=== PATIENT | male | born 1970 | race Caucasian/White ===

== ENCOUNTER 2016-12-23 21:33 | Inpatient (IN) | payer OTHER ==
[~2016-12-23] VITALS: Ht 180.3 cm; Wt 102.7 kg
[~2016-12-23 21:33] MED LIST: CEPH500C PO; HYDR-906 PO
[2016-12-24 02:29] VITALS: BP 21/58; PULSE 95; RESP 19
[2016-12-24 02:32] VITALS: Ht 180.3 cm; Wt 102.7 kg
[2016-12-24] MEDS ORDERED: FURO20TA3 PO (02:34)
[2016-12-24] MEDS ORDERED: FOLI-49 PO (02:34)
[2016-12-24] MEDS ORDERED: THIA50TA PO (02:34)
[2016-12-24] MEDS ORDERED: SPIR25TA PO (02:34)
[2016-12-24] MEDS ORDERED: ACETAMINOPHEN 325 MG TAB PO PRN (03:30)
[2016-12-24] MEDS ORDERED: morphine 2 MG INJ IV PRN (03:30)
[2016-12-24] MEDS ORDERED: ONDANSETRON 4 MG INJ IV PRN (03:30)
[2016-12-24] MEDS ORDERED: VANCOMYCIN IV PER PHARMACY XX SCH (03:30)
[2016-12-24] MEDS ORDERED: VANCOMYCIN 2 GM in SOD CHLORIDE 0.9% 500 ML IVPB ONE (04:00)
[2016-12-24 04:57] LABS: ABNORMAL IP MESSAGE 1; BASOPHIL # 0.1 10^3/ul (0.0-0.1); BASOPHILS % 0.6 % (0.0-2.0); EOSINOPHILS % 0.1 % (0.0-7.0); HEMATOCRIT 30.8 % (42.0-52.0); HEMOGLOBIN 10.7 g/dl (14.0-18.0); LYMPHOCYTES # 0.8 10^3/ul (0.8-2.9); LYMPHOCYTES % 7.7 % (15.0-51.0); MEAN CORPUSCULAR HEMOGLOBIN 36.6 pg (29.0-33.0); MEAN CORPUSCULAR HGB CONC 34.7 g/dl (32.0-37.0); MEAN CORPUSCULAR VOLUME 105.5 fl (82.0-101.0); MEAN PLATELET VOLUME 10.2 fl (7.4-10.4); MONOCYTE # 0.6 10^3/ul (0.3-0.9); MONOCYTES % 5.6 % (0.0-11.0); NEUTROPHIL # 9.2 10^3/ul (1.6-7.5); NEUTROPHILS % 85.1 % (39.0-77.0); PLATELET COUNT 54 10^3/UL (140-415); POSITIVE DIFF @See below; RED BLOOD COUNT 2.92 10^6/ul (4.70-6.10); RED CELL DISTRIBUTION WIDTH 14.6 % (11.5-14.5); WHITE BLOOD COUNT 10.8 10^3/ul (4.8-10.8)
[2016-12-24 05:37] LABS: ALBUMIN 2.2 g/dl (3.3-4.9); BILIRUBIN,DIRECT 1.6 mg/dl (0.00-0.20); BILIRUBIN,INDIRECT 7.2 mg/dl (0-1.1); BILIRUBIN,TOTAL 8.8 mg/dl (0.2-1.3); TOTAL PROTEIN 6.1 g/dl (6.1-8.1)
--- NOTE | 2016-12-24 05:44 | HP ---
Date/Time of Note Date/Time of Note DATE: 12/24/16 TIME: 05:32 Assessment/Plan VTE Prophylaxis VTE Prophylaxis Intervention: SCD's Lines/Catheters IV Catheter Type (from [facility]): Saline Lock Assessment/Plan Assessment/Plan 1. Right lower extremity cellulitis -He will be placed on antibiotics. We will follow up on the blood culture results. 2. Decompensated liver cirrhosis: Patient is currently on transplant list at [facility]. His last drink was in May of last year. -We will continue his Lasix and Aldactone. I will start him on lactulose especially given reported symptoms of hepatic encephalopathy. If his blood pressure allows I will also start him on propranolol. Patient was scheduled for outpatient surveillance EGD but he said he missed it. He will follow-up once she is discharged. -We will order right upper quadrant ultrasound and ammonia level 3. Elevated transaminases: Secondary to above. 4. Macrocytic anemia: Secondary to liver disease. -We will check FOBT to make sure there is no GI blood loss. HPI/ROS Admit Date/Time Admit Date/Time Dec 24, 2016 at 02:22 Hx of Present Illness This is a 46-year-old male with a history of alcoholic liver cirrhosis who presented to the emergency department complaining of right lower extremity swelling redness and warmth. He was initially seen at the outside hospital but transferred to [facility] because of insurance reason. He said about a month and half ago he had a similar problem on his left lower extremity which resolved after a few days of antibiotics. He also reported associated subjective fever. Patient is currently at the liver transplant list at [facility]. He said he has been drinking heavily most of his life up until May of last year when he found out about his liver cirrhosis. He denied history of GI bleed, dark stool or paracentesis. He however reported that he has been feeling very lethargic and he has been using either a walker or a wheelchair and also at times he has been forgetful. Patient appears slightly tired and he is jaundiced. At the outside hospital he had a white count of 16,000 and here after admission his white count 10,000 but he has a temperature of 100.1. PMH/Family/Social Social History Smoking Status: Never smoker Exam/Review of Systems Vital Signs Vitals Vital Signs Date Time Temp Pulse Resp B/P Pulse Ox O2 Delivery O2 Flow Rate FiO2 12/24/16 02:29 100.1 95 19 21/58 99 Room Air Intake and Output 12/23/16 12/23/16 12/24/16 15:00 23:00 07:00 Intake Total 300 ml Balance 300 ml Exam Constitutional: alert, oriented, well developed Head: atraumatic, normocephalic Eyes: icteric Neck: non-tender, supple Respiratory: clear to auscultation, normal air movement Cardiovascular: nl pulses, regular rate and rhythm Gastrointestinal: distended, non-tender Extremities: other (There is bilateral lower extremity pitting edema. Right leg is more swollen than the right and it is also warm to touch. There is also hyperpigmentation of the bilateral lower extremities.) Labs Result Diagram: 12/24/16 0425 Medications Medications Current Medications Acetaminophen 325 mg 325 mg Q6H PRN PO PAIN AND OR ELEVATED TEMP; Start at 03:30 Cefepime HCl (Maxipime 1gm/50 ml (Pmx)) 50 ml @ 100 mls/hr Q12 IVPB ; Start at 09:00 Ondansetron HCl (Zofran Inj) 4 mg Q6H PRN IV NAUSEA AND/OR VOMITING; Start at 03:30 Morphine Sulfate (morphine) 2 mg Q4H PRN IV pain; Start 12/24/16 at 03:30 Folic Acid (Folic Acid) 1 mg DAILY PO ; Start 12/24/16 at 09:00 Spironolactone (Aldactone) 25 mg DAILY PO ; Start 12/24/16 at 09:00 Thiamine HCl 50 mg 50 mg DAILY PO ; Start 12/24/16 at 09:00 Vancomycin HCl/ Sodium Chloride (Vancocin/NS) 500 ml @ 125 mls/hr ONCE ONCE IVPB Last administered on 12/24/16t 04:33; Admin Dose 125 MLS/HR; Start at 04:00; Stop 12/24/16 at 07:59 JS JACKSON MD Dec 24, 2016 05:43
[2016-12-24 06:00] VITALS: BP 105/55
[2016-12-24] MEDS ORDERED: LACTULOSE 30ML CUP PO SCH (06:00)
[2016-12-24] MEDS: FUROSEMIDE 20 MG TAB PO SCH ×2 (06:01→18:17)
[2016-12-24 06:55] LABS: ALBUMIN 2.3 g/dl (3.3-4.9); ALBUMIN/GLOBULIN RATIO 0.6; BILIRUBIN,DIRECT 1.8 mg/dl (0.00-0.20); BILIRUBIN,INDIRECT 7.2 mg/dl (0-1.1); CALCIUM 7.7 mg/dl (8.4-10.2); CREATININE 0.86 mg/dl (0.61-1.24); MAGNESIUM 1.4 mg/dl (1.7-2.5); PHOSPHORUS 2.6 mg/dl (2.5-4.9); POTASSIUM 4.2 mmol/L (3.5-5.1); TOTAL PROTEIN 6.1 g/dl (6.1-8.1)
[2016-12-24 07:49] VITALS: BP 99/58; RESP 18
[2016-12-24] MEDS ORDERED: SPIRONOLACTONE 25 MG TAB PO SCH (09:00)
--- NOTE | 2016-12-24 10:43 | RADRPT ---
PROCEDURE: US Abdomen and Retroperitoneum. CLINICAL INDICATION: Cirrhosis. TECHNIQUE: Multiple real-time longitudinal and transverse images were acquired of the patient's ab domen and retroperitoneum utilizing a curved array transducer. COMPARISON: No prior studies are available for comparison. FINDINGS: The liver is normal in size and normal in echogenicity. The liver has a nodular surface consistent with cirrhosis. There is no focal hepatic lesion. Color Doppler and pulsed Doppler sonography demons trate normal antegrade flow in the portal vein. The gallbladder is normal with no stones or wall thickening. The bile ducts are normal with the common bile duct measuring 4.0 mm in diameter. The spleen is enlarged measuring 18.6 cm in length. There is no focal splenic lesion. The pancreas is not visualized due to overlying bowel gas and ascites. There is moderate ascites. The right kidney measures 10.2 x 4.6 x 5.7 cm and the left kidney measures 11.5 x 5.0 x 5.2 cm. There is no renal mass. There is no hydronephrosis or calculus. The abdominal aorta is not dilated. The inferior vena cava is unremarkable. IMPRESSION: 1. Nodular liver consistent with cirrhosis. No focal hepatic lesion. 2. Splenomegaly. 3. Pancreas not visualized. 4. Moderate ascites. 5. Otherwise normal ultrasound of the abdomen and retroperitoneum. RPTAT: QQ .David Mosley MD, Date Time Electronically viewed and signed by .David Mosley MD, on 12/24/2016 10:43 .R/
[2016-12-24] MEDS: THIAMINE 100 MG TAB PO SCH (10:54)
[2016-12-24] MEDS: FOLIC ACID 1 MG TAB PO SCH (10:54)
[2016-12-24] MEDS: CEFEPIME 1GM/50 ML (PMX) 50 ML IVPB SCH ×2 (10:56→20:32)
--- NOTE | 2016-12-24 13:25 | QN ---
Documentation Comment Patient is a 46-year-old male with a past medical history significant for end-stage liver cirrhosis on the transplant list at [facility], who presents for right lower extremity cellulitis Assessment Decompensated liver cirrhosis Right lower extremity cellulitis LE bilateral edema Elevated transaminases Elevated bilirubin Anemia Plan -Broad-spectrum antibiotics for cellulitis, will transition to orals as possible -GI, Dr. Lin consulted for end-stage liver disease -Increase spironolactone from 25 mg to 50 mg -Pain medication as needed SPENCER Schmitz Dec 24, 2016 13:25
[2016-12-24] MEDS: VANCOMYCIN 1.25 GM in SOD CHLORIDE 0.9% 250 ML IVPB SCH ×2 (14:22→21:30)
[2016-12-24 14:31] VITALS: BP 106/59; RESP 18
--- NOTE | 2016-12-24 14:55 | CONS ---
Date/Time of Note Date/Time of Note DATE: 12/24/16 TIME: 14:39 Assessment/Plan Assessment/Plan Additional Assessment/Plan Assessment * Cellulitis right lower leg * Ascites moderate by ultrasound Cirrhosis of liver secondary to alcohol * Transaminase elevated Plan * continue present management * EGD on Monday for surveillance of varices,risks and benefit explain to patient agreed with the planned procedure * further orders will depend on clinical course Consultation Date/Type/Reason Admit Date/Time Dec 24, 2016 at 02:22 Date of Consultation: Dec 24, 2016 Type of Consultation: Gastroenterology Reason for Consultation * liver cirrhosis Referring Provider: SPENCER JADE Hx of Present Illness 46 year old male with endstage liver disease,ascites secondary to alcoholic liver disease ,claims to be under liver transplant list at [facility] presented in our emergency room because of right leg pain.present condition started 1 day prior to consult as left leg pain which is warm to touch with associated fever.He denies any nausea ,vomiting,abdominal pain,hematemesis nor hematochezia.He also mentioned that he is scheduled to have EGD at [facility] for surveillance but failed to do .Presently patient is afebrile,no abdominal pain.CBC revealed WBC 10.8, hemoglobin 10.7,hematocrit 30.8,total bilirubin 8,ast 62,alt 52 alkaline phosphatase 178,ammonia 9 Constitutional: improved, no complaints Eyes: no complaints ENT: no complaints Respiratory: no complaints Cardiovascular: no complaints Gastrointestinal: no complaints Genitourinary: no complaints Musculoskeletal: no complaints Skin: no complaints Neurologic: no complaints Endocrine: no complaints Lymphatic: no complaints Psychological: nl mood/affect, no complaints Immunologic: no complaints Past Medical History Medical History: other (alcoholoic liver cirrhosis) Past Surgical History Past Surgical Hx: no surgical history Family History Significant Family History: no pertinent family hx Social History Alcohol Use: sober Smoking Status: Never smoker Drug Use: none Exam/Review of Systems Vital Signs Vitals Vital Signs Date Time Temp Pulse Resp B/P Pulse Ox O2 Delivery O2 Flow Rate FiO2 12/24/16 14:31 98.3 79 18 106/59 99 12/24/16 02:29 Room Air Intake and Output 12/23/16 12/23/16 12/24/16 15:00 23:00 07:00 Intake Total 300 ml Balance 300 ml Exam Constitutional: alert, oriented, well developed Psych: nl mood/affect, no complaints Head: atraumatic, normocephalic Eyes: EOMI, PERRL, nl conjunctiva, nl lids, nl sclera ENMT: nl external ears & nose, nl lips & teeth, nl nasal mucosa & septum Neck: non-tender, supple Respiratory: clear to auscultation, normal air movement Cardiovascular: nl pulses, regular rate and rhythm Gastrointestinal: ascites, bowel sounds, distended, non-tender, soft, No rebound or guarding Musculoskeletal: nl gait and stance, swelling Extremities: normal pulses, other (warm to touch), pitting pedal edema, tenderness Neurological: nl mental status, nl speech, nl strength Skin: nl turgor, No rash or lesions Lymph: nl lymph nodes Results Result Diagram: 12/24/1642412/24/16424 Results 24 hrs Laboratory Tests Test 12/24/16 04:25 12/24/16 05:35 White Blood Count 10.8 Red Blood Count 2.92 L Hemoglobin 10.7 L Hematocrit 30.8 L Mean Corpuscular Volume 105.5 H Mean Corpuscular Hemoglobin 36.6 H Mean Corpuscular Hemoglobin Concent 34.7 Red Cell Distribution Width 14.6 H Platelet Count 54 L Mean Platelet Volume 10.2 Neutrophils % 85.1 H Lymphocytes % 7.7 L Monocytes % 5.6 Eosinophils % 0.1 Basophils % 0.6 Nucleated Red Blood Cells % 0.0 Neutrophils # 9.2 H Lymphocytes # 0.8 Monocytes # 0.6 Eosinophils # 0.0 Basophils # 0.1 Nucleated Red Blood Cells # 0.0 Sodium Level 137 Potassium Level 4.2 Chloride Level 109 Carbon Dioxide Level 17 L Anion Gap 15 Blood Urea Nitrogen 13 Creatinine 0.86 Glucose Level 137 Calcium Level 7.7 L Phosphorus Level 2.6 Magnesium Level 1.4 L Total Bilirubin 9.0 H Direct Bilirubin 1.80 H Indirect Bilirubin 7.2 H Aspartate Amino Transf (AST/SGOT) 62 H Alanine Aminotransferase (ALT/SGPT) 53 Alkaline Phosphatase 178 H Total Protein 6.1 Albumin 2.3 L Globulin 3.80 H Albumin/Globulin Ratio 0.60 Ammonia < 9 L Medications Medications Current Medications Acetaminophen 325 mg 325 mg Q6H PRN PO PAIN AND OR ELEVATED TEMP; Start at 03:30 Cefepime HCl (Maxipime 1gm/50 ml (Pmx)) 50 ml @ 100 mls/hr Q12 IVPB Last administered on 12/24/16 10:56; Admin Dose 100 MLS/HR; Start 12/24/16 at 09:00 Ondansetron HCl (Zofran Inj) 4 mg Q6H PRN IV NAUSEA AND/OR VOMITING; Start at 03:30 Morphine Sulfate (morphine) 2 mg Q4H PRN IV pain; Start 12/24/16 at 03:30 Folic Acid (Folic Acid) 1 mg DAILY PO Last administered on 12/24/16 10:54; Admin Dose 1 MG; Start 12/24/16 at 09:00 Thiamine HCl (Vitamin B1) 50 mg DAILY PO Last administered on 12/24/16 10:54; Admin Dose 50 MG; Start 12/24/16 at 09:00 Lactulose 20 gm 20 gm Q8 PO Last administered on 12/24/16 06:00; Admin Dose 20 GM; Start 12/24/16 at 06:00; Status Future Hold Vancomycin HCl/ Sodium Chloride (Vancocin/NS) 250 ml @ 83.333 mls/ hr Q8H IVPB Last administered on 12/24/16 14:22; Admin Dose 83.333 MLS/HR; Start at 14:00 Miscellaneous Information (*Rx Drug Level Order Reminder*) VANCOMYCIN TROUGH AT 0500 ONCE ONCE XX ; Start 12/25/16 at 05:00; Stop 12/25/16 at 05:01 Spironolactone (Aldactone) 50 mg DAILY PO ; Start 12/25/16 at 09:00 ANNABELLE BOBBY MD Dec 24, 2016 14:49
[2016-12-24 17:49] VITALS: BP 116/59; RESP 18
[2016-12-24 19:57] VITALS: BP 119/58; RESP 20
[2016-12-25] MEDS: LORAZEPAM 2 MG INJ IV PRN ×2 (00:56→22:28)
[2016-12-25] MEDS: ALBUMIN HUMAN 25% 50 ML IV SCH ×3 (00:58→14:00)
[2016-12-25 01:43] VITALS: BP 99/57; RESP 20
[2016-12-25] MEDS: FUROSEMIDE 20 MG TAB PO SCH ×2 (06:00→18:16)
[2016-12-25] MEDS: VANCOMYCIN 1.25 GM in SOD CHLORIDE 0.9% 250 ML IVPB SCH (06:21)
[2016-12-25 06:40] LABS: ABNORMAL IP MESSAGE 1; BASOPHIL # 0.1 10^3/ul (0.0-0.1); BASOPHILS % 0.7 % (0.0-2.0); EOSINOPHILS # 0.3 10^3/ul (0.0-0.5); EOSINOPHILS % 2.4 % (0.0-7.0); HEMATOCRIT 27.7 % (42.0-52.0); HEMOGLOBIN 9.7 g/dl (14.0-18.0); LYMPHOCYTES # 1.8 10^3/ul (0.8-2.9); LYMPHOCYTES % 13.7 % (15.0-51.0); MEAN CORPUSCULAR HEMOGLOBIN 37.3 pg (29.0-33.0); MEAN CORPUSCULAR VOLUME 106.5 fl (82.0-101.0); MEAN PLATELET VOLUME 10.5 fl (7.4-10.4); MONOCYTE # 1.8 10^3/ul (0.3-0.9); MONOCYTES % 13.4 % (0.0-11.0); NEUTROPHIL # 8.7 10^3/ul (1.6-7.5); NEUTROPHILS % 65.7 % (39.0-77.0); NUCLEATED RED BLOOD CELLS% 0.2 /100WBC (0.0-0.0); PLATELET COUNT 60 10^3/UL (140-415); POSITIVE DIFF @See below; RED CELL DISTRIBUTION WIDTH 14.1 % (11.5-14.5); WHITE BLOOD COUNT 13.2 10^3/ul (4.8-10.8)
[2016-12-25 06:54] LABS: INR 2.24
[2016-12-25 06:55] LABS: PARTIAL THROMBOPLASTIN TIME 48.4 Sec (25.0-35.0)
[2016-12-25 06:58] LABS: ALBUMIN 2.4 g/dl (3.3-4.9); BILIRUBIN,DIRECT 2.9 mg/dl (0.00-0.20); BILIRUBIN,INDIRECT 6.6 mg/dl (0-1.1); BILIRUBIN,TOTAL 9.5 mg/dl (0.2-1.3); CALCIUM 8.4 mg/dl (8.4-10.2); CREATININE 0.78 mg/dl (0.61-1.24); MAGNESIUM 1.7 mg/dl (1.7-2.5); PHOSPHORUS 2.2 mg/dl (2.5-4.9); POTASSIUM 4.4 mmol/L (3.5-5.1); TOTAL PROTEIN 6.4 g/dl (6.1-8.1)
[2016-12-25 07:58] VITALS: BP 108/57; RESP 19
[2016-12-25] MEDS: THIAMINE 100 MG TAB PO SCH (09:10)
[2016-12-25] MEDS: CEFEPIME 1GM/50 ML (PMX) 50 ML IVPB SCH ×2 (09:10→20:54)
[2016-12-25] MEDS: SPIRONOLACTONE 50 MG TAB PO SCH (09:10)
[2016-12-25] MEDS: FOLIC ACID 1 MG TAB PO SCH (09:10)
[2016-12-25 13:54] VITALS: BP 110/56; RESP 19
--- NOTE | 2016-12-25 14:52 | PN ---
Date/Time of Note Date/Time of Note DATE: 12/25/16 TIME: 14:50 Assessment/Plan VTE Prophylaxis VTE Prophylaxis Intervention: ambulation Lines/Catheters IV [facility]ter Type (from [facility]): Saline Lock Assessment/Plan Chief Complaint/Hosp Course Patient is a 46-year-old male who presents to [facility] complaining of right lower extremity swelling redness and warmth. Patient has a history of alcoholic liver cirrhosis on the transplant list at [facility]. Assessment Right lower extremity cellulitis, resolving Decompensated liver cirrhosis Elevated transaminases Elevated bilirubin Microcytic anemia Ascites lower extremity bilateral edema Plan -Continue broad-spectrum antibiotics for now for cellulitis, resolving, will transition to orals before discharge -GI has been consulted, possible EGD tomorrow -Paracentesis has also been ordered, however radiology states INR is too high, will order 2 units of FFP to be done right before paracentesis scheduled for December 26. -Continue medications as tolerated, increased dose of spironolactone from 25-50 mg yesterday, consider increase if needed. Matt Jade DO Problems: Subjective 24 Hr Interval Summary Free Text/Dictation no acute change. awaiting paracentesis and EGD Exam/Review of Systems Vital Signs Vitals Vital Signs Date Time Temp Pulse Resp B/P Pulse Ox O2 Delivery O2 Flow Rate FiO2 12/25/16 13:54 98.7 92 19 110/56 97 12/24/16 02:29 Room Air Intake and Output 12/24/16 12/24/16 12/25/16 15:00 23:00 07:00 Intake Total 550 ml 890 ml 350 ml Output Total 300 ml Balance 550 ml 890 ml 50 ml Exam Physical exam General: Patient is laying in bed and answers questions appropriately Mentation: Patient is alert and oriented 4, Head: Normocephalic atraumatic Eyes: EOMI, pupils reactive to light Neck: Supple, nontender, midline Respiratory: Clear to auscultation bilaterally Cardiovascular: regular rate, no obvious murmurs Gastrointestinal: non-tender to palpation, bowel sounds heard. mildly distended Neurological: Moves all extremities spontaneously Skin: bilateral 2+ edema, slightly worse on R side. Results Result Diagram: 12/25/16 0505 12/25/16 0505 Results 24 hrs Laboratory Tests Test 12/25/16 05:05 White Blood Count 13.2 #H Red Blood Count 2.60 L Hemoglobin 9.7 L Hematocrit 27.7 L Mean Corpuscular Volume 106.5 H Mean Corpuscular Hemoglobin 37.3 H Mean Corpuscular Hemoglobin Concent 35.0 Red Cell Distribution Width 14.1 Platelet Count 60 L Mean Platelet Volume 10.5 H Neutrophils % 65.7 Lymphocytes % 13.7 L Monocytes % 13.4 H Eosinophils % 2.4 Basophils % 0.7 Nucleated Red Blood Cells % 0.2 H Neutrophils # 8.7 H Lymphocytes # 1.8 Monocytes # 1.8 H Eosinophils # 0.3 Basophils # 0.1 Nucleated Red Blood Cells # 0.0 Prothrombin Time 25.0 H Prothrombin Time Ratio 2.0 INR International Normalized Ratio 2.24 Activated Partial Thromboplast Time 48.4 H Sodium Level 136 Potassium Level 4.4 Chloride Level 102 Carbon Dioxide Level 22 Anion Gap 16 Blood Urea Nitrogen 16 Creatinine 0.78 Glucose Level 107 Calcium Level 8.4 Phosphorus Level 2.2 L Magnesium Level 1.7 Total Bilirubin 9.5 H Direct Bilirubin 2.90 #H Indirect Bilirubin 6.6 H Aspartate Amino Transf (AST/SGOT) 51 H Alanine Aminotransferase (ALT/SGPT) 43 Alkaline Phosphatase 122 H Total Protein 6.4 Albumin 2.4 L Vancomycin Level Trough 17.6 Medications Medications Current Medications Acetaminophen 325 mg 325 mg Q6H PRN PO PAIN AND OR ELEVATED TEMP Last administered on 12/25/16 01:51; Admin Dose 325 MG; Start 12/24/16 at 03:30 Cefepime HCl (Maxipime 1gm/50 ml (Pmx)) 50 ml @ 100 mls/hr Q12 IVPB Last administered on 12/25/16 09:10; Admin Dose 100 MLS/HR; Start 12/24/16 at 09:00 Ondansetron HCl (Zofran Inj) 4 mg Q6H PRN IV NAUSEA AND/OR VOMITING; Start at 03:30 Morphine Sulfate (morphine) 2 mg Q4H PRN IV pain; Start 12/24/16 at 03:30 Folic Acid (Folic Acid) 1 mg DAILY PO Last administered on 12/25/16 09:10; Admin Dose 1 MG; Start 12/24/16 at 09:00 Thiamine HCl (Vitamin B1) 50 mg DAILY PO Last administered on 12/25/16 09:10; Admin Dose 50 MG; Start 12/24/16 at 09:00 Lactulose (Enulose) 20 gm Q8 PO Last administered on 12/24/16 06:00; Admin Dose 20 GM; Start 12/24/16 at 06:00; Status Future Hold Spironolactone (Aldactone) 50 mg DAILY PO Last administered on 12/25/16 09:10 ; Admin Dose 50 MG; Start 12/25/16 at 09:00 Lorazepam 1 mg 1 mg Q4 PRN IV ANXIETY Last administered on 12/25/16 00:56; Admin Dose 1 MG; Start 12/25/16 at 00:00 Vancomycin HCl (Vancocin) 250 ml @ 125 mls/hr Q8H IVPB ; Start 12/25/16 at 14: 00 MTAT JADE Dec 25, 2016 14:52
[2016-12-25] MEDS: VANCOMYCIN 1 GM in NS 250 ML IVPB SCH ×2 (15:38→22:35)
--- NOTE | 2016-12-25 19:38 | PN ---
Date/Time of Note Date/Time of Note DATE: 12/25/16 TIME: 19:35 Assessment/Plan VTE Prophylaxis VTE Prophylaxis Intervention: ambulation Lines/Catheters IV Catheter Type (from [facility]rs): Saline Lock Assessment/Plan Assessment/Plan Assessment * Cellulitis right lower leg * Anemia * Ascites moderate by ultrasound Cirrhosis of liver secondary to alcohol * Transaminase elevated Plan * continue present management * EGD on Monday for surveillance of varices,risks and benefit explain to patient agreed with the planned procedure * further orders will depend on clinical course Subjective 24 Hr Interval Summary Free Text/Dictation * course reviewed * patient seen and examined * no untoward events overnight Exam/Review of Systems Vital Signs Vitals Vital Signs Date Time Temp Pulse Resp B/P Pulse Ox O2 Delivery O2 Flow Rate FiO2 12/25/16 13:54 98.7 92 19 110/56 97 12/24/16 02:29 Room Air Intake and Output 12/24/16 12/24/16 12/25/16 15:00 23:00 07:00 Intake Total 550 ml 890 ml 350 ml Output Total 300 ml Balance 550 ml 890 ml 50 ml Exam Constitutional: alert, oriented Neck: non-tender, supple Respiratory: clear to auscultation, normal air movement Cardiovascular: nl pulses, regular rate and rhythm Gastrointestinal: non-tender, soft Musculoskeletal: nl extremities to inspection, nl gait and stance Neurological: nl speech, nl strength Skin: nl turgor, No rash or lesions Results Result Diagram: 12/25/16 0505 12/25/16 0505 Results 24 hrs Laboratory Tests Test 12/25/16 05:05 White Blood Count 13.2 #H Red Blood Count 2.60 L Hemoglobin 9.7 L Hematocrit 27.7 L Mean Corpuscular Volume 106.5 H Mean Corpuscular Hemoglobin 37.3 H Mean Corpuscular Hemoglobin Concent 35.0 Red Cell Distribution Width 14.1 Platelet Count 60 L Mean Platelet Volume 10.5 H Neutrophils % 65.7 Lymphocytes % 13.7 L Monocytes % 13.4 H Eosinophils % 2.4 Basophils % 0.7 Nucleated Red Blood Cells % 0.2 H Neutrophils # 8.7 H Lymphocytes # 1.8 Monocytes # 1.8 H Eosinophils # 0.3 Basophils # 0.1 Nucleated Red Blood Cells # 0.0 Prothrombin Time 25.0 H Prothrombin Time Ratio 2.0 INR International Normalized Ratio 2.24 Activated Partial Thromboplast Time 48.4 H Sodium Level 136 Potassium Level 4.4 Chloride Level 102 Carbon Dioxide Level 22 Anion Gap 16 Blood Urea Nitrogen 16 Creatinine 0.78 Glucose Level 107 Calcium Level 8.4 Phosphorus Level 2.2 L Magnesium Level 1.7 Total Bilirubin 9.5 H Direct Bilirubin 2.90 #H Indirect Bilirubin 6.6 H Aspartate Amino Transf (AST/SGOT) 51 H Alanine Aminotransferase (ALT/SGPT) 43 Alkaline Phosphatase 122 H Total Protein 6.4 Albumin 2.4 L Vancomycin Level Trough 17.6 Medications Medications Current Medications Acetaminophen 325 mg 325 mg Q6H PRN PO PAIN AND OR ELEVATED TEMP Last administered on 12/25/16 01:51; Admin Dose 325 MG; Start 12/24/16 at 03:30 Cefepime HCl (Maxipime 1gm/50 ml (Pmx)) 50 ml @ 100 mls/hr Q12 IVPB Last administered on 12/25/16 09:10; Admin Dose 100 MLS/HR; Start 12/24/16 at 09:00 Ondansetron HCl (Zofran Inj) 4 mg Q6H PRN IV NAUSEA AND/OR VOMITING; Start at 03:30 Morphine Sulfate (morphine) 2 mg Q4H PRN IV pain; Start 12/24/16 at 03:30 Folic Acid (Folic Acid) 1 mg DAILY PO Last administered on 12/25/16 09:10; Admin Dose 1 MG; Start 12/24/16 at 09:00 Thiamine HCl (Vitamin B1) 50 mg DAILY PO Last administered on 12/25/16 09:10; Admin Dose 50 MG; Start 12/24/16 at 09:00 Lactulose (Enulose) 20 gm Q8 PO Last administered on 12/24/16 06:00; Admin Dose 20 GM; Start 12/24/16 at 06:00; Status Future Hold Spironolactone (Aldactone) 50 mg DAILY PO Last administered on 12/25/16 09:10 ; Admin Dose 50 MG; Start 12/25/16 at 09:00 Lorazepam 1 mg 1 mg Q4 PRN IV ANXIETY Last administered on 12/25/16 00:56; Admin Dose 1 MG; Start 12/25/16 at 00:00 Vancomycin HCl (Vancocin) 250 ml @ 125 mls/hr Q8H IVPB Last administered on t 15:38; Admin Dose 125 MLS/HR; Start 12/25/16 at 14:00 CARLY JOSEPH NP Dec 25, 2016 19:38
[2016-12-25 20:11] VITALS: BP 105/57; RESP 18
[2016-12-26] VITALS (13 sets, daily range): BP systolic 95–122; BP diastolic 51–66; PULSE 74–97; RESP 16–19
[2016-12-26] MEDS: VANCOMYCIN 1 GM in NS 250 ML IVPB SCH ×3 (05:51→21:45)
[2016-12-26 05:54] LABS: ABNORMAL IP MESSAGE 1; BASOPHIL # 0.1 10^3/ul (0.0-0.1); BASOPHILS % 0.8 % (0.0-2.0); EOSINOPHILS # 0.4 10^3/ul (0.0-0.5); EOSINOPHILS % 4.7 % (0.0-7.0); HEMATOCRIT 24.1 % (42.0-52.0); HEMOGLOBIN 8.4 g/dl (14.0-18.0); LYMPHOCYTES # 1.7 10^3/ul (0.8-2.9); LYMPHOCYTES % 19.3 % (15.0-51.0); MEAN CORPUSCULAR HEMOGLOBIN 36.2 pg (29.0-33.0); MEAN CORPUSCULAR HGB CONC 34.9 g/dl (32.0-37.0); MEAN CORPUSCULAR VOLUME 103.9 fl (82.0-101.0); MEAN PLATELET VOLUME 10.2 fl (7.4-10.4); MONOCYTE # 1.4 10^3/ul (0.3-0.9); MONOCYTES % 15.3 % (0.0-11.0); NEUTROPHILS % 56.1 % (39.0-77.0); PLATELET COUNT 52 10^3/UL (140-415); POSITIVE DIFF @See below; RED BLOOD COUNT 2.32 10^6/ul (4.70-6.10); RED CELL DISTRIBUTION WIDTH 13.7 % (11.5-14.5); WHITE BLOOD COUNT 8.9 10^3/ul (4.8-10.8)
[2016-12-26] MEDS: FUROSEMIDE 20 MG TAB PO SCH ×2 (05:56→18:00)
[2016-12-26 06:16] LABS: INR 2.46; PT RATIO 2.1
[2016-12-26 06:42] LABS: ALBUMIN/GLOBULIN RATIO 0.57; BILIRUBIN,DIRECT 1.7 mg/dl (0.00-0.20); BILIRUBIN,INDIRECT 4.5 mg/dl (0-1.1); BILIRUBIN,TOTAL 6.2 mg/dl (0.2-1.3); CALCIUM 7.8 mg/dl (8.4-10.2); CREATININE 0.76 mg/dl (0.61-1.24); POTASSIUM 3.9 mmol/L (3.5-5.1); TOTAL PROTEIN 5.5 g/dl (6.1-8.1)
[2016-12-26] MEDS: THIAMINE 100 MG TAB PO SCH (09:00)
[2016-12-26] MEDS: SPIRONOLACTONE 50 MG TAB PO SCH (09:00)
[2016-12-26] MEDS: FOLIC ACID 1 MG TAB PO SCH (09:00)
[2016-12-26] MEDS: CEFEPIME 1GM/50 ML (PMX) 50 ML IVPB SCH ×2 (10:30→20:08)
--- NOTE | 2016-12-26 11:14 | PN ---
Date/Time of Note Date/Time of Note DATE: 12/26/16 TIME: 11:10 Assessment/Plan VTE Prophylaxis VTE Prophylaxis Intervention: contraindicated, SCD's Lines/Catheters IV Catheter Type (from Nrs): Saline Lock Assessment/Plan Chief Complaint/Hosp Course 46 yo male wiht decompensated etoh cirrhosis, alcohol use d/o, presenting with cellulitis and found to have staph aureus bacteremia Staph bactermia with cellulitis: - Continue vanco/cefepime for now until cultures finalized - Daily BC until confirmed bactremia is cleared - Likely will need prolonged course of abx - TTE to rule out vegetation/endocarditis Cirrhosis with varicies, ascites, jaundice: - Continue lasix 20, gisell 50, having approrpiate effect - No HE on exam so will hold on lactulose/rifaxamin - Diagonstic paracentesis today Problems: Subjective 24 Hr Interval Summary Free Text/Dictation BC growing staph aureus Pt says he feels much better than he did on arrival. Feels his infection in his leg is resolved. Denies systemic symptoms. Also says abdomen is much less distended Exam/Review of Systems Vital Signs Vitals Vital Signs Date Time Temp Pulse Resp B/P Pulse Ox O2 Delivery O2 Flow Rate FiO2 12/26/16 07:53 98.3 80 18 101/55 97 12/24/16 02:29 Room Air Intake and Output 12/25/16 12/25/16 12/26/16 15:00 23:00 07:00 Intake Total 350 ml 1180 ml 350 ml Balance 350 ml 1180 ml 350 ml Exam Alert, oriented, no distress No overt HE on exam, no asterixis RRR, 1/6 systolic murmur, flat neck veins Abdomen soft nt, some distension w ascites Legs b/l w pitting edema to calves, some warmth in RLE but no erythema, seems celluitis is resolved Results Result Diagram: 12/26/1626 12/26/16525 Results 24 hrs Laboratory Tests Test 12/26/16 05:26 White Blood Count 8.9 # Red Blood Count 2.32 L Hemoglobin 8.4 L Hematocrit 24.1 L Mean Corpuscular Volume 103.9 H Mean Corpuscular Hemoglobin 36.2 H Mean Corpuscular Hemoglobin Concent 34.9 Red Cell Distribution Width 13.7 Platelet Count 52 L Mean Platelet Volume 10.2 Neutrophils % 56.1 Lymphocytes % 19.3 Monocytes % 15.3 H Eosinophils % 4.7 Basophils % 0.8 Nucleated Red Blood Cells % 0.0 Neutrophils # 5.0 Lymphocytes # 1.7 Monocytes # 1.4 H Eosinophils # 0.4 Basophils # 0.1 Nucleated Red Blood Cells # 0.0 Prothrombin Time 27.0 H Prothrombin Time Ratio 2.1 INR International Normalized Ratio 2.46 Sodium Level 133 L Potassium Level 3.9 Chloride Level 106 Carbon Dioxide Level 19 L Anion Gap 12 Blood Urea Nitrogen 14 Creatinine 0.76 Glucose Level 100 Calcium Level 7.8 L Total Bilirubin 6.2 #H Direct Bilirubin 1.70 #H Indirect Bilirubin 4.5 H Aspartate Amino Transf (AST/SGOT) 36 Alanine Aminotransferase (ALT/SGPT) 45 Alkaline Phosphatase 83 Total Protein 5.5 L Albumin 2.0 L Globulin 3.50 H Albumin/Globulin Ratio 0.57 Medications Medications Current Medications Acetaminophen 325 mg 325 mg Q6H PRN PO PAIN AND OR ELEVATED TEMP Last administered on 12/25/16 01:51; Admin Dose 325 MG; Start 12/24/16 at 03:30 Cefepime HCl (Maxipime 1gm/50 ml (Pmx)) 50 ml @ 100 mls/hr Q12 IVPB Last administered on 12/26/16 10:30; Admin Dose 100 MLS/HR; Start 12/24/16 at 09:00 Ondansetron HCl (Zofran Inj) 4 mg Q6H PRN IV NAUSEA AND/OR VOMITING; Start at 03:30 Morphine Sulfate (morphine) 2 mg Q4H PRN IV pain; Start 12/24/16 at 03:30 Folic Acid (Folic Acid) 1 mg DAILY PO Last administered on 12/25/16 09:10; Admin Dose 1 MG; Start 12/24/16 at 09:00 Thiamine HCl (Vitamin B1) 50 mg DAILY PO Last administered on 12/25/16 09:10; Admin Dose 50 MG; Start 12/24/16 at 09:00 Lactulose (Enulose) 20 gm Q8 PO Last administered on 12/24/16 06:00; Admin Dose 20 GM; Start 12/24/16 at 06:00; Status Future Hold Spironolactone (Aldactone) 50 mg DAILY PO Last administered on 12/25/16 09:10 ; Admin Dose 50 MG; Start 12/25/16 at 09:00 Lorazepam 1 mg 1 mg Q4 PRN IV ANXIETY Last administered on 12/25/16 22:28; Admin Dose 1 MG; Start 12/25/16 at 00:00 Vancomycin HCl (Vancocin) 250 ml @ 125 mls/hr Q8H IVPB Last administered on 05:51; Admin Dose 125 MLS/HR; Start 12/25/16 at 14:00 CLARA MONTEMAYOR MD Dec 26, 2016 11:14
[2016-12-26 14:40] LABS: INR 1.96; PROTIME 22.5 Sec (12.2-14.2); PT RATIO 1.8
[2016-12-26] MEDS: LORAZEPAM 2 MG INJ IV PRN (15:35)
[2016-12-26] MEDS ORDERED: LIDOCAINE 1% (MPF) 5 ML VIAL ONE (15:51)
--- NOTE | 2016-12-26 17:42 | RADRPT ---
PROCEDURE: Ultrasound guided paracentesis. CLINICAL INDICATION: Ascites and shortness of breath. COMPARISON: No prior studies are available for comparison. TECHNIQUE: The risks, benefits, and alternatives were explained to the patient and/or the patient's family, inc luding but not limited to bleeding, infection, pain, visceral or vascular damage, shock, and . The patient and/or the patient's family understood the risks and the alternatives and wished to pro ceed with the procedure. Informed written consent was obtained. A procedural time out was performed . The patient's name, date of , and procedure to be performed were verified. Utilizing ultrasound guidance, optimal location for entry to the peritoneal cavity was ascertained. The overlying skin was prepped and draped in the usual sterile fashion. Approximately 10 ml of 1% Xylocaine was injected locally for pain control. Using ultrasound guidance, an 8 [place] catheter wa s introduced into the peritoneal cavity in the right lower quadrant without difficulty. FINDINGS: Initial images demonstrate ascites. Approximately 5.45 liters of serous fluid was aspirated and sen t for laboratory analysis. The patient tolerated the procedure well without complication. IMPRESSION: 1. Successful ultrasound-guided paracentesis. RPTAT: QQ .David Mosley MD, Date Time Electronically viewed and signed by .David Mosley MD, on 12/26/2016 17:42 .R/
[2016-12-26] MEDS ORDERED: LIDOCAINE 2% (SDV) 5 ML INJ ONE (17:45)
[2016-12-26] MEDS ORDERED: PROPOFOL 20 ML ONE (17:45)
[2016-12-26] MEDS ORDERED: MIDAZOLAM 1 MG/ML 2 ML INJ ONE (17:45)
[2016-12-26] MEDS ORDERED: DIPHENHYDRAMINE 50 MG INJ IV PRN (18:00)
[2016-12-26] MEDS ORDERED: HYDROmorphONE (0.2 MG/ML) 10ML SYG IV PRN (18:00)
[2016-12-26] MEDS ORDERED: ONDANSETRON 4 MG INJ IV PRN (18:00)
[2016-12-26] MEDS ORDERED: FENTAnyl 50 MCG/ML VIAL IV PRN (18:00)
[2016-12-26] MEDS ORDERED: EPHEDrine SULFATE 50 MG/5 ML SYG ONE (18:09)
[2016-12-27 02:56] VITALS: BP 103/57; RESP 18
[2016-12-27] MEDS: VANCOMYCIN 1 GM in NS 250 ML IVPB SCH (05:29)
[2016-12-27] MEDS: PANTOPRAZOLE 40 MG INJ IV SCH ×2 (05:29→17:38)
[2016-12-27] MEDS: FUROSEMIDE 20 MG TAB PO SCH ×2 (05:31→17:39)
[2016-12-27 05:33] LABS: ABNORMAL IP MESSAGE 1; BASOPHIL # 0.1 10^3/ul (0.0-0.1); BASOPHILS % 0.8 % (0.0-2.0); EOSINOPHILS # 0.2 10^3/ul (0.0-0.5); EOSINOPHILS % 3.1 % (0.0-7.0); HEMATOCRIT 25.7 % (42.0-52.0); HEMOGLOBIN 8.8 g/dl (14.0-18.0); LYMPHOCYTES # 1.4 10^3/ul (0.8-2.9); LYMPHOCYTES % 17.5 % (15.0-51.0); MEAN CORPUSCULAR HEMOGLOBIN 35.6 pg (29.0-33.0); MEAN CORPUSCULAR HGB CONC 34.2 g/dl (32.0-37.0); MEAN PLATELET VOLUME 10.5 fl (7.4-10.4); MONOCYTE # 1.2 10^3/ul (0.3-0.9); MONOCYTES % 15.2 % (0.0-11.0); NEUTROPHIL # 4.7 10^3/ul (1.6-7.5); NEUTROPHILS % 60.6 % (39.0-77.0); PLATELET COUNT 63 10^3/UL (140-415); POSITIVE DIFF @See below; RED BLOOD COUNT 2.47 10^6/ul (4.70-6.10); RED CELL DISTRIBUTION WIDTH 13.7 % (11.5-14.5); WHITE BLOOD COUNT 7.8 10^3/ul (4.8-10.8)
[2016-12-27 07:05] LABS: ALBUMIN 2.1 g/dl (3.3-4.9); ALBUMIN/GLOBULIN RATIO 0.61; BILIRUBIN,DIRECT 2.1 mg/dl (0.00-0.20); BILIRUBIN,INDIRECT 4.5 mg/dl (0-1.1); BILIRUBIN,TOTAL 6.6 mg/dl (0.2-1.3); CALCIUM 8.1 mg/dl (8.4-10.2); CREATININE 0.65 mg/dl (0.61-1.24); POTASSIUM 4.4 mmol/L (3.5-5.1); TOTAL PROTEIN 5.5 g/dl (6.1-8.1)
[2016-12-27 07:56] VITALS: BP 97/55; RESP 18
[2016-12-27] MEDS: THIAMINE 100 MG TAB PO SCH (08:36)
[2016-12-27] MEDS: FOLIC ACID 1 MG TAB PO SCH (08:36)
[2016-12-27] MEDS: SPIRONOLACTONE 50 MG TAB PO SCH (08:36)
[2016-12-27] MEDS: CEFEPIME 1GM/50 ML (PMX) 50 ML IVPB SCH ×2 (08:36→20:34)
--- NOTE | 2016-12-27 10:41 | GILP ---
DATE OF PROCEDURE: PROCEDURE PERFORMED: Esophagogastroduodenoscopy with endoscopic variceal ligation. PREMEDICATION: Monitored anesthesia care by anesthesiologist. HISTORY AND INDICATIONS: Patient with history of cirrhosis due for esophageal varix surveillance. INSTRUMENT USED: Olympus endoscope. TECHNIQUE: After informed consent, with the patient/relatives understanding the procedure, its indications, potential risks and complications, including but not limited to: allergic reaction, bleeding, perforation or infection, and after all pertinent questions were answered to the patients satisfaction, the patient/relatives signed witnessed informed consent. Following this, premedication was administered slowly IV push under careful cardiovascular and respiratory monitoring with pulse oximetry, automatic blood pressure and hospital insurance clerk. Once the sedative effect was achieved the patient was place in the left lateral decubitus, the panendoscope was introduced and advanced under visual control. Careful examination of the upper gastrointestinal tract, both on insertion as well as withdrawal of the instrument disclosed the following findings: ESOPHAGUS: The mucosa of the entire esophagus appears within normal limits. There is no evidence of esophagitis, varices, neoplasm or stricture. No Hiatal Hernia identified. STOMACH: Upon entrance to the stomach air was insufflated, the gastric santiago distended normally. The mucosa of the fundus, body and antrum of the stomach was carefully examined both head-on and on retroflexion, and shows no abnormalities. There is no evidence of gastritis, ulcers or neoplasm. PYLORUS: The pylorus appears patent and within normal limits, with no evidence of gastric outlet obstruction. DUODENUM: The duodenal mucosa was carefully examined in the duodenal bulb as well as the second portion of the duodenum and appears unremarkable with no evidence of duodenitis, ulcer or neoplasm. At this point, the instrument was withdrawn. The banding device was applied to the tip of the endoscope. The endoscope was then re-introduced. We proceeded to apply banding to the most prominent variceal channels. A total of 7 bands were applied without any evidence of complication. IMPRESSION: 1. Large, grade 4/4 esophageal varices, post endoscopic variceal ligation x7. 2. Portal gastropathy. PLAN: The patient will be continued on observation, PPI therapy will be instituted. Patient should be reevaluated in 3 months for further banding. Dictated By: Kenny Lin MD /eloise/natalie /Document#: [id number] CC: Kenny Lin MD;*[facility]*
[2016-12-27] MEDS: VANCOMYCIN 750 MG in SOD CHLORIDE 0.9% 150 ML IVPB SCH ×2 (13:26→21:25)
--- NOTE | 2016-12-27 13:35 | PN ---
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 Portal gastropathy. * No untoward events overnight Exam/Review of Systems Vital Signs Vitals Vital Signs Date Time Temp Pulse Resp B/P Pulse Ox O2 Delivery O2 Flow Rate FiO2 12/27/16 07:56 97.8 74 18 97/55 98 12/26/16 18:45 Room Air 12/26/16 18:01 6.0 Intake and Output 12/26/16 12/26/16 12/27/16 15:00 23:00 07:00 Intake Total 50 ml 950 ml 870 ml Output Total 500 ml 500 ml Balance 50 ml 450 ml 370 ml Exam Constitutional: alert, oriented Eyes: nl conjunctiva Neck: non-tender, supple Respiratory: clear to auscultation, normal air movement Cardiovascular: nl pulses, regular rate and rhythm Gastrointestinal: distended, non-tender, soft Musculoskeletal: nl extremities to inspection, nl gait and stance Extremities: normal pulses Neurological: nl mental status, nl speech, nl strength Skin: nl turgor, No rash or lesions Lymph: nl lymph nodes Results Result Diagram: 12/27/16 0459 12/27/16 0459 Results 24 hrs Laboratory Tests Test 12/26/16 14:05 12/26/16 16:00 12/26/16 21:00 12/27/16 04:59 Prothrombin Time 22.5 H Prothrombin Time Ratio 1.8 INR International Normalized Ratio 1.96 Body Fluid Total Protein < 2.0 Vancomycin Level Trough 16.3 White Blood Count 7.8 Red Blood Count 2.47 L Hemoglobin 8.8 L Hematocrit 25.7 L Mean Corpuscular Volume 104.0 H Mean Corpuscular Hemoglobin 35.6 H Mean Corpuscular Hemoglobin Concent 34.2 Red Cell Distribution Width 13.7 Platelet Count 63 #L Mean Platelet Volume 10.5 H Neutrophils % 60.6 Lymphocytes % 17.5 Monocytes % 15.2 H Eosinophils % 3.1 Basophils % 0.8 Nucleated Red Blood Cells % 0.0 Neutrophils # 4.7 Lymphocytes # 1.4 Monocytes # 1.2 H Eosinophils # 0.2 Basophils # 0.1 Nucleated Red Blood Cells # 0.0 Sodium Level 136 Potassium Level 4.4 Chloride Level 102 Carbon Dioxide Level 22 Anion Gap 16 Blood Urea Nitrogen 15 Creatinine 0.65 Glucose Level 149 # Calcium Level 8.1 L Total Bilirubin 6.6 H Direct Bilirubin 2.10 H Indirect Bilirubin 4.5 H Aspartate Amino Transf (AST/SGOT) 48 H Alanine Aminotransferase (ALT/SGPT) 41 Alkaline Phosphatase 77 Total Protein 5.5 L Albumin 2.1 L Globulin 3.40 H Albumin/Globulin Ratio 0.61 Test 12/27/16 06:23 Lab Scanned Report BLOOD TRANSFUSION Medications Medications Current Medications Acetaminophen 325 mg 325 mg Q6H PRN PO PAIN AND OR ELEVATED TEMP Last administered on 12/25/16 01:51; Admin Dose 325 MG; Start 12/24/16 at 03:30 Cefepime HCl (Maxipime 1gm/50 ml (Pmx)) 50 ml @ 100 mls/hr Q12 IVPB Last administered on 12/27/16 08:36; Admin Dose 100 MLS/HR; Start 12/24/16 at 09:00 Ondansetron HCl (Zofran Inj) 4 mg Q6H PRN IV NAUSEA AND/OR VOMITING Last administered on 12/26/16 20:04; Admin Dose 4 MG; Start 12/24/16 at 03:30 Morphine Sulfate (morphine) 2 mg Q4H PRN IV pain; Start 12/24/16 at 03:30 Folic Acid (Folic Acid) 1 mg DAILY PO Last administered on 12/27/16 08:36; Admin Dose 1 MG; Start 12/24/16 at 09:00 Thiamine HCl (Vitamin B1) 50 mg DAILY PO Last administered on 12/27/16 08:36; Admin Dose 50 MG; Start 12/24/16 at 09:00 Lactulose (Enulose) 20 gm Q8 PO Last administered on 12/24/16 06:00; Admin Dose 20 GM; Start 12/24/16 at 06:00; Status Future Hold Spironolactone (Aldactone) 50 mg DAILY PO Last administered on 12/27/16 08:36 ; Admin Dose 50 MG; Start 12/25/16 at 09:00 Lorazepam (Ativan) 1 mg Q4 PRN IV ANXIETY Last administered on 12/26/16 15:35 ; Admin Dose 1 MG; Start 12/25/16 at 00:00 Pantoprazole 40 mg 40 mg BID@06,18 IV Last administered on 12/27/16 05:29; Admin Dose 40 MG; Start 12/27/16 at 06:00 Vancomycin HCl/ Sodium Chloride (Vancocin/NS) 150 ml @ 75 mls/hr Q8H IVPB Last administered on 12/27/16 13:26; Admin Dose 75 MLS/HR; Start 12/27/16 at 14 :00 CARLY JOSEPH NP Dec 27, 2016 13:35
--- NOTE | 2016-12-27 14:05 | PN ---
Date/Time of Note Date/Time of Note DATE: 12/27/16 TIME: 14:02 Assessment/Plan VTE Prophylaxis VTE Prophylaxis Intervention: LMWH Lines/Catheters IV Catheter Type (from Nrs): Saline Lock Assessment/Plan Chief Complaint/Hosp Course 46 yo male wiht decompensated etoh cirrhosis, alcohol use d/o, presenting with cellulitis and found to have staph aureus bacteremia Staph bacteremia with cellulitis: - Continue vanco/cefepime for now until cultures finalized, looks like MSSA - Will involved ID consult - Daily BC until confirmed bactremia is cleared - Will need prolonged course of abx - TTE to rule out vegetation/endocarditis Cirrhosis with varicies, ascites, jaundice: - Continue lasix 20, gisell 50, having approrpiate effect, s/p LVP with 5 L off on 12/26 - No HE on exam so will hold on lactulose/rifaxamin - No evidence of SBP, receiving abx regardless - Management per GI - f/u with [facility] transplant hepatology at discharge Etoh use d/o: - Advised on cessation Thrombocytopenia: stable, 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 Anemia of chronic disease, 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:, check iron studies Problems: Subjective 24 Hr Interval Summary Free Text/Dictation Underwent EGD with variceal clipping yesterday Also underwent 5 L paracentesis Called from [facility] that BC there also growing Staph Aureus Patient feels well today, no complaints Exam/Review of Systems Vital Signs Vitals Vital Signs Date Time Temp Pulse Resp B/P Pulse Ox O2 Delivery O2 Flow Rate FiO2 12/27/16 07:56 97.8 74 18 97/55 98 12/26/16 18:45 Room Air 12/26/16 18:01 6.0 Intake and Output 12/26/16 12/26/16 12/27/16 15:00 23:00 07:00 Intake Total 50 ml 950 ml 870 ml Output Total 500 ml 500 ml Balance 50 ml 450 ml 370 ml Exam Well appearing, NAD, AOx3 A bit more somnulent than yesterday, but coherent, no overt HE RRR, 1/6 systolic murmur CTAB Abd soft, nt, less distension Results Result Diagram: 12/27/16 0459 12/27/16 0459 Results 24 hrs Laboratory Tests Test 12/26/16 14:05 12/26/16 16:00 12/26/16 21:00 12/27/16 04:59 Prothrombin Time 22.5 H Prothrombin Time Ratio 1.8 INR International Normalized Ratio 1.96 Body Fluid Total Protein < 2.0 Vancomycin Level Trough 16.3 White Blood Count 7.8 Red Blood Count 2.47 L Hemoglobin 8.8 L Hematocrit 25.7 L Mean Corpuscular Volume 104.0 H Mean Corpuscular Hemoglobin 35.6 H Mean Corpuscular Hemoglobin Concent 34.2 Red Cell Distribution Width 13.7 Platelet Count 63 #L Mean Platelet Volume 10.5 H Neutrophils % 60.6 Lymphocytes % 17.5 Monocytes % 15.2 H Eosinophils % 3.1 Basophils % 0.8 Nucleated Red Blood Cells % 0.0 Neutrophils # 4.7 Lymphocytes # 1.4 Monocytes # 1.2 H Eosinophils # 0.2 Basophils # 0.1 Nucleated Red Blood Cells # 0.0 Sodium Level 136 Potassium Level 4.4 Chloride Level 102 Carbon Dioxide Level 22 Anion Gap 16 Blood Urea Nitrogen 15 Creatinine 0.65 Glucose Level 149 # Calcium Level 8.1 L Total Bilirubin 6.6 H Direct Bilirubin 2.10 H Indirect Bilirubin 4.5 H Aspartate Amino Transf (AST/SGOT) 48 H Alanine Aminotransferase (ALT/SGPT) 41 Alkaline Phosphatase 77 Total Protein 5.5 L Albumin 2.1 L Globulin 3.40 H Albumin/Globulin Ratio 0.61 Test 12/27/16 06:23 Lab Scanned Report BLOOD TRANSFUSION Medications Medications Current Medications Acetaminophen 325 mg 325 mg Q6H PRN PO PAIN AND OR ELEVATED TEMP Last administered on 12/25/16 01:51; Admin Dose 325 MG; Start 12/24/16 at 03:30 Cefepime HCl (Maxipime 1gm/50 ml (Pmx)) 50 ml @ 100 mls/hr Q12 IVPB Last administered on 12/27/16 08:36; Admin Dose 100 MLS/HR; Start 12/24/16 at 09:00 Ondansetron HCl (Zofran Inj) 4 mg Q6H PRN IV NAUSEA AND/OR VOMITING Last administered on 12/26/16 20:04; Admin Dose 4 MG; Start 12/24/16 at 03:30 Morphine Sulfate (morphine) 2 mg Q4H PRN IV pain; Start 12/24/16 at 03:30 Folic Acid (Folic Acid) 1 mg DAILY PO Last administered on 12/27/16 08:36; Admin Dose 1 MG; Start 12/24/16 at 09:00 Thiamine HCl (Vitamin B1) 50 mg DAILY PO Last administered on 12/27/16 08:36; Admin Dose 50 MG; Start 12/24/16 at 09:00 Lactulose (Enulose) 20 gm Q8 PO Last administered on 12/24/16 06:00; Admin Dose 20 GM; Start 12/24/16 at 06:00; Status Future Hold Spironolactone (Aldactone) 50 mg DAILY PO Last administered on 12/27/16 08:36 ; Admin Dose 50 MG; Start 12/25/16 at 09:00 Lorazepam (Ativan) 1 mg Q4 PRN IV ANXIETY Last administered on 12/26/16 15:35 ; Admin Dose 1 MG; Start 12/25/16 at 00:00 Pantoprazole 40 mg 40 mg BID@06,18 IV Last administered on 12/27/16 05:29; Admin Dose 40 MG; Start 12/27/16 at 06:00 Vancomycin HCl/ Sodium Chloride (Vancocin/NS) 150 ml @ 75 mls/hr Q8H IVPB Last administered on 12/27/16 13:26; Admin Dose 75 MLS/HR; Start 12/27/16 at 14 :00 CLARA MONTEMAYOR MD Dec 27, 2016 14:05
[2016-12-27 14:42] VITALS: BP 96/54; RESP 18
--- NOTE | 2016-12-27 15:15 | RADRPT ---
Echocardiogram Report Patient Name: ALLYSON LICONA Gender: Male Date: 1970 Study Date: 27-Dec-2016 Speedometer Inspector: Ezequiel French [facility] Location: [id number] Ref. Physician: CLARA MONTEMAYOR Quality: Good Procedures: Transthoracic echocardiogram with complete 2D, M-Mode, and doppler examination. Indications: staph bacteremia, evaluate for vegetation. 2D/M Mode Doppler Measurement Value Normal Ranges Measurement Value Normal Ranges LVIDd 2D 4.6 3.5 - 5.6 cm AV Peak Tom 1.8 m/sec LVIDs 2D 2.6 2.1 - 4.1 cm AV Peak PG 12.5 mmHg LVPWd 2D 1.1 0.6 - 1.1 cm LVOT Peak Tom 1.3 m/sec IVSd 2D 1.0 0.6 - 1.1 cm LVOT Peak PG 7.2 mmHg AoR Diam 2D 2.3 2.0 - 3.7 cm MV E Peak Tom 1.2 m/sec EDV 2D 97.1 cm3 MV A Peak Tom 0.8 m/sec ESV 2D 16.7 cm3 MV E/A 1.5 LA Dimen 2D 3.4 2.3 - 4.0 cm MV Decel Time 288 msec MV Decel [place] 4 MV E/A 1.5 TR Peak Tom 2.7 m/sec TR Peak PG 30.1 mmHg RVSP 33.0 mmHg Findings Left Ventricle: Normal left ventricular systolic function. Normal left ventricular cavity size. Mild concentric left ventricular hypertrophy. Ejection fraction is visually estimated at 65 %. Tissue Doppler/Mitral Doppler indices are within normal limits. Right Ventricle: Normal right ventricular size. Normal right ventricular systolic function. Left Atrium: The left atrium is normal in size. Right Atrium: The right atrium is normal in size. Mitral Valve: Mitral valve leaflets appear mildly thickened. Trace mitral regurgitation. Aortic Valve: Normal appearance of the aortic valve. No significant aortic stenosis or insufficiency. Tricuspid Valve: Normal appearance and function of the tricuspid valve with trace physiologic regurgitation. Estimated peak PA systolic pressure 33 mmHg. Pulmonic Valve: Normal pulmonic valve appearance. There is trace pulmonic regurgitation. Pericardium: Normal pericardium with no significant pericardial effusion. Pleural effusion seen. Aorta: Normal aortic root. IVC: Normal size and normal respiratory collapse consistent with normal right atrial pressure. Conclusions Normal left ventricular systolic function. Normal left ventricular cavity size. Mild concentric left ventricular hypertrophy. Ejection fraction is visually estimated at 65 %. Tissue Doppler/Mitral Doppler indices are within normal limits. Normal right ventricular size. Normal right ventricular systolic function. The left atrium is normal in size. The right atrium is normal in size. No significant valvular stenosis or regurgitation seen. Normal pericardium with no significant pericardial effusion. Pleural effusion seen. Electronically Signed By: Nelson Roland 27-Dec-2016 15:14:00 -0700 Patient Name: ALLYSON LICONA Study Date: 27-Dec-2016 [id number]
[2016-12-27 20:00] VITALS: BP 107/56; RESP 18
[2016-12-27] MEDS: LORAZEPAM 2 MG INJ IV PRN (21:26)
[2016-12-28 02:52] VITALS: BP 99/54; RESP 20
[2016-12-28] MEDS: PANTOPRAZOLE 40 MG INJ IV SCH (05:48)
[2016-12-28] MEDS: VANCOMYCIN 750 MG in SOD CHLORIDE 0.9% 150 ML IVPB SCH ×2 (05:48→14:31)
[2016-12-28] MEDS: FUROSEMIDE 20 MG TAB PO SCH (05:52)
[2016-12-28 07:27] VITALS: BP 99/56; RESP 18
[2016-12-28] MEDS: SPIRONOLACTONE 50 MG TAB PO SCH (09:00)
[2016-12-28] MEDS: THIAMINE 100 MG TAB PO SCH (09:34)
[2016-12-28] MEDS: CEFEPIME 1GM/50 ML (PMX) 50 ML IVPB SCH (09:34)
[2016-12-28] MEDS: FOLIC ACID 1 MG TAB PO SCH (09:34)
--- NOTE | 2016-12-28 13:37 | PN ---
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 * Esophageal varices grade 1V/1V clipped * Transaminase elevated Plan * continue present management * patient needs endoscopy after 3 months for surveillance * further orders will depend on clinical course * case discussed with DR Lin Subjective 24 Hr Interval Summary Free Text/Dictation * course reviewed with RN * patient seen and examined * No untoward incident overnight Exam/Review of Systems Vital Signs Vitals Vital Signs Date Time Temp Pulse Resp B/P Pulse Ox O2 Delivery O2 Flow Rate FiO2 12/28/16 07:27 98.1 64 18 99/56 97 12/26/16 18:45 Room Air 12/26/16 18:01 6.0 Intake and Output 12/27/16 12/27/16 12/28/16 15:00 23:00 07:00 Intake Total 250 ml 1370 ml 1120 ml Output Total 700 ml Balance 250 ml 1370 ml 420 ml Exam Constitutional: alert, oriented Eyes: nl conjunctiva Neck: non-tender, supple Respiratory: clear to auscultation, normal air movement Cardiovascular: nl pulses, regular rate and rhythm Gastrointestinal: bowel sounds, non-tender, soft, No rebound or guarding Musculoskeletal: swelling Extremities: edema Neurological: nl speech, nl strength Skin: nl turgor, No rash or lesions Lymph: nl lymph nodes Results Result Diagram: 12/27/16 0459 12/27/16 0459 Medications Medications Current Medications Acetaminophen 325 mg 325 mg Q6H PRN PO PAIN AND OR ELEVATED TEMP Last administered on 12/25/16 01:51; Admin Dose 325 MG; Start 12/24/16 at 03:30 Cefepime HCl (Maxipime 1gm/50 ml (Pmx)) 50 ml @ 100 mls/hr Q12 IVPB Last administered on 12/28/16 09:34; Admin Dose 100 MLS/HR; Start 12/24/16 at 09:00 Ondansetron HCl (Zofran Inj) 4 mg Q6H PRN IV NAUSEA AND/OR VOMITING Last administered on 12/26/16 20:04; Admin Dose 4 MG; Start 12/24/16 at 03:30 Morphine Sulfate (morphine) 2 mg Q4H PRN IV pain; Start 12/24/16 at 03:30 Folic Acid (Folic Acid) 1 mg DAILY PO Last administered on 12/28/16 09:34; Admin Dose 1 MG; Start 12/24/16 at 09:00 Thiamine HCl (Vitamin B1) 50 mg DAILY PO Last administered on 12/28/16 09:34; Admin Dose 50 MG; Start 12/24/16 at 09:00 Lactulose (Enulose) 20 gm Q8 PO Last administered on 12/24/16 06:00; Admin Dose 20 GM; Start 12/24/16 at 06:00; Status Future Hold Spironolactone (Aldactone) 50 mg DAILY PO Last administered on 12/27/16 08:36 ; Admin Dose 50 MG; Start 12/25/16 at 09:00 Lorazepam (Ativan) 1 mg Q4 PRN IV ANXIETY Last administered on 12/27/16 21:26 ; Admin Dose 1 MG; Start 12/25/16 at 00:00 Pantoprazole 40 mg 40 mg BID@06,18 IV Last administered on 12/28/16 05:48; Admin Dose 40 MG; Start 12/27/16 at 06:00 Vancomycin HCl/ Sodium Chloride (Vancocin/NS) 150 ml @ 75 mls/hr Q8H IVPB Last administered on 12/28/16 05:48; Admin Dose 75 MLS/HR; Start 12/27/16 at 14 :00 CARLY JOSEPH NP Dec 28, 2016 13:37
[2016-12-28 14:40] VITALS: BP 103/55; RESP 18
--- NOTE | 2016-12-28 14:50 | PN ---
Date/Time of Note Date/Time of Note DATE: 12/28/16 TIME: 14:48 Assessment/Plan VTE Prophylaxis VTE Prophylaxis Intervention: heparin Lines/Catheters IV [facility] Saline Lock Assessment/Plan Chief Complaint/Hosp Course 46 yo male wiht decompensated etoh cirrhosis, alcohol use d/o, presenting with cellulitis and found to have staph aureus bacteremia MSSA bacteremia with cellulitis: - Will narrow abx to oxacillin for MSSA - Will involved ID consult - Daily BC until confirmed bactremia is cleared - Will need prolonged course of abx, likely 4 weeks - TTE did not show any vegetations, unlikely to be endocarditis. Source of bacteremia likely was cellulitis Cirrhosis with varicies, ascites, jaundice: - Continue lasix 20, gisell 50, having approrpiate effect, s/p LVP with 5 L off on 12/26 - No HE on exam so will hold on lactulose/rifaxamin - No evidence of SBP, receiving abx regardless - s/p variceal band 12/26. Repeat EGD as outpatient. 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:, check iron studies Problems: Subjective 24 Hr Interval Summary Free Text/Dictation No events Feels well, no complaints Exam/Review of Systems Vital Signs Vitals Vital Signs Date Time Temp Pulse Resp B/P Pulse Ox O2 Delivery O2 Flow Rate FiO2 12/28/16 14:40 98.3 76 18 103/55 96 12/26/16 18:45 Room Air 12/26/16 18:01 6.0 Intake and Output 12/27/16 12/27/16 12/28/16 15:00 23:00 07:00 Intake Total 250 ml 1370 ml 1120 ml Output Total 700 ml Balance 250 ml 1370 ml 420 ml Exam WEll appering, nontoxic RRR 1/6 murmur Lungs clear Abdomen soft nt Results Result Diagram: 12/27/16 0459 12/27/16 0459 Medications Medications Current Medications Acetaminophen 325 mg 325 mg Q6H PRN PO PAIN AND OR ELEVATED TEMP Last administered on 12/25/16t 01:51; Admin Dose 325 MG; Start 12/24/16 at 03:30 Cefepime HCl (Maxipime 1gm/50 ml (Pmx)) 50 ml @ 100 mls/hr Q12 IVPB Last administered on 12/28/16 09:34; Admin Dose 100 MLS/HR; Start 12/24/16 at 09:00 Folic Acid (Folic Acid) 1 mg DAILY PO Last administered on 12/28/16 09:34; Admin Dose 1 MG; Start 12/24/16 at 09:00 Thiamine HCl (Vitamin B1) 50 mg DAILY PO Last administered on 12/28/16 09:34; Admin Dose 50 MG; Start 12/24/16 at 09:00 Lactulose (Enulose) 20 gm Q8 PO Last administered on 12/24/16 06:00; Admin Dose 20 GM; Start 12/24/16 at 06:00; Status Future Hold Spironolactone 50 mg 50 mg DAILY PO Last administered on 12/27/16 08:36; Admin Dose 50 MG; Start 12/25/16 at 09:00 Vancomycin HCl/ Sodium Chloride (Vancocin/NS) 150 ml @ 75 mls/hr Q8H IVPB Last administered on 12/28/16 14:31; Admin Dose 75 MLS/HR; Start 12/27/16 at 14 :00 Miscellaneous Information (*Rx Drug Level Order Reminder*) VANCOMYCIN TROUGH AT 2100 ONCE ONCE XX ; Start 12/28/16 at 21:00; Stop 12/28/16 at 21:01 CLARA MONTEMAYOR MD Dec 28, 2016 14:50
[2016-12-28] MEDS ORDERED: LIDOCAINE 1% (MPF) 5 ML VIAL SC ONE (15:00)
--- NOTE | 2016-12-28 15:16 | CONS ---
Date/Time of Note Date/Time of Note DATE: 12/28/16 TIME: 15:15 Consultation Date/Type/Reason Admit Date/Time Dec 24, 2016 at 02:22 Type of Consultation: ID Reason for Consultation This is Dr. dennis Bruce dictating infectious disease consult on Santy Meyer, date of admission 12/23/2016 date of consultation and dictation 2016, reason for consultation is antibiotic management. Patient is a 46-year-old male with a history of alcoholic liver disease, who presented to the emergency room with right lower extremity swelling redness and warmth. Patient has been feeling lethargic secondary to his liver disease. On admission his white count was 10.8 H&H of 10.7 and 30.8 platelet count of 54, 000. At the outside hospital his white count was 16,000 with temperature of 100.1 Past medical history is as outlined no surgical history Family history is noncontributory Social history: He is a smoker but does not drink or abuse drugs No known allergies Medications per chart Review of systems: As per HPI Hospital course: Patient also presented with moderate ascites by ultrasound and cirrhosis of liver. A paracentesis was done which drained 5.45 L of serous fluid. This was done by Dr. David Mosley interventional radiology. On admission patient had positive blood cultures 2 for oxacillin sensitive staph aureus patient is currently on vancomycin and cefepime. Patient had an EGD with endoscopic variceal ligation by Dr. Lin. A large grade 4/4 for esophageal varices was ligated. Patient had portal gastropathy. A total of 7 bands were applied without evidence of complications. Patient currently is improving With Swelling and Redness Diminished. His white count on 12/27/2016 was 7.8 On physical examination patient is well-developed well-nourished male who is alert responsive in no acute distress. Vital signs are stable he is afebrile. SHEENT within normal limits Neck is supple without neck vein distention Chest decreased breath sounds at the bases Heart: Without murmur gallop Abdomen is soft nontender, without organosplenomegaly or masses. Extremities: Without cyanosis clubbing or edema. Rectal genital exams deferred Neurological evaluation: No focal neurological abnormalities. Impression/plan: Patient presents with cellulitis of the right lower extremity as well as alcoholic cirrhosis with ascites. He had positive blood cultures for oxacillin sensitive staph aureus and should be treated with Rocephin to complete a 14 day course. I will DC the vancomycin and cefepime. I want to thank the hospitalist and the consultants for asking me to see this patient in consultation. Thank you for this front office agent. Constitutional: improved, no complaints Eyes: no complaints ENT: no complaints Respiratory: no complaints Cardiovascular: no complaints Gastrointestinal: no complaints Genitourinary: no complaints Musculoskeletal: no complaints Skin: no complaints Neurologic: no complaints Endocrine: no complaints Lymphatic: no complaints Psychological: nl mood/affect, no complaints Immunologic: no complaints Past Medical History Medical History: other (alcoholoic liver cirrhosis) Past Surgical History Past Surgical Hx: no surgical history Social History Alcohol Use: sober Smoking Status: Never smoker Drug Use: none Exam/Review of Systems Vital Signs Vitals Vital Signs Date Time Temp Pulse Resp B/P Pulse Ox O2 Delivery O2 Flow Rate FiO2 12/28/16 14:40 98.3 76 18 103/55 96 12/26/16 18:45 Room Air 12/26/16 18:01 6.0 Intake and Output 12/27/16 12/27/16 12/28/16 15:00 23:00 07:00 Intake Total 250 ml 1370 ml 1120 ml Output Total 700 ml Balance 250 ml 1370 ml 420 ml Results Result Diagram: 12/27/16 0459 12/27/16 0459 Medications Medications Current Medications Acetaminophen (Tylenol Tab) 325 mg Q6H PRN PO PAIN AND OR ELEVATED TEMP Last administered on 12/25/16 01:51; Admin Dose 325 MG; Start 12/24/16 at 03:30 Folic Acid (Folic Acid) 1 mg DAILY PO Last administered on 12/28/16 09:34; Admin Dose 1 MG; Start 12/24/16 at 09:00 Thiamine HCl (Vitamin B1) 50 mg DAILY PO Last administered on 12/28/16 09:34; Admin Dose 50 MG; Start 12/24/16 at 09:00 Lactulose (Enulose) 20 gm Q8 PO Last administered on 12/24/16 06:00; Admin Dose 20 GM; Start 12/24/16 at 06:00; Status Future Hold Spironolactone (Aldactone) 50 mg DAILY PO Last administered on 12/27/16 08:36 ; Admin Dose 50 MG; Start 12/25/16 at 09:00 Furosemide 20 mg 20 mg DAILY PO ; Start 12/29/16 at 09:00 Oxacillin Sodium/ Sodium Chloride (Oxacillin/NS) 50 ml @ 100 mls/hr Q4 IVPB ; Start 12/28/16 at 17:00 DENNIS BRUCE MD Dec 28, 2016 15:16
[2016-12-28] MEDS ORDERED: OXACILLIN 2 GM in SOD CHLORIDE 0.9% 50 ML IVPB SCH (17:00)
[2016-12-28] MEDS: CEFTRIAXONE 1 GM/50 ML (PMX) 50 ML IVPB SCH (17:52)
[2016-12-28 19:40] VITALS: BP 105/59; RESP 20
[2016-12-28] MEDS ORDERED: LORAZEPAM 0.5 MG TAB PO ONE (21:30)
[2016-12-29 02:55] VITALS: BP 88/52; RESP 18
[2016-12-29 05:42] LABS: ABNORMAL IP MESSAGE 1; HEMATOCRIT 25.1 % (42.0-52.0); HEMOGLOBIN 8.8 g/dl (14.0-18.0); MEAN CORPUSCULAR HEMOGLOBIN 36.5 pg (29.0-33.0); MEAN CORPUSCULAR HGB CONC 35.1 g/dl (32.0-37.0); MEAN CORPUSCULAR VOLUME 104.1 fl (82.0-101.0); MEAN PLATELET VOLUME 10.3 fl (7.4-10.4); PLATELET COUNT 63 10^3/UL (140-415); POSITIVE DIFF @See below; RED BLOOD COUNT 2.41 10^6/ul (4.70-6.10); RED CELL DISTRIBUTION WIDTH 14.6 % (11.5-14.5)
[2016-12-29 06:03] LABS: BILIRUBIN,DIRECT 0.1 mg/dl (0.00-0.20); BILIRUBIN,TOTAL 3.1 mg/dl (0.2-1.3); TOTAL PROTEIN 5.1 g/dl (6.1-8.1)
[2016-12-29 06:12] LABS: CALCIUM 7.6 mg/dl (8.4-10.2); CREATININE 0.74 mg/dl (0.61-1.24); POTASSIUM 3.8 mmol/L (3.5-5.1)
[2016-12-29 07:28] VITALS: BP 104/61; RESP 18
[2016-12-29] MEDS: FOLIC ACID 1 MG TAB PO SCH (08:21)
[2016-12-29] MEDS: THIAMINE 100 MG TAB PO SCH (08:21)
[2016-12-29 08:22] VITALS: BP 99/60; PULSE 67; RESP 18
[2016-12-29] MEDS ORDERED: FUROSEMIDE 20 MG TAB PO SCH (09:00)
[2016-12-29 09:42] LABS: ANISOCYTOSIS 1+ (0-0); BASOPHILS % (M) 1 % (0-2); BURR CELLS 2+ (0-0); EOSINOPHILS % (M) 15 % (0-7); ERYTHROBLAST% (NRBC) (M) 1 % (0-0); METAMYELOCYTES %M 2 % (0-0); MONOCYTES % (M) 12 % (0-11); PLATELET ESTIMATE SIG DECREASED; POIKILOCYTOSIS 3+ (0-0); POLYCHROMASIA 3+ (0-0)
[2016-12-29] MEDS: SPIRONOLACTONE 50 MG TAB PO SCH (10:07)
[2016-12-29 10:08] VITALS: BP 93/53; PULSE 69; RESP 18
[2016-12-29] MEDS ORDERED: SOD CHLORIDE 0.9% 100 ML ONE (13:14)
[2016-12-29 14:30] VITALS: BP 104/66; RESP 18
[2016-12-29] MEDS: CEFTRIAXONE 1 GM/50 ML (PMX) 50 ML IVPB SCH (14:52)
--- NOTE | 2016-12-29 15:56 | RADRPT ---
PROCEDURE: XR Chest. CLINICAL INDICATION: Check PICC line position. TECHNIQUE: Single frontal view. COMPARISON: No prior study is available for comparison. FINDINGS: There is a left arm PICC line with the tip in the cavoatrial junction region. The right lung is palma ar. There is left basilar atelectasis. The left lung is otherwise clear. The heart is enlarged. There is a small left pleural effusion. There is no right pleural effusion. There is no pneumothorax. IMPRESSION: 1. Left arm PICC line tip in satisfactory position. 2. Left basilar atelectasis. 3. Cardiomegaly. 4. Small left pleural effusion. RPTAT: QQ .David Mosley MD, MD Date Time Electronically viewed and signed by .David Mosley MD, on 12/29/2016 15:56 .R/
--- NOTE | 2016-12-29 15:57 | RADRPT ---
PROCEDURE: Ultrasound guidance for placement of needle in left upper extremity vein. CLINICAL INDICATION: Venous access. TECHNIQUE: Limited sonography of the left upper extremity was performed. Ultrasound images were recorded and s tored in the patient's medical record. COMPARISON: None. FINDINGS: The ultrasound images demonstrate a patent left upper extremity vein. The PICC line was inserted by the PICC line nurse. IMPRESSION: 1. Ultrasound guidance for a needle placement in a left upper extremity vein. 2. The left upper extremity vein is patent. RPTAT: QQ .David Mosley MD, MD Date Time Electronically viewed and signed by .David Mosley MD, MD on 12/29/2016 15:56 .R/
--- NOTE | 2016-12-29 16:18 | PDOCDIS ---
Discharge Instructions DIAGNOSIS Discharge Diagnosis sepsis from staph aureus bactermia and cellulitis CONDITION Patient Condition: Good HOME CARE INSTRUCTIONS: Diet Instructions: Reduced SodiumSpecial Diet: 2gm na ACTIVITY: Activity Restrictions: No Restrictions FOLLOW UP/APPOINTMENTS Follow-up Plan Continue IV ceftriaxone via PICC line as prescribed Continue taking your other medications Follow up as soon as you can with your liver doctor REFERRALS Other Referrals GI ID CLARA MONTEMAYOR MD Dec 29, 2016 16:18
[2016-12-29] MEDS ORDERED: CEFT1FRO2 IV (16:20)
--- NOTE | 2016-12-29 16:47 | PN ---
Date/Time of Note Date/Time of Note DATE: 12/29/16 TIME: 16:44 Assessment/Plan VTE Prophylaxis VTE Prophylaxis Intervention: ambulation Lines/Catheters IV Catheter Type (from Nrs): PICC Line Central line still needed: Yes Assessment/Plan Assessment/Plan Assessment * Cellulitis right lower leg * Anemia * Ascites moderate by ultrasound Cirrhosis of liver secondary to alcohol * Esophageal varices grade 1V/1V clipped * Transaminase elevated Plan * stable for outpatient management * continue present management * patient needs endoscopy after 3 months for surveillance * further orders will depend on clinical course * case discussed with DR Lin Subjective 24 Hr Interval Summary Free Text/Dictation * Course reviewed with RN * No untoward events overnight * patient seen and examined Exam/Review of Systems Vital Signs Vitals Vital Signs Date Time Temp Pulse Resp B/P Pulse Ox O2 Delivery O2 Flow Rate FiO2 12/29/16 14:30 98.3 70 18 104/66 99 12/26/16 18:45 Room Air 12/26/16 18:01 6.0 Intake and Output 12/28/16 12/28/16 12/29/16 15:00 23:00 07:00 Intake Total 50 ml 246 ml 300 ml Output Total 400 ml 500 ml Balance 50 ml -154 ml -200 ml Exam Constitutional: alert, oriented Head: normocephalic Eyes: nl conjunctiva Neck: non-tender, supple Respiratory: clear to auscultation, normal air movement Cardiovascular: nl pulses, regular rate and rhythm Gastrointestinal: non-tender, soft Musculoskeletal: nl extremities to inspection, nl gait and stance Extremities: normal pulses Neurological: nl speech, nl strength Skin: nl turgor, No rash or lesions Results Result Diagram: 12/29/1612 12/29/16 0512 Results 24 hrs Laboratory Tests Test 12/29/16 05:12 White Blood Count 7.0 Red Blood Count 2.41 L Hemoglobin 8.8 L Hematocrit 25.1 L Mean Corpuscular Volume 104.1 H Mean Corpuscular Hemoglobin 36.5 H Mean Corpuscular Hemoglobin Concent 35.1 Red Cell Distribution Width 14.6 H Platelet Count 63 L Mean Platelet Volume 10.3 Segmented Neutrophils % (Manual) 41 Band Neutrophils % (Manual) 2 Lymphocytes % (Manual) 21 Monocytes % (Manual) 12 H Eosinophils % (Manual) 15 H Basophils % (Manual) 1 Metamyelocytes % (manual) 2 H Nucleated Red Blood Cells % 1 H Neutrophils # (Manual) 2.9 Band Neutrophils # 0.1 Absolute Lymphocytes (Manual) 1.4 Absolute Monocytes (Manual) 0.8 Basophils # (Manual) 0.0 Metamyelocytes # 0.1 H Smudge Cells % 9 H Platelet Estimate SIG DECREASED Polychromasia 3+ Poikilocytosis 3+ Anisocytosis 1+ Macrocytosis 1+ Sodium Level 135 Potassium Level 3.8 Chloride Level 107 Carbon Dioxide Level 23 Anion Gap 9 Blood Urea Nitrogen 10 Creatinine 0.74 Glucose Level 85 Calcium Level 7.6 L Total Bilirubin 3.1 H Direct Bilirubin 0.10 Indirect Bilirubin 3.0 H Aspartate Amino Transf (AST/SGOT) 51 H Alanine Aminotransferase (ALT/SGPT) 43 Alkaline Phosphatase 107 Total Protein 5.1 L Albumin 2.0 L Medications Medications Current Medications Acetaminophen (Tylenol Tab) 325 mg Q6H PRN PO PAIN AND OR ELEVATED TEMP Last administered on 12/25/16 01:51; Admin Dose 325 MG; Start 12/24/16 at 03:30 Folic Acid (Folic Acid) 1 mg DAILY PO Last administered on 12/29/16 08:21; Admin Dose 1 MG; Start 12/24/16 at 09:00 Thiamine HCl (Vitamin B1) 50 mg DAILY PO Last administered on 12/29/16 08:21; Admin Dose 50 MG; Start 12/24/16 at 09:00 Lactulose (Enulose) 20 gm Q8 PO Last administered on 12/24/16 06:00; Admin Dose 20 GM; Start 12/24/16 at 06:00; Status Future Hold Spironolactone (Aldactone) 50 mg DAILY PO Last administered on 12/29/16 10:07 ; Admin Dose 50 MG; Start 12/25/16 at 09:00 Furosemide 20 mg 20 mg DAILY PO Last administered on 12/29/16 08:22; Admin Dose 20 MG; Start 12/29/16 at 09:00 Ceftriaxone Sodium (Rocephin) 50 ml @ 100 mls/hr Q24H IVPB Last administered on 12/29/16 14:52; Admin Dose 100 MLS/HR; Start 12/28/16 at 15:30 IV Flush (NS 10 ml) 10 ml PRN PRN IV IV PROTOCOL; Start 12/29/16 at 13:30 CARLY JOSEPH NP Dec 29, 2016 16:47
--- NOTE | 2016-12-29 16:51 | DS ---
Date/Time of Note Date/Time of Note DATE: 12/29/16 TIME: 16:22 Discharge Summary Admission/Discharge Info Admit Date/Time Dec 24, 2016 at 02:22 Discharge Date/Time Discharge Diagnosis sepsis from staph aureus bactermia and cellulitis Patient Condition: Good Consults GI ID Procedures EGD with grade 1 variceal band TTE Paracentesis with 5 L removed Hx of Present Illness This is a 46-year-old male with a history of alcoholic liver cirrhosis who presented to the emergency department complaining of right lower extremity swelling redness and warmth. He was initially seen at the outside hospital but transferred to [facility] because of insurance reason. He said about a month and half ago he had a similar problem on his left lower extremity which resolved after a few days of antibiotics. He also reported associated subjective fever. Patient is currently at the liver transplant list at [facility]. He said he has been drinking heavily most of his life up until May of last year when he found out about his liver cirrhosis. He denied history of GI bleed, dark stool or paracentesis. He however reported that he has been feeling very lethargic and he has been using either a walker or a wheelchair and also at times he has been forgetful. Patient appears slightly tired and he is jaundiced. At the outside hospital he had a white count of 16,000 and here after admission his white count 10,000 but he has a temperature of 100.1. Hospital Course Patient's blood cultures grew MSSA, also grew MSSA at previous ED visit at [facility]. Vancomycin and cefepime were narrowed to ceftriaxone once cultures cleared. He underwent TTE which was negative for vegetation. He was evaluated by GI and underwent EGD with grade 1 variceal banding He underwent 5 L paracentesis which was negative for SBP He will continue on his home diuretics and [facility] Home Meds Active Scripts Cephalexin* (Cephalexin*) 500 Mg Capsule, 500 MG PO QID for 10 Days, #40 CAP Prov:THERESA DESHPANDE MD 03/11/16 Hydrocodone/Acetaminophen ([place] 5-325 Tablet) 1 Each Tablet, 1 EACH PO QID, # 16 TAB Prov:THERESA DESHPANDE MD 03/11/16 Reported Medications Thiamine* (Thiamine*) 50 Mg Tablet, 50 MG PO DAILY, TAB 12/24/16 Spironolactone* (Aldactone*) 25 Mg Tablet, 25 MG PO DAILY, #30 TAB 12/24/16 Furosemide* (Furosemide*) 20 Mg Tablet, 20 MG PO BID, #30 TAB 12/24/16 Folic Acid* (Folic Acid*) 1 Mg Tablet, 1 MG PO DAILY, TAB 12/24/16 Primary Care Provider Gatito Hernandez MD Time spent on discharge: > 30 minutes Pending Labs Laboratory Tests Test 12/29/16 05:12 White Blood Count 7.010^3/ul (4.8-10.8) Red Blood Count 2.4110^6/ul (4.70-6.10) Hemoglobin 8.8g/dl (14.0-18.0) Hematocrit 25.1% (42.0-52.0) Mean Corpuscular Volume 104.1fl (82.0-101.0) Mean Corpuscular Hemoglobin 36.5pg (29.0-33.0) Mean Corpuscular Hemoglobin Concent 35.1g/dl (32.0-37.0) Red Cell Distribution Width 14.6% (11.5-14.5) Platelet Count 6310^3/UL (140-415) Mean Platelet Volume 10.3fl (7.4-10.4) Segmented Neutrophils % (Manual) 41% (39-77) Band Neutrophils % (Manual) 2% (0-4) Lymphocytes % (Manual) 21% (15-51) Monocytes % (Manual) 12% (0-11) Eosinophils % (Manual) 15% (0-7) Basophils % (Manual) 1% (0-2) Metamyelocytes % (manual) 2% (0-0) Nucleated Red Blood Cells % 1% (0-0) Neutrophils # (Manual) 2.910^3/ul (1.7-7.5) Band Neutrophils # 0.110^3/ul (0.0-0.6) Absolute Lymphocytes (Manual) 1.410^3/ul (0.8-2.9) Absolute Monocytes (Manual) 0.810^3/ul (0.3-0.9) Basophils # (Manual) 0.010^3/ul (0.0-0.0) Metamyelocytes # 0.110^3/ul (0.0-0.0) Smudge Cells % 9% (0-0) Platelet Estimate SIG DECREASED Polychromasia 3+ (0-0) Poikilocytosis 3+ (0-0) Anisocytosis 1+ (0-0) Macrocytosis 1+ (0-0) Sodium Level 135mmol/L (135-144) Potassium Level 3.8mmol/L (3.5-5.1) Chloride Level 107mmol/L (97-110) Carbon Dioxide Level 23mmol/L (21-31) Anion Gap 9 (8-16) Blood Urea Nitrogen 10mg/dl (7-20) Creatinine 0.74mg/dl (0.61-1.24) Glucose Level 85mg/dl (70-220) Calcium Level 7.6mg/dl (8.4-10.2) Total Bilirubin 3.1mg/dl (0.2-1.3) Direct Bilirubin 0.10mg/dl (0.00-0.20) Indirect Bilirubin 3.0mg/dl (0-1.1) Aspartate Amino Transf (AST/SGOT) 51IU/L (15-46) Alanine Aminotransferase (ALT/SGPT) 43IU/L (13-69) Alkaline Phosphatase 107IU/L (42-121) Total Protein 5.1g/dl (6.1-8.1) Albumin 2.0g/dl (3.3-4.9) CLARA MONTEMAYOR MD Dec 29, 2016 16:51
[2016-12-29 17:27] VITALS: BP 162/74; PULSE 78
== END 2016-12-29 17:45 | disposition home or self-care (01) | DRG 872 ==
LOC: MS2 12-24 02:22
PROVIDERS: ADMIT Internal Medicine; ATTEND Internal Medicine
PROC: 0W9G3ZX Drainage of Peritoneal Cavity, Percutaneous Approach, Diagnostic (ICD-10-PCS; 2016-12-26)
PROC: 30233K1 Transfusion of Nonautologous Frozen Plasma into Peripheral Vein, Percutaneous Approach (ICD-10-PCS; 2016-12-26)
PROC: 06L34CZ Occlusion of Esophageal Vein with Extraluminal Device, Percutaneous Endoscopic Approach (ICD-10-PCS; principal; 2016-12-26 19:30)
PROC: 02HV33Z Insertion of Infusion Device into Superior Vena Cava, Percutaneous Approach (ICD-10-PCS; 2016-12-29)
DX: A41.9 Sepsis, unspecified organism (principal); Z76.82 Awaiting organ transplant status; I85.10 Secondary esophageal varices without bleeding; L03.115 Cellulitis of right lower limb; D69.59 Other secondary thrombocytopenia; K70.31 Alcoholic cirrhosis of liver with ascites; K70.40 Alcoholic hepatic failure without coma; D63.8 Anemia in other chronic diseases classified elsewhere; D73.1 Hypersplenism; K31.89 Other diseases of stomach and duodenum; R60.0 Localized edema; F17.200 Nicotine dependence, unspecified, uncomplicated; B95.61 Methicillin susceptible Staphylococcus aureus infection as the cause of diseases classified elsewhere
CPT/HCPCS: 36430; 36569; 71010; 76700; 76937; 80048; 80053; 80076; 80202; 82042; 82140; 83735; 84100; 84157; 85025; 85610; 85730; 86850; 86900; 86901; 87040; 87070; 87102; 87116; 88104; 88305; 93306; C9113; J0692; J0696; J2060; J2250; J2405; J3370; J7040; J7050; P9047; P9059

== ENCOUNTER 2016-12-30 08:25 | Emergency (ER) | payer OTHER ==
[~2016-12-30] VITALS: Wt 81.0 kg
[~2016-12-30 08:25] MED LIST changes: +CEFT1FRO2 IV; -CEPH500C PO; +FURO20TA3 PO; +SPIR25TA PO
--- NOTE | 2016-12-30 10:14 | ERD ---
ER Documentation Chief Complaint Date/Time DATE: 12/30/16 TIME: 10:12 Chief Complaint BLEEDING FROM PICC LINE HPI This is a 46-year-old male with a history of liver cirrhosis who had a left upper extremity PICC line placed for antibiotic therapy at home. She states last night he noticed a small amount of blood at the insertion site into the arm but he has no pain. He woke this morning with a small blood collection underneath the Tegaderm. He has no numbness or weakness in the arm no swelling or shortness of breath or chest pain. ROS All systems reviewed and are negative except as per history of present illness. Medications Home Meds Active Scripts Ceftriaxone Na/Dextrose,Iso (Ceftriaxone 1 gm Piggyback) 1 Gm/50 Ml Froz.piggy, 1 GM IV DAILY for 14 Days Prov:CLARA MONTEMAYOR MD 12/29/16 Hydrocodone/Acetaminophen ([place] 5-325 Tablet) 1 Each Tablet, 1 EACH PO QID, # 16 TAB Prov:THERESA DESHPANDE MD 03/11/16 Reported Medications Spironolactone* (Aldactone*) 25 Mg Tablet, 25 MG PO DAILY, #30 TAB 12/24/16 Furosemide* (Furosemide*) 20 Mg Tablet, 20 MG PO BID, #30 TAB 12/24/16 Discontinued Reported Medications Thiamine* (Thiamine*) 50 Mg Tablet, 50 MG PO DAILY, TAB 12/24/16 Folic Acid* (Folic Acid*) 1 Mg Tablet, 1 MG PO DAILY, TAB 12/24/16 Discontinued Scripts Cephalexin* (Cephalexin*) 500 Mg Capsule, 500 MG PO QID for 10 Days, #40 CAP Prov:THERESA DESHPANDE MD 03/11/16 Allergies Allergies: Coded Allergies: ibuprofen (Verified Allergy, Unknown, 03/11/16) PMhx/Soc History of Surgery: No Anesthesia Reaction: No (no surgery history) Hx Neurological Disorder: No Hx Respiratory Disorders: No Hx Cardiac Disorders: No Hx Psychiatric Problems: No Hx Miscellaneous Medical Probl: No Hx Alcohol Use: No Hx Substance Use: No Hx Tobacco Use: No FmHx Family History: No coronary disease Physical Exam Vitals Vital Signs Date Time Temp Pulse Resp B/P Pulse Ox O2 Delivery O2 Flow Rate FiO2 12/30/16 08:35 98.0 75 18 111/55 98 Physical Exam Const: Well-developed, well-nourished Head: Atraumatic, normocephalic Eyes: Normal Conjunctiva, PERRLA, EOMI, normal sclera, no nystagmus ENT: Normal External Ears, Nose and Mouth, moist mucus membranes. Neck: Full range of motion. No meningismus, no lymphadenopathy. Resp: Clear to auscultation bilaterally, no wheezing, rhonchi, rales Cardio: Regular rate and rhythm, no murmurs, S1 S2 present Abd: Soft, non tender x 4, non distended. Normal bowel sounds, no guarding or rebound, no pulsitile abdominal masses or bruits Skin: No petechiae or rashes, no ecchymosis , no maculopapular rash Back: No midline or flank tenderness Ext: No cyanosis, or edema, FROM x 4, normal inspection, neurovascularly intact x 4, the left inner humerus PICC line is intact there is no ecchymosis no erythema there is a small amount of blood collection underneath the Tegaderm., Nontender Neur: Awake and alert, STR 5/5 x 4, sensation intact x 4, no focal findings, cerebellum intact Psych: Normal Mood and Affect Procedures/MDM The PICC line nurse was called and came downstairs to evaluate the patient. The original PICC line covering was removed and the skin was clear. There is no active bleeding at all. The nurse then put on a new dressing. Departure Diagnosis: Primary Impression: Bleeding from PICC line Encounter type: initial encounter Qualified Code: T82.838A - Bleeding from PICC line, initial encounter Condition: Stable Patient Instructions: Picc Line Care MEI MORALES DO Dec 30, 2016 10:14
== END 2016-12-30 10:28 | disposition home or self-care (01) ==
LOC: E/R 08:25
DX: T82.838A Hemorrhage due to vascular prosthetic devices, implants and grafts, initial encounter (principal); R40.2252 Coma scale, best verbal response, oriented, at arrival to emergency department; R40.2142 Coma scale, eyes open, spontaneous, at arrival to emergency department; R40.2362 Coma scale, best motor response, obeys commands, at arrival to emergency department; Y82.8 Other medical devices associated with adverse incidents
CPT/HCPCS: 99282

== ENCOUNTER 2017-01-18 16:25 | Inpatient (IN) | payer OTHER ==
[~2017-01-18] VITALS: Ht 172.7 cm; Wt 95.0 kg
[2017-01-18] MEDS ORDERED: SOD CHLORIDE 0.9% 1,000 ML IV STA (16:46)
[2017-01-18] MEDS ORDERED: CEFTRIAXONE 1 GM/50 ML (PMX) 50 ML IVPB ONE (17:00)
[2017-01-18] MEDS ORDERED: VANCOMYCIN 1 GM (PMX) 250 ML IVPB SCH (17:00)
[2017-01-18 17:11] LABS: ABNORMAL IP MESSAGE 1; BASOPHIL # 0.1 10^3/ul (0.0-0.1); BASOPHILS % 0.6 % (0.0-2.0); EOSINOPHILS # 0.3 10^3/ul (0.0-0.5); HEMOGLOBIN 10.9 g/dl (14.0-18.0); LYMPHOCYTES # 0.9 10^3/ul (0.8-2.9); LYMPHOCYTES % 6.1 % (15.0-51.0); MEAN CORPUSCULAR HEMOGLOBIN 36.6 pg (29.0-33.0); MEAN CORPUSCULAR HGB CONC 35.2 g/dl (32.0-37.0); MEAN PLATELET VOLUME 10.5 fl (7.4-10.4); MONOCYTE # 1.3 10^3/ul (0.3-0.9); MONOCYTES % 9.1 % (0.0-11.0); NEUTROPHILS % 81.1 % (39.0-77.0); POSITIVE DIFF @See below; RED BLOOD COUNT 2.98 10^6/ul (4.70-6.10); RED CELL DISTRIBUTION WIDTH 14.9 % (11.5-14.5)
[2017-01-18 17:28] LABS: PLATELET COUNT 57 10^3/UL (140-415)
[2017-01-18 17:30] LABS: INR 1.85; PROTIME 21.5 Sec (12.2-14.2); PT RATIO 1.7
[2017-01-18] MEDS ORDERED: ACETAMINOPHEN 325 MG TAB PO ONE (17:30)
[2017-01-18 17:47] LABS: ALANINE AMINOTRANSFERASE 42 IU/L (13-69); ALBUMIN/GLOBULIN RATIO 0.63; ALKALINE PHOSPHATASE 246 IU/L (42-121); ANION GAP 13 (8-16); ASPARTATE AMINO TRANSFERASE 64 IU/L (15-46); BILIRUBIN,INDIRECT 5.5 mg/dl (0-1.1); BILIRUBIN,TOTAL 6.6 mg/dl (0.2-1.3); BLOOD UREA NITROGEN 14 mg/dl (7-20); CALCIUM 8.8 mg/dl (8.4-10.2); CARBON DIOXIDE 23 mmol/L (21-31); CHLORIDE 103 mmol/L (97-110); CREATININE 0.83 mg/dl (0.61-1.24); GLUCOSE 126 mg/dl (70-220); POTASSIUM 4.6 mmol/L (3.5-5.1); SODIUM 134 mmol/L (135-144); TOTAL PROTEIN 7.7 g/dl (6.1-8.1)
[2017-01-18 17:51] LABS: ADD UMIC NO; UR ASCORBIC ACID NEGATIVE (NEGATIVE); UR BILIRUBIN (Dip) NEGATIVE (NEGATIVE); UR BLOOD (Dip) NEGATIVE (NEGATIVE); UR CLARITY CLEAR (CLEAR); UR COLOR AMBER (YELLOW); UR GLUCOSE (Dip) NEGATIVE (NEGATIVE); UR KETONES (Dip) NEGATIVE (NEGATIVE); UR LEUKOCYTE ESTERASE (Dip) NEGATIVE Leu/ul (NEGATIVE); UR NITRITE (Dip) NEGATIVE (NEGATIVE); UR SPECIFIC GRAVITY (Dip) 1.011 (1.003-1.030); UR TOTAL PROTEIN (Dip) NEGATIVE (NEGATIVE); UR UROBILINOGEN (Dip) 2+ mg/dL (NEGATIVE)
[2017-01-18 18:06] LABS: TROPONIN-I < 0.012 ng/ml (0.00-0.12)
--- NOTE | 2017-01-18 18:14 | ERA ---
ER Documentation Chief Complaint Date/Time DATE: 01/18/17 TIME: 18:12 Chief Complaint chest congestion, fever, r.leg pain x today HPI 46-year-old man presents with chest congestion, fever, bilateral lower extremity swelling 2-3 days. He denies blood per rectum or melena, no chest pain, no vomiting or diarrhea. ROS All systems reviewed and are negative except as per history of present illness. Medications Home Meds Reported Medications Thiamine* (Vitamin B-1*) 100 Mg Tablet, 50 MG PO QAM, TAB 01/18/17 Folic Acid* (Folic Acid*) 1 Mg Tablet, 1 MG PO DAILY, TAB 01/18/17 Spironolactone* (Aldactone*) 50 Mg Tablet, 50 MG PO BID, #60 TAB 01/18/17 Furosemide* (Furosemide*) 20 Mg Tablet, 20 MG PO TID, #60 TAB 01/18/17 Discontinued Reported Medications Spironolactone* (Aldactone*) 25 Mg Tablet, 25 MG PO DAILY, #30 TAB 12/24/16 Furosemide* (Furosemide*) 20 Mg Tablet, 20 MG PO BID, #30 TAB 12/24/16 Discontinued Scripts Ceftriaxone Na/Dextrose,Iso (Ceftriaxone 1 gm Piggyback) 1 Gm/50 Ml Froz.piggy, 1 GM IV DAILY for 14 Days Prov:CLARA MONTEMAYOR MD 12/29/16 Hydrocodone/Acetaminophen ([place] 5-325 Tablet) 1 Each Tablet, 1 EACH PO QID, # 16 TAB Prov:THERESA DESHPANDE MD 03/11/16 Allergies Allergies: Coded Allergies: ibuprofen (Verified Allergy, Unknown, 01/18/17) PMhx/Soc Liver disease, cirrhosis, need congestive heart failure Medical and Surgical Hx: pt denies Medical Hx History of Surgery: No Anesthesia Reaction: No (no surgery history) Hx Neurological Disorder: No Hx Respiratory Disorders: No Hx Cardiac Disorders: No Hx Psychiatric Problems: No Hx Miscellaneous Medical Probl: Yes (cirrhosis) Hx Alcohol Use: Yes Hx Substance Use: No Hx Tobacco Use: No Smoking Status: Never smoker FmHx Family History: No diabetes Physical Exam Vitals Vital Signs Date Time Temp Pulse Resp B/P Pulse Ox O2 Delivery O2 Flow Rate FiO2 01/18/17 16:42 101.8 87 21 123/66 100 Room Air 01/18/17 16:27 100.0 99 20 137/73 100 Physical Exam Const: [] Head: Atraumatic Eyes: Icterus, pink conjunctiva ENT: Normal External Ears, Nose and Mouth. Neck: Full range of motion..~ No meningismus. Resp: Clear to auscultation bilaterally Cardio: Regular rate and rhythm, no murmurs Abd: Soft, protuberant, no rigidity, positive hepatomegaly Skin: Positive jaundice Back: No midline or flank tenderness Ext: No cyanosis, or edema Neur: Awake and alert Psych: Normal Mood and Affect Result Diagram: 01/21/17 0550 01/21/17 0550 Results 24 hrs Laboratory Tests Test 01/18/17 16:50 01/18/17 17:00 White Blood Count 14.010^3/ul Red Blood Count 2.9810^6/ul Hemoglobin 10.9g/dl Hematocrit 31.0% Mean Corpuscular Volume 104.0fl Mean Corpuscular Hemoglobin 36.6pg Mean Corpuscular Hemoglobin Concent 35.2g/dl Red Cell Distribution Width 14.9% Platelet Count 5710^3/UL Mean Platelet Volume 10.5fl Neutrophils % 81.1% Lymphocytes % 6.1% Monocytes % 9.1% Eosinophils % 2.0% Basophils % 0.6% Nucleated Red Blood Cells % 0.0/100WBC Neutrophils # (Manual) 11.410^3/ul Lymphocytes # 0.910^3/ul Monocytes # 1.310^3/ul Eosinophils # 0.310^3/ul Basophils # 0.110^3/ul Nucleated Red Blood Cells # 0.010^3/ul Prothrombin Time 21.5Sec Prothrombin Time Ratio 1.7 INR International Normalized Ratio 1.85 Sodium Level 134mmol/L Potassium Level 4.6mmol/L Chloride Level 103mmol/L Carbon Dioxide Level 23mmol/L Anion Gap 13 Blood Urea Nitrogen 14mg/dl Creatinine 0.83mg/dl Glucose Level 126mg/dl Lactic Acid Level 2.2mmol/L Calcium Level 8.8mg/dl Total Bilirubin 6.6mg/dl Direct Bilirubin 1.10mg/dl Indirect Bilirubin 5.5mg/dl Aspartate Amino Transf (AST/SGOT) 64IU/L Alanine Aminotransferase (ALT/SGPT) 42IU/L Alkaline Phosphatase 246IU/L Ammonia 25umol/l Troponin I < 0.012ng/ml Total Protein 7.7g/dl Albumin 3.0g/dl Globulin 4.70g/dl Albumin/Globulin Ratio 0.63 Lipase 115U/L Urine Color SYLVIA Urine Clarity CLEAR Urine pH 8.0 Urine Specific [place] 1.011 Urine Ketones NEGATIVEmg/dL Urine Nitrite NEGATIVEmg/dL Urine Bilirubin NEGATIVEmg/dL Urine Urobilinogen 2+mg/dL Urine Leukocyte Esterase NEGATIVELeu/ul Urine Hemoglobin NEGATIVEmg/dL Urine Glucose NEGATIVEmg/dL Urine Total Protein NEGATIVEmg/dl Current Medications Medications (Trade) Dose Ordered Sig/Abbe Route PRN Reason Start Time Stop Time Status Last Admin Dose Admin Sodium Chloride 1,000 ml @ 2,000 mls/hr Q30M STAT IV 01/18/17 16:46 01/18/17 17:15 DC 01/18/17 16:58 Ceftriaxone Sodium 50 ml @ 100 mls/hr ONCE ONCE IVPB 01/18/17 17:00 01/18/17 17:29 DC 01/18/17 17:19 Vancomycin HCl (Vancocin) 250 ml @ 125 mls/hr ONCE IVPB 01/18/17 17:00 01/18/17 18:59 DC 01/18/17 17:54 Acetaminophen (Tylenol Tab) 650 mg ONCE ONCE PO 01/18/17 17:30 01/18/17 17:31 DC 01/18/17 17:58 Procedures/MDM IV line was established patient was placed on pie dough roller rhythm strip revealed a sinus rhythm at about 90 bpm with upright P and T waves. Patient was afebrile. Blood and urine cultures were ordered results are pending I will follow-up. EKG performed, read by me: 90 bpm, normal sinus rhythm, normal axis, no acute ST segment changes, narrow QRS complex, with good R-wave progression in precordial leads. I administered vancomycin 1 g IV, ceftriaxone 1 g IV 1. CBC revealed anemia and thrombocytopenia, electrolytes normal, liver function tests elevated, lactic acid elevated at 2.2., Calcium low at 7.9. Ammonia level was normal. Patient's infectious symptoms have not stabilized and the patient is at risk of rapid decompensation. The patient will be admitted for careful hydration, antibiotic therapy, and infectious source control. Severe Sepsis Assessment: Infectious Source: Unknown Severe Sepsis Managment: Blood Cultures X 2 before broad spectrum antibiotics initiated within 3 hours of recognition. 30 ml/kg NS bolus Completed Initial Lactate: Elevated Repeat Lactate 2.4 Critical Care: Time: 40 minutes, this was time separate from other billable procedures Treatments/Evaluations: Emergent fluid management, while maintaining close respiratory support. Immediate broad spectrum antibiotic therapy. Simultaneous assessment for possible sources in order to direct therapy. Consideration for invasive and chemical support to prevent respiratory or cardiac collapse. Septic Shock Assessment (1 hour post 30 ml/kg fluid bolus): Hypotension (SBP < 90 or 40 mmHg drop, MAP < 65): No Lactic acid > 4.0 No Perfusion Reassessment for Septic Shock: Temp 98.6, pulse 80, respiratory rate 16, blood pressure 120/80 Heart Exam: Regular rate rhythm Lung Exam: Positive bibasilar crackles Capillary Refill: Less than 2 seconds Peripheral Pulses: Radially present Skin: Jaundice and dry Hypotensive Treatment (not required for isolated lactic acid elevation): Comfort Care: No Central LIne: Not indicated Vasopressor started: Not indicated CT scan of the abdomen and pelvis was performed revealing cholelithiasis and ascites. Please refer to radiologist dictation for full report. Bilateral lower extremity Doppler ultrasound was performed negative for DVT. I considered further perfusion assessment with CVP measurement, SCVO2, bedside ultrasound volume assessment, passive leg raise, trial of further fluid bolus. And preceded with gentle IV hydration and broad-spectrum antibiotics Accepting Care Team: Current data and ongoing care discussed. Time: Time of admission Primary Provider: Hospitalist Consulting: Infectious disease Outstanding Data: none Departure Diagnosis: Primary Impression: Sepsis Qualified Code: A41.9 - Sepsis, due to unspecified organism Additional Impressions: Spontaneous bacterial peritonitis Cirrhosis Qualified Code: K70.31 - Alcoholic cirrhosis of liver with ascites Ascites Qualified Code: K70.31 - Ascites due to alcoholic cirrhosis Condition: SPENCER Devries MD Jan 18, 2017 18:13
[2017-01-18] MEDS ORDERED: FURO20TA3 PO (18:51)
[2017-01-18] MEDS ORDERED: FOLI-49 PO (18:52)
[2017-01-18] MEDS ORDERED: SPIR50TA PO (18:52)
[2017-01-18] MEDS ORDERED: THIA100T56 PO (18:53)
[2017-01-18 20:36] VITALS: TEMP 99.6
[2017-01-18 22:15] VITALS: BP 113/65; PULSE 79; RESP 16; Ht 172.7 cm; Wt 95.0 kg
[2017-01-18] MEDS ORDERED: ONDANSETRON 4 MG INJ IV PRN (22:30)
[2017-01-18] MEDS ORDERED: morphine 4 MG/ML VIAL IV PRN (22:30)
[2017-01-19 01:57] VITALS: BP 101/51; RESP 20
--- NOTE | 2017-01-19 05:53 | HP ---
Date/Time of Note Date/Time of Note DATE: 01/19/17 TIME: 05:40 Assessment/Plan VTE Prophylaxis VTE Prophylaxis Intervention: SCD's Lines/Catheters IV [facility]from [facility] Saline Lock Urinary Cath still in place: No Assessment/Plan Assessment/Plan 1. Sepsis, as evidenced by fever and leukocytosis, secondary to right lower extremity cellulitis -He will be placed on antibiotics. We will follow up on the blood culture results. Notes that during recent admission 3 weeks ago, blood culture was positive for MSSA. Echo was negative for vegetation. He was also ruled out for SBP at that time. Patient may benefit from repeat paracentesis from this admission. 2. Decompensated liver cirrhosis: Patient is currently on transplant list at [facility]. His last drink was in May of last year. -will continue his Lasix, Aldactone, and Lactulose. -3 weeks ago, he was evaluated by GI and underwent EGD with grade 1 variceal banding. He also underwent paracentesis with removal of 5 L of fluid which was negative for SBP. 3. Elevated transaminases: Secondary to above. 4. Macrocytic anemia secondary to end-stage liver disease and likely blood loss given history of esophageal varices: -He is a status post EGD with grade 1 variceal banding 3 weeks ago. -We will monitor H&H closely HPI/ROS Admit Date/Time Admit Date/Time Jan 18, 2017 at 18:26 Hx of Present Illness This is a 46-year-old male with a history of decompensated alcoholic liver cirrhosis who presented to the emergency department complaining of bilateral lower extremity pain/swelling and abdominal distention. Patient was admitted by myself about 3 weeks ago after he presented with lower extremity swelling, redness as well as abdominal pain and distention. At that time he was treated for lower extremity cellulitis as well as for ascites. Patient's blood cultures grew MSSA. Vancomycin and cefepime were narrowed to ceftriaxone once cultures cleared. He underwent TTE which was negative for vegetation. He was evaluated by GI and underwent EGD with grade 1 variceal banding. He also underwent 5 L paracentesis which was negative for SBP. Patient is currently at the liver transplant list at [facility]. When he presented to the ER today, he was febrile with a temperature of 1 1.8. Labs show WBC of 14,000, hemoglobin 10.2, platelet count 57, total bilirubin 6.6. Lactic acid was as high as 2.4 which trended down to 1.6. Urinalysis is negative for UTI. . PMH/Family/Social Past Medical History Medical History: other (End-stage liver disease) Past Surgical History Past Surgical Hx: no surgical history Social History Alcohol Use: sober Smoking Status: Former smoker Drug Use: other Exam/Review of Systems Vital Signs Vitals Vital Signs Date Time Temp Pulse Resp B/P Pulse Ox O2 Delivery O2 Flow Rate FiO2 01/19/17 01:57 99.4 62 20 101/51 94 01/18/17 22:15 Room Air Intake and Output 01/18/17 01/18/17 01/19/17 15:00 23:00 07:00 Intake Total 2050 ml Balance 2050 ml Exam Exam Constitutional: alert, oriented, well developed Head: atraumatic, normocephalic Eyes: icteric Neck: non-tender, supple Respiratory: clear to auscultation, normal air movement Cardiovascular: nl pulses, regular rate and rhythm Gastrointestinal: distended, non-tender Extremities: other (There is bilateral lower extremity pitting edema. Right leg is more swollen than the right and it is also warm to touch. There is also hyperpigmentation of the bilateral lower extremities.) Labs Result Diagram: 01/18/17 1650 01/18/17 165 Medications Medications Current Medications Folic Acid (Folic Acid) 1 mg DAILY PO ; Start 01/19/17 at 09:00 Furosemide (Lasix) 20 mg TID PO ; Start 01/19/17 at 09:00 Spironolactone (Aldactone) 50 mg BID PO ; Start 01/19/17 at 09:00 Thiamine HCl (Vitamin B1) 50 mg QAM PO ; Start 01/19/17 at 09:00 Famotidine (Pepcid) 20 mg BID PO ; Start 01/19/17 at 09:00 Morphine Sulfate (morphine) 3 mg Q4H PRN IV pain; Start 01/18/17 at 22:30 Ondansetron HCl (Zofran Inj) 4 mg Q6H PRN IV NAUSEA AND/OR VOMITING; Start at 22:30 JS JACKSON MD Jan 19, 2017 05:51
[2017-01-19] MEDS: CEFTRIAXONE 1 GM/50 ML (PMX) 50 ML IVPB SCH (06:23)
[2017-01-19 06:58] LABS: ABNORMAL IP MESSAGE 1; BASOPHIL # 0.1 10^3/ul (0.0-0.1); BASOPHILS % 0.8 % (0.0-2.0); EOSINOPHILS # 0.5 10^3/ul (0.0-0.5); EOSINOPHILS % 3.9 % (0.0-7.0); HEMATOCRIT 27.3 % (42.0-52.0); HEMOGLOBIN 9.1 g/dl (14.0-18.0); LYMPHOCYTES # 1.3 10^3/ul (0.8-2.9); LYMPHOCYTES % 10.7 % (15.0-51.0); MEAN CORPUSCULAR HGB CONC 33.3 g/dl (32.0-37.0); MEAN PLATELET VOLUME 10.7 fl (7.4-10.4); MONOCYTE # 1.1 10^3/ul (0.3-0.9); MONOCYTES % 8.7 % (0.0-11.0); NEUTROPHILS % 74.7 % (39.0-77.0); POSITIVE DIFF @See below; WHITE BLOOD COUNT 12.4 10^3/ul (4.8-10.8)
[2017-01-19 07:00] LABS: PLATELET COUNT 47 10^3/UL (140-415)
[2017-01-19 07:29] LABS: ALBUMIN 2.2 g/dl (3.3-4.9); ALBUMIN/GLOBULIN RATIO 0.55; BILIRUBIN,DIRECT 1.1 mg/dl (0.00-0.20); BILIRUBIN,INDIRECT 6.6 mg/dl (0-1.1); BILIRUBIN,TOTAL 7.7 mg/dl (0.2-1.3); CALCIUM 7.9 mg/dl (8.4-10.2); CREATININE 0.7 mg/dl (0.61-1.24); POTASSIUM 4.2 mmol/L (3.5-5.1); TOTAL PROTEIN 6.2 g/dl (6.1-8.1)
[2017-01-19 07:30] VITALS: BP 105/58; RESP 18
[2017-01-19] MEDS: FAMOTIDINE 20 MG TAB PO SCH ×2 (09:16→22:12)
[2017-01-19] MEDS: SPIRONOLACTONE 50 MG TAB PO SCH ×2 (09:16→22:12)
[2017-01-19] MEDS: FOLIC ACID 1 MG TAB PO SCH (09:16)
[2017-01-19] MEDS: FUROSEMIDE 20 MG TAB PO SCH ×3 (09:16→22:13)
[2017-01-19] MEDS: THIAMINE 100 MG TAB PO SCH (09:16)
--- NOTE | 2017-01-19 09:53 | RADRPT ---
PROCEDURE: XR Chest. CLINICAL INDICATION: Abdominal pain. Chest pain TECHNIQUE: AP view of the chest was obtained. COMPARISON: 12/29/2016 FINDINGS: The cardiomediastinal silhouette is within normal limits. The lungs appear clear. No pleural effu lizzie or pneumothorax is identified. Right hemidiaphragm is moderately elevated. IMPRESSION: No active cardiopulmonary disease identified. Moderately elevated right hemidiaphragm. RPTAT: VV .Ric Acuna MD, MD Date Time Electronically viewed and signed by .Ric Acuna MD, on 01/18/2017 17:45 .O/
--- NOTE | 2017-01-19 09:54 | RADRPT ---
PROCEDURE: US Lower extremity Venous. CLINICAL INDICATION: Pain and swelling TECHNIQUE: Multiple sonographic images of the bilateral lower extremity deep venous system was obt ained utilizing grayscale, color-flow, compressive sonography and doppler imaging with augmentation. The images were reviewed on a PACS workstation. COMPARISON: None. FINDINGS: There is normal compressibility and flow within the bilateral common femoral, deep femoral, superfic ial femoral and popliteal veins. Normal respiratory variation and augmentation is seen. There is normal color flow and compressibility of bilateral posterior tibial and peroneal veins IMPRESSION: No sonographic evidence for bilateral lower extremity deep venous thrombosis. RPTAT: HH .Doug Ramon MD, MD Date Time Electronically viewed and signed by .Doug Ramon MD, on 01/18/2017 18:52 .W/
--- NOTE | 2017-01-19 09:55 | RADRPT ---
PROCEDURE: CT abdomen and pelvis without contrast. CLINICAL INDICATION: Abdominal pain. Cirrhosis. TECHNIQUE: CT of the abdomen and pelvis without contrast was performed on a multidetector high-reso lution CT scanner. Coronal and sagittal reformatted images were obtained from the axial source image s. Images were reviewed on a high-resolution PACS workstation. The total exam CTDI equals 20.55 mGy and the total exam DLP equals 1332.88 mGy-cm. One or more of the following dose reduction techniques were used: - Automated exposure control. - Adjustment of the mA and/or kV according to patient size. - Use of iterative reconstruction technique. COMPARISON: Ultrasound dated 12/26/2016. FINDINGS: Visualized lower thorax: There are small left and trace right pleural effusions. The visualized hea rt is unremarkable. There is circumferential wall thickening of the distal esophagus. Hepatobiliary system and spleen: The liver is small and nodular in contour, consistent with morphol ogic changes of cirrhosis. The liver is otherwise grossly unremarkable. There is no intra or extrah epatic biliary ductal dilatation. There are stones within the gallbladder. The spleen is enlarged me asuring 17.6 cm in length. The pancreas is grossly unremarkable. Adrenal glands and genitourinary system: The adrenal glands are grossly unremarkable. There is a si mple 1.7 cm cyst at the upper pole of the right kidney. There is a punctate nonobstructing stone at the lower pole of the right kidney. There is no hydronephrosis. The urinary bladder is grossly un remarkable. The prostate gland and seminal vesicles are grossly unremarkable. Gastrointestinal system: There is questionable wall thickening of the ascending and transverse colon . There is also questionable wall thickening of small bowel loops in the upper abdomen. There is n o evidence of bowel obstruction. The appendix is in the right lower quadrant and is unremarkable. Peritoneum, vascular, and lymphatics: There is no free intraperitoneal air. There is a moderate-to -large volume of ascites and there is anasarca. There is no definite mesenteric or retroperitoneal a denopathy. There are enlarged bilateral inguinal lymph nodes. There are atherosclerotic changes of the aorta, which is nonaneurysmal. Musculoskeletal system and soft tissues: There are no concerning osseous lesions. IMPRESSION: 1. Cirrhotic liver with stigmata of portal hypertension including splenomegaly and moderate to larg e volume of ascites. 2. Apparent wall thickening of the ascending and transverse colon and small bowel loops in the uppe r abdomen. Differential considerations include infectious or ischemic enterocolitis versus portal h ypertensive colopathy and enteropathy. 3. Nonspecific circumferential wall thickening of the visualized distal esophagus. 4. Cholelithiasis. 5. Bilateral inguinal adenopathy, which is nonspecific. 6. Multivessel coronary artery calcifications and atherosclerotic changes of the aorta. 7. Punctate nonobstructing stone at the upper pole right kidney. RPTAT: HLBP .Ayush Moses MD, Date Time Electronically viewed and signed by .Ayush Moses MD, on 01/18/2017 19:42 .P/
[2017-01-19 13:22] VITALS: BP 109/58; RESP 18
--- NOTE | 2017-01-19 15:15 | PN ---
Date/Time of Note Date/Time of Note DATE: 01/19/17 TIME: 15:12 Assessment/Plan VTE Prophylaxis VTE Prophylaxis Intervention: SCD's Lines/C[facility]ters [facility] Urinary Cath still in place: No Assessment/Plan Chief Complaint/Hosp Course Impression and plan 1. Sepsis secondary to cellulitis right lower extremity. Continue antibiotics. ID consult to follow. Of note patient had recent admission 3 weeks prior to this admission with blood culture showing MSSA. At that time echocardiogram is negative for any vegetation. Follow-up with recommendations of ID. 2. Decompensated liver cirrhosis. Patient on transplant list [facility]. Continue on diuretic therapy. Continue on lactulose. Will plan for paracentesis as needed 3. Transaminitis secondary to #2. Will monitor for now. 4. Macrocytic anemia secondary to end-stage liver disease with history of esophageal varices. Patient did have EGD 3 weeks prior to this admission. Monitor H&H. Stable at present. 5. Myelopathy secondary to #2. Monitor H&H for signs and symptoms of bleeding Disposition plan: Continue with antibiotics. Await Monday to follow. Will provide with paracentesis as needed. Discussed plan of care with Dr. Sharma Problems: Subjective 24 Hr Interval Summary Free Text/Dictation Denies any pain or shortness of breath at this time. Exam/Review of Systems Vital Signs Vitals Vital Signs Date Time Temp Pulse Resp B/P Pulse Ox O2 Delivery O2 Flow Rate FiO2 01/19/17 13:22 98.1 66 18 109/58 97 01/18/17 22:15 Room Air Intake and Output 01/18/17 01/18/17 01/19/17 14:59 22:59 06:59 Intake Total 2050 ml Balance 2050 ml Exam Constitutional: alert, oriented Psych: nl mood/affect Eyes: icteric Neck: No jvd Respiratory: clear to auscultation Cardiovascular: regular rate and rhythm Gastrointestinal: soft (Protuberant nontender) Musculoskeletal: swelling (Bilateral lower extremity) Neurological: [employer] 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, nl mental status, nl speech Skin: other Results Result Diagram: 01/19/17 0557 01/19/17 0557 Results 24 hrs Laboratory Tests Test 01/18/17 16:50 01/18/17 17:00 01/18/17 18:40 01/18/17 20:51 White Blood Count 14.0 #H Red Blood Count 2.98 #L Hemoglobin 10.9 #L Hematocrit 31.0 #L Mean Corpuscular Volume 104.0 H Mean Corpuscular Hemoglobin 36.6 H Mean Corpuscular Hemoglobin Concent 35.2 Red Cell Distribution Width 14.9 H Platelet Count 57 L Mean Platelet Volume 10.5 H Neutrophils % 81.1 H Lymphocytes % 6.1 L Monocytes % 9.1 Eosinophils % 2.0 Basophils % 0.6 Nucleated Red Blood Cells % 0.0 Neutrophils # (Manual) 11.4 H Lymphocytes # 0.9 Monocytes # 1.3 H Eosinophils # 0.3 Basophils # 0.1 Nucleated Red Blood Cells # 0.0 Prothrombin Time 21.5 H Prothrombin Time Ratio 1.7 INR International Normalized Ratio 1.85 Sodium Level 134 L Potassium Level 4.6 Chloride Level 103 Carbon Dioxide Level 23 Anion Gap 13 Blood Urea Nitrogen 14 Creatinine 0.83 Glucose Level 126 Lactic Acid Level 2.2 *H 2.4 *H 1.6 Calcium Level 8.8 Total Bilirubin 6.6 H Direct Bilirubin 1.10 H Indirect Bilirubin 5.5 H Aspartate Amino Transf (AST/SGOT) 64 H Alanine Aminotransferase (ALT/SGPT) 42 Alkaline Phosphatase 246 H Ammonia 25 Troponin I < 0.012 Total Protein 7.7 Albumin 3.0 L Globulin 4.70 H Albumin/Globulin Ratio 0.63 Lipase 115 Urine Color SYLVIA Urine Clarity CLEAR Urine pH 8.0 Urine Specific [place] 1.011 Urine Ketones NEGATIVE Urine Nitrite NEGATIVE Urine Bilirubin NEGATIVE Urine Urobilinogen 2+ H Urine Leukocyte Esterase NEGATIVE Urine Hemoglobin NEGATIVE Urine Glucose NEGATIVE Urine Total Protein NEGATIVE Test 01/19/17 05:57 White Blood Count 12.4 H Red Blood Count 2.60 L Hemoglobin 9.1 L Hematocrit 27.3 L Mean Corpuscular Volume 105.0 H Mean Corpuscular Hemoglobin 35.0 H Mean Corpuscular Hemoglobin Concent 33.3 Red Cell Distribution Width 15.0 H Platelet Count 47 L Mean Platelet Volume 10.7 H Neutrophils % 74.7 Lymphocytes % 10.7 L Monocytes % 8.7 Eosinophils % 3.9 Basophils % 0.8 Nucleated Red Blood Cells % 0.0 Neutrophils # (Manual) 9.3 H Lymphocytes # 1.3 Monocytes # 1.1 H Eosinophils # 0.5 Basophils # 0.1 Nucleated Red Blood Cells # 0.0 Sodium Level 137 Potassium Level 4.2 Chloride Level 105 Carbon Dioxide Level 22 Anion Gap 14 Blood Urea Nitrogen 14 Creatinine 0.70 Glucose Level 88 Calcium Level 7.9 L Total Bilirubin 7.7 H Direct Bilirubin 1.10 H Indirect Bilirubin 6.6 H Aspartate Amino Transf (AST/SGOT) 51 H Alanine Aminotransferase (ALT/SGPT) 37 Alkaline Phosphatase 157 H Total Protein 6.2 # Albumin 2.2 L Globulin 4.00 H Albumin/Globulin Ratio 0.55 Medications Medications Current Medications Folic Acid (Folic Acid) 1 mg DAILY PO Last administered on 01/19/17 09:16; Admin Dose 1 MG; Start 01/19/17 at 09:00 Furosemide (Lasix) 20 mg TID PO Last administered on 01/19/17 12:28; Admin Dose 20 MG; Start 01/19/17 at 09:00 Spironolactone (Aldactone) 50 mg BID PO Last administered on 01/19/17 09:16; Admin Dose 50 MG; Start 01/19/17 at 09:00 Thiamine HCl (Vitamin B1) 50 mg QAM PO Last administered on 01/19/17 09:16; Admin Dose 50 MG; Start 01/19/17 at 09:00 Famotidine (Pepcid) 20 mg BID PO Last administered on 01/19/17 09:16; Admin Dose 20 MG; Start 01/19/17 at 09:00 Morphine Sulfate (morphine) 3 mg Q4H PRN IV pain; Start 01/18/17 at 22:30 Ondansetron HCl 4 mg 4 mg Q6H PRN IV NAUSEA AND/OR VOMITING; Start 01/18/17 at 22:30 Ceftriaxone Sodium (Rocephin) 50 ml @ 100 mls/hr Q24H IVPB Last administered on 01/19/17 06:23; Admin Dose 100 MLS/HR; Start 01/19/17 at 06:00 GINGER MEJIA Jan 19, 2017 15:15
[2017-01-19] MEDS ORDERED: VANCOMYCIN IV PER PHARMACY XX SCH (16:00)
--- NOTE | 2017-01-19 16:13 | CONS ---
Date/Time of Note Date/Time of Note DATE: 01/19/17 TIME: 16:12 Consultation Date/Type/Reason Admit Date/Time Jan 18, 2017 at 18:26 Date of Consultation: Jan 19, 2017 Type of Consultation: ID Reason for Consultation Antibiotic management Psychological: nl mood/affect Past Medical History Medical History: other (End-stage liver disease) Past Surgical History Past Surgical Hx: no surgical history Social History Alcohol Use: sober Smoking Status: Former smoker Drug Use: other Exam/Review of Systems Vital Signs Vitals Vital Signs Date Time Temp Pulse Resp B/P Pulse Ox O2 Delivery O2 Flow Rate FiO2 01/19/17 13:22 98.1 66 18 109/58 97 01/18/17 22:15 Room Air Intake and Output 01/18/17 01/18/17 01/19/17 15:00 23:00 07:00 Intake Total 2050 ml 50 ml Balance 2050 ml 50 ml Results Result Diagram: 01/19/17 0557 01/19/17 0557 Results 24 hrs Laboratory Tests Test 01/18/17 16:50 01/18/17 17:00 01/18/17 18:40 01/18/17 20:51 White Blood Count 14.0 #H Red Blood Count 2.98 #L Hemoglobin 10.9 #L Hematocrit 31.0 #L Mean Corpuscular Volume 104.0 H Mean Corpuscular Hemoglobin 36.6 H Mean Corpuscular Hemoglobin Concent 35.2 Red Cell Distribution Width 14.9 H Platelet Count 57 L Mean Platelet Volume 10.5 H Neutrophils % 81.1 H Lymphocytes % 6.1 L Monocytes % 9.1 Eosinophils % 2.0 Basophils % 0.6 Nucleated Red Blood Cells % 0.0 Neutrophils # (Manual) 11.4 H Lymphocytes # 0.9 Monocytes # 1.3 H Eosinophils # 0.3 Basophils # 0.1 Nucleated Red Blood Cells # 0.0 Prothrombin Time 21.5 H Prothrombin Time Ratio 1.7 INR International Normalized Ratio 1.85 Sodium Level 134 L Potassium Level 4.6 Chloride Level 103 Carbon Dioxide Level 23 Anion Gap 13 Blood Urea Nitrogen 14 Creatinine 0.83 Glucose Level 126 Lactic Acid Level 2.2 *H 2.4 *H 1.6 Calcium Level 8.8 Total Bilirubin 6.6 H Direct Bilirubin 1.10 H Indirect Bilirubin 5.5 H Aspartate Amino Transf (AST/SGOT) 64 H Alanine Aminotransferase (ALT/SGPT) 42 Alkaline Phosphatase 246 H Ammonia 25 Troponin I < 0.012 Total Protein 7.7 Albumin 3.0 L Globulin 4.70 H Albumin/Globulin Ratio 0.63 Lipase 115 Urine Color SYLVIA Urine Clarity CLEAR Urine pH 8.0 Urine Specific [place] 1.011 Urine Ketones NEGATIVE Urine Nitrite NEGATIVE Urine Bilirubin NEGATIVE Urine Urobilinogen 2+ H Urine Leukocyte Esterase NEGATIVE Urine Hemoglobin NEGATIVE Urine Glucose NEGATIVE Urine Total Protein NEGATIVE Test 01/19/17 05:57 White Blood Count 12.4 H Red Blood Count 2.60 L Hemoglobin 9.1 L Hematocrit 27.3 L Mean Corpuscular Volume 105.0 H Mean Corpuscular Hemoglobin 35.0 H Mean Corpuscular Hemoglobin Concent 33.3 Red Cell Distribution Width 15.0 H Platelet Count 47 L Mean Platelet Volume 10.7 H Neutrophils % 74.7 Lymphocytes % 10.7 L Monocytes % 8.7 Eosinophils % 3.9 Basophils % 0.8 Nucleated Red Blood Cells % 0.0 Neutrophils # (Manual) 9.3 H Lymphocytes # 1.3 Monocytes # 1.1 H Eosinophils # 0.5 Basophils # 0.1 Nucleated Red Blood Cells # 0.0 Sodium Level 137 Potassium Level 4.2 Chloride Level 105 Carbon Dioxide Level 22 Anion Gap 14 Blood Urea Nitrogen 14 Creatinine 0.70 Glucose Level 88 Calcium Level 7.9 L Total Bilirubin 7.7 H Direct Bilirubin 1.10 H Indirect Bilirubin 6.6 H Aspartate Amino Transf (AST/SGOT) 51 H Alanine Aminotransferase (ALT/SGPT) 37 Alkaline Phosphatase 157 H Total Protein 6.2 # Albumin 2.2 L Globulin 4.00 H Albumin/Globulin Ratio 0.55 Medications Medications Current Medications Folic Acid (Folic Acid) 1 mg DAILY PO Last administered on 01/19/17 09:16; Admin Dose 1 MG; Start 01/19/17 at 09:00 Furosemide (Lasix) 20 mg TID PO Last administered on 01/19/17 12:28; Admin Dose 20 MG; Start 01/19/17 at 09:00 Spironolactone (Aldactone) 50 mg BID PO Last administered on 01/19/17 09:16; Admin Dose 50 MG; Start 01/19/17 at 09:00 Thiamine HCl (Vitamin B1) 50 mg QAM PO Last administered on 01/19/17 09:16; Admin Dose 50 MG; Start 01/19/17 at 09:00 Famotidine (Pepcid) 20 mg BID PO Last administered on 01/19/17 09:16; Admin Dose 20 MG; Start 01/19/17 at 09:00 Morphine Sulfate (morphine) 3 mg Q4H PRN IV pain; Start 01/18/17 at 22:30 Ondansetron HCl 4 mg 4 mg Q6H PRN IV NAUSEA AND/OR VOMITING; Start 01/18/17 at 22:30 Ceftriaxone Sodium 50 ml @ 100 mls/hr Q24H IVPB Last administered on 06:23; Admin Dose 100 MLS/HR; Start 01/19/17 at 06:00 Vancomycin HCl 1.75 gm/Sodium Chloride 500 ml @ 125 mls/hr ONCE ONCE IVPB ; Start 01/19/17 at 18:00; Stop 01/19/17 at 21:59 Vancomycin HCl/ Sodium Chloride (Vancocin/NS) 150 ml @ 75 mls/hr Q8H IVPB ; Start 01/20/17 at 02:00 DENNIS BRUCE MD Jan 19, 2017 16:13
--- NOTE | 2017-01-19 17:56 | CONS ---
DATE OF ADMISSION: 01/18/2017 DATE OF CONSULTATION: 01/19/2017 REASON FOR CONSULTATION: Antibiotic management. HISTORY OF PRESENT ILLNESS: The patient is a 46-year-old, male, well known to us from previous admissions. His problems include, decompensated alcoholic liver cirrhosis/end- stage liver disease. Acutely the patient presented to the emergency room complaining if bilateral lower extremity pain and swelling and abdominal distention. He was complaining of pain in the calf on the right side, which was very tight. He was admitted 3 weeks ago with lower extremity swelling. At that time, he was treated for cellulitis as well as for ascites. His blood cultures grew out MSSA and he was changed from vancomycin and cefepime to ceftriaxone and underwent a MARGARITA, which was negative for vegetation. He was evaluated by GI and underwent EGD with grade 1 varicocele banding, also underwent 5 L paracentesis, which was negative for SBP. Patient is currently on the liver transplant list at [facility] [[email or web address] In the emergency room, temperature was 101.8, his white count was 14,000, H and H of 10.9/31, platelet count 57,000, BUN and creatinine 14/0.83. PAST MEDICAL/SURGICAL HISTORY: Operations as outlined. None. FAMILY HISTORY: Noncontributory. SOCIAL HISTORY: He is a former smoker. Does not drink or abuse drugs. He was a former heavy alcohol abuser. He is currently sober. ALLERGIES: NONE TO PENICILLIN, SULFA, OR FOODS. MEDICATIONS: Per chart. REVIEW OF SYSTEMS: As per HPI. PHYSICAL EXAMINATION: The patient is a well developed, well- nourished male, who is alert, responsive, in no acute distress. VITAL SIGNS: Stable. He is afebrile. SKIN: He has some apparent jaundice. HEENT: He has scleral icterus. NECK: Supple. Lymph nodes nonpalpable. CHEST: Decreased breath sounds at the bases. HEART: Without murmur or gallop. ABDOMEN: Soft, nontender, without organosplenomegaly or masses. EXTREMITIES: Without cyanosis, clubbing, or edema. He has some swelling of the right leg more so than the left with minimal pitting edema. He also has hyperpigmentation of bilateral lower extremities secondary to stasis dermatitis. RECTAL/GENITAL: Deferred. NEUROLOGICAL: No focal neurological abnormalities. LABORATORY: His chest x-ray on admission showed no active disease. An extremity venous study showed no DVT and an abdominal pelvic CT showed cirrhotic liver with stigmata of portal hypertension including splenomegaly and moderate to large volume of ascites. Apparent wall thickening of the ascending and transverse colon. Differential considerations include infectious or ischemic enterocolitis versus portal hypertension, colopathy and enteropathy cholelithiasis, bilateral inguinal adenopathy, nonspecific circumferential wall thickening of the visualized distal esophagus, multiple coronary artery calcifications, punctate nonobstructing stones in the upper pole of the right kidney. IMPRESSION AND PLAN: Patient comes in now with apparent cellulitis, so far his blood cultures are preliminary. Patient was started on vancomycin and ceftriaxone. He should continue on both unless there is some result. I will dictate my findings to the hospitalist. Dictated By: Alexander Turner MD JD/eloise/ash /Document#: [id number]
[2017-01-19] MEDS ORDERED: VANCOMYCIN 1.75 GM in NS 500 ML IVPB ONE (18:00)
[2017-01-19 20:17] VITALS: BP 110/55; RESP 16
[2017-01-20] MEDS: VANCOMYCIN 750 MG in SOD CHLORIDE 0.9% 150 ML IVPB SCH ×3 (01:41→18:24)
[2017-01-20 02:15] VITALS: BP 101/57; RESP 16
[2017-01-20] MEDS: CEFTRIAXONE 1 GM/50 ML (PMX) 50 ML IVPB SCH (05:26)
[2017-01-20 07:55] VITALS: BP 102/55; RESP 18
[2017-01-20] MEDS: FAMOTIDINE 20 MG TAB PO SCH ×2 (09:19→20:34)
[2017-01-20] MEDS: FOLIC ACID 1 MG TAB PO SCH (09:19)
[2017-01-20] MEDS: SPIRONOLACTONE 50 MG TAB PO SCH ×2 (09:19→20:34)
[2017-01-20] MEDS: THIAMINE 100 MG TAB PO SCH (09:19)
[2017-01-20] MEDS: FUROSEMIDE 20 MG TAB PO SCH ×3 (09:19→20:35)
--- NOTE | 2017-01-20 11:01 | PN ---
Date/Time of Note Date/Time of Note DATE: 01/20/17 TIME: 10:59 Assessment/Plan VTE Prophylaxis VTE Prophylaxis Intervention: contraindicated Lines/Catheters [facility] Saline Lock Urinary Cath still in place: No Assessment/Plan Chief Complaint/Hosp Course 1. Sepsis with underlying right lower extremity cellulitis and gram-positive bacteremia. Continue antimicrobials as per infectious diseases. 2. Decompensated liver cirrhosis. Continue diuretics. Will obtain ammonia level. We will start the patient on lactulose if the patient has evidence of hyperammonemia. 3. Microcytic anemia. Most probably secondary to underlying liver cirrhosis. Monitor H&H closely. Transfuse blood products as needed. 4. Thrombocytopenia. Most probably secondary to underlying liver cirrhosis. Continue to monitor the patient for any bleeding. 5. Transaminitis with hyperbilirubinemia. Most probably secondary to underlying liver cirrhosis. Avoid hepatotoxic medications. Trend LFTs. 6. Fluids, electrolytes, and nutrition. Low-sodium diet. 7. DVT prophylaxis. Contraindicated. 8. Plan. Will order paracentesis. We will send ascites fluid for culture. Obtain bilateral lower extremity venous Doppler study. Case discussed with Dr. Sharma. Problems: Subjective 24 Hr Interval Summary Free Text/Dictation Denies any pain. Exam/Review of Systems Vital Signs Vitals Vital Signs Date Time Temp Pulse Resp B/P Pulse Ox O2 Delivery O2 Flow Rate FiO2 01/20/17 07:55 98.6 64 18 102/55 99 01/18/17 22:15 Room Air Intake and Output 01/19/17 01/19/17 01/20/17 15:00 23:00 07:00 Intake Total 600 ml 1140 ml Output Total 1600 ml 600 ml Balance -1000 ml 540 ml Exam General: Adequately build 46 year-old male lying in bed in no apparent distress. HEENT: Normocephalic, atraumatic. Eyes: Slightly icteric sclerae, conjunctivae clear. ENT: Nasal septum midline, oral mucosa moist. Neck supple, no JVD noticed. Respiratory: Bilaterally clear breath sounds. No use of accessory muscles of respiration. No adventitious breath sounds. Cardiovascular: S1, S2 heard. Regular rate and rhythm. Abdomen: Soft and nondistended. Bowel sounds positive in all 4 quadrants. Genitourinary: Deferred. Extremities: No cyanosis, no clubbing. Bilateral lower extremity edema 1-2+. Peripheral pulses palpable. Neurologic: Cranial nerves II through XII grossly intact. The patient is awake, alert, and oriented. Skin: Normal skin turgor. No skin rashes. Results Result Diagram: 01/19/1757 01/19/1757 Medications Medications Current Medications Folic Acid (Folic Acid) 1 mg DAILY PO Last administered on 01/20/17 09:19; Admin Dose 1 MG; Start 01/19/17 at 09:00 Furosemide (Lasix) 20 mg TID PO Last administered on 01/20/17 09:19; Admin Dose 20 MG; Start 01/19/17 at 09:00 Spironolactone (Aldactone) 50 mg BID PO Last administered on 01/20/17 09:19; Admin Dose 50 MG; Start 01/19/17 at 09:00 Thiamine HCl (Vitamin B1) 50 mg QAM PO Last administered on 01/20/17 09:19; Admin Dose 50 MG; Start 01/19/17 at 09:00 Famotidine (Pepcid) 20 mg BID PO Last administered on 01/20/17 09:19; Admin Dose 20 MG; Start 01/19/17 at 09:00 Morphine Sulfate (morphine) 3 mg Q4H PRN IV pain; Start 01/18/17 at 22:30 Ondansetron HCl 4 mg 4 mg Q6H PRN IV NAUSEA AND/OR VOMITING; Start 01/18/17 at 22:30 Ceftriaxone Sodium 50 ml @ 100 mls/hr Q24H IVPB Last administered on 05:26; Admin Dose 100 MLS/HR; Start 01/19/17 at 06:00 Vancomycin HCl/ Sodium Chloride (Vancocin/NS) 150 ml @ 75 mls/hr Q8H IVPB Last administered on 01/20/17 09:19; Admin Dose 75 MLS/HR; Start 01/20/17 at 02 :00 Miscellaneous Information (*Rx Drug Level Order Reminder*) VANCO TROUGH @ 1, 700 ON... ONCE ONCE XX ; Start 01/20/17 at 17:00; Stop 01/20/17 at 17:01 YANICK PERERA NP Jan 20, 2017 11:01
[2017-01-20] MEDS ORDERED: morphine 2 MG INJ IV ONE (12:30)
[2017-01-20] MEDS ORDERED: LORAZEPAM 1 MG TAB PO ONE (12:30)
--- NOTE | 2017-01-20 12:36 | RADRPT ---
PROCEDURE: Ultrasound of the bilateral lower extremity venous system. CLINICAL INDICATION: Bilateral lower extremity edema. TECHNIQUE: Suarez scale with and without compression, color doppler, spectral doppler of the venous system of the bilateral lower extremities was performed. Venous augmentation maneuvers were utilized . COMPARISON: 01/18/2017. FINDINGS: RIGHT: Common femoral vein:Patent and compressible. Femoral vein:Patent and compressible. Popliteal vein:Patent and compressible. Visualized calf veins:Patent and compressible. Soft tissues:Normal LEFT: Common femoral vein:Patent and compressible. Femoral vein:Patent and compressible. Popliteal vein:Patent and compressible. Visualized calf veins:Patent and compressible. Soft tissues:Normal IMPRESSION: 1. No evidence of deep vein thrombosis. RPTAT: [facility] Physician Zee Date Time Electronically viewed and signed by Physician Zee on 01/20/2017 12:35 /
[2017-01-20 12:44] LABS: ABNORMAL IP MESSAGE 1; BASOPHIL # 0.1 10^3/ul (0.0-0.1); BASOPHILS % 1.8 % (0.0-2.0); EOSINOPHILS # 0.6 10^3/ul (0.0-0.5); EOSINOPHILS % 10.1 % (0.0-7.0); HEMATOCRIT 28.4 % (42.0-52.0); HEMOGLOBIN 9.8 g/dl (14.0-18.0); LYMPHOCYTES # 1.2 10^3/ul (0.8-2.9); LYMPHOCYTES % 22.3 % (15.0-51.0); MEAN CORPUSCULAR HEMOGLOBIN 35.8 pg (29.0-33.0); MEAN CORPUSCULAR HGB CONC 34.5 g/dl (32.0-37.0); MEAN CORPUSCULAR VOLUME 103.6 fl (82.0-101.0); MEAN PLATELET VOLUME 10.7 fl (7.4-10.4); MONOCYTE # 0.9 10^3/ul (0.3-0.9); MONOCYTES % 15.7 % (0.0-11.0); NEUTROPHILS % 47.9 % (39.0-77.0); POSITIVE DIFF @See below; RED BLOOD COUNT 2.74 10^6/ul (4.70-6.10); RED CELL DISTRIBUTION WIDTH 15.2 % (11.5-14.5); WHITE BLOOD COUNT 5.5 10^3/ul (4.8-10.8)
[2017-01-20 12:49] LABS: PLATELET COUNT 53 10^3/UL (140-415)
[2017-01-20 13:04] LABS: PROTIME 22.9 Sec (12.2-14.2); PT RATIO 1.8
[2017-01-20 13:05] LABS: PARTIAL THROMBOPLASTIN TIME 43.7 Sec (25.0-35.0); THROMBIN TIME 18.6 SEC (13.8-19.1)
[2017-01-20 13:08] LABS: ALBUMIN 2.1 g/dl (3.3-4.9); ALBUMIN/GLOBULIN RATIO 0.53; BILIRUBIN,DIRECT 0.2 mg/dl (0.00-0.20); BILIRUBIN,TOTAL 4.2 mg/dl (0.2-1.3); CREATININE 0.66 mg/dl (0.61-1.24); MAGNESIUM 1.6 mg/dl (1.7-2.5); POTASSIUM 3.8 mmol/L (3.5-5.1)
[2017-01-20] MEDS ORDERED: LIDOCAINE 1% (MPF) 5 ML VIAL ONE (13:56)
[2017-01-20 14:50] VITALS: BP 96/53; RESP 18
[2017-01-20 16:04] LABS: FLD MN% 92.8 %; FLD PMN% 7.2 %; FLD RBC 1 /uL; FLD WBC 96 /cmm
[2017-01-20 16:47] LABS: FLD CLARITY CLOUDY; FLD COLOR YELLOW; FLD TYPE PARACENTHESIS
[2017-01-20 16:49] LABS: FLD MN % (M) 86 %; FLD OTHER CELLS 6 %; FLD PMN % (M) 8 %
[2017-01-20 16:53] LABS: FLUID LD 224 U/L; FLUID TOTAL PROTEIN < 2.0 g/dl; FLUID TYPE PARACENTESIS FLUID
--- NOTE | 2017-01-20 16:56 | RADRPT ---
PROCEDURE: Ultrasound guided paracentesis CLINICAL INDICATION: Ascites TECHNIQUE: Risks benefits and alternatives of the procedure were explained to the patient. Inform ed written consent was obtained. A time out was performed. Informed written consent was obtained p rior to beginning the procedure. Preliminary end packer ultrasound of the abdomen was performed. Fluid was identified in the lower quadrant. The overlying skin of the right lower quadrant was prepped an d draped in the usual sterile fashion. 5 cc of lidocaine was injected locally for pain control. Und er ultrasound guidance, a skinny 5-Malian Yueh catheter was introduced into the peritoneal cavity. F luid was obtained without difficulty. The fluid was sent the laboratory for further analysis. The patient tolerated procedure well without complication. COMPARISON: None FINDINGS: Approximately 4850 cc of clear yellow fluid was obtained. Fluid samples were sent to the laboratory for further evaluation, as requested. IMPRESSION: Successful ultrasound-guided diagnostic and therapeutic paracentesis. RPTAT: QQ Physician Godfrey Date Time Electronically viewed and signed by Physician Godfrey on 01/20/2017 16:56 JACKY/
[2017-01-20 20:27] VITALS: BP 103/56; RESP 18
[2017-01-21 02:00] VITALS: BP 102/58; RESP 18
[2017-01-21] MEDS: VANCOMYCIN 750 MG in SOD CHLORIDE 0.9% 150 ML IVPB SCH ×3 (02:09→18:22)
[2017-01-21] MEDS: CEFTRIAXONE 1 GM/50 ML (PMX) 50 ML IVPB SCH (05:15)
--- NOTE | 2017-01-21 05:34 | PN ---
DATE: 01/20/2017 SUBJECTIVE DATA: No acute changes overnight. The patient is alert, looks comfortable. Denies pain. No fevers. LABORATORY: WBC 5.5, platelets 53, neutrophils 47.9. BUN 12, creatinine 0.66. MICROBIOLOGY: Urine culture growing staph species. Blood culture growing Staph aureus. DIAGNOSTIC DATA: Extremities venous study revealed no evidence of DVT. CT of the abdomen and pelvis on admission showed cirrhotic liver with stigmata of portal hypertension and moderate to large volume of ascites. Apparent wall thickening of the ascending and transverse colon and small bowel loops in the upper abdomen. Questionable infectious or ischemic enterocolitis versus portal hypertensive colopathy and enteropathy, cholelithiasis. Punctuate nonobstructing stone at the upper pole right kidney. ANTIMICROBIAL: Vancomycin and ceftriaxone. PHYSICAL EXAMINATION: This is a well-developed, middle-aged man who is awake, in no distress. HEENT: Head atraumatic, normocephalic. Sclerae icteric. Buccal mucosa dry. NECK: Supple. CHEST: Chest rise symmetrical. Breath sounds diminished at the bases. HEART: S1, S2. ABDOMEN: Soft. Bowel sounds present. EXTREMITIES: Bilateral lower extremities. Trace edema. ASSESSMENT: 1. Recurrent bacteremia with blood cultures on December 24 grew Staph aureus, etiology unclear. The patient is status post paracentesis on December 26 with ascitic fluid culture at that time were negative. He status post PICC line that was discontinued last week. 2. Bilateral lower extremity cellulitis, right more than left, resolving. 3. End-stage liver disease with recurrent ascites. 4. Anemia and thrombocytopenia. PLAN: The patient remains stable. We are going to continue him on current antimicrobials. We are going to order 2D echo. He is suppose to have paracentesis and we will make sure and sent fluid for culture, Gram stain, and cytology. We may do it WBC labeled nuclear scan to determine because of persistent bacteremia. Dictated By: Rhoda Cárdenas NP /eloise/jeimy /Document#: [id number]
[2017-01-21 06:42] LABS: ABNORMAL IP MESSAGE 1; BASOPHIL # 0.1 10^3/ul (0.0-0.1); BASOPHILS % 1.8 % (0.0-2.0); EOSINOPHILS # 0.6 10^3/ul (0.0-0.5); EOSINOPHILS % 11.8 % (0.0-7.0); HEMATOCRIT 28.1 % (42.0-52.0); HEMOGLOBIN 9.6 g/dl (14.0-18.0); LYMPHOCYTES # 1.5 10^3/ul (0.8-2.9); LYMPHOCYTES % 27.9 % (15.0-51.0); MEAN CORPUSCULAR HEMOGLOBIN 34.9 pg (29.0-33.0); MEAN CORPUSCULAR HGB CONC 34.2 g/dl (32.0-37.0); MEAN CORPUSCULAR VOLUME 102.2 fl (82.0-101.0); MEAN PLATELET VOLUME 10.8 fl (7.4-10.4); MONOCYTE # 0.9 10^3/ul (0.3-0.9); MONOCYTES % 16.8 % (0.0-11.0); NEUTROPHILS % 39.7 % (39.0-77.0); PLATELET COUNT 53 10^3/UL (140-415); POSITIVE DIFF @See below; RED BLOOD COUNT 2.75 10^6/ul (4.70-6.10); RED CELL DISTRIBUTION WIDTH 14.7 % (11.5-14.5); WHITE BLOOD COUNT 5.4 10^3/ul (4.8-10.8)
[2017-01-21 07:11] LABS: MAGNESIUM 1.5 mg/dl (1.7-2.5); PHOSPHORUS 3.9 mg/dl (2.5-4.9)
[2017-01-21 07:17] LABS: ALBUMIN 2.1 g/dl (3.3-4.9); ALBUMIN/GLOBULIN RATIO 0.53; BILIRUBIN,DIRECT 0.1 mg/dl (0.00-0.20); BILIRUBIN,INDIRECT 3.5 mg/dl (0-1.1); BILIRUBIN,TOTAL 3.6 mg/dl (0.2-1.3); CALCIUM 7.9 mg/dl (8.4-10.2); CREATININE 0.68 mg/dl (0.61-1.24); POTASSIUM 4.1 mmol/L (3.5-5.1)
[2017-01-21 07:52] VITALS: BP 103/64; RESP 16
[2017-01-21] MEDS: FOLIC ACID 1 MG TAB PO SCH (09:26)
[2017-01-21] MEDS: THIAMINE 100 MG TAB PO SCH (09:26)
[2017-01-21] MEDS: FUROSEMIDE 20 MG TAB PO SCH ×3 (09:27→21:06)
[2017-01-21] MEDS: FAMOTIDINE 20 MG TAB PO SCH ×2 (09:28→21:05)
[2017-01-21] MEDS: SPIRONOLACTONE 50 MG TAB PO SCH ×2 (09:28→21:05)
[2017-01-21] MEDS ORDERED: MAGNESIUM SULFATE 2 GM/50 ML 50 ML IVPB ONE (10:30)
--- NOTE | 2017-01-21 13:35 | PN ---
Date/Time of Note Date/Time of Note DATE: 01/21/17 TIME: 13:32 Assessment/Plan VTE Prophylaxis VTE Prophylaxis Intervention: SCD's Lines/Catheters [facility] Saline Lock Urinary Cath still in place: No Assessment/Plan Chief Complaint/Hosp Course Impression and plan 1. Sepsis secondary to cellulitis right lower extremity. Continue antibiotics. ID consult to follow. Of note patient had recent admission 3 weeks prior to this admission with blood culture showing MSSA. At that time echocardiogram is negative for any vegetation. Follow-up with recommendations of ID. Appears to be improving at present. 2. Decompensated liver cirrhosis. Patient on transplant list [facility]. Continue on diuretic therapy. Continue on lactulose. Status post paracentesis. Will monitor for now. 3. Transaminitis secondary to #2. Will monitor for now. 4. Macrocytic anemia secondary to end-stage liver disease with history of esophageal varices. Patient did have EGD 3 weeks prior to this admission. Monitor H&H. Stable at present. 5. Coagulopathy secondary to #2. Monitor H&H for signs and symptoms of bleeding Disposition plan:continue with antibiotics, awaiting body fluid culture results. d/c planning. d/c when medically stable and cleared by consultants Discussed plan of care with Dr. Sharma Problems: Subjective 24 Hr Interval Summary Free Text/Dictation Comfortable at present. Reports better breathing status post paracentesis per Exam/Review of Systems Vital Signs Vitals Vital Signs Date Time Temp Pulse Resp B/P Pulse Ox O2 Delivery O2 Flow Rate FiO2 01/21/17 07:52 98.6 62 16 103/64 97 01/18/17 22:15 Room Air Intake and Output 01/20/17 01/20/17 01/21/17 15:00 23:00 07:00 Intake Total 150 ml 1340 ml 200 ml Output Total 1450 ml 900 ml Balance 150 ml -110 ml -700 ml Exam Constitutional: alert, oriented Psych: nl mood/affect Head: normocephalic Eyes: icteric Respiratory: clear to auscultation, normal air movement Cardiovascular: regular rate and rhythm Gastrointestinal: other (protuberent, nontender ), soft Musculoskeletal: nl extremities to inspection Extremities: edema (ble, less ) Skin: other (jaundice ) Results Result Diagram: 01/21/17 0550 01/21/17 0550 Results 24 hrs Laboratory Tests Test 01/20/17 17:13 01/21/17 05:50 Vancomycin Level Trough 13.1 White Blood Count 5.4 Red Blood Count 2.75 L Hemoglobin 9.6 L Hematocrit 28.1 L Mean Corpuscular Volume 102.2 H Mean Corpuscular Hemoglobin 34.9 H Mean Corpuscular Hemoglobin Concent 34.2 Red Cell Distribution Width 14.7 H Platelet Count 53 L Mean Platelet Volume 10.8 H Neutrophils % 39.7 Lymphocytes % 27.9 Monocytes % 16.8 H Eosinophils % 11.8 H Basophils % 1.8 Nucleated Red Blood Cells % 0.0 Neutrophils # (Manual) 2 Lymphocytes # 1.5 Monocytes # 0.9 Eosinophils # 0.6 H Basophils # 0.1 Nucleated Red Blood Cells # 0.0 Sodium Level 136 Potassium Level 4.1 Chloride Level 103 Carbon Dioxide Level 23 Anion Gap 14 Blood Urea Nitrogen 12 Creatinine 0.68 Glucose Level 110 Calcium Level 7.9 L Phosphorus Level 3.9 Magnesium Level 1.5 L Total Bilirubin 3.6 H Direct Bilirubin 0.10 Indirect Bilirubin 3.5 H Aspartate Amino Transf (AST/SGOT) 50 H Alanine Aminotransferase (ALT/SGPT) 45 Alkaline Phosphatase 141 H Ammonia 28 Total Protein 6.0 L Albumin 2.1 L Globulin 3.90 H Albumin/Globulin Ratio 0.53 Medications Medications Current Medications Folic Acid (Folic Acid) 1 mg DAILY PO Last administered on 01/21/17 09:26; Admin Dose 1 MG; Start 01/19/17 at 09:00 Furosemide (Lasix) 20 mg TID PO Last administered on 01/21/17 12:59; Admin Dose 20 MG; Start 01/19/17 at 09:00 Spironolactone (Aldactone) 50 mg BID PO Last administered on 01/21/17 09:28; Admin Dose 50 MG; Start 01/19/17 at 09:00 Thiamine HCl (Vitamin B1) 50 mg QAM PO Last administered on 01/21/17 09:26; Admin Dose 50 MG; Start 01/19/17 at 09:00 Famotidine (Pepcid) 20 mg BID PO Last administered on 01/21/17 09:28; Admin Dose 20 MG; Start 01/19/17 at 09:00 Morphine Sulfate (morphine) 3 mg Q4H PRN IV pain; Start 01/18/17 at 22:30 Ondansetron HCl 4 mg 4 mg Q6H PRN IV NAUSEA AND/OR VOMITING; Start 01/18/17 at 22:30 Ceftriaxone Sodium 50 ml @ 100 mls/hr Q24H IVPB Last administered on 05:15; Admin Dose 100 MLS/HR; Start 01/19/17 at 06:00 Vancomycin HCl/ Sodium Chloride (Vancocin/NS) 150 ml @ 75 mls/hr Q8H IVPB Last administered on 01/21/17 09:29; Admin Dose 75 MLS/HR; Start 01/20/17 at 02 :00 GINGER MEJIA Jan 21, 2017 13:35
[2017-01-21 13:50] VITALS: BP 105/64; RESP 18
--- NOTE | 2017-01-21 15:54 | CONS ---
Date/Time of Note Date/Time of Note DATE: 01/21/17 TIME: 15:50 Assessment/Plan Assessment/Plan Chief Complaint/Hosp Course SUBJECTIVE DATA: No acute changes overnight. The patient is alert, looks comfortable. Denies pain. No fevers. MICROBIOLOGY: Urine culture growing staph species. Blood culture growing Staph aureus. DIAGNOSTIC DATA: Extremities venous study revealed no evidence of DVT. CT of the abdomen and pelvis on admission showed cirrhotic liver with stigmata of portal hypertension and moderate to large volume of ascites. Apparent wall thickening of the ascending and transverse colon and small bowel loops in the upper abdomen. Questionable infectious or ischemic enterocolitis versus portal hypertensive colopathy and enteropathy, cholelithiasis. Punctuate nonobstructing stone at the upper pole right kidney. ANTIMICROBIAL: Vancomycin and ceftriaxone. PHYSICAL EXAMINATION: This is a well-developed, middle-aged man who is awake, in no distress. HEENT: Head atraumatic, normocephalic. Sclerae icteric. Buccal mucosa dry. NECK: Supple. CHEST: Chest rise symmetrical. Breath sounds diminished at the bases. HEART: S1, S2. ABDOMEN: Soft. Bowel sounds present. EXTREMITIES: Bilateral lower extremities. Trace edema. ASSESSMENT: 1. Recurrent bacteremia with blood cultures on December 24 grew Staph aureus, etiology unclear. The patient is status post paracentesis on December 26 with ascitic fluid culture at that time were negative. 2. Bilateral lower extremity cellulitis, right more than left, resolving. 3. End-stage liver disease with recurrent ascites, s/p paracentesis==> no evidence for SBP. 4. Anemia and thrombocytopenia. PLAN: The patient remains stable continue abx, await for 2D ECHO report, pending WBC scan, repeat bld cx. DW pt/staff Dictated By: Rhoda Ho NP /eloise/jeimy /Document#: [id number] Problems: Consultation Date/Type/Reason Admit Date/Time Jan 18, 2017 at 18:26 Initial Consult Date 01/19/17 Type of Consultation: ID Exam/Review of Systems Vital Signs Vitals Vital Signs Date Time Temp Pulse Resp B/P Pulse Ox O2 Delivery O2 Flow Rate FiO2 01/21/17 13:50 97.9 65 18 105/64 99 01/18/17 22:15 Room Air Intake and Output 01/20/17 01/20/17 01/21/17 15:00 23:00 07:00 Intake Total 150 ml 1340 ml 200 ml Output Total 1450 ml 900 ml Balance 150 ml -110 ml -700 ml Results Result Diagram: 01/21/17 0550 01/21/17 0550 Results 24 hrs Laboratory Tests Test 01/20/17 17:13 01/21/17 05:50 Vancomycin Level Trough 13.1 White Blood Count 5.4 Red Blood Count 2.75 L Hemoglobin 9.6 L Hematocrit 28.1 L Mean Corpuscular Volume 102.2 H Mean Corpuscular Hemoglobin 34.9 H Mean Corpuscular Hemoglobin Concent 34.2 Red Cell Distribution Width 14.7 H Platelet Count 53 L Mean Platelet Volume 10.8 H Neutrophils % 39.7 Lymphocytes % 27.9 Monocytes % 16.8 H Eosinophils % 11.8 H Basophils % 1.8 Nucleated Red Blood Cells % 0.0 Neutrophils # (Manual) 2 Lymphocytes # 1.5 Monocytes # 0.9 Eosinophils # 0.6 H Basophils # 0.1 Nucleated Red Blood Cells # 0.0 Sodium Level 136 Potassium Level 4.1 Chloride Level 103 Carbon Dioxide Level 23 Anion Gap 14 Blood Urea Nitrogen 12 Creatinine 0.68 Glucose Level 110 Calcium Level 7.9 L Phosphorus Level 3.9 Magnesium Level 1.5 L Total Bilirubin 3.6 H Direct Bilirubin 0.10 Indirect Bilirubin 3.5 H Aspartate Amino Transf (AST/SGOT) 50 H Alanine Aminotransferase (ALT/SGPT) 45 Alkaline Phosphatase 141 H Ammonia 28 Total Protein 6.0 L Albumin 2.1 L Globulin 3.90 H Albumin/Globulin Ratio 0.53 Medications Medications Current Medications Folic Acid (Folic Acid) 1 mg DAILY PO Last administered on 01/21/17 09:26; Admin Dose 1 MG; Start 01/19/17 at 09:00 Furosemide (Lasix) 20 mg TID PO Last administered on 01/21/17 12:59; Admin Dose 20 MG; Start 01/19/17 at 09:00 Spironolactone (Aldactone) 50 mg BID PO Last administered on 01/21/17 09:28; Admin Dose 50 MG; Start 01/19/17 at 09:00 Thiamine HCl (Vitamin B1) 50 mg QAM PO Last administered on 01/21/17 09:26; Admin Dose 50 MG; Start 01/19/17 at 09:00 Famotidine (Pepcid) 20 mg BID PO Last administered on 01/21/17 09:28; Admin Dose 20 MG; Start 01/19/17 at 09:00 Morphine Sulfate (morphine) 3 mg Q4H PRN IV pain; Start 01/18/17 at 22:30 Ondansetron HCl 4 mg 4 mg Q6H PRN IV NAUSEA AND/OR VOMITING; Start 01/18/17 at 22:30 Ceftriaxone Sodium 50 ml @ 100 mls/hr Q24H IVPB Last administered on 05:15; Admin Dose 100 MLS/HR; Start 01/19/17 at 06:00 Vancomycin HCl/ Sodium Chloride (Vancocin/NS) 150 ml @ 75 mls/hr Q8H IVPB Last administered on 01/21/17 09:29; Admin Dose 75 MLS/HR; Start 01/20/17 at 02 :00 RHODA HO NP Jan 21, 2017 15:54
[2017-01-21 19:43] VITALS: BP 103/56; RESP 20
[2017-01-22] MEDS: VANCOMYCIN 750 MG in SOD CHLORIDE 0.9% 150 ML IVPB SCH ×2 (01:40→09:58)
[2017-01-22 02:49] VITALS: BP 97/55; RESP 19
[2017-01-22] MEDS: LORAZEPAM 1 MG TAB PO PRN ×2 (03:07→20:53)
[2017-01-22] MEDS: CEFTRIAXONE 1 GM/50 ML (PMX) 50 ML IVPB SCH (05:32)
[2017-01-22 06:55] LABS: WHITE BLOOD COUNT 5.9 10^3/ul (4.8-10.8)
[2017-01-22 06:56] LABS: ABNORMAL IP MESSAGE 1; BASOPHIL # 0.1 10^3/ul (0.0-0.1); EOSINOPHILS # 0.6 10^3/ul (0.0-0.5); EOSINOPHILS % 9.5 % (0.0-7.0); HEMATOCRIT 28.2 % (42.0-52.0); HEMOGLOBIN 9.7 g/dl (14.0-18.0); LYMPHOCYTES # 1.7 10^3/ul (0.8-2.9); LYMPHOCYTES % 28.2 % (15.0-51.0); MEAN CORPUSCULAR HEMOGLOBIN 34.5 pg (29.0-33.0); MEAN CORPUSCULAR HGB CONC 34.4 g/dl (32.0-37.0); MEAN CORPUSCULAR VOLUME 100.4 fl (82.0-101.0); MEAN PLATELET VOLUME 10.9 fl (7.4-10.4); MONOCYTE # 0.9 10^3/ul (0.3-0.9); NEUTROPHILS % 44.4 % (39.0-77.0); PLATELET COUNT 61 10^3/UL (140-415); POSITIVE DIFF @See below; RED BLOOD COUNT 2.81 10^6/ul (4.70-6.10); RED CELL DISTRIBUTION WIDTH 14.4 % (11.5-14.5)
[2017-01-22 07:08] LABS: CALCIUM 8.3 mg/dl (8.4-10.2); CREATININE 0.72 mg/dl (0.61-1.24); POTASSIUM 4.3 mmol/L (3.5-5.1)
[2017-01-22 07:55] VITALS: BP 104/58; RESP 18
[2017-01-22] MEDS: THIAMINE 100 MG TAB PO SCH (08:51)
[2017-01-22] MEDS: SPIRONOLACTONE 50 MG TAB PO SCH ×2 (08:52→20:53)
[2017-01-22] MEDS: FUROSEMIDE 20 MG TAB PO SCH ×3 (08:52→20:53)
[2017-01-22] MEDS: FOLIC ACID 1 MG TAB PO SCH (08:53)
[2017-01-22] MEDS: FAMOTIDINE 20 MG TAB PO SCH ×2 (08:53→20:52)
--- NOTE | 2017-01-22 13:32 | CONS ---
Date/Time of Note Date/Time of Note DATE: 01/22/17 TIME: 13:29 Assessment/Plan Assessment/Plan Chief Complaint/Hosp Course SUBJECTIVE DATA: Feels good, no fevers MICROBIOLOGY: Urine culture growing staph species. Blood culture growing Staph aureus. DIAGNOSTIC DATA: Extremities venous study revealed no evidence of DVT. CT of the abdomen and pelvis on admission showed cirrhotic liver with stigmata of portal hypertension and moderate to large volume of ascites. Apparent wall thickening of the ascending and transverse colon and small bowel loops in the upper abdomen. Questionable infectious or ischemic enterocolitis versus portal hypertensive colopathy and enteropathy, cholelithiasis. Punctuate nonobstructing stone at the upper pole right kidney. ANTIMICROBIAL: Vancomycin and ceftriaxone. PHYSICAL EXAMINATION: This is a well-developed, middle-aged man who is awake, in no distress. HEENT: Head atraumatic, normocephalic. Sclerae icteric. Buccal mucosa dry. NECK: Supple. CHEST: Chest rise symmetrical. Breath sounds diminished at the bases. HEART: S1, S2. ABDOMEN: Soft. Bowel sounds present. EXTREMITIES: Bilateral lower extremities. Trace edema. ASSESSMENT: 1. Recurrent BIRGIT bacteremia with blood cultures on December 24 grew Staph aureus, etiology unclear. Ascitic fluid cx negative, 2D ECHO 12/27 negative 2. Bilateral lower extremity cellulitis==> resolved 3. End-stage liver disease with recurrent ascites, s/p paracentesis==> no evidence for SBP. 4. Anemia and thrombocytopenia. PLAN: The patient remains stable, dc Vanco, continue Rocephin, await for WBC labeled nuclear scan DW pt/staff Dictated By: Julia Ho NP /renettat/jeimy /Document#: [id number] Problems: Consultation Date/Type/Reason Admit Date/Time Jan 18, 2017 at 18:26 Initial Consult Date 01/19/17 Type of Consultation: ID Exam/Review of Systems Vital Signs Vitals Vital Signs Date Time Temp Pulse Resp B/P Pulse Ox O2 Delivery O2 Flow Rate FiO2 01/22/17 07:55 97.9 62 18 104/58 100 01/18/17 22:15 Room Air Intake and Output 01/21/17 01/21/17 01/22/17 15:00 23:00 07:00 Intake Total 200 ml 510 ml 200 ml Output Total 900 ml Balance 200 ml -390 ml 200 ml Results Result Diagram: 01/22/17 0455 01/22/17 0455 Results 24 hrs Laboratory Tests Test 01/22/17 04:55 White Blood Count 5.9 Red Blood Count 2.81 L Hemoglobin 9.7 L Hematocrit 28.2 L Mean Corpuscular Volume 100.4 Mean Corpuscular Hemoglobin 34.5 H Mean Corpuscular Hemoglobin Concent 34.4 Red Cell Distribution Width 14.4 Platelet Count 61 L Mean Platelet Volume 10.9 H Neutrophils % 44.4 Lymphocytes % 28.2 Monocytes % 15.0 H Eosinophils % 9.5 H Basophils % 1.0 Nucleated Red Blood Cells % 0.0 Neutrophils # (Manual) 3 Lymphocytes # 1.7 Monocytes # 0.9 Eosinophils # 0.6 H Basophils # 0.1 Nucleated Red Blood Cells # 0.0 Sodium Level 137 Potassium Level 4.3 Chloride Level 102 Carbon Dioxide Level 24 Anion Gap 15 Blood Urea Nitrogen 11 Creatinine 0.72 Glucose Level 78 Calcium Level 8.3 L Magnesium Level 1.8 Medications Medications Current Medications Folic Acid (Folic Acid) 1 mg DAILY PO Last administered on 01/22/17 08:53; Admin Dose 1 MG; Start 01/19/17 at 09:00 Furosemide (Lasix) 20 mg TID PO Last administered on 01/22/17 12:32; Admin Dose 20 MG; Start 01/19/17 at 09:00 Spironolactone (Aldactone) 50 mg BID PO Last administered on 01/22/17 08:52; Admin Dose 50 MG; Start 01/19/17 at 09:00 Thiamine HCl (Vitamin B1) 50 mg QAM PO Last administered on 01/22/17 08:51; Admin Dose 50 MG; Start 01/19/17 at 09:00 Famotidine (Pepcid) 20 mg BID PO Last administered on 01/22/17 08:53; Admin Dose 20 MG; Start 01/19/17 at 09:00 Morphine Sulfate (morphine) 3 mg Q4H PRN IV pain; Start 01/18/17 at 22:30 Ondansetron HCl 4 mg 4 mg Q6H PRN IV NAUSEA AND/OR VOMITING; Start 01/18/17 at 22:30 Ceftriaxone Sodium 50 ml @ 100 mls/hr Q24H IVPB Last administered on 05:32; Admin Dose 100 MLS/HR; Start 01/19/17 at 06:00 Vancomycin HCl/ Sodium Chloride (Vancocin/NS) 150 ml @ 75 mls/hr Q8H IVPB Last administered on 01/22/17 09:58; Admin Dose 75 MLS/HR; Start 01/20/17 at 02 :00 Lorazepam (Ativan) 1 mg Q6H PRN PO ANXIETY Last administered on 01/22/17 03:07 ; Admin Dose 1 MG; Start 01/22/17 at 03:00 JULIA HO NP Jan 22, 2017 13:31
[2017-01-22 19:30] VITALS: BP 110/64; RESP 18
--- NOTE | 2017-01-22 22:31 | PN ---
Date/Time of Note Date/Time of Note DATE: 01/22/17 TIME: 22:29 Assessment/Plan VTE Prophylaxis VTE Prophylaxis Intervention: SCD's Lines/Catheters IV [facility] Saline Lock Urinary Cath still in place: No Assessment/Plan Chief Complaint/Hosp Course Impression and plan 1. Sepsis secondary to cellulitis right lower extremity. Continue antibiotics. ID consult to follow. Of note patient had recent admission 3 weeks prior to this admission with blood culture showing MSSA. At that time echocardiogram is negative for any vegetation. Follow-up with recommendations of ID. Appears to be improving at present. Plan for WBC scan. Awaiting results 2. Decompensated liver cirrhosis. Patient on transplant list [facility]. Continue on diuretic therapy. Continue on lactulose. Status post paracentesis. Will monitor for now. 4. Macrocytic anemia secondary to end-stage liver disease with history of esophageal varices. Patient did have EGD 3 weeks prior to this admission. Monitor H&H. Stable at present. 5. Coagulopathy secondary to #2. Monitor H&H for signs and symptoms of bleeding Disposition plan: Reports better breathing at this time. Paracentesis as needed. Awaiting results of WBC scan Discussed plan of care with Dr. Sharma Problems: Subjective 24 Hr Interval Summary Free Text/Dictation Patient resting at this time. Denies any abdominal pain or shortness of breath. Exam/Review of Systems Vital Signs Vitals Vital Signs Date Time Temp Pulse Resp B/P Pulse Ox O2 Delivery O2 Flow Rate FiO2 01/22/17 19:30 98.8 74 18 110/64 100 01/18/17 22:15 Room Air Intake and Output 01/21/17 01/21/17 01/22/17 15:00 23:00 07:00 Intake Total 200 ml 510 ml 200 ml Output Total 900 ml Balance 200 ml -390 ml 200 ml Exam Constitutional: alert, oriented Psych: nl mood/affect Head: normocephalic Eyes: icteric Respiratory: clear to auscultation, normal air movement Cardiovascular: regular rate and rhythm Gastrointestinal: other (protuberent, nontender ), soft Musculoskeletal: nl extremities to inspection Extremities: edema (ble, less ) Skin: other (jaundice ) Results Result Diagram: 01/22/17 0455 01/22/17 0455 Results 24 hrs Laboratory Tests Test 01/22/17 04:55 White Blood Count 5.9 Red Blood Count 2.81 L Hemoglobin 9.7 L Hematocrit 28.2 L Mean Corpuscular Volume 100.4 Mean Corpuscular Hemoglobin 34.5 H Mean Corpuscular Hemoglobin Concent 34.4 Red Cell Distribution Width 14.4 Platelet Count 61 L Mean Platelet Volume 10.9 H Neutrophils % 44.4 Lymphocytes % 28.2 Monocytes % 15.0 H Eosinophils % 9.5 H Basophils % 1.0 Nucleated Red Blood Cells % 0.0 Neutrophils # (Manual) 3 Lymphocytes # 1.7 Monocytes # 0.9 Eosinophils # 0.6 H Basophils # 0.1 Nucleated Red Blood Cells # 0.0 Sodium Level 137 Potassium Level 4.3 Chloride Level 102 Carbon Dioxide Level 24 Anion Gap 15 Blood Urea Nitrogen 11 Creatinine 0.72 Glucose Level 78 Calcium Level 8.3 L Magnesium Level 1.8 Medications Medications Current Medications Folic Acid (Folic Acid) 1 mg DAILY PO Last administered on 01/22/17 08:53; Admin Dose 1 MG; Start 01/19/17 at 09:00 Furosemide (Lasix) 20 mg TID PO Last administered on 01/22/17 20:53; Admin Dose 20 MG; Start 01/19/17 at 09:00 Spironolactone (Aldactone) 50 mg BID PO Last administered on 01/22/17 20:53; Admin Dose 50 MG; Start 01/19/17 at 09:00 Thiamine HCl (Vitamin B1) 50 mg QAM PO Last administered on 01/22/17 08:51; Admin Dose 50 MG; Start 01/19/17 at 09:00 Famotidine (Pepcid) 20 mg BID PO Last administered on 01/22/17 20:52; Admin Dose 20 MG; Start 01/19/17 at 09:00 Morphine Sulfate (morphine) 3 mg Q4H PRN IV pain; Start 01/18/17 at 22:30 Ondansetron HCl 4 mg 4 mg Q6H PRN IV NAUSEA AND/OR VOMITING; Start 01/18/17 at 22:30 Ceftriaxone Sodium (Rocephin) 50 ml @ 100 mls/hr Q24H IVPB Last administered on 01/22/17 05:32; Admin Dose 100 MLS/HR; Start 01/19/17 at 06:00 Lorazepam (Ativan) 1 mg Q6H PRN PO ANXIETY Last administered on 01/22/17t 20:53 ; Admin Dose 1 MG; Start 01/22/17 at 03:00 GINGER MEJIA Jan 22, 2017 22:31
[2017-01-23 02:00] VITALS: BP 104/59; RESP 18
[2017-01-23] MEDS: CEFTRIAXONE 1 GM/50 ML (PMX) 50 ML IVPB SCH (05:58)
[2017-01-23 06:29] LABS: WHITE BLOOD COUNT 6.2 10^3/ul (4.8-10.8)
[2017-01-23 06:30] LABS: ABNORMAL IP MESSAGE 1; BASOPHIL # 0.1 10^3/ul (0.0-0.1); BASOPHILS % 1.1 % (0.0-2.0); EOSINOPHILS # 0.6 10^3/ul (0.0-0.5); EOSINOPHILS % 9.7 % (0.0-7.0); HEMATOCRIT 29.9 % (42.0-52.0); HEMOGLOBIN 10.4 g/dl (14.0-18.0); LYMPHOCYTES # 1.8 10^3/ul (0.8-2.9); LYMPHOCYTES % 29.1 % (15.0-51.0); MEAN CORPUSCULAR HEMOGLOBIN 35.7 pg (29.0-33.0); MEAN CORPUSCULAR HGB CONC 34.8 g/dl (32.0-37.0); MEAN CORPUSCULAR VOLUME 102.7 fl (82.0-101.0); MEAN PLATELET VOLUME 10.7 fl (7.4-10.4); MONOCYTES % 15.9 % (0.0-11.0); NEUTROPHILS % 42.1 % (39.0-77.0); PLATELET COUNT 66 10^3/UL (140-415); POSITIVE DIFF @See below; RED BLOOD COUNT 2.91 10^6/ul (4.70-6.10)
[2017-01-23 06:51] LABS: CALCIUM 8.5 mg/dl (8.4-10.2); CREATININE 0.82 mg/dl (0.61-1.24); POTASSIUM 4.2 mmol/L (3.5-5.1)
[2017-01-23 07:26] VITALS: BP 97/62; RESP 18
[2017-01-23 08:24] VITALS: BP 107/60; PULSE 67
[2017-01-23] MEDS: THIAMINE 100 MG TAB PO SCH (08:25)
[2017-01-23] MEDS: FAMOTIDINE 20 MG TAB PO SCH ×2 (08:25→21:53)
[2017-01-23] MEDS: FOLIC ACID 1 MG TAB PO SCH (08:26)
[2017-01-23] MEDS: FUROSEMIDE 20 MG TAB PO SCH ×3 (08:26→21:53)
[2017-01-23] MEDS: SPIRONOLACTONE 50 MG TAB PO SCH ×2 (08:26→21:52)
[2017-01-23] MEDS: LORAZEPAM 1 MG TAB PO PRN ×2 (11:06→21:52)
[2017-01-23 13:09] VITALS: BP 109/67; PULSE 65; RESP 20
--- NOTE | 2017-01-23 14:29 | CONS ---
Date/Time of Note Date/Time of Note DATE: 01/23/17 TIME: 14:27 Assessment/Plan Assessment/Plan Chief Complaint/Hosp Course SUBJECTIVE DATA: Awake, Feels good, no fevers MICROBIOLOGY: Urine culture growing staph species. Blood culture growing Staph aureus. Abx: Rocephin, s/p Vanco DIAGNOSTIC DATA: Extremities venous study revealed no evidence of DVT. CT of the abdomen and pelvis on admission showed cirrhotic liver with stigmata of portal hypertension and moderate to large volume of ascites. Apparent wall thickening of the ascending and transverse colon and small bowel loops in the upper abdomen. Questionable infectious or ischemic enterocolitis versus portal hypertensive colopathy and enteropathy, cholelithiasis. Punctuate nonobstructing stone at the upper pole right kidney. ANTIMICROBIAL: Vancomycin and ceftriaxone. PHYSICAL EXAMINATION: This is a well-developed, middle-aged man who is awake, in no distress. HEENT: Head atraumatic, normocephalic. Sclerae icteric. Buccal mucosa dry. NECK: Supple. CHEST: Chest rise symmetrical. Breath sounds diminished at the bases. HEART: S1, S2. ABDOMEN: Soft. Bowel sounds present. EXTREMITIES: Bilateral lower extremities. Trace edema. ASSESSMENT: 1. Recurrent BIRGIT bacteremia with blood cultures on December 24 grew Staph aureus, etiology unclear. Ascitic fluid cx negative, 2D ECHO 12/27 negative 2. Bilateral lower extremity cellulitis==> resolved 3. End-stage liver disease with recurrent ascites, s/p paracentesis==> no evidence for SBP. 4. Anemia and thrombocytopenia. PLAN: The patient remains stable, continue abx, await for WBC labeled nuclear scan DW pt/staff Dictated By: Julia Ho NP /renettat/jeimy /Document#: [id number] Problems: Consultation Date/Type/Reason Admit Date/Time Jan 18, 2017 at 18:26 Initial Consult Date 01/19/17 Type of Consultation: ID Exam/Review of Systems Vital Signs Vitals Vital Signs Date Time Temp Pulse Resp B/P Pulse Ox O2 Delivery O2 Flow Rate FiO2 01/23/17 13:09 98.0 65 20 109/67 98 Room Air Intake and Output 01/22/17 01/22/17 01/23/17 15:00 23:00 07:00 Intake Total 870 ml 50 ml Output Total 1050 ml Balance -180 ml 50 ml Results Result Diagram: 01/23/17 0544 01/23/17 0544 Results 24 hrs Laboratory Tests Test 01/23/17 05:44 White Blood Count 6.2 Red Blood Count 2.91 L Hemoglobin 10.4 L Hematocrit 29.9 L Mean Corpuscular Volume 102.7 H Mean Corpuscular Hemoglobin 35.7 H Mean Corpuscular Hemoglobin Concent 34.8 Red Cell Distribution Width 15.0 H Platelet Count 66 L Mean Platelet Volume 10.7 H Neutrophils % 42.1 Lymphocytes % 29.1 Monocytes % 15.9 H Eosinophils % 9.7 H Basophils % 1.1 Nucleated Red Blood Cells % 0.0 Neutrophils # (Manual) 3 Lymphocytes # 1.8 Monocytes # 1.0 H Eosinophils # 0.6 H Basophils # 0.1 Nucleated Red Blood Cells # 0.0 Sodium Level 134 L Potassium Level 4.2 Chloride Level 105 Carbon Dioxide Level 23 Anion Gap 10 # Blood Urea Nitrogen 13 Creatinine 0.82 Glucose Level 84 Calcium Level 8.5 Medications Medications Current Medications Folic Acid (Folic Acid) 1 mg DAILY PO Last administered on 01/23/17 08:26; Admin Dose 1 MG; Start 01/19/17 at 09:00 Furosemide (Lasix) 20 mg TID PO Last administered on 01/23/17 13:08; Admin Dose 20 MG; Start 01/19/17 at 09:00 Spironolactone (Aldactone) 50 mg BID PO Last administered on 01/23/17 08:26; Admin Dose 50 MG; Start 01/19/17 at 09:00 Thiamine HCl (Vitamin B1) 50 mg QAM PO Last administered on 01/23/17 08:25; Admin Dose 50 MG; Start 01/19/17 at 09:00 Famotidine (Pepcid) 20 mg BID PO Last administered on 01/23/17 08:25; Admin Dose 20 MG; Start 01/19/17 at 09:00 Morphine Sulfate (morphine) 3 mg Q4H PRN IV pain; Start 01/18/17 at 22:30 Ondansetron HCl 4 mg 4 mg Q6H PRN IV NAUSEA AND/OR VOMITING; Start 01/18/17 at 22:30 Ceftriaxone Sodium (Rocephin) 50 ml @ 100 mls/hr Q24H IVPB Last administered on 01/23/17 05:58; Admin Dose 100 MLS/HR; Start 01/19/17 at 06:00 Lorazepam (Ativan) 1 mg Q6H PRN PO ANXIETY Last administered on 01/23/17 11:06 ; Admin Dose 1 MG; Start 01/22/17 at 03:00 JULIA HO NP Jan 23, 2017 14:28
--- NOTE | 2017-01-23 14:39 | PN ---
Date/Time of Note Date/Time of Note DATE: 01/23/17 TIME: 14:37 Assessment/Plan VTE Prophylaxis VTE Prophylaxis Intervention: contraindicated Lines/Catheters [facility] Saline Lock Urinary Cath still in place: No Assessment/Plan Chief Complaint/Hosp Course 1. Sepsis with underlying right lower extremity cellulitis and gram-positive bacteremia. Continue antimicrobials as per infectious diseases. 2. Decompensated liver cirrhosis. Continue diuretics. 3. Microcytic anemia. Most probably secondary to underlying liver cirrhosis. Monitor H&H closely. Transfuse blood products as needed. 4. Thrombocytopenia. Most probably secondary to underlying liver cirrhosis. Continue to monitor the patient for any bleeding. 5. Transaminitis with hyperbilirubinemia. Most probably secondary to underlying liver cirrhosis. Avoid hepatotoxic medications. Trend LFTs. 6. Fluids, electrolytes, and nutrition. Low-sodium diet. 7. DVT prophylaxis. Contraindicated. 8. Plan. Await WBC scan results and further recommendations from ID. Case discussed with Dr. Hartman. Problems: Subjective 24 Hr Interval Summary Free Text/Dictation Denies any pain. Exam/Review of Systems Vital Signs Vitals Vital Signs Date Time Temp Pulse Resp B/P Pulse Ox O2 Delivery O2 Flow Rate FiO2 01/23/17 13:09 98.0 65 20 109/67 98 Room Air Intake and Output 01/22/17 01/22/17 01/23/17 15:00 23:00 07:00 Intake Total 870 ml 50 ml Output Total 1050 ml Balance -180 ml 50 ml Exam General: Adequately build 46 year-old male lying in bed in no apparent distress. HEENT: Normocephalic, atraumatic. Eyes: Slightly icteric sclerae, conjunctivae clear. ENT: Nasal septum midline, oral mucosa moist. Neck supple, no JVD noticed. Respiratory: Bilaterally clear breath sounds. No use of accessory muscles of respiration. No adventitious breath sounds. Cardiovascular: S1, S2 heard. Regular rate and rhythm. Abdomen: Soft and nondistended. Bowel sounds positive in all 4 quadrants. Genitourinary: Deferred. Extremities: No cyanosis, no clubbing. Bilateral lower extremity edema 1-2+. Peripheral pulses palpable. Neurologic: Cranial nerves II through XII grossly intact. The patient is awake, alert, and oriented. Skin: Normal skin turgor. No skin rashes. Results Result Diagram: 01/23/17 0544 01/23/1744 Results 24 hrs Laboratory Tests Test 01/23/17 05:44 White Blood Count 6.2 Red Blood Count 2.91 L Hemoglobin 10.4 L Hematocrit 29.9 L Mean Corpuscular Volume 102.7 H Mean Corpuscular Hemoglobin 35.7 H Mean Corpuscular Hemoglobin Concent 34.8 Red Cell Distribution Width 15.0 H Platelet Count 66 L Mean Platelet Volume 10.7 H Neutrophils % 42.1 Lymphocytes % 29.1 Monocytes % 15.9 H Eosinophils % 9.7 H Basophils % 1.1 Nucleated Red Blood Cells % 0.0 Neutrophils # (Manual) 3 Lymphocytes # 1.8 Monocytes # 1.0 H Eosinophils # 0.6 H Basophils # 0.1 Nucleated Red Blood Cells # 0.0 Sodium Level 134 L Potassium Level 4.2 Chloride Level 105 Carbon Dioxide Level 23 Anion Gap 10 # Blood Urea Nitrogen 13 Creatinine 0.82 Glucose Level 84 Calcium Level 8.5 Medications Medications Current Medications Folic Acid (Folic Acid) 1 mg DAILY PO Last administered on 01/23/17 08:26; Admin Dose 1 MG; Start 01/19/17 at 09:00 Furosemide (Lasix) 20 mg TID PO Last administered on 01/23/17 13:08; Admin Dose 20 MG; Start 01/19/17 at 09:00 Spironolactone (Aldactone) 50 mg BID PO Last administered on 01/23/17 08:26; Admin Dose 50 MG; Start 01/19/17 at 09:00 Thiamine HCl (Vitamin B1) 50 mg QAM PO Last administered on 01/23/17 08:25; Admin Dose 50 MG; Start 01/19/17 at 09:00 Famotidine (Pepcid) 20 mg BID PO Last administered on 01/23/17 08:25; Admin Dose 20 MG; Start 01/19/17 at 09:00 Morphine Sulfate (morphine) 3 mg Q4H PRN IV pain; Start 01/18/17 at 22:30 Ondansetron HCl 4 mg 4 mg Q6H PRN IV NAUSEA AND/OR VOMITING; Start 01/18/17 at 22:30 Ceftriaxone Sodium (Rocephin) 50 ml @ 100 mls/hr Q24H IVPB Last administered on 01/23/17 05:58; Admin Dose 100 MLS/HR; Start 01/19/17 at 06:00 Lorazepam (Ativan) 1 mg Q6H PRN PO ANXIETY Last administered on 01/23/17t 11:06 ; Admin Dose 1 MG; Start 01/22/17 at 03:00 YANICK PERERA NP Jan 23, 2017 14:39
--- NOTE | 2017-01-23 18:10 | RADRPT ---
Echocardiogram Report Patient Name: ALLYSON LICONA Gender: Male Date: 1970 Study Date: 20-Jan-2017 Stock Buyer: Deonna [facility] Location: 626 Ref. Physician: JULIA HO Quality: Adequate Procedures: Transthoracic echocardiogram examination. Indications: R/O Endocarditis. Findings Left Ventricle: Normal left ventricular systolic function. The left ventricular ejection fraction is visually estimated at 60 %. Right Ventricle: Normal right ventricular size. Normal right ventricular systolic function. Left Atrium: The left atrium is normal in size and appearance. Right Atrium: The right atrium is normal in size and appearance. Mitral Valve: Anterior mitral valve leaflet appear mildly thickened. Posterior mitral valve leaflet appear mildly thickened. Mild mitral annular calcification. Trivial mitral regurgitation. Aortic Valve: Normal appearance and function of the aortic valve. Tricuspid Valve: There is trivial tricuspid regurgitation. Pulmonic Valve: Normal pulmonic valve appearance and function with trivial (physiologic) regurgitation. Pericardium: Normal pericardium with no significant pericardial effusion. IVC: Normal inferior vena cava appearance. Conclusions 1.Normal left ventricular systolic function. The left ventricular ejection fraction is visually estimated at 60 %. 2.Anterior mitral valve leaflet appear mildly thickened. Posterior mitral valve leaflet appear mildly thickened. Mild mitral annular calcification. Trivial mitral regurgitation. 3.There is trivial tricuspid regurgitation. 4.Normal pulmonic valve appearance and function with trivial (physiologic) regurgitation. Electronically Signed By: Vasile Saleh 23-Jan-2017 18:09:37 -0700 Patient Name: ALLYSON LICONA Study Date: 20-Jan-2017 [id number]
[2017-01-23 20:47] VITALS: BP 102/57; RESP 18
[2017-01-24 02:00] VITALS: BP 104/58; RESP 18
[2017-01-24 05:41] LABS: ABNORMAL IP MESSAGE 1; BASOPHIL # 0.1 10^3/ul (0.0-0.1); BASOPHILS % 1.3 % (0.0-2.0); EOSINOPHILS # 0.7 10^3/ul (0.0-0.5); HEMATOCRIT 26.2 % (42.0-52.0); HEMOGLOBIN 8.9 g/dl (14.0-18.0); LYMPHOCYTES # 1.5 10^3/ul (0.8-2.9); LYMPHOCYTES % 24.8 % (15.0-51.0); MEAN CORPUSCULAR HEMOGLOBIN 34.6 pg (29.0-33.0); MEAN CORPUSCULAR VOLUME 101.9 fl (82.0-101.0); MEAN PLATELET VOLUME 10.9 fl (7.4-10.4); MONOCYTE # 0.9 10^3/ul (0.3-0.9); MONOCYTES % 14.9 % (0.0-11.0); NEUTROPHILS % 44.9 % (39.0-77.0); PLATELET COUNT 59 10^3/UL (140-415); POSITIVE DIFF @See below; RED BLOOD COUNT 2.57 10^6/ul (4.70-6.10); RED CELL DISTRIBUTION WIDTH 15.2 % (11.5-14.5); WHITE BLOOD COUNT 6.2 10^3/ul (4.8-10.8)
[2017-01-24 06:08] LABS: MAGNESIUM 1.6 mg/dl (1.7-2.5); PHOSPHORUS 4.2 mg/dl (2.5-4.9)
[2017-01-24 06:10] LABS: ALBUMIN 2.1 g/dl (3.3-4.9); ALBUMIN/GLOBULIN RATIO 0.55; BILIRUBIN,INDIRECT 3.4 mg/dl (0-1.1); BILIRUBIN,TOTAL 3.4 mg/dl (0.2-1.3); CALCIUM 8.2 mg/dl (8.4-10.2); CREATININE 0.87 mg/dl (0.61-1.24); POTASSIUM 4.2 mmol/L (3.5-5.1); TOTAL PROTEIN 5.9 g/dl (6.1-8.1)
[2017-01-24] MEDS: CEFTRIAXONE 1 GM/50 ML (PMX) 50 ML IVPB SCH (06:11)
[2017-01-24 08:12] VITALS: BP 103/59; RESP 16
[2017-01-24] MEDS: THIAMINE 100 MG TAB PO SCH (09:33)
[2017-01-24] MEDS: FOLIC ACID 1 MG TAB PO SCH (09:35)
[2017-01-24] MEDS: SPIRONOLACTONE 50 MG TAB PO SCH ×2 (09:35→20:14)
[2017-01-24] MEDS: FUROSEMIDE 20 MG TAB PO SCH ×3 (09:35→20:14)
[2017-01-24] MEDS: FAMOTIDINE 20 MG TAB PO SCH ×2 (09:35→20:14)
[2017-01-24] MEDS ORDERED: MAGNESIUM SULFATE 2 GM/50 ML 50 ML IVPB ONE (10:00)
--- NOTE | 2017-01-24 10:16 | PN ---
Date/Time of Note Date/Time of Note DATE: 01/24/17 TIME: 09:53 Assessment/Plan VTE Prophylaxis VTE Prophylaxis Intervention: contraindicated Lines/Catheters IV Catheter Type (from [facility]): Saline Lock Urinary Cath still in place: No Assessment/Plan Chief Complaint/Hosp Course 1. Sepsis with underlying right lower extremity cellulitis and gram-positive bacteremia. Continue antimicrobials as per infectious diseases. 2. Decompensated liver cirrhosis. Continue diuretics. 3. Microcytic anemia. Most probably secondary to underlying liver cirrhosis. Monitor H&H closely. Transfuse blood products as needed. 4. Thrombocytopenia. Most probably secondary to underlying liver cirrhosis. Continue to monitor the patient for any bleeding. 5. Transaminitis with hyperbilirubinemia. Most probably secondary to underlying liver cirrhosis. Avoid hepatotoxic medications. Trend LFTs. 6. Fluids, electrolytes, and nutrition. Low-sodium diet. 7. DVT prophylaxis. Contraindicated. 8. Plan. Await WBC scan results and further recommendations from ID. Case discussed with Dr. Hartman. Problems: Subjective 24 Hr Interval Summary Free Text/Dictation Denies any complaints. Exam/Review of Systems Vital Signs Vitals Vital Signs Date Time Temp Pulse Resp B/P Pulse Ox O2 Delivery O2 Flow Rate FiO2 01/24/17 08:12 97.9 65 16 103/59 99 01/23/17 13:09 Room Air Intake and Output 01/23/17 01/23/17 01/24/17 15:00 23:00 07:00 Intake Total 960 ml 650 ml Output Total 800 ml 900 ml Balance 160 ml -250 ml Exam General: Adequately build 46 year-old male lying in bed in no apparent distress. HEENT: Normocephalic, atraumatic. Eyes: Slightly icteric sclerae, conjunctivae clear. ENT: Nasal septum midline, oral mucosa moist. Neck supple, no JVD noticed. Respiratory: Bilaterally clear breath sounds. No use of accessory muscles of respiration. No adventitious breath sounds. Cardiovascular: S1, S2 heard. Regular rate and rhythm. Abdomen: Soft and nondistended. Bowel sounds positive in all 4 quadrants. Genitourinary: Deferred. Extremities: No cyanosis, no clubbing. Bilateral lower extremity edema 1-2+. Peripheral pulses palpable. Neurologic: Cranial nerves II through XII grossly intact. The patient is awake, alert, and oriented. Skin: Normal skin turgor. No skin rashes. Results Result Diagram: 01/24/17 0512 01/24/17 0512 Results 24 hrs Laboratory Tests Test 01/24/17 05:12 White Blood Count 6.2 Red Blood Count 2.57 L Hemoglobin 8.9 L Hematocrit 26.2 L Mean Corpuscular Volume 101.9 H Mean Corpuscular Hemoglobin 34.6 H Mean Corpuscular Hemoglobin Concent 34.0 Red Cell Distribution Width 15.2 H Platelet Count 59 L Mean Platelet Volume 10.9 H Neutrophils % 44.9 Lymphocytes % 24.8 Monocytes % 14.9 H Eosinophils % 11.0 H Basophils % 1.3 Nucleated Red Blood Cells % 0.0 Neutrophils # (Manual) 3 Lymphocytes # 1.5 Monocytes # 0.9 Eosinophils # 0.7 H Basophils # 0.1 Nucleated Red Blood Cells # 0.0 Sodium Level 133 L Potassium Level 4.2 Chloride Level 105 Carbon Dioxide Level 25 Anion Gap 7 L Blood Urea Nitrogen 15 Creatinine 0.87 Glucose Level 103 Calcium Level 8.2 L Phosphorus Level 4.2 Magnesium Level 1.6 L Total Bilirubin 3.4 H Direct Bilirubin 0.00 Indirect Bilirubin 3.4 H Aspartate Amino Transf (AST/SGOT) 52 H Alanine Aminotransferase (ALT/SGPT) 43 Alkaline Phosphatase 168 H Ammonia 31 H Total Protein 5.9 L Albumin 2.1 L Globulin 3.80 H Albumin/Globulin Ratio 0.55 Medications Medications Current Medications Folic Acid (Folic Acid) 1 mg DAILY PO Last administered on 01/24/17 09:35; Admin Dose 1 MG; Start 01/19/17 at 09:00 Furosemide (Lasix) 20 mg TID PO Last administered on 01/24/17 09:35; Admin Dose 20 MG; Start 01/19/17 at 09:00 Spironolactone (Aldactone) 50 mg BID PO Last administered on 01/24/17 09:35; Admin Dose 50 MG; Start 01/19/17 at 09:00 Thiamine HCl (Vitamin B1) 50 mg QAM PO Last administered on 01/24/17 09:33; Admin Dose 50 MG; Start 01/19/17 at 09:00 Famotidine (Pepcid) 20 mg BID PO Last administered on 01/24/17 09:35; Admin Dose 20 MG; Start 01/19/17 at 09:00 Morphine Sulfate (morphine) 3 mg Q4H PRN IV pain; Start 01/18/17 at 22:30 Ondansetron HCl 4 mg 4 mg Q6H PRN IV NAUSEA AND/OR VOMITING; Start 01/18/17 at 22:30 Ceftriaxone Sodium (Rocephin) 50 ml @ 100 mls/hr Q24H IVPB Last administered on 01/24/17 06:11; Admin Dose 100 MLS/HR; Start 01/19/17 at 06:00 Lorazepam (Ativan) 1 mg Q6H PRN PO ANXIETY Last administered on 01/23/17 21:52 ; Admin Dose 1 MG; Start 01/22/17 at 03:00 YANICK PERERA NP Jan 24, 2017 10:03
[2017-01-24 13:18] VITALS: BP 101/67; PULSE 65; RESP 18
--- NOTE | 2017-01-24 14:22 | CONS ---
Date/Time of Note Date/Time of Note DATE: 01/24/17 TIME: 14:21 Assessment/Plan Assessment/Plan Chief Complaint/Hosp Course SUBJECTIVE DATA: Awake, Feels good, no fevers MICROBIOLOGY: Urine culture growing staph species. Blood culture growing Staph aureus. Abx: Rocephin, s/p Vanco DIAGNOSTIC DATA: Extremities venous study revealed no evidence of DVT. CT of the abdomen and pelvis on admission showed cirrhotic liver with stigmata of portal hypertension and moderate to large volume of ascites. Apparent wall thickening of the ascending and transverse colon and small bowel loops in the upper abdomen. Questionable infectious or ischemic enterocolitis versus portal hypertensive colopathy and enteropathy, cholelithiasis. Punctuate nonobstructing stone at the upper pole right kidney. ANTIMICROBIAL: Vancomycin and ceftriaxone. PHYSICAL EXAMINATION: This is a well-developed, middle-aged man who is awake, in no distress. HEENT: Head atraumatic, normocephalic. Sclerae icteric. Buccal mucosa dry. NECK: Supple. CHEST: Chest rise symmetrical. Breath sounds diminished at the bases. HEART: S1, S2. ABDOMEN: Soft. Bowel sounds present. EXTREMITIES: Bilateral lower extremities. Trace edema. ASSESSMENT: 1. Recurrent BIRGIT bacteremia with blood cultures on December 24 grew Staph aureus, etiology unclear. Ascitic fluid cx negative, 2D ECHO 12/27 negative 2. Bilateral lower extremity cellulitis==> resolved 3. End-stage liver disease with recurrent ascites, s/p paracentesis==> no evidence for SBP. 4. Anemia and thrombocytopenia. PLAN: The patient remains stable, continue abx, await for WBC labeled nuclear scan DW pt/staff Dictated By: Julia Ho NP /renettat/jeimy /Document#: [id number] Problems: Consultation Date/Type/Reason Admit Date/Time Jan 18, 2017 at 18:26 Initial Consult Date 01/19/17 Type of Consultation: ID Exam/Review of Systems Vital Signs Vitals Vital Signs Date Time Temp Pulse Resp B/P Pulse Ox O2 Delivery O2 Flow Rate FiO2 01/24/17 13:18 98.1 65 18 101/67 97 Room Air Intake and Output 01/23/17 01/23/17 01/24/17 15:00 23:00 07:00 Intake Total 960 ml 650 ml Output Total 800 ml 900 ml Balance 160 ml -250 ml Results Result Diagram: 01/24/1751101/24/17511 Results 24 hrs Laboratory Tests Test 01/24/17 05:12 White Blood Count 6.2 Red Blood Count 2.57 L Hemoglobin 8.9 L Hematocrit 26.2 L Mean Corpuscular Volume 101.9 H Mean Corpuscular Hemoglobin 34.6 H Mean Corpuscular Hemoglobin Concent 34.0 Red Cell Distribution Width 15.2 H Platelet Count 59 L Mean Platelet Volume 10.9 H Neutrophils % 44.9 Lymphocytes % 24.8 Monocytes % 14.9 H Eosinophils % 11.0 H Basophils % 1.3 Nucleated Red Blood Cells % 0.0 Neutrophils # (Manual) 3 Lymphocytes # 1.5 Monocytes # 0.9 Eosinophils # 0.7 H Basophils # 0.1 Nucleated Red Blood Cells # 0.0 Sodium Level 133 L Potassium Level 4.2 Chloride Level 105 Carbon Dioxide Level 25 Anion Gap 7 L Blood Urea Nitrogen 15 Creatinine 0.87 Glucose Level 103 Calcium Level 8.2 L Phosphorus Level 4.2 Magnesium Level 1.6 L Total Bilirubin 3.4 H Direct Bilirubin 0.00 Indirect Bilirubin 3.4 H Aspartate Amino Transf (AST/SGOT) 52 H Alanine Aminotransferase (ALT/SGPT) 43 Alkaline Phosphatase 168 H Ammonia 31 H Total Protein 5.9 L Albumin 2.1 L Globulin 3.80 H Albumin/Globulin Ratio 0.55 Medications Medications Current Medications Folic Acid (Folic Acid) 1 mg DAILY PO Last administered on 01/24/17 09:35; Admin Dose 1 MG; Start 01/19/17 at 09:00 Furosemide (Lasix) 20 mg TID PO Last administered on 01/24/17 13:20; Admin Dose 20 MG; Start 01/19/17 at 09:00 Spironolactone (Aldactone) 50 mg BID PO Last administered on 01/24/17 09:35; Admin Dose 50 MG; Start 01/19/17 at 09:00 Thiamine HCl (Vitamin B1) 50 mg QAM PO Last administered on 01/24/17 09:33; Admin Dose 50 MG; Start 01/19/17 at 09:00 Famotidine (Pepcid) 20 mg BID PO Last administered on 01/24/17 09:35; Admin Dose 20 MG; Start 01/19/17 at 09:00 Morphine Sulfate (morphine) 3 mg Q4H PRN IV pain; Start 01/18/17 at 22:30 Ondansetron HCl 4 mg 4 mg Q6H PRN IV NAUSEA AND/OR VOMITING; Start 01/18/17 at 22:30 Ceftriaxone Sodium (Rocephin) 50 ml @ 100 mls/hr Q24H IVPB Last administered on 01/24/17 06:11; Admin Dose 100 MLS/HR; Start 01/19/17 at 06:00 Lorazepam (Ativan) 1 mg Q6H PRN PO ANXIETY Last administered on 01/23/17 21:52 ; Admin Dose 1 MG; Start 01/22/17 at 03:00 JULIA HO NP Jan 24, 2017 14:21
--- NOTE | 2017-01-24 15:47 | RADRPT ---
PROCEDURE: Indium-111 labeled white blood cell scan CLINICAL INDICATION: 47 -year-old patient with fever and leukocytosis. TECHNIQUE: Following the intravenous injection of 0.4 mCi of Indium-111 labeled white blood cells, whole body anterior and posterior planar images were obtained along with spot views of the chest an d abdomen 24 hours post injection. COMPARISON: No prior indium scans. FINDINGS: No definite abnormal areas of increased activity are seen in the study, including visualized portion s of the head and neck, chest, abdomen, pelvis and visualized portions of the upper and lower extrem ities bilaterally. Physiologic uptake is noted in the liver and an enlarged spleen. IMPRESSION: 1. No definite abnormal focal areas of increased activity. 2. Splenomegaly. RPTAT: HH .Jennyfer Hernandez MD, Date Time Electronically viewed and signed by .Jennyfer Hernandez MD, on 01/24/2017 15:46 .L/
[2017-01-24 19:42] VITALS: BP 102/63; RESP 20
[2017-01-24] MEDS: LORAZEPAM 1 MG TAB PO PRN (21:52)
[2017-01-25 01:58] VITALS: BP 96/54; RESP 20
[2017-01-25 05:33] LABS: ABNORMAL IP MESSAGE 1; BASOPHIL # 0.1 10^3/ul (0.0-0.1); BASOPHILS % 1.1 % (0.0-2.0); EOSINOPHILS # 0.8 10^3/ul (0.0-0.5); EOSINOPHILS % 11.1 % (0.0-7.0); HEMATOCRIT 26.2 % (42.0-52.0); LYMPHOCYTES # 1.7 10^3/ul (0.8-2.9); LYMPHOCYTES % 23.9 % (15.0-51.0); MEAN CORPUSCULAR HEMOGLOBIN 35.2 pg (29.0-33.0); MEAN CORPUSCULAR HGB CONC 34.4 g/dl (32.0-37.0); MEAN CORPUSCULAR VOLUME 102.3 fl (82.0-101.0); MEAN PLATELET VOLUME 10.4 fl (7.4-10.4); MONOCYTES % 13.7 % (0.0-11.0); NEUTROPHILS % 46.1 % (39.0-77.0); PLATELET COUNT 54 10^3/UL (140-415); POSITIVE DIFF @See below; RED BLOOD COUNT 2.56 10^6/ul (4.70-6.10); RED CELL DISTRIBUTION WIDTH 15.3 % (11.5-14.5); WHITE BLOOD COUNT 7.1 10^3/ul (4.8-10.8)
[2017-01-25] MEDS: CEFTRIAXONE 1 GM/50 ML (PMX) 50 ML IVPB SCH (05:45)
[2017-01-25 06:02] LABS: CALCIUM 8.2 mg/dl (8.4-10.2); CREATININE 0.76 mg/dl (0.61-1.24); POTASSIUM 4.2 mmol/L (3.5-5.1)
[2017-01-25 06:41] LABS: MAGNESIUM 1.6 mg/dl (1.7-2.5); PHOSPHORUS 3.9 mg/dl (2.5-4.9)
[2017-01-25] MEDS: FOLIC ACID 1 MG TAB PO SCH (08:03)
[2017-01-25] MEDS: FAMOTIDINE 20 MG TAB PO SCH ×2 (08:03→20:57)
[2017-01-25] MEDS: SPIRONOLACTONE 50 MG TAB PO SCH ×2 (08:03→20:57)
[2017-01-25] MEDS: THIAMINE 100 MG TAB PO SCH (08:03)
[2017-01-25] MEDS: FUROSEMIDE 20 MG TAB PO SCH ×3 (08:04→20:57)
[2017-01-25 08:05] VITALS: BP 104/62
[2017-01-25 08:46] VITALS: BP 101/57; RESP 20
[2017-01-25] MEDS ORDERED: MAGNESIUM SULFATE 2 GM/50 ML 50 ML IVPB ONE (14:00)
--- NOTE | 2017-01-25 14:06 | PN ---
Date/Time of Note Date/Time of Note DATE: 01/25/17 TIME: 14:05 Assessment/Plan VTE Prophylaxis VTE Prophylaxis Intervention: contraindicated Lines/Catheters IV [facility] Type (from [facility]): Saline Lock Urinary Cath still in place: No Assessment/Plan Chief Complaint/Hosp Course 1. S/P sepsis with underlying right lower extremity cellulitis and gram- positive bacteremia. Continue antimicrobials as per infectious diseases. Cardiology consult for MARGARITA to evaluate for cardiac vegetation because of the patient's positive blood cultures 2. Decompensated liver cirrhosis. Continue diuretics. 3. Microcytic anemia. Most probably secondary to underlying liver cirrhosis. Monitor H&H closely. Transfuse blood products as needed. 4. Thrombocytopenia. Most probably secondary to underlying liver cirrhosis. Continue to monitor the patient for any bleeding. 5. Transaminitis with hyperbilirubinemia. Most probably secondary to underlying liver cirrhosis. Avoid hepatotoxic medications. Trend LFTs. 6. Fluids, electrolytes, and nutrition. Low-sodium diet. 7. DVT prophylaxis. Contraindicated. 8. Plan. Replete magnesium. Called cardiology consult. Case discussed with Dr. Hartman. Problems: Subjective 24 Hr Interval Summary Free Text/Dictation Denies any complaints. Exam/Review of Systems Vital Signs Vitals Vital Signs Date Time Temp Pulse Resp B/P Pulse Ox O2 Delivery O2 Flow Rate FiO2 01/25/17 08:46 97.6 67 20 101/57 100 01/24/17 13:18 Room Air Intake and Output 01/24/17 01/24/17 01/25/17 15:00 23:00 07:00 Intake Total 50 ml 720 ml 290 ml Output Total 1200 ml 800 ml Balance 50 ml -480 ml -510 ml Exam General: Adequately build 46 year-old male lying in bed in no apparent distress. HEENT: Normocephalic, atraumatic. Eyes: Slightly icteric sclerae, conjunctivae clear. ENT: Nasal septum midline, oral mucosa moist. Neck supple, no JVD noticed. Respiratory: Bilaterally clear breath sounds. No use of accessory muscles of respiration. No adventitious breath sounds. Cardiovascular: S1, S2 heard. Regular rate and rhythm. Abdomen: Soft and nondistended. Bowel sounds positive in all 4 quadrants. Genitourinary: Deferred. Extremities: No cyanosis, no clubbing. Bilateral lower extremity edema 1-2+. Peripheral pulses palpable. Neurologic: Cranial nerves II through XII grossly intact. The patient is awake, alert, and oriented. Skin: Normal skin turgor. No skin rashes. Results Result Diagram: 01/25/1751901/25/1720 Results 24 hrs Laboratory Tests Test 01/25/17 05:20 White Blood Count 7.1 Red Blood Count 2.56 L Hemoglobin 9.0 L Hematocrit 26.2 L Mean Corpuscular Volume 102.3 H Mean Corpuscular Hemoglobin 35.2 H Mean Corpuscular Hemoglobin Concent 34.4 Red Cell Distribution Width 15.3 H Platelet Count 54 L Mean Platelet Volume 10.4 Neutrophils % 46.1 Lymphocytes % 23.9 Monocytes % 13.7 H Eosinophils % 11.1 H Basophils % 1.1 Nucleated Red Blood Cells % 0.0 Neutrophils # (Manual) 3 Lymphocytes # 1.7 Monocytes # 1.0 H Eosinophils # 0.8 H Basophils # 0.1 Nucleated Red Blood Cells # 0.0 Sodium Level 137 Potassium Level 4.2 Chloride Level 102 Carbon Dioxide Level 26 Anion Gap 13 Blood Urea Nitrogen 14 Creatinine 0.76 Glucose Level 89 Calcium Level 8.2 L Phosphorus Level 3.9 Magnesium Level 1.6 L Medications Medications Current Medications Folic Acid (Folic Acid) 1 mg DAILY PO Last administered on 01/25/17 08:03; Admin Dose 1 MG; Start 01/19/17 at 09:00 Furosemide (Lasix) 20 mg TID PO Last administered on 01/25/17 12:56; Admin Dose 20 MG; Start 01/19/17 at 09:00 Spironolactone (Aldactone) 50 mg BID PO Last administered on 01/25/17 08:03; Admin Dose 50 MG; Start 01/19/17 at 09:00 Thiamine HCl (Vitamin B1) 50 mg QAM PO Last administered on 01/25/17 08:03; Admin Dose 50 MG; Start 01/19/17 at 09:00 Famotidine (Pepcid) 20 mg BID PO Last administered on 01/25/17 08:03; Admin Dose 20 MG; Start 01/19/17 at 09:00 Morphine Sulfate (morphine) 3 mg Q4H PRN IV pain; Start 01/18/17 at 22:30 Ondansetron HCl 4 mg 4 mg Q6H PRN IV NAUSEA AND/OR VOMITING; Start 01/18/17 at 22:30 Ceftriaxone Sodium (Rocephin) 50 ml @ 100 mls/hr Q24H IVPB Last administered on 01/25/17 05:45; Admin Dose 100 MLS/HR; Start 01/19/17 at 06:00 Lorazepam 1 mg 1 mg Q6H PRN PO ANXIETY Last administered on 01/24/17 21:52; Admin Dose 1 MG; Start 01/22/17 at 03:00 Magnesium Sulfate (Magnesium Sulfate 2 Gm/50 ml) 50 ml @ 25 mls/hr ONCE ONCE IVPB Last administered on 01/25/17 12:56; Admin Dose 25 MLS/HR; Start at 14:00; Stop 01/25/17 at 15:59 YANICK PERERA NP Jan 25, 2017 14:06
--- NOTE | 2017-01-25 15:28 | CONS ---
Date/Time of Note Date/Time of Note DATE: 01/25/17 TIME: 15:27 Assessment/Plan Assessment/Plan Chief Complaint/Hosp Course SUBJECTIVE DATA: Awake, Feels good, no fevers MICROBIOLOGY: Urine culture growing staph species. Blood culture growing Staph aureus. Abx: Rocephin, s/p Vanco DIAGNOSTIC DATA: Extremities venous study revealed no evidence of DVT. PHYSICAL EXAMINATION: This is a well-developed, middle-aged man who is awake, in no distress. HEENT: Head atraumatic, normocephalic. Sclerae icteric. Buccal mucosa dry. NECK: Supple. CHEST: Chest rise symmetrical. Breath sounds diminished at the bases. HEART: S1, S2. ABDOMEN: Soft. Bowel sounds present. EXTREMITIES: Bilateral lower extremities. Trace edema. ASSESSMENT: 1. Recurrent BIRGIT bacteremia with blood cultures on December 24 grew Staph aureus, etiology unclear. Ascitic fluid cx negative, 2D ECHO 12/27 negative 2. Bilateral lower extremity cellulitis==> resolved 3. End-stage liver disease with recurrent ascites, s/p paracentesis==> no evidence for SBP. 4. Anemia and thrombocytopenia. PLAN: The patient remains stable, WBC scan negative, recommend MAGRARITA, continue abx DW pt/staff Dictated By: Julia Ho NP /renettat/jeimy /Document#: [id number] Problems: Consultation Date/Type/Reason Admit Date/Time Jan 18, 2017 at 18:26 Initial Consult Date 01/19/17 Type of Consultation: ID Exam/Review of Systems Vital Signs Vitals Vital Signs Date Time Temp Pulse Resp B/P Pulse Ox O2 Delivery O2 Flow Rate FiO2 01/25/17 08:46 97.6 67 20 101/57 100 01/24/17 13:18 Room Air Intake and Output 01/24/17 01/24/17 01/25/17 15:00 23:00 07:00 Intake Total 50 ml 720 ml 290 ml Output Total 1200 ml 800 ml Balance 50 ml -480 ml -510 ml Results Result Diagram: 01/25/17 0520 01/25/17 0520 Results 24 hrs Laboratory Tests Test 01/25/17 05:20 White Blood Count 7.1 Red Blood Count 2.56 L Hemoglobin 9.0 L Hematocrit 26.2 L Mean Corpuscular Volume 102.3 H Mean Corpuscular Hemoglobin 35.2 H Mean Corpuscular Hemoglobin Concent 34.4 Red Cell Distribution Width 15.3 H Platelet Count 54 L Mean Platelet Volume 10.4 Neutrophils % 46.1 Lymphocytes % 23.9 Monocytes % 13.7 H Eosinophils % 11.1 H Basophils % 1.1 Nucleated Red Blood Cells % 0.0 Neutrophils # (Manual) 3 Lymphocytes # 1.7 Monocytes # 1.0 H Eosinophils # 0.8 H Basophils # 0.1 Nucleated Red Blood Cells # 0.0 Sodium Level 137 Potassium Level 4.2 Chloride Level 102 Carbon Dioxide Level 26 Anion Gap 13 Blood Urea Nitrogen 14 Creatinine 0.76 Glucose Level 89 Calcium Level 8.2 L Phosphorus Level 3.9 Magnesium Level 1.6 L Medications Medications Current Medications Folic Acid (Folic Acid) 1 mg DAILY PO Last administered on 01/25/17 08:03; Admin Dose 1 MG; Start 01/19/17 at 09:00 Furosemide (Lasix) 20 mg TID PO Last administered on 01/25/17 12:56; Admin Dose 20 MG; Start 01/19/17 at 09:00 Spironolactone (Aldactone) 50 mg BID PO Last administered on 01/25/17 08:03; Admin Dose 50 MG; Start 01/19/17 at 09:00 Thiamine HCl (Vitamin B1) 50 mg QAM PO Last administered on 01/25/17 08:03; Admin Dose 50 MG; Start 01/19/17 at 09:00 Famotidine (Pepcid) 20 mg BID PO Last administered on 01/25/17 08:03; Admin Dose 20 MG; Start 01/19/17 at 09:00 Morphine Sulfate (morphine) 3 mg Q4H PRN IV pain; Start 01/18/17 at 22:30 Ondansetron HCl 4 mg 4 mg Q6H PRN IV NAUSEA AND/OR VOMITING; Start 01/18/17 at 22:30 Ceftriaxone Sodium (Rocephin) 50 ml @ 100 mls/hr Q24H IVPB Last administered on 01/25/17 05:45; Admin Dose 100 MLS/HR; Start 01/19/17 at 06:00 Lorazepam 1 mg 1 mg Q6H PRN PO ANXIETY Last administered on 01/24/17 21:52; Admin Dose 1 MG; Start 01/22/17 at 03:00 Magnesium Sulfate (Magnesium Sulfate 2 Gm/50 ml) 50 ml @ 25 mls/hr ONCE ONCE IVPB Last administered on 01/25/17 12:56; Admin Dose 25 MLS/HR; Start at 14:00; Stop 01/25/17 at 15:59 JULIA HO NP Jan 25, 2017 15:28
[2017-01-25 15:41] VITALS: BP 92/53; RESP 18
--- NOTE | 2017-01-25 19:12 | CONS ---
Date/Time of Note Date/Time of Note DATE: 01/25/17 TIME: 19:04 Assessment/Plan Assessment/Plan Additional Assessment/Plan Assessment: * Sepsis right lower extremity cellulitis/concern regarding possibility of endocarditis * Alcoholic cirrhosis * Portal hypertension/large esophageal varices/post EVL 1 month ago * Anemia/thrombocytopenia * Moderate ascites * Coagulopathy Plan: * Patient represents a significantly higher risk for MARGARITA given the presence of large esophageal varices and recent endoscopic variceal ligation * If MARGARITA is discharged to be critical I would recommend the patient be evaluated with EGD prior to assess more precisely the risk of bleeding Consultation Date/Type/Reason Admit Date/Time Jan 18, 2017 at 18:26 Date of Consultation: Jan 25, 2017 Type of Consultation: GI Reason for Consultation Cirrhosis/esophageal varices Hx of Present Illness 47-year-old man with advanced alcoholic cirrhosis. Patient has had recent endoscopic variceal ligation for grade IV/IV esophageal varices. The patient is currently hospitalized with sepsis the source of which is not clear, he does have cellulitis and SBP has been ruled out. I am requested to assess the risk of MARGARITA for evaluation of possible heart vegetations. The patient indeed has an increased risk of complications given the presence of large esophageal varices, endoscopic variceal ligation was performed in at least in theory should decrease the size and number of varices but this is not been documented. If MARGARITA is judged to be critical I would recommend the patient undergoes endoscopic evaluation prior to eat MARGARITA to more precisely assess the risk. Constitutional: improved, no complaints, poor po Eyes: no complaints ENT: no complaints Respiratory: no complaints Cardiovascular: no complaints Gastrointestinal: no complaints, other (Abdominal distention), No blood, No diarrhea, No nausea, No vomiting Genitourinary: no complaints Musculoskeletal: other (Lower extremity edema and tenderness) Skin: no complaints Neurologic: no complaints Endocrine: no complaints Lymphatic: no complaints Psychological: nl mood/affect Immunologic: no complaints Past Medical History Medical History: other (End-stage liver disease) Past Surgical History Past Surgical Hx: no surgical history Social History Alcohol Use: sober Smoking Status: Former smoker Drug Use: none, other Exam/Review of Systems Vital Signs Vitals Vital Signs Date Time Temp Pulse Resp B/P Pulse Ox O2 Delivery O2 Flow Rate FiO2 01/25/17 15:41 98.4 69 18 92/53 98 01/24/17 13:18 Room Air Intake and Output 01/24/17 01/24/17 01/25/17 15:00 23:00 07:00 Intake Total 50 ml 720 ml 290 ml Output Total 1200 ml 800 ml Balance 50 ml -480 ml -510 ml Exam Constitutional: alert, oriented, well developed Head: atraumatic, normocephalic Eyes: EOMI, PERRL, nl conjunctiva, nl lids, nl sclera ENMT: nl external ears & nose, nl lips & teeth, nl nasal mucosa & septum Neck: non-tender, supple Respiratory: clear to auscultation, normal air movement Cardiovascular: nl pulses, regular rate and rhythm Gastrointestinal: ascites, bowel sounds, distended, soft, tender (Mild diffuse tenderness), No firm, No mass, No rebound or guarding Musculoskeletal: other (Significant edema and evidence of cellulitis) Results Result Diagram: 01/25/17 0520 01/25/17 0520 Results 24 hrs Laboratory Tests Test 01/25/17 05:20 White Blood Count 7.1 Red Blood Count 2.56 L Hemoglobin 9.0 L Hematocrit 26.2 L Mean Corpuscular Volume 102.3 H Mean Corpuscular Hemoglobin 35.2 H Mean Corpuscular Hemoglobin Concent 34.4 Red Cell Distribution Width 15.3 H Platelet Count 54 L Mean Platelet Volume 10.4 Neutrophils % 46.1 Lymphocytes % 23.9 Monocytes % 13.7 H Eosinophils % 11.1 H Basophils % 1.1 Nucleated Red Blood Cells % 0.0 Neutrophils # (Manual) 3 Lymphocytes # 1.7 Monocytes # 1.0 H Eosinophils # 0.8 H Basophils # 0.1 Nucleated Red Blood Cells # 0.0 Sodium Level 137 Potassium Level 4.2 Chloride Level 102 Carbon Dioxide Level 26 Anion Gap 13 Blood Urea Nitrogen 14 Creatinine 0.76 Glucose Level 89 Calcium Level 8.2 L Phosphorus Level 3.9 Magnesium Level 1.6 L Medications Medications Current Medications Folic Acid (Folic Acid) 1 mg DAILY PO Last administered on 01/25/17 08:03; Admin Dose 1 MG; Start 01/19/17 at 09:00 Furosemide (Lasix) 20 mg TID PO Last administered on 01/25/17 12:56; Admin Dose 20 MG; Start 01/19/17 at 09:00 Spironolactone (Aldactone) 50 mg BID PO Last administered on 01/25/17 08:03; Admin Dose 50 MG; Start 01/19/17 at 09:00 Thiamine HCl (Vitamin B1) 50 mg QAM PO Last administered on 01/25/17 08:03; Admin Dose 50 MG; Start 01/19/17 at 09:00 Famotidine (Pepcid) 20 mg BID PO Last administered on 01/25/17 08:03; Admin Dose 20 MG; Start 01/19/17 at 09:00 Morphine Sulfate (morphine) 3 mg Q4H PRN IV pain; Start 01/18/17 at 22:30 Ondansetron HCl 4 mg 4 mg Q6H PRN IV NAUSEA AND/OR VOMITING; Start 01/18/17 at 22:30 Ceftriaxone Sodium (Rocephin) 50 ml @ 100 mls/hr Q24H IVPB Last administered on 01/25/17 05:45; Admin Dose 100 MLS/HR; Start 01/19/17 at 06:00 Lorazepam (Ativan) 1 mg Q6H PRN PO ANXIETY Last administered on 01/24/17 21:52 ; Admin Dose 1 MG; Start 01/22/17 at 03:00 ANNABELLE BOBBY MD Jan 25, 2017 19:12
[2017-01-25 19:58] VITALS: BP 99/56; RESP 20
[2017-01-25] MEDS: LORAZEPAM 1 MG TAB PO PRN (22:07)
[2017-01-26] VITALS (12 sets, daily range): BP systolic 93–131; BP diastolic 53–72; PULSE 57–71; RESP 15–20
[2017-01-26] MEDS: CEFTRIAXONE 1 GM/50 ML (PMX) 50 ML IVPB SCH (05:31)
[2017-01-26 06:35] LABS: ABNORMAL IP MESSAGE 1; BASOPHIL # 0.1 10^3/ul (0.0-0.1); BASOPHILS % 1.3 % (0.0-2.0); EOSINOPHILS # 0.6 10^3/ul (0.0-0.5); HEMATOCRIT 26.2 % (42.0-52.0); HEMOGLOBIN 9.2 g/dl (14.0-18.0); LYMPHOCYTES # 1.7 10^3/ul (0.8-2.9); LYMPHOCYTES % 26.1 % (15.0-51.0); MEAN CORPUSCULAR HEMOGLOBIN 36.4 pg (29.0-33.0); MEAN CORPUSCULAR HGB CONC 35.1 g/dl (32.0-37.0); MEAN CORPUSCULAR VOLUME 103.6 fl (82.0-101.0); NEUTROPHILS % 43.5 % (39.0-77.0); PLATELET COUNT 56 10^3/UL (140-415); POSITIVE DIFF @See below; RED BLOOD COUNT 2.53 10^6/ul (4.70-6.10); RED CELL DISTRIBUTION WIDTH 15.5 % (11.5-14.5); WHITE BLOOD COUNT 6.4 10^3/ul (4.8-10.8)
[2017-01-26 06:57] LABS: CALCIUM 8.1 mg/dl (8.4-10.2); CREATININE 0.85 mg/dl (0.61-1.24); POTASSIUM 4.6 mmol/L (3.5-5.1)
[2017-01-26 07:24] LABS: MAGNESIUM 1.8 mg/dl (1.7-2.5); PHOSPHORUS 4.1 mg/dl (2.5-4.9)
--- NOTE | 2017-01-26 08:44 | CONS ---
Date/Time of Note Date/Time of Note DATE: 01/26/17 TIME: 08:35 Assessment/Plan Assessment/Plan Chief Complaint/Hosp Course Recurrent MSSA bacteremia: ?cellulitis as source however since recurrence, concern for possible endocarditis. TTE was negative but of course not the gold standard. MARGARITA would be very appropriate but the risks in this pt at the current time are high. He had extensive grade 4 varices with banding just one month ago and has coagulopathy. Blindly inserting a MARGARITA probe in the esophagus would be hazardous. I have asked for GI consultation and Dr. Lni has graciously evaluated the pt. Per my discussion with him, he will perform an EGD this afternoon/evening. If the risk of a MARGARITA is thought to be low, I will proceed in the am tomorrow. If the risk is high, would presumptively treat as endocarditis for 6 weeks and repeat a TTE in one month. Alcoholic cirrhosis Esophageal varices s/p banding Coagulopathy: last INR 2.0, from cirrhosis above -keep NPO for EGD today -depending on risk of bleeding, possible MARGARITA tomorrow -recheck INR, may need FFP to reverse coagulopathy for MARGARITA Problems: Consultation Date/Type/Reason Admit Date/Time Jan 18, 2017 at 18:26 Date of Consultation: Jan 26, 2017 Type of Consultation: Cardiology Referring Provider: YANICK PERERA NP Hx of Present Illness 47 yo M with a h/o alcoholic cirrhosis, esophageal varices (grade 4, s/p banding 12/2016), who presented with leg edema and abdominal distension. He was thought to have lower extremity cellulitis. Paracentesis was negative for SBP but his cultures grew MSSA (also same in December). There is a concern for endocarditis due to recurrent bacteremia without a clear source. Of note the pt had extensive grade 4/4 varices 12/2016 s/p multiple banding with Dr. Lin. The pt is currently asymptomatic and denies CP, SOB, orthopnea, PND, edema. per HPI, otherwise negative Constitutional: improved, no complaints, poor po Eyes: no complaints ENT: no complaints Respiratory: no complaints Cardiovascular: no complaints Gastrointestinal: no complaints, other (Abdominal distention), No blood, No diarrhea, No nausea, No vomiting Genitourinary: no complaints Musculoskeletal: other (Lower extremity edema and tenderness) Skin: no complaints Neurologic: no complaints Endocrine: no complaints Lymphatic: no complaints Psychological: nl mood/affect Immunologic: no complaints Past Medical History per HPI Medical History: other (End-stage liver disease) Past Surgical History Past Surgical Hx: no surgical history Social History Alcohol Use: sober Smoking Status: Former smoker Drug Use: none, other Exam/Review of Systems Vital Signs Vitals Vital Signs Date Time Temp Pulse Resp B/P Pulse Ox O2 Delivery O2 Flow Rate FiO2 01/26/17 08:07 98.1 18 93/56 99 01/26/17 02:02 72 01/24/17 13:18 Room Air Intake and Output 01/25/17 01/25/17 01/26/17 15:00 23:00 07:00 Intake Total 770 ml 410 ml Output Total 1500 ml 600 ml Balance -730 ml -190 ml Exam Constitutional: alert, oriented Psych: nl mood/affect, no complaints Head: atraumatic, normocephalic Neck: No jvd Respiratory: clear to auscultation, No crackles/rales Cardiovascular: regular rate and rhythm, systolic murmur (2/6 ALBERTINA), No edema Gastrointestinal: non-tender, soft Neurological: nl mental status, nl speech Skin: No rash or lesions Results Result Diagram: 01/26/17 0541 01/26/17 0541 Results 24 hrs Laboratory Tests Test 01/26/17 05:41 White Blood Count 6.4 Red Blood Count 2.53 L Hemoglobin 9.2 L Hematocrit 26.2 L Mean Corpuscular Volume 103.6 H Mean Corpuscular Hemoglobin 36.4 H Mean Corpuscular Hemoglobin Concent 35.1 Red Cell Distribution Width 15.5 H Platelet Count 56 L Mean Platelet Volume 11.0 H Neutrophils % 43.5 Lymphocytes % 26.1 Monocytes % 15.0 H Eosinophils % 10.0 H Basophils % 1.3 Nucleated Red Blood Cells % 0.0 Neutrophils # (Manual) 3 Lymphocytes # 1.7 Monocytes # 1.0 H Eosinophils # 0.6 H Basophils # 0.1 Nucleated Red Blood Cells # 0.0 Sodium Level 135 Potassium Level 4.6 Chloride Level 105 Carbon Dioxide Level 26 Anion Gap 9 Blood Urea Nitrogen 14 Creatinine 0.85 Glucose Level 80 Calcium Level 8.1 L Phosphorus Level 4.1 Magnesium Level 1.8 Medications Medications Current Medications Folic Acid (Folic Acid) 1 mg DAILY PO Last administered on 01/25/17 08:03; Admin Dose 1 MG; Start 01/19/17 at 09:00 Furosemide (Lasix) 20 mg TID PO Last administered on 01/25/17 20:57; Admin Dose 20 MG; Start 01/19/17 at 09:00 Spironolactone (Aldactone) 50 mg BID PO Last administered on 01/25/17 20:57; Admin Dose 50 MG; Start 01/19/17 at 09:00 Thiamine HCl (Vitamin B1) 50 mg QAM PO Last administered on 01/25/17 08:03; Admin Dose 50 MG; Start 01/19/17 at 09:00 Famotidine (Pepcid) 20 mg BID PO Last administered on 01/25/17 20:57; Admin Dose 20 MG; Start 01/19/17 at 09:00 Morphine Sulfate (morphine) 3 mg Q4H PRN IV pain; Start 01/18/17 at 22:30 Ondansetron HCl 4 mg 4 mg Q6H PRN IV NAUSEA AND/OR VOMITING; Start 01/18/17 at 22:30 Ceftriaxone Sodium (Rocephin) 50 ml @ 100 mls/hr Q24H IVPB Last administered on 01/26/17 05:31; Admin Dose 100 MLS/HR; Start 01/19/17 at 06:00 Lorazepam (Ativan) 1 mg Q6H PRN PO ANXIETY Last administered on 01/25/17 22:07 ; Admin Dose 1 MG; Start 01/22/17 at 03:00 VANNESSA RODRIGUEZ Jan 26, 2017 08:43
[2017-01-26] MEDS: FAMOTIDINE 20 MG TAB PO SCH ×2 (09:00→21:21)
[2017-01-26] MEDS: THIAMINE 100 MG TAB PO SCH (09:00)
[2017-01-26] MEDS: SPIRONOLACTONE 50 MG TAB PO SCH ×2 (09:00→21:22)
[2017-01-26] MEDS: FUROSEMIDE 20 MG TAB PO SCH ×3 (09:00→21:22)
[2017-01-26] MEDS: FOLIC ACID 1 MG TAB PO SCH (09:00)
[2017-01-26 10:08] LABS: INR 1.99; PROTIME 22.8 Sec (12.2-14.2); PT RATIO 1.8
--- NOTE | 2017-01-26 14:26 | CONS ---
Date/Time of Note Date/Time of Note DATE: 01/26/17 TIME: 14:23 Assessment/Plan Assessment/Plan Chief Complaint/Hosp Course SUBJECTIVE DATA: Awake, Feels good, no fevers MICROBIOLOGY: Bld cx + BIRGIT 12/24 and 01/18, s/p 2 weeks Rocephin Abx: Rocephin DIAGNOSTIC DATA: Extremities venous study revealed no evidence of DVT. PHYSICAL EXAMINATION: This is a well-developed, middle-aged man who is awake, in no distress. HEENT: Head atraumatic, normocephalic. Sclerae icteric. Buccal mucosa dry. NECK: Supple. CHEST: Chest rise symmetrical. Breath sounds diminished at the bases. HEART: S1, S2. ABDOMEN: Soft. Bowel sounds present. EXTREMITIES: Bilateral lower extremities. Trace edema. ASSESSMENT: 1. Recurrent BIRGIT bacteremia with blood cultures on December 24 grew Staph aureus, etiology unclear. Ascitic fluid cx negative, 2D ECHO 12/27 negative 2. Bilateral lower extremity cellulitis==> resolved 3. End-stage liver disease with recurrent ascites, s/p paracentesis==> no evidence for SBP. 4. Anemia and thrombocytopenia. PLAN: The patient remains stable, consider MARGARITA given persistent BIRGIT bacteremia post 2 weeks IV Rocephin, continue abx, poss EGD [facility] staff Problems: Consultation Date/Type/Reason Admit Date/Time Jan 18, 2017 at 18:26 Initial Consult Date 01/19/17 Type of Consultation: id Referring Provider: YANICK PERERA SALES [employer] MERCHANDISING ASSOCIATE Exam/Review of Systems Vital Signs Vitals Vital Signs Date Time Temp Pulse Resp B/P Pulse Ox O2 Delivery O2 Flow Rate FiO2 01/26/17 08:07 98.1 18 93/56 99 01/26/17 02:02 72 01/24/17 13:18 Room Air Intake and Output 01/25/17 01/25/17 01/26/17 15:00 23:00 07:00 Intake Total 770 ml 410 ml Output Total 1500 ml 600 ml Balance -730 ml -190 ml Results Result Diagram: 01/26/17 0541 01/26/17 0541 Results 24 hrs Laboratory Tests Test 01/26/17 05:41 01/26/17 09:24 White Blood Count 6.4 Red Blood Count 2.53 L Hemoglobin 9.2 L Hematocrit 26.2 L Mean Corpuscular Volume 103.6 H Mean Corpuscular Hemoglobin 36.4 H Mean Corpuscular Hemoglobin Concent 35.1 Red Cell Distribution Width 15.5 H Platelet Count 56 L Mean Platelet Volume 11.0 H Neutrophils % 43.5 Lymphocytes % 26.1 Monocytes % 15.0 H Eosinophils % 10.0 H Basophils % 1.3 Nucleated Red Blood Cells % 0.0 Neutrophils # (Manual) 3 Lymphocytes # 1.7 Monocytes # 1.0 H Eosinophils # 0.6 H Basophils # 0.1 Nucleated Red Blood Cells # 0.0 Sodium Level 138 Potassium Level 4.6 Chloride Level 105 Carbon Dioxide Level 26 Anion Gap 12 Blood Urea Nitrogen 14 Creatinine 0.85 Glucose Level 80 Calcium Level 8.1 L Phosphorus Level 4.1 Magnesium Level 1.8 Prothrombin Time 22.8 H Prothrombin Time Ratio 1.8 INR International Normalized Ratio 1.99 Medications Medications Current Medications Folic Acid (Folic Acid) 1 mg DAILY PO Last administered on 01/25/17 08:03; Admin Dose 1 MG; Start 01/19/17 at 09:00 Furosemide (Lasix) 20 mg TID PO Last administered on 01/25/17 20:57; Admin Dose 20 MG; Start 01/19/17 at 09:00 Spironolactone (Aldactone) 50 mg BID PO Last administered on 01/25/17 20:57; Admin Dose 50 MG; Start 01/19/17 at 09:00 Thiamine HCl (Vitamin B1) 50 mg QAM PO Last administered on 01/25/17 08:03; Admin Dose 50 MG; Start 01/19/17 at 09:00 Famotidine (Pepcid) 20 mg BID PO Last administered on 01/25/17 20:57; Admin Dose 20 MG; Start 01/19/17 at 09:00 Morphine Sulfate (morphine) 3 mg Q4H PRN IV pain; Start 01/18/17 at 22:30 Ondansetron HCl 4 mg 4 mg Q6H PRN IV NAUSEA AND/OR VOMITING; Start 01/18/17 at 22:30 Ceftriaxone Sodium (Rocephin) 50 ml @ 100 mls/hr Q24H IVPB Last administered on 01/26/17 05:31; Admin Dose 100 MLS/HR; Start 01/19/17 at 06:00 Lorazepam (Ativan) 1 mg Q6H PRN PO ANXIETY Last administered on 01/25/17t 22:07 ; Admin Dose 1 MG; Start 01/22/17 at 03:00 JULIA HO NP Jan 26, 2017 14:26
--- NOTE | 2017-01-26 15:23 | PN ---
Date/Time of Note Date/Time of Note DATE: 01/26/17 TIME: 15:18 Assessment/Plan VTE Prophylaxis VTE Prophylaxis Intervention: contraindicated Lines/Catheters IV [facility] Urinary Cath still in place: No Assessment/Plan Chief Complaint/Hosp Course 1. S/P sepsis with underlying right lower extremity cellulitis and gram- positive bacteremia. Continue antimicrobials as per infectious diseases. Plan for MARGARITA to evaluate for any vegetation. 2. Decompensated liver cirrhosis. Continue diuretics. 3. Microcytic anemia. Most probably secondary to underlying liver cirrhosis. Monitor H&H closely. Transfuse blood products as needed. 4. Thrombocytopenia. Most probably secondary to underlying liver cirrhosis. Continue to monitor the patient for any bleeding. 5. Transaminitis with hyperbilirubinemia. Most probably secondary to underlying liver cirrhosis. Avoid hepatotoxic medications. Trend LFTs. 6. Fluids, electrolytes, and nutrition. Low-sodium diet. 7. DVT prophylaxis. Contraindicated. 8. Plan. Await for EDG scopy to evaluate esophageal varices and later MARGARITA for evaluation of cardiac vegetation after EGDscopy. Case discussed with Dr. Hartman. Problems: Subjective 24 Hr Interval Summary Free Text/Dictation Denies any complaints. Awaiting for EDGscopy. Exam/Review of Systems Vital Signs Vitals Vital Signs Date Time Temp Pulse Resp B/P Pulse Ox O2 Delivery O2 Flow Rate FiO2 01/26/17 14:00 98.5 67 20 102/64 100 01/24/17 13:18 Room Air Intake and Output 01/25/17 01/25/17 01/26/17 15:00 23:00 07:00 Intake Total 770 ml 410 ml Output Total 1500 ml 600 ml Balance -730 ml -190 ml Exam General: Adequately build 46 year-old male lying in bed in no apparent distress. HEENT: Normocephalic, atraumatic. Eyes: Slightly icteric sclerae, conjunctivae clear. ENT: Nasal septum midline, oral mucosa moist. Neck supple, no JVD noticed. Respiratory: Bilaterally clear breath sounds. No use of accessory muscles of respiration. No adventitious breath sounds. Cardiovascular: S1, S2 heard. Regular rate and rhythm. Abdomen: Soft and nondistended. Bowel sounds positive in all 4 quadrants. Genitourinary: Deferred. Extremities: No cyanosis, no clubbing. Bilateral lower extremity edema 1-2+. Peripheral pulses palpable. Neurologic: Cranial nerves II through XII grossly intact. The patient is awake, alert, and oriented. Skin: Normal skin turgor. No skin rashes. Results Result Diagram: 01/26/17 0541 01/26/17 0541 Results 24 hrs Laboratory Tests Test 01/26/17 05:41 01/26/17 09:24 White Blood Count 6.4 Red Blood Count 2.53 L Hemoglobin 9.2 L Hematocrit 26.2 L Mean Corpuscular Volume 103.6 H Mean Corpuscular Hemoglobin 36.4 H Mean Corpuscular Hemoglobin Concent 35.1 Red Cell Distribution Width 15.5 H Platelet Count 56 L Mean Platelet Volume 11.0 H Neutrophils % 43.5 Lymphocytes % 26.1 Monocytes % 15.0 H Eosinophils % 10.0 H Basophils % 1.3 Nucleated Red Blood Cells % 0.0 Neutrophils # (Manual) 3 Lymphocytes # 1.7 Monocytes # 1.0 H Eosinophils # 0.6 H Basophils # 0.1 Nucleated Red Blood Cells # 0.0 Sodium Level 138 Potassium Level 4.6 Chloride Level 105 Carbon Dioxide Level 26 Anion Gap 12 Blood Urea Nitrogen 14 Creatinine 0.85 Glucose Level 80 Calcium Level 8.1 L Phosphorus Level 4.1 Magnesium Level 1.8 Prothrombin Time 22.8 H Prothrombin Time Ratio 1.8 INR International Normalized Ratio 1.99 Medications Medications Current Medications Folic Acid (Folic Acid) 1 mg DAILY PO Last administered on 01/25/17 08:03; Admin Dose 1 MG; Start 01/19/17 at 09:00 Furosemide (Lasix) 20 mg TID PO Last administered on 01/25/17 20:57; Admin Dose 20 MG; Start 01/19/17 at 09:00 Spironolactone (Aldactone) 50 mg BID PO Last administered on 01/25/17 20:57; Admin Dose 50 MG; Start 01/19/17 at 09:00 Thiamine HCl (Vitamin B1) 50 mg QAM PO Last administered on 01/25/17 08:03; Admin Dose 50 MG; Start 01/19/17 at 09:00 Famotidine (Pepcid) 20 mg BID PO Last administered on 01/25/17 20:57; Admin Dose 20 MG; Start 01/19/17 at 09:00 Morphine Sulfate (morphine) 3 mg Q4H PRN IV pain; Start 01/18/17 at 22:30 Ondansetron HCl 4 mg 4 mg Q6H PRN IV NAUSEA AND/OR VOMITING; Start 01/18/17 at 22:30 Ceftriaxone Sodium (Rocephin) 50 ml @ 100 mls/hr Q24H IVPB Last administered on 01/26/17 05:31; Admin Dose 100 MLS/HR; Start 01/19/17 at 06:00 Lorazepam (Ativan) 1 mg Q6H PRN PO ANXIETY Last administered on 01/25/17 22:07 ; Admin Dose 1 MG; Start 01/22/17 at 03:00 YANICK PERERA NP Jan 26, 2017 15:23
[2017-01-26] MEDS ORDERED: PROPOFOL 0 ML ONE (17:25)
[2017-01-26] MEDS ORDERED: FENTAnyl 50 MCG/ML VIAL ONE (17:25)
[2017-01-26] MEDS ORDERED: MIDAZOLAM 1 MG/ML 2 ML INJ ONE (17:25)
[2017-01-26] MEDS ORDERED: ETOMIDATE 20 MG INJ ONE (18:25)
--- NOTE | 2017-01-26 18:47 | OPPN ---
Date/Time of Note Date/Time of Note DATE: 01/26/17 TIME: 18:43 Proc Note GI Free Text/Dictation Preoperative Diagnosis: * history of esophageal varices Postoperative Diagnosis: * Grade III/IV esophageal varices with no stigmata * Portal hypertensive gastropathy * Otherwise normal EGD Plan: * Continue present regimen * MARGARITA risk quite significant. I recommended avoiding if at all possible Procedure Performed: EGD Surgeon: Annabelle Lin MD Legend Maker: None Second Ordinary Seaman: None Anesthesia/Sedation: MAC by anesthesiologist Tourniquet Time: NA Estimated Blood Loss: 0 Transfusion Required: No Specimens: None Grafts/Implants: None Tubes/Drains: NA Complications: None Pt. Condition Post Procedure: Stable Disposition: PACU After informed consent, with the patient/relatives understanding the procedure, its indications, potential risks and complications, including but not limited to : allergic reaction, bleeding, perforation or infection, and after all pertinent questions were answered to the patients satisfaction, the patient/ relatives signed witnessed informed consent. Following this, premedication was administered slowly IV push under careful cardiovascular and respiratory monitoring with pulse oximetry, automatic blood pressure, and sales development director. Once the sedative effect was achieved the patient was place in the left lateral decubitus, the panendoscope was introduced and advanced under visual control. Careful examination of the upper gastrointestinal tract, both on insertion as well as withdrawal of the instrument disclosing the following findings: ESOPHAGUS: the mucosa of the entire esophagus was carefully examined and showed the following findings: There are large grade III/IV esophageal varices, no stigmata. Otherwise the mucosa appears within normal limits. There is no evidence of esophagitis, neoplasm, or stricture. No Hiatal Hernia identified. STOMACH: Upon entrance to the stomach air was insufflated, the gastric santiago distended normally. The mucosa of the fundus, body and antrum of the stomach was carefully examined both head-on and on retroflexion, and showed the following findings: There is significant erythema, congestion and friability of the mucosa consistent with portal hypertensive gastropathy. Otherwise the mucosa appears within normal limits with no abnormalities. There is no evidence of gastritis, ulcers or neoplasm. PYLORUS: The pylorus was carefully examined and showed the following findings: the pylorus appears patent and within normal limits, with no evidence of gastric outlet obstruction. DUODENUM: The duodenal mucosa was carefully examined in the duodenal bulb as well as the second portion of the duodenum and showed the following findings: the mucosa appears unremarkable with no evidence of duodenitis, ulcer or neoplasm. Procedure date: Jan 26, 2017 ANNABELLE LIN MD Jan 26, 2017 18:47
--- NOTE | 2017-01-26 18:49 | HPN ---
Date/Time of Note Date/Time of Note DATE: 01/26/17 TIME: 18:48 Interval H&P Admission Note Pt. seen H&P reviewed: No system changes ANNABELLE BOBBY MD Jan 26, 2017 18:49
[2017-01-26] MEDS: LORAZEPAM 1 MG TAB PO PRN (22:17)
[2017-01-27 02:20] VITALS: BP 91/50; RESP 20
[2017-01-27] MEDS: CEFTRIAXONE 1 GM/50 ML (PMX) 50 ML IVPB SCH (05:55)
[2017-01-27 06:14] LABS: ABNORMAL IP MESSAGE 1; BASOPHIL # 0.1 10^3/ul (0.0-0.1); BASOPHILS % 0.9 % (0.0-2.0); EOSINOPHILS # 0.6 10^3/ul (0.0-0.5); EOSINOPHILS % 9.7 % (0.0-7.0); HEMATOCRIT 25.2 % (42.0-52.0); HEMOGLOBIN 8.8 g/dl (14.0-18.0); LYMPHOCYTES # 1.6 10^3/ul (0.8-2.9); LYMPHOCYTES % 25.2 % (15.0-51.0); MEAN CORPUSCULAR HEMOGLOBIN 36.1 pg (29.0-33.0); MEAN CORPUSCULAR HGB CONC 34.9 g/dl (32.0-37.0); MEAN CORPUSCULAR VOLUME 103.3 fl (82.0-101.0); MEAN PLATELET VOLUME 10.9 fl (7.4-10.4); MONOCYTE # 0.9 10^3/ul (0.3-0.9); MONOCYTES % 13.8 % (0.0-11.0); PLATELET COUNT 58 10^3/UL (140-415); POSITIVE DIFF @See below; RED BLOOD COUNT 2.44 10^6/ul (4.70-6.10); RED CELL DISTRIBUTION WIDTH 15.6 % (11.5-14.5); WHITE BLOOD COUNT 6.4 10^3/ul (4.8-10.8)
[2017-01-27 06:33] LABS: MAGNESIUM 1.6 mg/dl (1.7-2.5); PHOSPHORUS 4.1 mg/dl (2.5-4.9)
[2017-01-27 06:58] LABS: ALBUMIN/GLOBULIN RATIO 0.5; BILIRUBIN,INDIRECT 3.8 mg/dl (0-1.1); BILIRUBIN,TOTAL 3.8 mg/dl (0.2-1.3); CALCIUM 8.1 mg/dl (8.4-10.2); CREATININE 0.82 mg/dl (0.61-1.24); POTASSIUM 4.4 mmol/L (3.5-5.1)
[2017-01-27 07:54] VITALS: BP 92/51; RESP 18
[2017-01-27] MEDS: SPIRONOLACTONE 50 MG TAB PO SCH ×2 (09:59→21:41)
[2017-01-27] MEDS: FUROSEMIDE 20 MG TAB PO SCH ×3 (09:59→21:41)
[2017-01-27] MEDS: FOLIC ACID 1 MG TAB PO SCH (10:24)
[2017-01-27] MEDS: THIAMINE 100 MG TAB PO SCH (10:29)
[2017-01-27] MEDS: FAMOTIDINE 20 MG TAB PO SCH ×2 (10:29→21:40)
--- NOTE | 2017-01-27 11:31 | CONS ---
Date/Time of Note Date/Time of Note DATE: 01/27/17 TIME: 11:28 Assessment/Plan Assessment/Plan Chief Complaint/Hosp Course Recurrent MSSA bacteremia: ?cellulitis as source however since recurrence, concern for possible endocarditis. TTE was negative but of course not the gold standard. MARGARITA would be very appropriate but the risks in this pt at the current time are high.EGD yesterday showed grade 3/4 varices. High risk for MARGARITA per Dr. Lin. If concern, can treat with exterminator antibiotics and check a TTE in 2-4 weeks Alcoholic cirrhosis Esophageal varices s/p banding: still with grade 3/4 varices as of 01/26 Coagulopathy: last INR 2.0, from cirrhosis above -length of antibiotics per ID -NO MARGARITA due to high risk -will follow PRN. Please call with questions/concerns Problems: Consultation Date/Type/Reason Admit Date/Time Jan 18, 2017 at 18:26 Initial Consult Date 01/26/17 Type of Consultation: Cardiology Referring Provider: YANICK PERERA NP 24 HR Interval Summary Free Text/Dictation EGD yesterday showed grade 3/4 varices. High risk for MARGARITA per Dr. Lin Exam/Review of Systems Vital Signs Vitals Vital Signs Date Time Temp Pulse Resp B/P Pulse Ox O2 Delivery O2 Flow Rate FiO2 01/27/17 07:54 97.7 68 18 92/51 99 01/26/17 19:03 Room Air Intake and Output 01/26/17 01/26/17 01/27/17 15:00 23:00 07:00 Intake Total 50 ml Output Total 300 ml Balance -250 ml Exam Constitutional: alert, oriented Psych: nl mood/affect, no complaints Head: atraumatic, normocephalic Neck: No jvd Respiratory: clear to auscultation, No crackles/rales Cardiovascular: regular rate and rhythm, systolic murmur (2/6 ALBERTINA, likely flow related due to cirrhosis ), No edema Gastrointestinal: non-tender, soft Musculoskeletal: nl extremities to inspection Extremities: normal pulses Neurological: nl mental status, nl speech Results Result Diagram: 01/27/17 0552 01/27/17 0552 Results 24 hrs Laboratory Tests Test 01/27/17 05:52 White Blood Count 6.4 Red Blood Count 2.44 L Hemoglobin 8.8 L Hematocrit 25.2 L Mean Corpuscular Volume 103.3 H Mean Corpuscular Hemoglobin 36.1 H Mean Corpuscular Hemoglobin Concent 34.9 Red Cell Distribution Width 15.6 H Platelet Count 58 L Mean Platelet Volume 10.9 H Neutrophils % 46.0 Lymphocytes % 25.2 Monocytes % 13.8 H Eosinophils % 9.7 H Basophils % 0.9 Nucleated Red Blood Cells % 0.0 Neutrophils # (Manual) 2.9 Lymphocytes # 1.6 Monocytes # 0.9 Eosinophils # 0.6 H Basophils # 0.1 Nucleated Red Blood Cells # 0.0 Sodium Level 138 Potassium Level 4.4 Chloride Level 105 Carbon Dioxide Level 23 Anion Gap 14 Blood Urea Nitrogen 16 Creatinine 0.82 Glucose Level 84 Calcium Level 8.1 L Phosphorus Level 4.1 Magnesium Level 1.6 L Total Bilirubin 3.8 H Direct Bilirubin 0.00 Indirect Bilirubin 3.8 H Aspartate Amino Transf (AST/SGOT) 51 H Alanine Aminotransferase (ALT/SGPT) 41 Alkaline Phosphatase 131 H Total Protein 6.0 L Albumin 2.0 L Globulin 4.00 H Albumin/Globulin Ratio 0.50 Medications Medications Current Medications Folic Acid (Folic Acid) 1 mg DAILY PO Last administered on 01/27/17 10:24; Admin Dose 1 MG; Start 01/19/17 at 09:00 Furosemide (Lasix) 20 mg TID PO Last administered on 01/26/17 21:22; Admin Dose 20 MG; Start 01/19/17 at 09:00 Spironolactone (Aldactone) 50 mg BID PO Last administered on 01/26/17 21:22; Admin Dose 50 MG; Start 01/19/17 at 09:00 Thiamine HCl (Vitamin B1) 50 mg QAM PO Last administered on 01/27/17 10:29; Admin Dose 50 MG; Start 01/19/17 at 09:00 Famotidine (Pepcid) 20 mg BID PO Last administered on 01/27/17 10:29; Admin Dose 20 MG; Start 01/19/17 at 09:00 Morphine Sulfate (morphine) 3 mg Q4H PRN IV pain; Start 01/18/17 at 22:30 Ondansetron HCl 4 mg 4 mg Q6H PRN IV NAUSEA AND/OR VOMITING; Start 01/18/17 at 22:30 Ceftriaxone Sodium (Rocephin) 50 ml @ 100 mls/hr Q24H IVPB Last administered on 01/27/17 05:55; Admin Dose 100 MLS/HR; Start 01/19/17 at 06:00 Lorazepam (Ativan) 1 mg Q6H PRN PO ANXIETY Last administered on 01/26/17 22:17 ; Admin Dose 1 MG; Start 01/22/17 at 03:00 VANNESSA RODRIGUEZ Jan 27, 2017 11:31
[2017-01-27] MEDS ORDERED: LIDOCAINE 1% (MPF) 5 ML VIAL SC ONE (12:00)
[2017-01-27] MEDS ORDERED: MAGNESIUM SULFATE 2 GM/50 ML 50 ML IVPB SCH (13:00)
--- NOTE | 2017-01-27 13:07 | PN ---
Date/Time of Note Date/Time of Note DATE: 01/27/17 TIME: 13:03 Assessment/Plan VTE Prophylaxis VTE Prophylaxis Intervention: contraindicated Lines/Catheters IV C[facility]ter Type (from [facility] Saline Lock Urinary Cath still in place: No Assessment/Plan Chief Complaint/Hosp Course 1. S/P sepsis with underlying right lower extremity cellulitis and gram- positive bacteremia. Continue antimicrobials as per infectious diseases. The initial plan was to do a MARGARITA to evaluate for any vegetation. However, the patient underwent esophagogastroduodenoscopy on 01/26/2017 showed grade 3/4 esophageal varices the patient is high risk for any MARGARITA. Consequently, the patient will be maintained on long-term IV antibiotics. 2. Decompensated liver cirrhosis. Continue diuretics. 3. Coagulopathy. Most probably secondary to #2. Monitor for any bleeding. 4. Microcytic anemia. Most probably secondary to underlying liver cirrhosis. Monitor H&H closely. Transfuse blood products as needed. 5. Thrombocytopenia. Most probably secondary to underlying liver cirrhosis. Continue to monitor the patient for any bleeding. 6. Transaminitis with hyperbilirubinemia. Most probably secondary to underlying liver cirrhosis. Avoid hepatotoxic medications. Trend LFTs. 7. Fluids, electrolytes, and nutrition. Low-sodium diet. 8. DVT prophylaxis. Contraindicated. 9. Plan. Replete magnesium. The patient is not a good candidate for MARGARITA. Hence the plan is for long-term IV antibiotics. Will have a PICC line insertion. Will arrange home health for home IV antibiotics (Rocephin) for 4 weeks. Case discussed with Dr. Hartman. Problems: Subjective 24 Hr Interval Summary Free Text/Dictation Denies any pain. Exam/Review of Systems Vital Signs Vitals Vital Signs Date Time Temp Pulse Resp B/P Pulse Ox O2 Delivery O2 Flow Rate FiO2 01/27/17 07:54 97.7 68 18 92/51 99 01/26/17 19:03 Room Air Intake and Output 01/26/17 01/26/17 01/27/17 15:00 23:00 07:00 Intake Total 50 ml Output Total 300 ml Balance -250 ml Exam General: Adequately build 46 year-old male lying in bed in no apparent distress. HEENT: Normocephalic, atraumatic. Eyes: Slightly icteric sclerae, conjunctivae clear. ENT: Nasal septum midline, oral mucosa moist. Neck supple, no JVD noticed. Respiratory: Bilaterally clear breath sounds. No use of accessory muscles of respiration. No adventitious breath sounds. Cardiovascular: S1, S2 heard. Regular rate and rhythm. Abdomen: Soft and nondistended. Bowel sounds positive in all 4 quadrants. Genitourinary: Deferred. Extremities: No cyanosis, no clubbing. No edema.. Peripheral pulses palpable. Neurologic: Cranial nerves II through XII grossly intact. The patient is awake, alert, and oriented. Skin: Normal skin turgor. No skin rashes. Results Result Diagram: 01/27/17 0552 01/27/17 0552 Results 24 hrs Laboratory Tests Test 01/27/17 05:52 White Blood Count 6.4 Red Blood Count 2.44 L Hemoglobin 8.8 L Hematocrit 25.2 L Mean Corpuscular Volume 103.3 H Mean Corpuscular Hemoglobin 36.1 H Mean Corpuscular Hemoglobin Concent 34.9 Red Cell Distribution Width 15.6 H Platelet Count 58 L Mean Platelet Volume 10.9 H Neutrophils % 46.0 Lymphocytes % 25.2 Monocytes % 13.8 H Eosinophils % 9.7 H Basophils % 0.9 Nucleated Red Blood Cells % 0.0 Neutrophils # (Manual) 2.9 Lymphocytes # 1.6 Monocytes # 0.9 Eosinophils # 0.6 H Basophils # 0.1 Nucleated Red Blood Cells # 0.0 Sodium Level 138 Potassium Level 4.4 Chloride Level 105 Carbon Dioxide Level 23 Anion Gap 14 Blood Urea Nitrogen 16 Creatinine 0.82 Glucose Level 84 Calcium Level 8.1 L Phosphorus Level 4.1 Magnesium Level 1.6 L Total Bilirubin 3.8 H Direct Bilirubin 0.00 Indirect Bilirubin 3.8 H Aspartate Amino Transf (AST/SGOT) 51 H Alanine Aminotransferase (ALT/SGPT) 41 Alkaline Phosphatase 131 H Total Protein 6.0 L Albumin 2.0 L Globulin 4.00 H Albumin/Globulin Ratio 0.50 Medications Medications Current Medications Folic Acid (Folic Acid) 1 mg DAILY PO Last administered on 01/27/17 10:24; Admin Dose 1 MG; Start 01/19/17 at 09:00 Furosemide (Lasix) 20 mg TID PO Last administered on 01/26/17 21:22; Admin Dose 20 MG; Start 01/19/17 at 09:00 Spironolactone (Aldactone) 50 mg BID PO Last administered on 01/26/17 21:22; Admin Dose 50 MG; Start 01/19/17 at 09:00 Thiamine HCl (Vitamin B1) 50 mg QAM PO Last administered on 01/27/17 10:29; Admin Dose 50 MG; Start 01/19/17 at 09:00 Famotidine (Pepcid) 20 mg BID PO Last administered on 01/27/17 10:29; Admin Dose 20 MG; Start 01/19/17 at 09:00 Morphine Sulfate (morphine) 3 mg Q4H PRN IV pain; Start 01/18/17 at 22:30 Ondansetron HCl 4 mg 4 mg Q6H PRN IV NAUSEA AND/OR VOMITING; Start 01/18/17 at 22:30 Ceftriaxone Sodium (Rocephin) 50 ml @ 100 mls/hr Q24H IVPB Last administered on 01/27/17 05:55; Admin Dose 100 MLS/HR; Start 01/19/17 at 06:00 Lorazepam 1 mg 1 mg Q6H PRN PO ANXIETY Last administered on 01/26/17 22:17; Admin Dose 1 MG; Start 01/22/17 at 03:00 Magnesium Sulfate (Magnesium Sulfate 2 Gm/50 ml) 50 ml @ 25 mls/hr ONCE IVPB ; Start 01/27/17 at 13:00; Stop 01/27/17 at 14:59 YANICK PERERA NP Jan 27, 2017 13:07
[2017-01-27 13:08] VITALS: BP 98/57; RESP 18
[2017-01-27] MEDS ORDERED: SOD CHLORIDE 0.9% 100 ML ONE (15:07)
--- NOTE | 2017-01-27 15:14 | RADRPT ---
PROCEDURE: XR Chest. CLINICAL INDICATION: Check PICC line position. TECHNIQUE: Single frontal view. COMPARISON: 01/18/2017. FINDINGS: There is a left arm PICC line with the tip in the lower superior vena cava. The lungs are clear. T here is elevation of the right hemidiaphragm. The heart size is normal. There is no pleural effusion. There is no pneumothorax. IMPRESSION: 1. Left arm PICC line tip in satisfactory position. 2. Elevation of the right hemidiaphragm. 3. Otherwise normal chest radiograph. RPTAT: QQ .David Mosley MD, MD Date Time Electronically viewed and signed by .David Mosley MD, MD on 01/27/2017 15:14 .R/
--- NOTE | 2017-01-27 15:46 | RADRPT ---
PROCEDURE: Ultrasound guidance for placement of needle in left upper extremity vein. CLINICAL INDICATION: Venous access. TECHNIQUE: Limited sonography of the left upper extremity was performed. Ultrasound images were recorded and s tored in the patient's medical record. COMPARISON: None. FINDINGS: The ultrasound images demonstrate a patent left upper extremity vein. The PICC line was inserted by the PICC line nurse. IMPRESSION: 1. Ultrasound guidance for a needle placement in a left upper extremity vein. 2. The left upper extremity vein is patent. RPTAT: QQ .David Mosley MD, MD Date Time Electronically viewed and signed by .David Mosley MD, MD on 01/27/2017 15:46 .R/
[2017-01-27 16:50] VITALS: BP 108/62; RESP 20
[2017-01-27 19:52] VITALS: BP 97/52; RESP 18
[2017-01-27] MEDS: LORAZEPAM 1 MG TAB PO PRN (21:44)
[2017-01-28 02:00] VITALS: BP 100/62; RESP 20
--- NOTE | 2017-01-28 04:25 | PN ---
DATE: 01/27/2017 SUBJECTIVE DATA: No acute changes. The patient is alert, feels good, looks comfortable. Denies pain, discomfort. No fevers. LABORATORY AND DIAGNOSTIC DATA: WBC 6.4, platelets 58, no shift, no bands. BUN 16, creatinine 0.82. Microbiology: Blood culture on January 18 came back positive for oxacillin sensitive Staph aureus. Repeat blood culture since January 21 negative. Antimicrobials. The patient is on IV Rocephin. PHYSICAL EXAMINATION: GENERAL: Well-developed, middle-aged, man, who is alert, in no distress. HEENT: Head atraumatic, normocephalic. Sclerae anicteric. Buccal mucosa pink. NECK: Supple. CHEST: Rise symmetrical. Breath sounds clear. HEART: S1, S2. ABDOMEN: Soft, bowel sounds present. EXTREMITIES: No cyanosis. ASSESSMENT: 1. Persistent oxacillin-sensitive Staphylococcus aureus bacteremia, as per cultures on December 24 and repeated on January 18 after the patient completed 2 weeks treatment with IV Rocephin. 2. Status post right lower extremity cellulitis. 3. End-stage liver disease with recurrent ascites, status post multiple paracentesis with acidic fluid being negative. 4. Anemia. 5. Thrombocytopenia. 6. Grade 3 to 4 esophageal varices as per EGD done on January 26, 2017. PLAN: The patient remains stable. A 2-D echocardiogram revealed no vegetations. WBC labeled nuclear scan was negative. He is a high-risk for MARGARITA given grade 4 esophageal varices. Recommend to send him home on IV Rocephin for 4 more weeks. Above was discussed with the patient and family at bedside. Above was discussed with cardiology and primary team. Dictated By: Rhoda Cárdenas NP /eloise/ash /Document#: [id number]
[2017-01-28 05:31] LABS: ABNORMAL IP MESSAGE 1; BASOPHIL # 0.1 10^3/ul (0.0-0.1); BASOPHILS % 1.4 % (0.0-2.0); EOSINOPHILS # 0.6 10^3/ul (0.0-0.5); EOSINOPHILS % 9.7 % (0.0-7.0); HEMATOCRIT 25.6 % (42.0-52.0); LYMPHOCYTES # 1.6 10^3/ul (0.8-2.9); LYMPHOCYTES % 27.1 % (15.0-51.0); MEAN CORPUSCULAR HEMOGLOBIN 36.3 pg (29.0-33.0); MEAN CORPUSCULAR HGB CONC 35.2 g/dl (32.0-37.0); MEAN CORPUSCULAR VOLUME 103.2 fl (82.0-101.0); MEAN PLATELET VOLUME 10.8 fl (7.4-10.4); MONOCYTE # 0.8 10^3/ul (0.3-0.9); MONOCYTES % 13.7 % (0.0-11.0); PLATELET COUNT 56 10^3/UL (140-415); POSITIVE DIFF @See below; RED BLOOD COUNT 2.48 10^6/ul (4.70-6.10); RED CELL DISTRIBUTION WIDTH 15.4 % (11.5-14.5); WHITE BLOOD COUNT 5.8 10^3/ul (4.8-10.8)
[2017-01-28 05:33] LABS: ALBUMIN 2.1 g/dl (3.3-4.9); ALBUMIN/GLOBULIN RATIO 0.51; BILIRUBIN,INDIRECT 3.2 mg/dl (0-1.1); BILIRUBIN,TOTAL 3.2 mg/dl (0.2-1.3); CALCIUM 8.1 mg/dl (8.4-10.2); CREATININE 0.73 mg/dl (0.61-1.24); POTASSIUM 4.3 mmol/L (3.5-5.1); TOTAL PROTEIN 6.2 g/dl (6.1-8.1)
[2017-01-28 05:55] LABS: MAGNESIUM 1.8 mg/dl (1.7-2.5); PHOSPHORUS 3.5 mg/dl (2.5-4.9)
[2017-01-28] MEDS: CEFTRIAXONE 1 GM/50 ML (PMX) 50 ML IVPB SCH (06:28)
[2017-01-28 07:27] LABS: PARTIAL THROMBOPLASTIN TIME 42.8 Sec (25.0-35.0); PROTIME 22.9 Sec (12.2-14.2); PT RATIO 1.8
[2017-01-28 08:08] VITALS: BP 104/59; RESP 18
[2017-01-28] MEDS: SPIRONOLACTONE 50 MG TAB PO SCH (09:00)
[2017-01-28] MEDS: FUROSEMIDE 20 MG TAB PO SCH ×2 (09:00→13:26)
[2017-01-28] MEDS: FOLIC ACID 1 MG TAB PO SCH (09:19)
[2017-01-28] MEDS: FAMOTIDINE 20 MG TAB PO SCH (09:19)
[2017-01-28] MEDS: THIAMINE 100 MG TAB PO SCH (09:20)
--- NOTE | 2017-01-28 13:34 | CONS ---
Date/Time of Note Date/Time of Note DATE: 01/28/17 TIME: 13:34 Assessment/Plan Assessment/Plan Chief Complaint/Hosp Course ID PROGRESS NOTE CURRENT ABX=> 24H INTERVAL SUMMARY * The patient is ambulatory in the room, independent with shower privileges * Microbiology: Blood culture on January 18 came back positive for oxacillin sensitive Staph aureus. Repeat blood culture since January 21 negative. PHYSICAL EXAMINATION: GENERAL: Overweight M, A/A./O, VSS, NAD, ambulatory HEENT: Unremarkable NECK: Supple. CHEST: Rise symmetrical, without dyspnea on observation HEART: RRR ABDOMEN: Soft, EXTREMITIES: No cyanosis. ID ASSESSMENT: 47 yo M admit with: 1. Persistent (+)BIRGIT bacteremia, as per cultures on 12/24/16, and 01/18/17 after the patient completed 2 weeks treatment with IV Rocephin. * 2D ECHO (-) Veg * WBC labeled Scan (-) 2. Status post right lower extremity cellulitis. 3. End-stage liver disease with recurrent ascites, status post multiple paracentesis with acidic fluid being negative. 4. Anemia. 5. Thrombocytopenia. 6. Grade 3 to 4 esophageal varices as per EGD done on January 26, 2017. (-) MRSA Nares INVASIVES: PIV ABX ALLERGY: None to ABX CURRENT ABX=> Ceftriaxone ID PLAN 1. Continue Ceftriaxone for additional 28 days (added to completed 14 days) = this will complete 6 weeks ABX for presumptive SBE. * He is obese w/BMI of 31.8; hence appropriate for Ceftriaxone 2GM IVPB daily 2. He is a high-risk for MARGARITA given grade 4 esophageal varices; hence, treat him presumptively. 3. May DC on Ceftriaxone 2GM IVPB daily until last day 02/16/17 Problems: Consultation Date/Type/Reason Admit Date/Time Jan 18, 2017 at 18:26 Initial Consult Date 01/26/17 Type of Consultation: id Referring Provider: YANICK PERERA CERTIFIED [employer] Exam/Review of Systems Vital Signs Vitals Vital Signs Date Time Temp Pulse Resp B/P Pulse Ox O2 Delivery O2 Flow Rate FiO2 01/28/17 08:08 97.8 69 18 104/59 100 01/26/17 19:03 Room Air Intake and Output 01/27/17 01/27/17 01/28/17 15:00 23:00 07:00 Intake Total 1300 ml 50 ml Output Total 1100 ml Balance 200 ml 50 ml Results Result Diagram: 01/28/17 0500 01/28/17 0500 Results 24 hrs Laboratory Tests Test 01/28/17 04:43 01/28/17 05:00 Prothrombin Time 22.9 H Prothrombin Time Ratio 1.8 INR International Normalized Ratio 2.00 Activated Partial Thromboplast Time 42.8 H Phosphorus Level 3.5 Magnesium Level 1.8 Ammonia 41 H White Blood Count 5.8 Red Blood Count 2.48 L Hemoglobin 9.0 L Hematocrit 25.6 L Mean Corpuscular Volume 103.2 H Mean Corpuscular Hemoglobin 36.3 H Mean Corpuscular Hemoglobin Concent 35.2 Red Cell Distribution Width 15.4 H Platelet Count 56 L Mean Platelet Volume 10.8 H Neutrophils % 45.0 Lymphocytes % 27.1 Monocytes % 13.7 H Eosinophils % 9.7 H Basophils % 1.4 Nucleated Red Blood Cells % 0.0 Neutrophils # (Manual) 2.6 Lymphocytes # 1.6 Monocytes # 0.8 Eosinophils # 0.6 H Basophils # 0.1 Nucleated Red Blood Cells # 0.0 Sodium Level 137 Potassium Level 4.3 Chloride Level 105 Carbon Dioxide Level 23 Anion Gap 13 Blood Urea Nitrogen 14 Creatinine 0.73 Glucose Level 81 Calcium Level 8.1 L Total Bilirubin 3.2 H Direct Bilirubin 0.00 Indirect Bilirubin 3.2 H Aspartate Amino Transf (AST/SGOT) 53 H Alanine Aminotransferase (ALT/SGPT) 43 Alkaline Phosphatase 168 H Total Protein 6.2 Albumin 2.1 L Globulin 4.10 H Albumin/Globulin Ratio 0.51 Medications Medications Current Medications Folic Acid (Folic Acid) 1 mg DAILY PO Last administered on 01/28/17 09:19; Admin Dose 1 MG; Start 01/19/17 at 09:00 Furosemide (Lasix) 20 mg TID PO Last administered on 01/28/17 13:26; Admin Dose 20 MG; Start 01/19/17 at 09:00 Spironolactone (Aldactone) 50 mg BID PO Last administered on 01/27/17 21:41; Admin Dose 50 MG; Start 01/19/17 at 09:00 Thiamine HCl (Vitamin B1) 50 mg QAM PO Last administered on 01/28/17 09:20; Admin Dose 50 MG; Start 01/19/17 at 09:00 Famotidine (Pepcid) 20 mg BID PO Last administered on 01/28/17 09:19; Admin Dose 20 MG; Start 01/19/17 at 09:00 Morphine Sulfate (morphine) 3 mg Q4H PRN IV pain; Start 01/18/17 at 22:30 Ondansetron HCl 4 mg 4 mg Q6H PRN IV NAUSEA AND/OR VOMITING; Start 01/18/17 at 22:30 Ceftriaxone Sodium (Rocephin) 50 ml @ 100 mls/hr Q24H IVPB Last administered on 01/28/17 06:28; Admin Dose 100 MLS/HR; Start 01/19/17 at 06:00 Lorazepam (Ativan) 1 mg Q6H PRN PO ANXIETY Last administered on 01/27/17 21:44 ; Admin Dose 1 MG; Start 01/22/17 at 03:00 IV Flush (NS 10 ml) 10 ml PRN PRN IV IV PROTOCOL; Start 01/27/17 at 15:00 ALEX APPIAH NP Jan 28, 2017 13:34
[2017-01-28 14:11] VITALS: BP 115/74; RESP 18
[2017-01-28] MEDS ORDERED: CEFT2VIA11 IV (15:39)
--- NOTE | 2017-01-28 15:43 | PDOCDIS ---
Discharge Instructions CONDITION Patient Condition: Stable HOME CARE INSTRUCTIONS: Diet Instructions: 2gm NaSpecial Diet: 1 OF WATER PER DAY ACTIVITY: Activity Restrictions: Slowly Increase Activity FOLLOW UP/APPOINTMENTS Follow-up Plan Follow-up with your primary care doctor OTHER ORDERS: Other Orders: Call 911 and go to the nearest emergency department if you have fever, chills, abdominal pain/distention, shortness of breath, chest pain, nausea, vomiting or infection JS JACKSON MD Jan 28, 2017 15:43
[2017-01-28] MEDS ORDERED: SPIR50TA PO (15:45)
[2017-01-29] MEDS ORDERED: CEFTRIAXONE 2 GM/50 ML (PMX) 50 ML IVPB SCH (06:00)
== END 2017-01-28 17:45 | disposition home health service (06) | DRG 872 ==
LOC: E/R 16:25 → MS2 18:26
PROVIDERS: ADMIT Internal Medicine; ATTEND Internal Medicine
PROC: 0DJ08ZZ Inspection of Upper Intestinal Tract, Via Natural or Artificial Opening Endoscopic (ICD-10-PCS; principal; 2017-01-26 17:30)
PROC: 02HV33Z Insertion of Infusion Device into Superior Vena Cava, Percutaneous Approach (ICD-10-PCS; 2017-01-27)
DX: A41.01 Sepsis due to Methicillin susceptible Staphylococcus aureus (principal); I85.00 Esophageal varices without bleeding; D68.9 Coagulation defect, unspecified; R18.8 Other ascites; G95.9 Disease of spinal cord, unspecified; D69.6 Thrombocytopenia, unspecified; D53.9 Nutritional anemia, unspecified; K76.6 Portal hypertension; K31.89 Other diseases of stomach and duodenum; K72.90 Hepatic failure, unspecified without coma; K70.30 Alcoholic cirrhosis of liver without ascites; L03.115 Cellulitis of right lower limb; L03.116 Cellulitis of left lower limb; B95.61 Methicillin susceptible Staphylococcus aureus infection as the cause of diseases classified elsewhere; E80.6 Other disorders of bilirubin metabolism
CPT/HCPCS: 36415; 36569; 71010; 74176; 76937; 78806; 80048; 80053; 80202; 81003; 82140; 83605; 83615; 83690; 83735; 84100; 84157; 84484; 85025; 85049; 85610; 85670; 85730; 86850; 86900; 86901; 87040; 87070; 87075; 87086; 87102; 87116; 87205; 88104; 88305; 89051; 93005; 93308; 93970; 96361; 96365; 96375; A9570; J0696; J2250; J2270; J3010; J3370; J3475; J7030; J7040

== ENCOUNTER 2017-03-13 16:50 | Inpatient (IN) | payer OTHER ==
[~2017-03-13] VITALS: Ht 180.3 cm; Wt 94.5 kg
[2017-03-13 02:31] VITALS: BP 105/57; RESP 19
[~2017-03-13 16:50] MED LIST changes: -CEFT1FRO2 IV; +CEFT2VIA11 IV; +FOLI-49 PO; -HYDR-906 PO; -SPIR25TA PO; +SPIR50TA PO; +THIA100T56 PO
--- NOTE | 2017-03-13 18:27 | ERA ---
ER Documentation Chief Complaint Date/Time DATE: 03/13/17 TIME: 18:26 Chief Complaint LIVER DISEASE WITH INCREASING CONFUSION AND JAUNDICE (ELIANA CARREON MD) ROS All systems reviewed and are negative except as per history of present illness. (ELIANA CARREON MD) Medications Home Meds Active Scripts Spironolactone* (Aldactone*) 50 Mg Tablet, 25 MG PO BID, #60 TAB Prov:JS JACKSON MD 01/28/17 Ceftriaxone Sodium (Ceftriaxone) 2 Gm Vial.port, 2 GM IV DAILY for 28 Days Prov:JS JACKSON MD 01/28/17 Reported Medications Thiamine* (Vitamin B-1*) 100 Mg Tablet, 50 MG PO QAM, TAB 01/18/17 Folic Acid* (Folic Acid*) 1 Mg Tablet, 1 MG PO DAILY, TAB 01/18/17 Furosemide* (Furosemide*) 20 Mg Tablet, 20 MG PO TID, #60 TAB 01/18/17 Allergies Allergies: Coded Allergies: ibuprofen (Verified Allergy, Unknown, 01/18/17) PMhx/Soc History of Surgery: No Anesthesia Reaction: No Hx Neurological Disorder: No Hx Respiratory Disorders: No Hx Cardiac Disorders: No Hx Psychiatric Problems: No Hx Miscellaneous Medical Probl: No Hx Alcohol Use: No Hx Substance Use: No Hx Tobacco Use: No (ELIANA CARREON MD) Physical Exam Vitals Vital Signs Date Time Temp Pulse Resp B/P Pulse Ox O2 Delivery O2 Flow Rate FiO2 03/13/17 18:53 98.8 81 18 132/80 97 Room Air 03/13/17 18:08 98.8 85 18 130/76 97 (ARSALAN ALDRIDGE MD) Physical Exam Const: [] Head: Atraumatic Eyes: Normal Conjunctiva ENT: Normal External Ears, Nose and Mouth. Neck: Full range of motion..~ No meningismus. Resp: Clear to auscultation bilaterally Cardio: Regular rate and rhythm, no murmurs Abd: Soft, non tender, non distended. Normal bowel sounds Skin: No petechiae or rashes Back: No midline or flank tenderness Ext: No cyanosis, or edema Neur: Awake and alert Psych: Normal Mood and Affect (ELIANA CARREON MD) Result Diagram: 03/13/17184703/13/171847 Results 24 hrs Laboratory Tests Test 03/13/17 18:48 White Blood Count 8.710^3/ul Red Blood Count 3.0510^6/ul Hemoglobin 11.0g/dl Hematocrit 30.8% Mean Corpuscular Volume 101.0fl Mean Corpuscular Hemoglobin 36.1pg Mean Corpuscular Hemoglobin Concent 35.7g/dl Red Cell Distribution Width 14.8% Platelet Count 6810^3/UL Mean Platelet Volume 10.6fl Neutrophils % 66.2% Lymphocytes % 14.1% Monocytes % 13.6% Eosinophils % 0.1% Basophils % 1.5% Nucleated Red Blood Cells % 0.0/100WBC Neutrophils # 5.810^3/ul Lymphocytes # 1.210^3/ul Monocytes # 1.210^3/ul Eosinophils # 0.010^3/ul Basophils # 0.110^3/ul Nucleated Red Blood Cells # 0.010^3/ul Prothrombin Time 20.5Sec Prothrombin Time Ratio 1.6 INR International Normalized Ratio 1.74 Activated Partial Thromboplast Time 40.9Sec Sodium Level 133mmol/L Potassium Level 4.6mmol/L Chloride Level 104mmol/L Carbon Dioxide Level 22mmol/L Anion Gap 12 Blood Urea Nitrogen 21mg/dl Creatinine 0.99mg/dl Glucose Level 175mg/dl Calcium Level 8.4mg/dl Total Bilirubin 6.6mg/dl Direct Bilirubin 1.00mg/dl Indirect Bilirubin 5.6mg/dl Aspartate Amino Transf (AST/SGOT) 81IU/L Alanine Aminotransferase (ALT/SGPT) 64IU/L Alkaline Phosphatase 309IU/L Ammonia 37umol/l Troponin I < 0.012ng/ml Total Protein 7.4g/dl Albumin 2.8g/dl Globulin 4.60g/dl Albumin/Globulin Ratio 0.60 Lipase 144U/L Current Medications Medications (Trade) Dose Ordered Sig/Abbe Route PRN Reason Start Time Stop Time Status Last Admin Dose Admin Sodium Chloride (NS) 500 ml @ 500 mls/hr Q1H STAT IV 03/13/17 18:29 03/13/17 19:28 DC 03/13/17 18:52 (ARSALAN ALDRIDGE MD) ELIANA CARREON MD Mar 13, 2017 18:27 ARSALAN ALDRIDGE MD Mar 13, 2017 20:03
[2017-03-13] MEDS ORDERED: SOD CHLORIDE 0.9% 500 ML IV STA (18:29)
[2017-03-13 18:53] VITALS: TEMP 98.8
[2017-03-13 19:12] LABS: ABNORMAL IP MESSAGE 1; BASOPHIL # 0.1 10^3/ul (0.0-0.1); BASOPHILS % 1.5 % (0.0-2.0); EOSINOPHILS % 0.1 % (0.0-7.0); HEMATOCRIT 30.8 % (42.0-52.0); LYMPHOCYTES # 1.2 10^3/ul (0.8-2.9); LYMPHOCYTES % 14.1 % (15.0-51.0); MEAN CORPUSCULAR HEMOGLOBIN 36.1 pg (29.0-33.0); MEAN CORPUSCULAR HGB CONC 35.7 g/dl (32.0-37.0); MEAN PLATELET VOLUME 10.6 fl (7.4-10.4); MONOCYTE # 1.2 10^3/ul (0.3-0.9); MONOCYTES % 13.6 % (0.0-11.0); NEUTROPHIL # 5.8 10^3/ul (1.6-7.5); NEUTROPHILS % 66.2 % (39.0-77.0); PLATELET COUNT 68 10^3/UL (140-415); POSITIVE DIFF @See below; RED BLOOD COUNT 3.05 10^6/ul (4.70-6.10); RED CELL DISTRIBUTION WIDTH 14.8 % (11.5-14.5); WHITE BLOOD COUNT 8.7 10^3/ul (4.8-10.8)
[2017-03-13 19:25] LABS: INR 1.74; PROTIME 20.5 Sec (12.2-14.2); PT RATIO 1.6
[2017-03-13 19:26] LABS: PARTIAL THROMBOPLASTIN TIME 40.9 Sec (25.0-35.0)
[2017-03-13 19:29] LABS: ALANINE AMINOTRANSFERASE 64 IU/L (13-69); ALBUMIN 2.8 g/dl (3.3-4.9); ALKALINE PHOSPHATASE 309 IU/L (42-121); ANION GAP 12 (8-16); ASPARTATE AMINO TRANSFERASE 81 IU/L (15-46); BILIRUBIN,INDIRECT 5.6 mg/dl (0-1.1); BILIRUBIN,TOTAL 6.6 mg/dl (0.2-1.3); BLOOD UREA NITROGEN 21 mg/dl (7-20); CALCIUM 8.4 mg/dl (8.4-10.2); CARBON DIOXIDE 22 mmol/L (21-31); CHLORIDE 104 mmol/L (97-110); CREATININE 0.99 mg/dl (0.61-1.24); GLUCOSE 175 mg/dl (70-220); POTASSIUM 4.6 mmol/L (3.5-5.1); SODIUM 133 mmol/L (135-144); TOTAL PROTEIN 7.4 g/dl (6.1-8.1)
--- NOTE | 2017-03-13 19:41 | RADRPT ---
PROCEDURE: XR Chest. CLINICAL INDICATION: chest pain TECHNIQUE: Single frontal view of the chest was obtained COMPARISON: None FINDINGS: The heart and mediastinum are within normal limits. There is a small left pleural effusion. There is no focal consolidation. There is mild elevation of the right diaphragm. There is no pneumothorax. RPTAT: AA IMPRESSION: Small left pleural effusion. .Jaime Jones MD, MD Date Time Electronically viewed and signed by .Jaime Jones MD, on 03/13/2017 19:40 .S/
[2017-03-13 19:43] LABS: TROPONIN-I < 0.012 ng/ml (0.00-0.12)
--- NOTE | 2017-03-13 20:12 | ERA ---
ER Documentation Chief Complaint Date/Time DATE: 03/13/17 TIME: 20:08 Chief Complaint LIVER DISEASE WITH INCREASING CONFUSION AND JAUNDICE HPI This is a 47-year-old gentleman history of alcoholic cirrhosis who presents with multiple complaints the main of which is rectal bleeding. He describes approximately 24 hours of symptoms of intermittent but now persistent rectal bleeding without stool. He denies any hematemesis, no melena, no coffee-ground emesis. The patient states that he feels slightly confused but he denies any significant abdominal pain. He denies any fevers or chills chest pain or shortness of breath, no headache. ROS All systems reviewed and are negative except as per history of present illness. Medications Home Meds Active Scripts Spironolactone* (Aldactone*) 50 Mg Tablet, 25 MG PO BID, #60 TAB Prov:JS DUMONT MD 01/28/17 Ceftriaxone Sodium (Ceftriaxone) 2 Gm Vial.port, 2 GM IV DAILY for 28 Days Prov:JS DUMONT MD 01/28/17 Reported Medications Thiamine* (Vitamin B-1*) 100 Mg Tablet, 50 MG PO QAM, TAB 01/18/17 Folic Acid* (Folic Acid*) 1 Mg Tablet, 1 MG PO DAILY, TAB 01/18/17 Furosemide* (Furosemide*) 20 Mg Tablet, 20 MG PO TID, #60 TAB 01/18/17 Allergies Allergies: Coded Allergies: ibuprofen (Verified Allergy, Unknown, 01/18/17) PMhx/Soc History of Surgery: No Anesthesia Reaction: No Hx Neurological Disorder: No Hx Respiratory Disorders: No Hx Cardiac Disorders: No Hx Psychiatric Problems: No Hx Miscellaneous Medical Probl: Yes (liver cirrhosis ) Hx Alcohol Use: No Hx Substance Use: No Hx Tobacco Use: No Smoking Status: Never smoker FmHx Family History: No diabetes Physical Exam Vitals Vital Signs Date Time Temp Pulse Resp B/P Pulse Ox O2 Delivery O2 Flow Rate FiO2 03/13/17 20:56 81 16 120/67 100 Room Air 03/13/17 18:53 98.8 81 18 132/80 97 Room Air 03/13/17 18:08 98.8 85 18 130/76 97 Physical Exam General: Well developed, well nourished, no acute distress, stigmata of cirrhosis Head: Normocephalic, atraumatic. Eyes: Pupils equally reactive, EOM intact scleral icterus ENT: Moist mucous membranes Neck: Supple, no lymphadenopathy Respiratory: Lungs clear bilaterally, no distress Cardiovascular: RRR, no murmurs, rubs, or gallops Abdominal: Protuberant but nontender, no rebound or guarding : No external hemorrhoid, brown stool, no melena MSK: No edema, no unilateral swelling, 5/5 strength Neurologic: Alert and oriented, moving all extremities, normal speech, no focal weakness, no cerebellar signs, no asterixis Skin: No rash Psych: Normal mood Result Diagram: 03/13/17184703/13/171847 Results 24 hrs Laboratory Tests Test 03/13/17 18:48 White Blood Count 8.710^3/ul Red Blood Count 3.0510^6/ul Hemoglobin 11.0g/dl Hematocrit 30.8% Mean Corpuscular Volume 101.0fl Mean Corpuscular Hemoglobin 36.1pg Mean Corpuscular Hemoglobin Concent 35.7g/dl Red Cell Distribution Width 14.8% Platelet Count 6810^3/UL Mean Platelet Volume 10.6fl Neutrophils % 66.2% Lymphocytes % 14.1% Monocytes % 13.6% Eosinophils % 0.1% Basophils % 1.5% Nucleated Red Blood Cells % 0.0/100WBC Neutrophils # 5.810^3/ul Lymphocytes # 1.210^3/ul Monocytes # 1.210^3/ul Eosinophils # 0.010^3/ul Basophils # 0.110^3/ul Nucleated Red Blood Cells # 0.010^3/ul Prothrombin Time 20.5Sec Prothrombin Time Ratio 1.6 INR International Normalized Ratio 1.74 Activated Partial Thromboplast Time 40.9Sec Sodium Level 133mmol/L Potassium Level 4.6mmol/L Chloride Level 104mmol/L Carbon Dioxide Level 22mmol/L Anion Gap 12 Blood Urea Nitrogen 21mg/dl Creatinine 0.99mg/dl Glucose Level 175mg/dl Calcium Level 8.4mg/dl Total Bilirubin 6.6mg/dl Direct Bilirubin 1.00mg/dl Indirect Bilirubin 5.6mg/dl Aspartate Amino Transf (AST/SGOT) 81IU/L Alanine Aminotransferase (ALT/SGPT) 64IU/L Alkaline Phosphatase 309IU/L Ammonia 37umol/l Troponin I < 0.012ng/ml Total Protein 7.4g/dl Albumin 2.8g/dl Globulin 4.60g/dl Albumin/Globulin Ratio 0.60 Lipase 144U/L Current Medications Medications (Trade) Dose Ordered Sig/Abbe Route PRN Reason Start Time Stop Time Status Last Admin Dose Admin Sodium Chloride (NS) 500 ml @ 500 mls/hr Q1H STAT IV 03/13/17 18:29 03/13/17 19:28 DC 03/13/17 18:52 Ondansetron HCl (Zofran Inj) 4 mg BRIDGE ORDER PRN IV NAUSEA AND/OR VOMITING 03/13/17 21:00 03/14/17 20:59 Acetaminophen (Tylenol Tab) 650 mg ER BRIDGE PRN PO MILD PAIN/FEVER 03/13/17 21:00 03/14/17 20:59 Procedures/MDM EKG, MONITORS, & DIAGNOSTIC IMAGING: Chest x-ray: I reviewed and interpreted a 1 view of the chest Mediastinum: No enlargement Cardiac silhouette: No cardiomegaly Airspace: Clear lung andrade bilaterally without evidence of pneumothorax Bones: No evidence of fracture EKG: I reviewed and interpreted a 12-lead EKG. Rhythm: Normal sinus rhythm Ectopy: None Intervals: No abnormalities ST segments: No elevations or depressions T waves: No contiguous inversions CT abdomen and pelvis: No evidence of acute intra-abdominal process LAB INTERPRETATION: Normal hemoglobin of 11, no significant leukocytosis, baseline thrombocytopenia. Ammonia of 37 below his baseline. Negative troponin. MEDICAL DECISION MAKING: The patient presents with rectal bleeding. This is most consistent with lower GI bleed, this does not appear to be consistent with brisk upper GI bleed though the patient does have cirrhosis. He is hemodynamically stable. His hemoglobin is stable. The patient's BUN to creatinine ratio does not suggest acute upper GI bleed. However, the patient does have a complex medical history would benefit from CT imaging of the abdomen and pelvis, inpatient hospitalization for GI consultation. ER COURSE: The patient continues to be well-appearing and is hemodynamically stable. Laboratory testing and diagnostic imaging as discussed above. No indication for transfusion or central line or pressors at this time. No indication for PPI or octreotide drip. I kept the patient and/or family informed of laboratory and diagnostic imaging results throughout the emergency room course. DISPOSITION PLAN: Medical surgical admission for lower GI bleed CONSULTATION: Accepting care team and consultations: I discussed the current laboratory data, diagnostic imaging and emergency care provided. Admitting team: Dr. Dumont Admitting team indication: Insurance directed Departure Diagnosis: Primary Impression: History of cirrhosis Additional Impressions: Lower GI bleed Thrombocytopenia Condition: Stable ARSALAN ALDRIDGE MD Mar 13, 2017 20:12
--- NOTE | 2017-03-13 20:49 | RADRPT ---
PROCEDURE: CT scan of the abdomen and pelvis without IV contrast. CLINICAL INDICATION: Abdominal pain. TECHNIQUE: Thin section axial, coronal and sagittal images were performed through the abdomen and pelvis without contrast utilizing a [employer] CT scanner. Radiation Dose: CTDI: 20.55 and DLP: 1332.9. One or more of the following dose reduction techniques were used: - Automated exposure control. - Adjustment of the mA and/or kV according to patient size. Use of iterative reconstruction technique. COMPARISON: Chest x-ray 07/08/2016 06:18 a.m. FINDINGS: Soft tissues: There is stranding in the subcutaneous fat suspicious for anasarca. Lungs and pleural spaces: There is a moderate-sized left pleural effusion with compressive atelectas is in the right lower lobe. The remaining lung andrade are clear. Heart: Normal. No pericardial effusion is identified. The liver, common bile duct and gallbladder: The liver has a nodular bore are suspicious for cirrhos is. The liver measures 16.7 cm AP. A large amount of ascitic fluid is noted in the peritoneal cavity . Sludge and small gallstones are noted with in the gallbladder. The gallbladder wall measures up to 3 mm which is slightly thickened. This is likely the result of ascites but other process cannot be excluded. Pancreas: Normal. The extrahepatic common bile duct is normal. Gastrointestinal: A small hiatal hernia is suspected. No gastric wall thickening is noted. Small bow el loops do not appear abnormally dilated. The colon is unremarkable. There is no evidence of divert iculosis or diverticulitis. The vermiform appendix is normal. There is a small left inguinal hernia containing fat. Kidneys, bladder and adrenal glands : A 1 mm nonobstructive nephrolith is noted in the lower pole of the right kidney. A 1.9 cm benign cyst is identified in the upper middle third of the right kidney. The left kidney is normal. The urinary bladder is unremarkable. Spleen: The spleen is enlarged measuring 15.8 cm AP. There is stranding in the mesenteric fat. Lymph nodes: Normal. Reproductive system and pelvis : Normal. Bony elements: Normal. Vasculature: There are vascular calcifications in the right common femoral artery and in the common iliac arteries. There are vascular calcifications in the lower abdominal aorta and upper abdominal a tiffanie. Additional findings: None IMPRESSION: 1. There is a moderate size right pleural effusion with compressive atelectasis in the right lower lobe. 2. Small hiatal hernia. 3. Cirrhosis with ascites. Portal hypertension is suspected. 4. Splenomegaly. 5. 1.9 cm benign subcapsular cyst ventral upper middle third right kidney. 1 mm nonobstructive neph rolith lower third right kidney. 6. Anasarca. 7. Atherosclerotic vascular disease. RPTAT:AAJJ Marcelino Cary Physician Date Time Electronically viewed and signed by Marcelino Cary Physician on 03/13/2017 20:48 TYRON/
[2017-03-13] MEDS ORDERED: ONDANSETRON 4 MG INJ IV PRN (21:00)
[2017-03-13] MEDS ORDERED: ACETAMINOPHEN 325 MG TAB PO PRN (21:00)
[2017-03-13 23:31] VITALS: Ht 180.3 cm; Wt 94.5 kg
[2017-03-13 23:40] VITALS: BP 119/63; PULSE 83; RESP 20
--- NOTE | 2017-03-14 01:25 | RADRPT ---
PROCEDURE: X-ray right hand CLINICAL INDICATION: Right hand swelling. TECHNIQUE: 3 views right hand COMPARISON: None FINDINGS: Mildly comminuted fractures of the distal metadiaphysis of the fifth metacarpal, with mild apex dors al angulation. Soft tissue swelling over the dorsum and medial aspects of the right hand. IMPRESSION: Mildly comminuted fractures of the distal metaphysis of the fifth metacarpal. RPTAT: UU Physician Heena Date Time Electronically viewed and signed by Physician Heena on 03/14/2017 01:25 RS/
[2017-03-14 05:43] LABS: ABNORMAL IP MESSAGE 1; BASOPHIL # 0.1 10^3/ul (0.0-0.1); BASOPHILS % 1.6 % (0.0-2.0); HEMATOCRIT 28.9 % (42.0-52.0); HEMOGLOBIN 9.9 g/dl (14.0-18.0); LYMPHOCYTES # 1.3 10^3/ul (0.8-2.9); LYMPHOCYTES % 20.2 % (15.0-51.0); MEAN CORPUSCULAR HEMOGLOBIN 34.7 pg (29.0-33.0); MEAN CORPUSCULAR HGB CONC 34.3 g/dl (32.0-37.0); MEAN CORPUSCULAR VOLUME 101.4 fl (82.0-101.0); MONOCYTE # 0.7 10^3/ul (0.3-0.9); MONOCYTES % 10.4 % (0.0-11.0); PLATELET COUNT 55 10^3/UL (140-415); POSITIVE DIFF @See below; RED BLOOD COUNT 2.85 10^6/ul (4.70-6.10); RED CELL DISTRIBUTION WIDTH 14.8 % (11.5-14.5); WHITE BLOOD COUNT 6.2 10^3/ul (4.8-10.8)
[2017-03-14 05:57] LABS: IRON 161 ug/dl (35-150)
[2017-03-14] MEDS ORDERED: SPIRONOLACTONE 25 MG TAB PO SCH (06:00)
[2017-03-14 06:03] LABS: ALBUMIN 2.2 g/dl (3.3-4.9); ALBUMIN/GLOBULIN RATIO 0.5; BILIRUBIN,DIRECT 0.7 mg/dl (0.00-0.20); BILIRUBIN,INDIRECT 4.3 mg/dl (0-1.1); CALCIUM 8.3 mg/dl (8.4-10.2); CREATININE 0.79 mg/dl (0.61-1.24); MAGNESIUM 1.6 mg/dl (1.7-2.5); PHOSPHORUS 3.6 mg/dl (2.5-4.9); POTASSIUM 4.4 mmol/L (3.5-5.1); TOTAL PROTEIN 6.6 g/dl (6.1-8.1)
[2017-03-14] MEDS: morphine 2 MG INJ IV PRN ×2 (06:03→10:29)
[2017-03-14 06:07] LABS: TOTAL IRON BINDING CAPACITY 187 ug/dl (241-421)
--- NOTE | 2017-03-14 07:14 | HP ---
Date/Time of Note Date/Time of Note DATE: 03/14/17 TIME: 06:55 Assessment/Plan VTE Prophylaxis VTE Prophylaxis Intervention: SCD's Lines/Catheters IV Catheter Type (from Nrs): Saline Lock Assessment/Plan Assessment/Plan 1. Rectal bleeding -GI consult -Monitor H&H closely and transfuse as needed 2. Decompensated liver cirrhosis with ascites: Patient is currently on transplant list at [facility]. His last drink was in May of last year. -will continue his Lasix, Aldactone, and Lactulose. -He recently underwent EGD here with finding of esophageal varices status post banding. -Consider paracentesis 3. Fifth metacarpal community fracture of right hand -Patient has been boxing/punching Sands -Immobilizer and pain management 4. Recurrent Right lower extremity cellulitis -Antibiotic -Follow-up culture results. -Pain management 5. Elevated transaminases: Secondary to above. 6. Macrocytic anemia secondary to end-stage liver disease -H&H is stable -He is status post EGD recently with grade 1 variceal banding -Iron studies consistent with anemia of chronic disease HPI/ROS Admit Date/Time Admit Date/Time Mar 13, 2017 at 20:59 Hx of Present Illness This is a 47-year-old male with a history of decompensated alcoholic liver cirrhosis, esophageal varices, lower extremity cellulitis who presented to the emergency department complaining of rectal bleeding. He said over the past 2 days he has had 3 bloody bowel movements. Denied history of rectal bleeding. He had a bowel movement after admission and a per nursing it was bloody. Denied hematemesis. On further questioning, he complained of right hand pain, which started after he was boxing/punching sand. He also complained of right upper thigh pain as well as chills which started here in the hospital, 2 hours ago. Patient was admitted here multiple times, last admission was by myself for lower extremity cellulitis and abdominal distention. His blood culture at that time and on previous admission showed MSSA. TTE was negative for vegetation. He was seen by GI and underwent EGD which showed esophageal varices. As a result planned MARGARITA was canceled. The patient also has a history of paracentesis with removal of as much as 5 L at a time. Last paracentesis was about 6 weeks ago. He said he has been noticing progressively worsening abdominal distention. He is compliant with his Lasix and he thinks he has been making adequate urine. He is currently in the liver transplant list at [facility]. When he presented to the ER, hemoglobin 11. CT abdomen/pelvis showed moderate right-sided pleural effusion, ascites, anasarca. I have ordered right hand x- ray, which showed a comminuted fracture of the right 5th metacarpal. PMH/Family/Social Past Surgical History Past Surgical Hx: no surgical history Social History Smoking Status: Never smoker Exam/Review of Systems Vital Signs Vitals Vital Signs Date Time Temp Pulse Resp B/P Pulse Ox O2 Delivery O2 Flow Rate FiO2 03/14/17 05:35 98.4 03/13/17 23:40 83 20 119/63 98 Room Air Intake and Output 03/13/17 03/13/17 03/14/17 15:00 23:00 07:00 Intake Total 620 ml Balance 620 ml Exam Constitutional: alert, oriented, well developed Head: atraumatic, normocephalic Eyes: EOMI, PERRL Respiratory: diminished breath sounds Cardiovascular: nl pulses, regular rate and rhythm Gastrointestinal: distended Extremities: other (Slight erythema in the right thigh, which is also tender and warm to touch) Labs Result Diagram: 03/14/17 0500 03/14/17 0500 Medications Medications Current Medications Folic Acid (Folic Acid) 1 mg DAILY PO ; Start 03/14/17 at 09:00 Furosemide (Lasix) 20 mg TID PO ; Start 03/14/17 at 09:00 Thiamine HCl (Vitamin B1) 50 mg QAM PO ; Start 03/14/17 at 09:00 Morphine Sulfate (morphine) 2 mg Q4H PRN IV TENISHA Last administered on t 06:03; Admin Dose 2 MG; Start 03/14/17 at 00:00 JS JACKSON MD Mar 14, 2017 07:05
[2017-03-14] MEDS: THIAMINE 100 MG TAB PO SCH (08:23)
[2017-03-14] MEDS: FUROSEMIDE 20 MG TAB PO SCH ×3 (08:23→19:39)
[2017-03-14] MEDS: FOLIC ACID 1 MG TAB PO SCH (08:23)
[2017-03-14 12:36] VITALS: BP 121/56; PULSE 97
[2017-03-14 14:00] VITALS: BP 106/56; RESP 22
--- NOTE | 2017-03-14 15:55 | PN ---
Date/Time of Note Date/Time of Note DATE: 03/14/17 TIME: 15:48 Assessment/Plan VTE Prophylaxis VTE Prophylaxis Intervention: SCD's Lines/Catheters IV Catheter Type (from Nrsg): Saline Lock Assessment/Plan Assessment/Plan 1. Rectal bleeding, GI consult 2. Decompensated liver cirrhosis with ascites and right pleural effusion, Patient is currently on transplant list at [facility]. His last drink was in May of last year. 3. Fifth metacarpal community fracture of right hand, Patient has been boxing/ punching Sands, iImmobilizer and pain management 4. Recurrent Right lower extremity cellulitis, antibiotics 6. Macrocytic anemia secondary to end-stage liver disease Subjective 24 Hr Interval Summary Free Text/Dictation pain on right leg Exam/Review of Systems Vital Signs Vitals Vital Signs Date Time Temp Pulse Resp B/P Pulse Ox O2 Delivery O2 Flow Rate FiO2 03/14/17 14:00 100.7 100 22 106/56 96 03/13/17 23:40 Room Air Intake and Output 03/13/17 03/13/17 03/14/17 15:00 23:00 07:00 Intake Total 620 ml Balance 620 ml Exam Constitutional: alert, oriented, well developed Psych: nl mood/affect, no complaints Head: atraumatic, normocephalic Eyes: EOMI, PERRL, nl conjunctiva ENMT: mucosa pink and moist, nl external ears & nose, nl lips & teeth, nl nasal mucosa & septum Neck: non-tender, supple Respiratory: clear to auscultation, normal air movement, No congested cough, No crackles/rales, No diminished breath sounds, No intercostal retraction, No labored breathing, No other, No respirations, No tactile fremitus, No wheezing Cardiovascular: regular rate and rhythm, No S3, No S4, No bruits, No diastolic murmur, No edema, No gallop, No irregular rhythm, No jugular venous distention (JVD), No murmurs/extra sounds, No nl pulses, No other, No rub, No systolic murmur Gastrointestinal: ascites, distended Extremities: edema 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, nl mental status, nl speech, nl strength Results Result Diagram: 03/14/17 0500 03/14/17 0500 Results 24 hrs Laboratory Tests Test 03/13/17 18:48 03/14/17 00:30 03/14/17 05:00 White Blood Count 8.7 # 6.2 # Red Blood Count 3.05 #L 2.85 L Hemoglobin 11.0 #L 9.9 L Hematocrit 30.8 #L 28.9 L Mean Corpuscular Volume 101.0 101.4 H Mean Corpuscular Hemoglobin 36.1 H 34.7 H Mean Corpuscular Hemoglobin Concent 35.7 34.3 Red Cell Distribution Width 14.8 H 14.8 H Platelet Count 68 #L 55 L Mean Platelet Volume 10.6 H 10.0 Neutrophils % 66.2 64.0 Lymphocytes % 14.1 L 20.2 Monocytes % 13.6 H 10.4 Eosinophils % 0.1 0.0 Basophils % 1.5 1.6 Nucleated Red Blood Cells % 0.0 0.0 Neutrophils # 5.8 4.0 Lymphocytes # 1.2 1.3 Monocytes # 1.2 H 0.7 Eosinophils # 0.0 0.0 Basophils # 0.1 0.1 Nucleated Red Blood Cells # 0.0 0.0 Prothrombin Time 20.5 H Prothrombin Time Ratio 1.6 INR International Normalized Ratio 1.74 Activated Partial Thromboplast Time 40.9 H Sodium Level 133 L 131 L Potassium Level 4.6 4.4 Chloride Level 104 106 Carbon Dioxide Level 22 22 Anion Gap 12 7 L Blood Urea Nitrogen 21 H 21 H Creatinine 0.99 0.79 Glucose Level 175 175 Calcium Level 8.4 8.3 L Total Bilirubin 6.6 H 5.0 H Direct Bilirubin 1.00 H 0.70 #H Indirect Bilirubin 5.6 H 4.3 H Aspartate Amino Transf (AST/SGOT) 81 H 70 H Alanine Aminotransferase (ALT/SGPT) 64 61 Alkaline Phosphatase 309 H 271 H Ammonia 37 H Troponin I < 0.012 Total Protein 7.4 6.6 Albumin 2.8 L 2.2 L Globulin 4.60 H 4.40 H Albumin/Globulin Ratio 0.60 0.50 Lipase 144 Stool Occult Blood POSITIVE Phosphorus Level 3.6 Magnesium Level 1.6 L Iron Level 161 H Total Iron Binding Capacity 187 L Percent Iron Saturation 86 H Ferritin 301.0 Medications Medications Current Medications Folic Acid (Folic Acid) 1 mg DAILY PO Last administered on 03/14/17t 08:23; Admin Dose 1 MG; Start 03/14/17 at 09:00 Furosemide (Lasix) 20 mg TID PO Last administered on 03/14/17 12:33; Admin Dose 20 MG; Start 03/14/17 at 09:00 Thiamine HCl (Vitamin B1) 50 mg QAM PO Last administered on 03/14/17 08:23; Admin Dose 50 MG; Start 03/14/17 at 09:00 Morphine Sulfate (morphine) 2 mg Q4H PRN IV TENISHA Last administered on 10:29; Admin Dose 2 MG; Start 03/14/17 at 00:00 TARA BURGOS MD Mar 14, 2017 15:55
[2017-03-14] MEDS ORDERED: MAGNESIUM SULFATE 2 GM/50 ML 50 ML IVPB ONE (16:30)
[2017-03-14] MEDS: AMPICILLIN/SULB 1.5GM/NS (PMX) 50 ML IVPB SCH ×2 (17:09→23:43)
[2017-03-14] MEDS: SPIRONOLACTONE 25 MG TAB PO SCH (17:51)
[2017-03-14 19:40] VITALS: BP 111/56; RESP 18
[2017-03-15 02:09] VITALS: BP 102/52; RESP 19
[2017-03-15] MEDS: AMPICILLIN/SULB 1.5GM/NS (PMX) 50 ML IVPB SCH ×3 (05:15→17:17)
[2017-03-15] MEDS: SPIRONOLACTONE 25 MG TAB PO SCH ×2 (05:15→17:17)
[2017-03-15 08:08] VITALS: BP 106/53; RESP 18
[2017-03-15] MEDS: FOLIC ACID 1 MG TAB PO SCH (08:30)
[2017-03-15] MEDS: FUROSEMIDE 20 MG TAB PO SCH ×3 (08:30→21:00)
[2017-03-15] MEDS: THIAMINE 100 MG TAB PO SCH (08:30)
[2017-03-15 14:00] VITALS: BP 111/56; RESP 18
--- NOTE | 2017-03-15 15:25 | PN ---
Date/Time of Note Date/Time of Note DATE: 03/15/17 TIME: 15:22 Assessment/Plan VTE Prophylaxis VTE Prophylaxis Intervention: SCD's Lines/Catheters IV Catheter Type (from Nrsg): Saline Lock Assessment/Plan Assessment/Plan 1. Rectal bleeding, likely stopped, awaiting for GI consult 2. Decompensated liver cirrhosis with ascites and right pleural effusion, Patient is currently on transplant list at [facility]. His last drink was in May of last year. 3. Fifth metacarpal community fracture of right hand, Patient has been boxing/ punching Sands, iImmobilizer and pain management 4. Recurrent Right lower extremity cellulitis, improving on antibiotics 6. Macrocytic anemia secondary to end-stage liver disease Subjective 24 Hr Interval Summary Free Text/Dictation no blood in stool since yesterday 11am or so. pain on right leg is less today Exam/Review of Systems Vital Signs Vitals Vital Signs Date Time Temp Pulse Resp B/P Pulse Ox O2 Delivery O2 Flow Rate FiO2 03/15/17 14:00 99.8 92 18 111/56 96 03/13/17 23:40 Room Air Intake and Output 03/14/17 03/14/17 03/15/17 15:00 23:00 07:00 Intake Total 1360 ml 580 ml Output Total 700 ml Balance 660 ml 580 ml Exam Constitutional: alert, oriented, well developed Psych: nl mood/affect, no complaints Head: atraumatic, normocephalic Eyes: EOMI, PERRL, nl conjunctiva, nl lids, nl sclera ENMT: nl external ears & nose, nl lips & teeth, nl nasal mucosa & septum Neck: non-tender, supple Respiratory: clear to auscultation, normal air movement, No congested cough, No crackles/rales, No diminished breath sounds, No intercostal retraction, No labored breathing, No other, No respirations, No tactile fremitus, No wheezing Cardiovascular: nl pulses, regular rate and rhythm, No S3, No S4, No bruits, No diastolic murmur, No edema, No gallop, No irregular rhythm, No jugular venous distention (JVD), No murmurs/extra sounds, No other, No rub, No systolic murmur Gastrointestinal: nl liver, spleen, non-tender, soft, No ascites, No bowel sounds, No distended, No firm, No hepatomegaly, No mass , No other, No rebound or guarding, No splenomegaly, No surgical scars, No tender Musculoskeletal: nl extremities to inspection Extremities: other (right thigh swelling, tenderness and warm) 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, nl mental status, nl speech, nl strength Results Result Diagram: 03/14/17 0500 03/14/17 0500 Results 24 hrs Laboratory Tests Test 03/15/17 04:56 Magnesium Level 1.8 Medications Medications Current Medications Folic Acid (Folic Acid) 1 mg DAILY PO Last administered on 03/15/17 08:30; Admin Dose 1 MG; Start 03/14/17 at 09:00 Furosemide (Lasix) 20 mg TID PO Last administered on 03/14/17 19:39; Admin Dose 20 MG; Start 03/14/17 at 09:00 Thiamine HCl (Vitamin B1) 50 mg QAM PO Last administered on 03/15/17 08:30; Admin Dose 50 MG; Start 03/14/17 at 09:00 Morphine Sulfate 2 mg 2 mg Q4H PRN IV TENISHA Last administered on 03/14/17 10:29 ; Admin Dose 2 MG; Start 03/14/17 at 00:00 Ampicillin Sodium/ Sulbactam Sodium (Unasyn 1.5gm/NS (Pmx)) 50 ml @ 100 mls/hr Q6 IVPB Last administered on 03/15/17 11:30; Admin Dose 100 MLS/HR; Start at 18:00 TARA BURGOS MD Mar 15, 2017 15:25
[2017-03-15] MEDS ORDERED: VANCOMYCIN IV PER PHARMACY XX SCH (20:30)
[2017-03-15] MEDS ORDERED: ACETAMINOPHEN 325 MG TAB PO PRN (20:30)
[2017-03-15 21:02] VITALS: BP 106/54; PULSE 76; RESP 18
[2017-03-15] MEDS ORDERED: LORAZEPAM 1 MG TAB PO PRN (21:22)
[2017-03-15] MEDS ORDERED: VANCOMYCIN 1.75 GM in NS 500 ML IVPB SCH (21:30)
[2017-03-16] MEDS: AMPICILLIN/SULB 1.5GM/NS (PMX) 50 ML IVPB SCH ×3 (00:11→12:03)
[2017-03-16 02:41] VITALS: BP 91/50; RESP 18
[2017-03-16] MEDS: SPIRONOLACTONE 25 MG TAB PO SCH (06:13)
[2017-03-16 08:04] VITALS: BP 92/55; RESP 20
[2017-03-16] MEDS ORDERED: VANCOMYCIN 750 MG in SOD CHLORIDE 0.9% 150 ML IVPB SCH (09:00)
[2017-03-16] MEDS: FUROSEMIDE 20 MG TAB PO SCH ×2 (09:50→13:22)
[2017-03-16] MEDS: FOLIC ACID 1 MG TAB PO SCH (09:50)
[2017-03-16] MEDS: THIAMINE 100 MG TAB PO SCH (09:50)
[2017-03-16] MEDS ORDERED: VANCOMYCIN 1.25 GM in SOD CHLORIDE 0.9% 250 ML IVPB SCH (10:00)
[2017-03-16 13:20] VITALS: BP 108/56; PULSE 88; RESP 16
[2017-03-16 14:00] VITALS: BP 102/60; RESP 20
[2017-03-16] MEDS ORDERED: AMOX1TAB10 PO (15:12)
--- NOTE | 2017-03-16 15:16 | DS ---
Date/Time of Note Date/Time of Note DATE: 03/16/17 TIME: 15:13 Discharge Summary Admission/Discharge Info Admit Date/Time Mar 13, 2017 at 20:59 Discharge Date/Time Discharge Diagnosis 1. Rectal bleeding, likely hemorrhoid, stopped 2. Decompensated liver cirrhosis with ascites and right pleural effusion, Patient is currently on transplant list at [facility]. His last drink was in May of last year. 3. Fifth metacarpal community fracture of right hand, Patient has been boxing/ punching Sands, iImmobilizer and pain management 4. Recurrent Right lower extremity cellulitis, improving, augmentin 6. Macrocytic anemia secondary to end-stage liver disease Patient Condition: Stable Hx of Present Illness This is a 47-year-old male with a history of decompensated alcoholic liver cirrhosis, esophageal varices, lower extremity cellulitis who presented to the emergency department complaining of rectal bleeding. He said over the past 2 days he has had 3 bloody bowel movements. Denied history of rectal bleeding. He had a bowel movement after admission and a per nursing it was bloody. Denied hematemesis. On further questioning, he complained of right hand pain, which started after he was boxing/punching sand. He also complained of right upper thigh pain as well as chills which started here in the hospital, 2 hours ago. Patient was admitted here multiple times, last admission was by myself for lower extremity cellulitis and abdominal distention. His blood culture at that time and on previous admission showed MSSA. TTE was negative for vegetation. He was seen by GI and underwent EGD which showed esophageal varices. As a result planned MARGARITA was canceled. The patient also has a history of paracentesis with removal of as much as 5 L at a time. Last paracentesis was about 6 weeks ago. He said he has been noticing progressively worsening abdominal distention. He is compliant with his Lasix and he thinks he has been making adequate urine. He is currently in the liver transplant list at [facility]. When he presented to the ER, hemoglobin 11. CT abdomen/pelvis showed moderate right-sided pleural effusion, ascites, anasarca. I have ordered right hand x- ray, which showed a comminuted fracture of the right 5th metacarpal. Hospital Course Patient had fresh blood with stool. It stopped for 2 days. It is likely hemorrhoid related. Patient has cellulitis on right thigh that he is getting unasyn that improves swelling, redness and pain on right thigh. I will discharge him on augmentin and have him follow up with PCP. Home Meds Active Scripts Amoxicillin/Potassium Clav (Amox-Clav 875-125 mg Tablet) 875-125 mg Tab, 1 TAB PO BID, #20 TAB Prov:TARA BURGOS MD 03/16/17 Spironolactone* (Aldactone*) 50 Mg Tablet, 25 MG PO BID, #60 TAB Prov:JS JACKSON MD 01/28/17 Reported Medications Thiamine* (Vitamin B-1*) 100 Mg Tablet, 50 MG PO QAM, TAB 01/18/17 Folic Acid* (Folic Acid*) 1 Mg Tablet, 1 MG PO DAILY, TAB 01/18/17 Furosemide* (Furosemide*) 20 Mg Tablet, 20 MG PO TID, #60 TAB 01/18/17 Discontinued Scripts Ceftriaxone Sodium (Ceftriaxone) 2 Gm Vial.port, 2 GM IV DAILY for 28 Days Prov:JS JACKSON MD 01/28/17 Follow-up Plan PCP in one week Primary Care Provider MD LORETTA Villalpando MAOGANG MD Mar 16, 2017 15:16
== END 2017-03-16 17:55 | disposition home or self-care (01) | DRG 394 ==
LOC: E/R 16:50 → PP2 20:59
PROVIDERS: ADMIT Internal Medicine; ATTEND Internal Medicine
DX: K64.8 Other hemorrhoids (principal); J90 Pleural effusion, not elsewhere classified; R18.8 Other ascites; D69.6 Thrombocytopenia, unspecified; L03.115 Cellulitis of right lower limb; K70.30 Alcoholic cirrhosis of liver without ascites; S62.396A Other fracture of fifth metacarpal bone, right hand, initial encounter for closed fracture; D53.9 Nutritional anemia, unspecified; K62.5 Hemorrhage of anus and rectum; X58.XXXA Exposure to other specified factors, initial encounter; K72.90 Hepatic failure, unspecified without coma; Z88.6 Allergy status to analgesic agent
CPT/HCPCS: 36415; 71010; 74176; 80053; 82140; 82270; 82728; 83540; 83690; 83735; 84100; 84484; 85025; 85610; 85730; 87040; 87086; 93005; J0295; J2270; J3370; J3475; J7040; J7050

== ENCOUNTER 2017-03-18 23:27 | Emergency (ER) | payer OTHER ==
[~2017-03-18] VITALS: Ht 177.8 cm; Wt 97.0 kg
[~2017-03-18 23:27] MED LIST changes: +AMOX1TAB10 PO; -CEFT2VIA11 IV
[2017-03-18 23:28] VITALS: Ht 177.8 cm; Wt 97.0 kg
[2017-03-19] MEDS ORDERED: ONDANSETRON 4 MG INJ IV STA (02:09)
[2017-03-19] MEDS ORDERED: FAMOTIDINE 20 MG INJ IV STA (02:09)
[2017-03-19] MEDS ORDERED: morphine 4 MG/ML VIAL IV STA ×2 (02:09→08:08)
[2017-03-19 03:43] LABS: ABNORMAL IP MESSAGE 1; BASOPHILS % 0.4 % (0.0-2.0); EOSINOPHILS # 0.1 10^3/ul (0.0-0.5); EOSINOPHILS % 1.4 % (0.0-7.0); HEMATOCRIT 29.1 % (42.0-52.0); HEMOGLOBIN 10.4 g/dl (14.0-18.0); LYMPHOCYTES # 1.2 10^3/ul (0.8-2.9); LYMPHOCYTES % 11.7 % (15.0-51.0); MEAN CORPUSCULAR HEMOGLOBIN 36.5 pg (29.0-33.0); MEAN CORPUSCULAR HGB CONC 35.7 g/dl (32.0-37.0); MEAN CORPUSCULAR VOLUME 102.1 fl (82.0-101.0); MONOCYTE # 1.9 10^3/ul (0.3-0.9); NEUTROPHIL # 5.7 10^3/ul (1.6-7.5); NEUTROPHILS % 56.5 % (39.0-77.0); POSITIVE DIFF @See below; RED BLOOD COUNT 2.85 10^6/ul (4.70-6.10); RED CELL DISTRIBUTION WIDTH 14.6 % (11.5-14.5)
[2017-03-19 03:54] LABS: PLATELET COUNT 86 10^3/UL (140-415)
[2017-03-19 03:55] LABS: MONOCYTES % 18.7 % (0.0-11.0)
--- NOTE | 2017-03-19 03:56 | RADRPT ---
PROCEDURE: CT of the abdomen and pelvis without contrast CLINICAL INDICATION: Abdominal pain, cirrhosis TECHNIQUE: Spiral CT images through the abdomen and pelvis without the use of contrast. The admin istered radiation dose is CTDI 18.84 mGy and DLP 1302.09 mGy*cm. Coronal and sagittal reformatted i mages were submitted. One or more of the following dose reduction techniques were used: automated e xposure control, adjustment of the mA and/or kV according to patient size, or use of iterative recon struction technique. COMPARISON: 03/13/2017 FINDINGS: Lack of oral and intravenous contrast somewhat limits evaluation. There is interval increase size of the moderate left pleural effusion and adjacent atelectasis. The right hemidiaphragm is elevated with subphrenic fluid.. Probable paraesophageal varices. Cirrhotic liver and splenomegaly are again demonstrated. Recanalized paraumbilical vein and multiple collateral vessels are visualized. There is a large amount of free fluid. Multiple gallstones are s een.. There is no biliary ductal dilatation. The pancreas is unremarkable. The adrenal glands are n ormal. The kidneys are normal in size and contour. Unchanged right upper pole renal cyst and tiny lo wer pole calculus. No hydronephrosis. The aorta is normal in caliber. No retroperitoneal lymphadenop athy is seen. Mild aortic calcifications. Prominent loops of small bowel are seen in the left abdom en.. There is no evidence for bowel obstruction, free air, or abscess. The appendix is normal in a ppearance. the bladder is distended. The prostate gland is normal. There are bilateral enlarged i nguinal lymph nodes. Mild increase diffuse body edema. The osseous structures are intact.. IMPRESSION: Increased moderate left pleural effusion and atelectasis. Cirrhosis and portal hypertension. Large ascites. Cholelithiasis. Unchanged right renal cyst and nonobstructing calculus. Unchanged bilateral inguinal lymphadenopathy. Increase body edema. RPTAT: HCNS Physician Dave Date Time Electronically viewed and signed by Physician Dave on 03/19/2017 03:55 CS/
[2017-03-19 04:00] LABS: ALBUMIN 2.3 g/dl (3.3-4.9); ALBUMIN/GLOBULIN RATIO 0.48; BILIRUBIN,DIRECT 1.3 mg/dl (0.00-0.20); BILIRUBIN,INDIRECT 2.8 mg/dl (0-1.1); BILIRUBIN,TOTAL 4.1 mg/dl (0.2-1.3); CALCIUM 8.7 mg/dl (8.4-10.2); CREATININE 1.07 mg/dl (0.61-1.24); POTASSIUM 4.9 mmol/L (3.5-5.1)
--- NOTE | 2017-03-19 04:47 | ERD ---
ER Documentation Chief Complaint Date/Time DATE: 03/19/17 TIME: 04:44 Chief Complaint abd pain w/ abd distension, hx- cirrhosis of liver HPI This is a 47-year-old male who presents to the emergency room for evaluation of abdominal pain and distention. The patient does have a history of a liver cirrhosis and states that he has had his fluid drained multiple times in the past. The patient came to the emergency room today for evaluation of his pain and abdominal distention. The patient denies any vomiting with this he is mildly nauseous at this time ROS All systems reviewed and are negative except as per history of present illness. Medications Home Meds Active Scripts Amoxicillin/Potassium Clav (Amox-Clav 875-125 mg Tablet) 875-125 mg Tab, 1 TAB PO BID, #20 TAB Prov:TARA BURGOS MD 03/16/17 Spironolactone* (Aldactone*) 50 Mg Tablet, 25 MG PO BID, #60 TAB Prov:JS JACKSON MD 01/28/17 Reported Medications Thiamine* (Vitamin B-1*) 100 Mg Tablet, 50 MG PO QAM, TAB 01/18/17 Folic Acid* (Folic Acid*) 1 Mg Tablet, 1 MG PO DAILY, TAB 01/18/17 Furosemide* (Furosemide*) 20 Mg Tablet, 20 MG PO TID, #60 TAB 01/18/17 Discontinued Scripts Ceftriaxone Sodium (Ceftriaxone) 2 Gm Vial.port, 2 GM IV DAILY for 28 Days Prov:JS JACKSON MD 01/28/17 Allergies Allergies: Coded Allergies: ibuprofen (Verified Allergy, Unknown, 01/18/17) PMhx/Soc Medical and Surgical Hx: pt denies Surgical Hx History of Surgery: No Anesthesia Reaction: No Hx Neurological Disorder: No Hx Respiratory Disorders: No Hx Cardiac Disorders: No Hx Psychiatric Problems: No Hx Miscellaneous Medical Probl: Yes (Hepatic Cirrhosis,Anemia,Gallstones, Nephrolithiasis) Hx Alcohol Use: Yes (Formerly) Hx Substance Use: No Hx Tobacco Use: No Smoking Status: Never smoker Physical Exam Vitals Vital Signs Date Time Temp Pulse Resp B/P Pulse Ox O2 Delivery O2 Flow Rate FiO2 03/18/17 23:28 98.1 83 20 115/60 98 Physical Exam INITIAL VITAL SIGNS: Reviewed by me GENERAL: The patient is well developed and appropriate for usual state of health in no apparent distress HEENT: Pupils equal, round, and reactive to light. EOMI. There is no scleral icterus. NECK: C-spine is soft and supple, there is no meningismus. There is no cervical lymphadenopathy. LUNGS: Clear to auscultation bilaterally. There are no rales, wheezes or rhonchi. HEART: Regular rate and rhythm, no murmurs, clicks, rubs or gallops. ABDOMEN: Abdominal distention there are bowel sounds in all four quadrants. No rebound or guarding. EXTREMITIES: There is no peripheral cyanosis or edema. No focal swelling or erythema. NEUROLOGICAL: The patient moves all four extremities with 5/5 strength. Cranial nerves II - XII are intact. Normal gait. Alert and oriented SKIN: There is no apparent rash or petechiae. HEME/LYMPHATIC: There is no evidence of excessive bruising or lymphedema. PSYCHIATRIC: The patient does not appear anxious or depressed. Result Diagram: 03/19/17 0330 03/19/17 0330 Results 24 hrs Laboratory Tests Test 03/19/17 03:30 White Blood Count 10.010^3/ul Red Blood Count 2.8510^6/ul Hemoglobin 10.4g/dl Hematocrit 29.1% Mean Corpuscular Volume 102.1fl Mean Corpuscular Hemoglobin 36.5pg Mean Corpuscular Hemoglobin Concent 35.7g/dl Red Cell Distribution Width 14.6% Platelet Count 8610^3/UL Mean Platelet Volume 10.0fl Neutrophils % 56.5% Lymphocytes % 11.7% Monocytes % 18.7% Eosinophils % 1.4% Basophils % 0.4% Nucleated Red Blood Cells % 0.0/100WBC Neutrophils # 5.710^3/ul Lymphocytes # 1.210^3/ul Monocytes # 1.910^3/ul Eosinophils # 0.110^3/ul Basophils # 0.010^3/ul Nucleated Red Blood Cells # 0.010^3/ul Sodium Level 133mmol/L Potassium Level 4.9mmol/L Chloride Level 104mmol/L Carbon Dioxide Level 23mmol/L Anion Gap 11 Blood Urea Nitrogen 26mg/dl Creatinine 1.07mg/dl Glucose Level 122mg/dl Calcium Level 8.7mg/dl Total Bilirubin 4.1mg/dl Direct Bilirubin 1.30mg/dl Indirect Bilirubin 2.8mg/dl Aspartate Amino Transf (AST/SGOT) 61IU/L Alanine Aminotransferase (ALT/SGPT) 56IU/L Alkaline Phosphatase 182IU/L Total Protein 7.0g/dl Albumin 2.3g/dl Globulin 4.70g/dl Albumin/Globulin Ratio 0.48 Lipase 139U/L Current Medications Medications (Trade) Dose Ordered Sig/Abbe Route PRN Reason Start Time Stop Time Status Last Admin Dose Admin Morphine Sulfate (morphine) 4 mg ONCE STAT IV 03/19/17 02:09 03/19/17 02:11 DC 03/19/17 02:41 Ondansetron HCl (Zofran Inj) 4 mg ONCE STAT IV 03/19/17 02:09 03/19/17 02:11 DC 03/19/17 02:40 Famotidine (Pepcid Iv) 20 mg ONCE STAT IV 03/19/17 02:09 03/19/17 02:11 DC 03/19/17 02:40 Procedures/MDM CT abdomen pelvis without: Increased moderate left pleural effusion and atelectasis. Cirrhosis and portal hypertension. Large ascites. Cholelithiasis. Unchanged right renal cyst and nonobstructing calculus. Unchanged bilateral inguinal lymphadenopathy. Increase body edema. This 47-year-old presents to the ER for evaluation of abdominal pain and distention. He does have a history of liver cirrhosis. This patient underwent a CT which shows a large volume ascites. Advised patient that he needs to return to the emergency room for drainage of his abdomen and pelvis however he states that he does not have a right. Given the fact this patient does not have a ride he will be kept in the emergency room and observation. Until he is able to have fluid drained from his abdomen Departure Diagnosis: Primary Impression: Abdominal pain Additional Impressions: Ascites Liver cirrhosis Macrocytic anemia Condition: Stable TY ARIZMENDI DO Mar 19, 2017 04:47
[2017-03-19 04:56] LABS: INR 1.85; PROTIME 21.5 Sec (12.2-14.2); PT RATIO 1.7
[2017-03-19 04:57] LABS: PARTIAL THROMBOPLASTIN TIME 40.1 Sec (25.0-35.0)
[2017-03-19 06:00] LABS: ADD UMIC NO; UR ASCORBIC ACID NEGATIVE (NEGATIVE); UR BILIRUBIN (Dip) NEGATIVE (NEGATIVE); UR BLOOD (Dip) NEGATIVE (NEGATIVE); UR CLARITY CLEAR (CLEAR); UR COLOR AMBER (YELLOW); UR GLUCOSE (Dip) NEGATIVE (NEGATIVE); UR KETONES (Dip) NEGATIVE (NEGATIVE); UR LEUKOCYTE ESTERASE (Dip) NEGATIVE Leu/ul (NEGATIVE); UR NITRITE (Dip) NEGATIVE (NEGATIVE); UR SPECIFIC GRAVITY (Dip) 1.016 (1.003-1.030); UR TOTAL PROTEIN (Dip) NEGATIVE (NEGATIVE); UR UROBILINOGEN (Dip) 1+ mg/dL (NEGATIVE)
[2017-03-19 11:27] VITALS: BP 98/73; PULSE 61; RESP 18; TEMP 98.8
--- NOTE | 2017-03-19 11:35 | RADRPT ---
PROCEDURE: Ultrasound guided paracentesis CLINICAL INDICATION: Ascites TECHNIQUE: Risks benefits and alternatives of the procedure were explained to the patient. Inform ed written consent was obtained. Preliminary crimper assembler ultrasound of the abdomen was performed. Fluid was identified in the left lower quadrant. The overlying skin of the right lower quadrant was prepp ed and draped in the usual sterile fashion. Under ultrasound guidance, a skin a [address] was introduced into the left lower quadrant peritoneal cavity. 4900 cc of clear yellow fluid was obtained without difficulty. The fluid was sent the laboratory for further analysis. The patient tolerated procedure well without complication. COMPARISON: None FINDINGS: Approximately 4900 cc of clear yellow fluid was obtained. IMPRESSION: 1. Successful ultrasound-guided paracentesis. RPTAT: QQ .Al Das MD, MD Date Time Electronically viewed and signed by .Al Das MD, MD on 03/19/2017 11:35 .d/
[2017-03-19] MEDS ORDERED: LIDOCAINE 1% (MPF) 5 ML VIAL ONE (14:30)
== END 2017-03-19 12:03 | disposition home or self-care (01) ==
LOC: E/R 23:27
DX: K74.60 Unspecified cirrhosis of liver (principal); D53.9 Nutritional anemia, unspecified; R18.8 Other ascites
CPT/HCPCS: 36415; 74176; 80053; 81003; 83690; 85025; 85610; 85730; 96374; 96375; 96376; J2270; J2405; Z7502; Z7610

== ENCOUNTER 2017-03-31 21:51 | Inpatient (IN) | payer OTHER ==
[~2017-03-31] VITALS: Ht 172.7 cm; Wt 95.0 kg
[2017-03-31 21:57] VITALS: Ht 172.7 cm; Wt 95.0 kg
[2017-03-31] MEDS ORDERED: SODIUM CHLORIDE 0.9% 1L BAG IV* STA (23:34)
[2017-03-31] MEDS ORDERED: ACETAMINOPHEN 325 MG TAB PO STA (23:34)
--- NOTE | 2017-03-31 23:59 | ERD ---
ER Documentation Chief Complaint Chief Complaint abd pain, distended abd, sob, hx cirhosis of liver HPI 47-year-old man with a history of cirrhosis and recurrent ascites presents with abdominal distention, and fever 1 day, he states he has had mild cough for 3 days as well. He denies blood per rectum or melena, no chest pain or shortness of breath, no vomiting or diarrhea. Patient states he is on the wait list for liver transplant. ROS All systems reviewed and are negative except as per history of present illness. Medications Home Meds Active Scripts Amoxicillin/Potassium Clav (Amox-Clav 875-125 mg Tablet) 875-125 mg Tab, 1 TAB PO BID, #20 TAB Prov:TARA BURGOS MD 03/16/17 Spironolactone* (Aldactone*) 50 Mg Tablet, 25 MG PO BID, #60 TAB Prov:JS JACKSON MD 01/28/17 Reported Medications Thiamine* (Vitamin B-1*) 100 Mg Tablet, 50 MG PO QAM, TAB 01/18/17 Folic Acid* (Folic Acid*) 1 Mg Tablet, 1 MG PO DAILY, TAB 01/18/17 Furosemide* (Furosemide*) 20 Mg Tablet, 20 MG PO TID, #60 TAB 01/18/17 Allergies Allergies: Coded Allergies: ibuprofen (Verified Allergy, Unknown, 01/18/17) PMhx/Soc Cirrhosis, hypertension, ascites, Medical and Surgical Hx: pt denies Surgical Hx History of Surgery: No Anesthesia Reaction: No Hx Neurological Disorder: No Hx Respiratory Disorders: No Hx Cardiac Disorders: No Hx Psychiatric Problems: No Hx Miscellaneous Medical Probl: Yes (Hepatic Cirrhosis,Anemia,Gallstones, Nephrolithiasis) Hx Alcohol Use: Yes (Formerly) Hx Substance Use: No Hx Tobacco Use: No Smoking Status: Never smoker FmHx Family History: No diabetes Physical Exam Vitals Vital Signs Date Time Temp Pulse Resp B/P Pulse Ox O2 Delivery O2 Flow Rate FiO2 04/01/17 01:29 99.2 04/01/17 01:09 90 29 99/58 98 Room Air 03/31/17 21:57 101.0 105 20 131/73 95 Physical Exam GENERAL: Appears dehydrated, emaciated, jaundice, febrile HEENT: Jaundice, dry mucous membranes, no cervical spine tenderness or deformity , no Kernig sign NEURO: Alert and oriented 3, cranial nerves II through XII intact bilaterally, pupils equal round reactive to light, no focal deficits or facial asymmetry, sensation intact distally Strength 5/5 in upper and lower extremities bilaterally CARDIAC: Regular rate and rhythm, no murmurs rubs or gallops LUNGS: Clear bilaterally no wheezing crackles or stridor ABDOMEN: Soft protuberant abdomen, distended, diffuse mild tenderness without guarding or rigidity SKIN: Hot and dry to touch, no abrasions, contusions, or hematomas, no lacerations, no ecchymosis, no target lesions, and without ulcers EXTREMITIES: No clubbing cyanosis, 1+ pitting edema to the lower extremities bilaterally, calves are bilaterally symmetrical, no Homans sign, no popliteal cord sign. Distal pulses equal and bilateral PSYCH: Normal affect without agitation or irritability Result Diagram: 03/31/17234903/31/172349 Results 24 hrs Laboratory Tests Test 03/31/17 23:50 White Blood Count 11.610^3/ul Red Blood Count 3.0510^6/ul Hemoglobin 11.3g/dl Hematocrit 32.1% Mean Corpuscular Volume 105.2fl Mean Corpuscular Hemoglobin 37.0pg Mean Corpuscular Hemoglobin Concent 35.2g/dl Red Cell Distribution Width 15.9% Platelet Count 5810^3/UL Mean Platelet Volume 10.5fl Neutrophils % 71.9% Lymphocytes % 8.8% Monocytes % 12.2% Eosinophils % 4.3% Basophils % 1.3% Nucleated Red Blood Cells % 0.0/100WBC Neutrophils # 8.410^3/ul Lymphocytes # 1.010^3/ul Monocytes # 1.410^3/ul Eosinophils # 0.510^3/ul Basophils # 0.210^3/ul Nucleated Red Blood Cells # 0.010^3/ul Prothrombin Time 19.3Sec Prothrombin Time Ratio 1.5 INR International Normalized Ratio 1.61 Activated Partial Thromboplast Time 33.3Sec Sodium Level 132mmol/L Potassium Level 5.0mmol/L Chloride Level 102mmol/L Carbon Dioxide Level 22mmol/L Anion Gap 13 Blood Urea Nitrogen 24mg/dl Creatinine 0.94mg/dl Glucose Level 131mg/dl Lactic Acid Level 1.4mmol/L Calcium Level 9.0mg/dl Total Bilirubin 7.2mg/dl Direct Bilirubin 0.70mg/dl Indirect Bilirubin 6.5mg/dl Aspartate Amino Transf (AST/SGOT) 76IU/L Alanine Aminotransferase (ALT/SGPT) 55IU/L Alkaline Phosphatase 317IU/L Troponin I < 0.012ng/ml Total Protein 7.8g/dl Albumin 2.7g/dl Globulin 5.10g/dl Albumin/Globulin Ratio 0.52 Lipase 170U/L Current Medications Medications (Trade) Dose Ordered Sig/Abbe Route PRN Reason Start Time Stop Time Status Last Admin Dose Admin Sodium Chloride (NS) 3,000 ml BOLUS OVER 2 HOURS STAT IV* 03/31/17 23:34 03/31/17 23:38 DC 03/31/17 23:57 Acetaminophen 650 mg 650 mg ONCE STAT PO 03/31/17 23:34 03/31/17 23:38 DC 04/01/17 00:02 Vancomycin HCl 250 ml @ 125 mls/hr ONCE ONCE IVPB 04/01/17 00:00 04/01/17 01:59 04/01/17 01:26 Piperacillin Sod/ Tazobactam Sod 100 ml @ 200 mls/hr ONCE ONCE IVPB 04/01/17 00:00 04/01/17 00:29 DC 04/01/17 00:00 Ceftriaxone Sodium (Rocephin) 50 ml @ 100 mls/hr ONCE ONCE IVPB 04/01/17 00:00 04/01/17 00:29 DC 04/01/17 00:02 Procedures/MDM IV line was established patient was placed on lunchroom monitor rhythm strip revealed a sinus rhythm at about 90 bpm. Patient was febrile. Blood and urine cultures have been ordered results are pending I will follow-up. EKG performed, read by me: 88 bpm, normal sinus rhythm, left axis, no acute ST segment changes, narrow QRS complex, with good R-wave progression in precordial leads. One view chest x-ray performed, read by me as cardiomegaly and left infiltrate, no pneumothorax, no air under the diaphragm. Ultrasound of the abdomen was performed revealing a mobile gallstones and gallbladder wall thickening, no pericholecystic fluid noted. Suspicious for early cholecystitis, patient may require HIDA scan for definitive diagnosis. Paracentesis and ascitic fluid analysis with cultures have been ordered results are pending I will follow-up. Lactic acid was low at 1.4, I do not suspect sepsis. CBC revealed thrombocytopenia 58,000, electrolytes revealed dehydration with a BUN creatinine of 24/0.9, liver function tests elevated, troponin negative, INR elevated at 1.6. I treated the patient here with 3 L normal saline intravenously, acetaminophen 650 mg p.o. for fever, ceftriaxone 1 g IV, Zosyn 3.375 g IV, vancomycin 1 g IV. Urine analysis is also been ordered results are pending I will follow-up. Patient has a fever and has multiple possible sources of infection including acute spontaneous bacterial peritonitis, left-sided pneumonia, and acute cholecystitis. He will be admitted to telemetry setting for continued medical management, surgical consultation, ID consultation. I spoke to surgeon associate professor of automation Dr. Gamez regarding the patient's HPI, ED workup, imaging studies. He agreed to consult. Departure Diagnosis: Primary Impression: Ascites Ascites type: due to alcoholic cirrhosis Qualified Code: K70.31 - Ascites due to alcoholic cirrhosis Additional Impressions: Cirrhosis Hepatic cirrhosis type: alcoholic cirrhosis Ascites presence: with ascites Qualified Code: K70.31 - Alcoholic cirrhosis of liver with ascites Pneumonia Pneumonia type: due to unspecified organism Laterality: left Lung location : lower lobe of lung Qualified Code: J18.1 - Pneumonia of left lower lobe due to infectious organism Cholelithiasis Cholelithiasis location: gallbladder Cholecystitis presence: with cholecystitis Cholecystitis acuity: acute Biliary obstruction: with biliary obstruction Qualified Code: K80.01 - Calculus of gallbladder with acute cholecystitis and obstruction Thrombocytopenia Condition: Serious SPENCER ESCAMILLA MD Mar 31, 2017 23:59
[2017-04-01] VITALS (12 sets, daily range): BP systolic 98–107; BP diastolic 54–61; PULSE 67–85; RESP 19–20; TEMP 99.2
[2017-04-01] MEDS ORDERED: CEFTRIAXONE 1 GM/50 ML (PMX) 50 ML IVPB ONE
[2017-04-01] MEDS ORDERED: VANCOMYCIN 1 GM (PMX) 250 ML IVPB ONE
[2017-04-01] MEDS ORDERED: PIPER-TAZO 3.375 GM IV (PMX) 100 ML IVPB ONE
--- NOTE | 2017-04-01 01:01 | RADRPT ---
PROCEDURE: Portable chest x-ray. CLINICAL INDICATION: 47-year of age, male. Abdominal pain. Possible sepsis. TECHNIQUE: Portable AP view of the chest. COMPARISON: Chest x-ray March 13, 2017 FINDINGS: Cardiomediastinal contours are normal. Decreased lung volumes with vascular crowding. Hazy increased opacity in the left lung is likely due to a moderate left pleural effusion that has increased in size. There is left lower lobe atelectasi s. In addition, there is opacity at the left lung base that could represent atelectasis or infiltrat e. Negative for pneumothorax. No acute bony abnormality. IMPRESSION: Moderate left pleural effusion has increased in size from prior exam with left lower lobe atelectasi s. In addition, there is left lung base opacity that could represent atelectasis or an infiltrate. RPTAT: HCTS Physician Lazaro Date Time Electronically viewed and signed by Physician Lazaro on 04/01/2017 01:00 /
--- NOTE | 2017-04-01 01:07 | RADRPT ---
PROCEDURE: LIMITED ABDOMINAL ULTRASOUND OF GALL BLADDER CLINICAL INDICATION: 47-year of age, male. Possible sepsis. Abdominal pain. TECHNIQUE: Multiple real-time longitudinal and transverse images of the gallbladder and the bile d ucts were acquired utilizing a curved array transducer. Images were reviewed on a high-resolution [employer] workstation. COMPARISON: Paracentesis ultrasound March 19, [address] March 19, 2017 FINDINGS: Pancreas: Not well visualized due to bowel gas Liver appearance: Small and nodular in keeping with cirrhosis. Liver length: 15.1 cm Bile Ducts: No intrahepatic or extrahepatic biliary ductal dilatation. CBD: 0.5 cm. Gallbladder: Multiple calculi in moderately distended gallbladder. Gallbladder wall is thickened and measures 4.5 mm. Negative for point tenderness. Main portal vein is patent with hepatopetal flow. Right kidney length: 11 cm. Right kidney appearance: Normal renal parenchymal echogenicity. 1.4 cm hypoechoic lesion superior po le likely represents a cyst. Nonobstructing calculus lower pole. Negative for hydronephrosis. Other: There is moderate volume ascites that collects in all 4 quadrants. IMPRESSION: 1. Cholelithiasis with gallbladder wall thickening. Press Machine Operator reports no point tenderness over the gallbladder. Gallbladder wall thickening may be due to liver disease rather than acute cholecystiti s. If there is clinical concern for acute cholecystitis, the patient may benefit from a HIDA scan. 2. Small nodular liver in keeping with cirrhosis. Moderate volume ascites. 3. Nonobstructing right renal calculus. RPTAT: HCTS Physician Lazaro Date Time Electronically viewed and signed by Physician Lazaro on 04/01/2017 01:07 /
--- NOTE | 2017-04-01 01:07 | RADRPT ---
PROCEDURE: LIMITED ABDOMINAL ULTRASOUND OF GALL BLADDER CLINICAL INDICATION: 47-year of age, male. Possible sepsis. Abdominal pain. TECHNIQUE: Multiple real-time longitudinal and transverse images of the gallbladder and the bile d ucts were acquired utilizing a curved array transducer. Images were reviewed on a high-resolution [employer] workstation. COMPARISON: Paracentesis ultrasound March 19, [address] March 19, 2017 FINDINGS: Pancreas: Not well visualized due to bowel gas Liver appearance: Small and nodular in keeping with cirrhosis. Liver length: 15.1 cm Bile Ducts: No intrahepatic or extrahepatic biliary ductal dilatation. CBD: 0.5 cm. Gallbladder: Multiple calculi in moderately distended gallbladder. Gallbladder wall is thickened and measures 4.5 mm. Negative for point tenderness. Main portal vein is patent with hepatopetal flow. Right kidney length: 11 cm. Right kidney appearance: Normal renal parenchymal echogenicity. 1.4 cm hypoechoic lesion superior po le likely represents a cyst. Nonobstructing calculus lower pole. Negative for hydronephrosis. Other: There is moderate volume ascites that collects in all 4 quadrants. IMPRESSION: 1. Cholelithiasis with gallbladder wall thickening. Psychiatric Rn reports no point tenderness over the gallbladder. Gallbladder wall thickening may be due to liver disease rather than acute cholecystiti s. If there is clinical concern for acute cholecystitis, the patient may benefit from a HIDA scan. 2. Small nodular liver in keeping with cirrhosis. Moderate volume ascites. 3. Nonobstructing right renal calculus. RPTAT: HCTS Physician Lazaro Date Time Electronically viewed and signed by Physician Lazaro on 04/01/2017 01:07 /
[2017-04-01] MEDS ORDERED: LACT10SO5 PO (02:24)
[2017-04-01] MEDS ORDERED: DEXTROSE 5%-0.45% NACL 1,000 ML IV SCH (03:52)
[2017-04-01] MEDS ORDERED: ONDANSETRON 4 MG INJ IV PRN (04:00)
[2017-04-01] MEDS ORDERED: ALBUTEROL/IPRATROPIUM (NEB) 3 ML AMP HHN PRN (04:00)
[2017-04-01] MEDS ORDERED: NACL 0.9% 3 ML SYG IV SCH (04:00)
[2017-04-01] MEDS: morphine 2 MG INJ IV PRN (04:28)
[2017-04-01] MEDS: FUROSEMIDE 20 MG TAB PO SCH ×3 (05:54→21:13)
--- NOTE | 2017-04-01 06:48 | HP ---
Date/Time of Note Date/Time of Note DATE: 04/01/17 TIME: 06:37 Assessment/Plan VTE Prophylaxis VTE Prophylaxis Intervention: SCD's Lines/Catheters Urinary Cath still in place: No Assessment/Plan Assessment/Plan 1. Abdominal pain, from distention caused by ascites vs cholelithiasis -Will order paracentesis. We will send sample for evaluation of SBP -IV antibiotic -Follow-up culture results -General surgery evaluation for possible cholecystitis given cholelithiasis and fever 2. Sepsis, as evidenced by fever and tachycardia -See #1 3. Decompensated liver cirrhosis with ascites: Patient is currently on transplant list at [facility] [place]. His last drink was in May of last year. -will continue his Lasix, Aldactone, and Lactulose. -He recently underwent EGD here with finding of esophageal varices status post banding. -Consider paracentesis 4. Recent fifth metacarpal community fracture of right hand -Patient has been boxing/punching [place] -pain management 5. 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 Patient had been admitted here multiple times for recurrent cellulitis and for abdominal pain/ascites requiring large volume paracentesis. He said his current abdominal pain is diffuse and he has been noticing progressively worsening abdominal distention. Patient also has a persistent jaundice. He also reported nausea and nonbloody nonbilious vomiting. Last admission was 2 weeks ago for rectal bleeding which was thought to be from a hemorrhoid. Patient follows up at [facility] and he seems to be listed for liver transplant. . PMH/Family/Social Past Surgical History Past Surgical Hx: no surgical history Social History Smoking Status: Never smoker Exam/Review of Systems Vital Signs Vitals Vital Signs Date Time Temp Pulse Resp B/P Pulse Ox O2 Delivery O2 Flow Rate FiO2 04/01/17 04:19 85 04/01/17 03:08 99.2 19 104/54 98 04/01/17 01:09 Room Air Intake and Output 03/31/17 03/31/17 04/01/17 14:59 22:59 06:59 Intake Total 60 ml Balance 60 ml Exam Constitutional: alert, oriented Head: atraumatic, normocephalic Eyes: PERRL, icteric Respiratory: clear to auscultation, normal air movement Cardiovascular: other (Tachycardic with regular rhythm) Gastrointestinal: distended, tender Extremities: normal pulses Labs Result Diagram: 03/31/17234903/31/17 235 Medications Medications Current Medications Dextrose/Sodium Chloride (D5-1/2ns) 1,000 ml @ 30 mls/hr Q24H IV Last administered on 04/01/17 04:28; Admin Dose 30 MLS/HR; Start 04/01/17 at 03:52 ; Stop 04/01/17 at 23:00 Lorazepam (Ativan) 0.5 mg Q6H PRN IV ANXIETY; Start 04/01/17 at 04:00 Ondansetron HCl (Zofran Inj) 4 mg Q6H PRN IV NAUSEA AND/OR VOMITING; Start at 04:00 Morphine Sulfate (morphine) 2 mg Q4H PRN IV PAIN LEVEL 7-10 Last administered on 04/01/17 04:28; Admin Dose 2 MG; Start 04/01/17 at 04:00 Folic Acid (Folic Acid) 1 mg DAILY PO ; Start 04/01/17 at 09:00 Furosemide (Lasix) 20 mg Q8 PO Last administered on 04/01/17 05:54; Admin Dose 20 MG; Start 04/01/17 at 06:00 Lactulose (Enulose) 10 gm BID PO ; Start 04/01/17 at 09:00 Spironolactone (Aldactone) 25 mg BID PO ; Start 04/01/17 at 09:00 Thiamine HCl 50 mg 50 mg QAM PO ; Start 04/01/17 at 09:00 Cefepime HCl (Maxipime 1gm/50 ml (Pmx)) 50 ml @ 100 mls/hr Q12 IVPB ; Start at 09:00 JS JACKSON MD Apr 01, 2017 06:48
--- NOTE | 2017-04-01 08:27 | CONS ---
Date/Time of Note Date/Time of Note DATE: 04/01/17 TIME: 08:23 Assessment/Plan Assessment/Plan Additional Assessment/Plan Asymptomatic cholelithiasis His clinical symptoms and signs are not secondary to his gallstone No further treatment needed Due to his clinical state if gallbladder issues arrived, would need percutaneous cholecystostomy as to high risk for a surgical procedure with his liver disease Consultation Date/Type/Reason Admit Date/Time Apr 01, 2017 at 01:12 Date of Consultation: Apr 01, 2017 Reason for Consultation Gallstones Hx of Present Illness The patient is a 47-year-old male who presented to the emergency room last due to abdominal distention and abdominal pain. Patient has not uncompensated cirrhosis and has jaundice. He has been hospitalized multiple times here for complications from his liver disease. He is awaiting liver transplant. On his workup, he was found to have a gallstone I was called for consultation. Patient denies right upper quadrant pain, nausea or emesis. Past Medical History Medical History: other (Decompensated liver cirrhosis, esophageal varices) Past Surgical History Past Surgical Hx: no surgical history Family History Significant Family History: no pertinent family hx Social History Smoking Status: Never smoker Exam/Review of Systems Vital Signs Vitals Vital Signs Date Time Temp Pulse Resp B/P Pulse Ox O2 Delivery O2 Flow Rate FiO2 04/01/17 08:15 73 04/01/17 07:49 98.5 20 98/54 95 04/01/17 01:09 Room Air Intake and Output 03/31/17 03/31/17 04/01/17 15:00 23:00 07:00 Intake Total 60 ml Balance 60 ml Exam Constitutional: alert, oriented, well developed Psych: no complaints Head: normocephalic Eyes: other (Jaundiced) ENMT: nl external ears & nose Neck: supple Respiratory: clear to auscultation Cardiovascular: regular rate and rhythm Gastrointestinal: other, soft Results Result Diagram: 04/01/17 0659 03/31/17 2350 Results 24 hrs Laboratory Tests Test 03/31/17 23:50 04/01/17 01:14 04/01/17 03:17 04/01/17 06:59 White Blood Count 11.6 H 11.0 H Red Blood Count 3.05 L 2.48 L Hemoglobin 11.3 L 9.1 L Hematocrit 32.1 L 26.5 L Mean Corpuscular Volume 105.2 H 106.9 H Mean Corpuscular Hemoglobin 37.0 H 36.7 H Mean Corpuscular Hemoglobin Concent 35.2 34.3 Red Cell Distribution Width 15.9 H 15.9 H Platelet Count 58 #L 56 L Mean Platelet Volume 10.5 H 9.7 Neutrophils % 71.9 71.3 Lymphocytes % 8.8 L 11.0 L Monocytes % 12.2 H 9.7 Eosinophils % 4.3 5.6 Basophils % 1.3 0.9 Nucleated Red Blood Cells % 0.0 0.0 Neutrophils # 8.4 H 7.9 H Lymphocytes # 1.0 1.2 Monocytes # 1.4 H 1.1 H Eosinophils # 0.5 0.6 H Basophils # 0.2 H 0.1 Nucleated Red Blood Cells # 0.0 0.0 Prothrombin Time 19.3 H Prothrombin Time Ratio 1.5 INR International Normalized Ratio 1.61 Activated Partial Thromboplast Time 33.3 Sodium Level 132 L Potassium Level 5.0 Chloride Level 102 Carbon Dioxide Level 22 Anion Gap 13 Blood Urea Nitrogen 24 H Creatinine 0.94 Glucose Level 131 Lactic Acid Level 1.4 1.2 Calcium Level 9.0 Total Bilirubin 7.2 H Direct Bilirubin 0.70 H Indirect Bilirubin 6.5 H Aspartate Amino Transf (AST/SGOT) 76 H Alanine Aminotransferase (ALT/SGPT) 55 Alkaline Phosphatase 317 H Troponin I < 0.012 Total Protein 7.8 Albumin 2.7 L Globulin 5.10 H Albumin/Globulin Ratio 0.52 Lipase 170 Urine Color SYLVIA Urine Clarity CLEAR Urine pH 6.0 Urine Specific [place] 1.025 Urine Ketones NEGATIVE Urine Nitrite NEGATIVE Urine Bilirubin 1+ H Urine Urobilinogen 2+ H Urine Leukocyte Esterase NEGATIVE Urine Hemoglobin NEGATIVE Urine Glucose NEGATIVE Urine Total Protein NEGATIVE Imaging Free Text/Dictation PROCEDURE: LIMITED ABDOMINAL ULTRASOUND OF GALL BLADDER CLINICAL INDICATION: 47-year of age, male. Possible sepsis. Abdominal pain. TECHNIQUE: Multiple real-time longitudinal and transverse images of the gallbladder and the bile ducts were acquired utilizing a curved array transducer. Images were reviewed on a high-resolution PACS workstation. COMPARISON: Paracentesis ultrasound March 19, [address] March 19, 2017 FINDINGS: Pancreas: Not well visualized due to bowel gas Liver appearance: Small and nodular in keeping with cirrhosis. Liver length: 15.1 cm Bile Ducts: No intrahepatic or extrahepatic biliary ductal dilatation. CBD: 0.5 cm. Gallbladder: Multiple calculi in moderately distended gallbladder. Gallbladder wall is thickened and measures 4.5 mm. Negative for point tenderness. Main portal vein is patent with hepatopetal flow. Right kidney length: 11 cm. Right kidney appearance: Normal renal parenchymal echogenicity. 1.4 cm hypoechoic lesion superior pole likely represents a cyst. Nonobstructing calculus lower pole. Negative for hydronephrosis. Other: There is moderate volume ascites that collects in all 4 quadrants. IMPRESSION: 1. Cholelithiasis with gallbladder wall thickening. 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 Gallbladder wall thickening may be due to liver disease rather than acute cholecystitis. If there is clinical concern for acute cholecystitis, the patient may benefit from a HIDA scan. 2. Small nodular liver in keeping with cirrhosis. Moderate volume ascites. 3. Nonobstructing right renal calculus. Medications Medications Current Medications Dextrose/Sodium Chloride (D5-1/2ns) 1,000 ml @ 30 mls/hr Q24H IV Last administered on 04/01/17 04:28; Admin Dose 30 MLS/HR; Start 04/01/17 at 03:52 ; Stop 04/01/17 at 23:00 Lorazepam (Ativan) 0.5 mg Q6H PRN IV ANXIETY; Start 04/01/17 at 04:00 Ondansetron HCl (Zofran Inj) 4 mg Q6H PRN IV NAUSEA AND/OR VOMITING; Start at 04:00 Morphine Sulfate (morphine) 2 mg Q4H PRN IV PAIN LEVEL 7-10 Last administered on 04/01/17 04:28; Admin Dose 2 MG; Start 04/01/17 at 04:00 Folic Acid (Folic Acid) 1 mg DAILY PO ; Start 04/01/17 at 09:00 Furosemide (Lasix) 20 mg Q8 PO Last administered on 04/01/17 05:54; Admin Dose 20 MG; Start 04/01/17 at 06:00 Lactulose (Enulose) 10 gm BID PO ; Start 04/01/17 at 09:00 Spironolactone (Aldactone) 25 mg BID PO ; Start 04/01/17 at 09:00 Thiamine HCl 50 mg 50 mg QAM PO ; Start 04/01/17 at 09:00 Cefepime HCl (Maxipime 1gm/50 ml (Pmx)) 50 ml @ 100 mls/hr Q12 IVPB ; Start at 09:00 CARLOS MAURER MD Apr 01, 2017 08:27
[2017-04-01] MEDS ORDERED: CEFEPIME 1GM/50 ML (PMX) 50 ML IVPB SCH (09:00)
[2017-04-01] MEDS: LACTULOSE 30ML CUP PO SCH ×2 (09:00→21:16)
[2017-04-01] MEDS: THIAMINE 100 MG TAB PO SCH (09:49)
[2017-04-01] MEDS: FOLIC ACID 1 MG TAB PO SCH (09:49)
[2017-04-01] MEDS: SPIRONOLACTONE 25 MG TAB PO SCH ×2 (09:49→21:13)
--- NOTE | 2017-04-01 10:34 | RADRPT ---
PROCEDURE: Retroperitoneal US. CLINICAL INDICATION: flank pain TECHNIQUE: Multiple sonographic images of the kidneys and retroperitoneum were obtained. The imag es were reviewed on a PACS workstation. COMPARISON: US ABDOMEN 04/01/2017 FINDINGS: The kidneys are normal in size, contour, cortical thickness and cortical echogenicity. The right kidney measures 11.2 cm. The left kidney measures 11.6 cm. No kidney stones are visualized. There is no evidence for hydronephrosis. The urinary bladder is normal. There is a small amount of ascites. RPTAT: AA IMPRESSION: No evidence of hydronephrosis. Ascites. .Jaime Jones MD, MD Date Time Electronically viewed and signed by .Jaime Jones MD, MD on 04/01/2017 10:33 .S/
--- NOTE | 2017-04-01 12:30 | CONS ---
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 Lin Chief Complaint/Reason for Visit: Abdominal pain- Cirrhosis with ascites Sepsis History of Present Illness: This is a pleasant 47 year old male with history of end stage liver disease with ascites secondary to alcohol use. Presenting to the ER with fever, and worsening of abdominal pain described as a "stretching" feeling, pain was worse when sitting up in a chair, and relieved with pain medication. Gallbladder u/s was ordered and reveled Cholelithiasis, but no CBD obstruction. Surgery was then consulted and deemed as high risk for surgery, and secondary abdominal pain likely r/t ascites. Currently he denies any abdominal pain, hematemesis, hematochezia, pyrosis, or change in bowel habits. He does c/o nausea he states this is related to not eating. Last EGD 12/2016 impression Large, grade 4/4 esophageal varices, post endoscopic variceal ligation x7, and portal gastropathy. He has not had a colonoscopy, and there is no family history of colon cancer that he is aware of. Plan for paracentesis to check ascitic fluid to r/o spontaneous bacterial peritonitis. Past Medical History: Decompensated liver cirrhosis esophageal varices Allergies: Ibuprofen Family History: No known history of colon cancer Social History: History of drinking quit last year after dx with Cirrhosis PHYSICAL EXAMINATION: GENERAL: Well developed, well nourished, alert & oriented x 3, in no acute distress SKIN: No lesions, stigmata of chronic liver disease, no evidence of bleeding diathesis, jaundice LYMPHATIC: No palpable lymphadenopathy. HEAD: Normocephalic, atraumatic, no tenderness. EYES: Pupils equal reactive to light and accommodation, full extraocular movements, icteric, no discharge. EARS/NOSE AND THROAT: Ears normal, nose normal, oropharynx normal, oral membranes well hydrated without lesions. NECK: Supple, no masses, thyroid normal, JVP within normal limits, carotids normal without bruits. CHEST: Inspection within normal limits. CARDIOVASCULAR: Heart: Regular rate and rhythm, no murmurs, gallops or rubs. Peripheral pulses present within normal limits, no cyanosis, clubbing or edemas. No pulsatile abdominal mass RESPIRATORY: Lungs clear to auscultation and percussion, no wheezing, no rubs GASTROINTESTINAL AND LIVER: Abdomen:distended, no hernias, no masses, ascites, no guarding, no rebound tenderness, normoactive bowel sounds. Rectal: Deferred. GENITOURINARY: Male genitalia within normal limits. EXTREMITIES: BLE edema. Problems: Consultation Date/Type/Reason Admit Date/Time Apr 01, 2017 at 01:12 Date of Consultation: Apr 01, 2017 Type of Consultation: GI Reason for Consultation Abdominal pain Hx of Cirrhosis Gastrointestinal and liver: [positive for: nausea, vomiting,constipation, jaundice] [Negative for: Anorexia, dysphagia, odynophagia, pyrosis, regurgitation, early satiety, bloating, abdominal pain, food intolerance, diarrhea, change in bowel habits, hematemesis, melena, hematochezia, and rectal symptoms, incontinence. Constitutional: improved Eyes: no complaints ENT: no complaints Respiratory: no complaints Cardiovascular: no complaints Gastrointestinal: No diarrhea, No flatus Genitourinary: no complaints Neurologic: no complaints Psychological: no complaints Past Medical History Medical History: other (Decompensated liver cirrhosis, esophageal varices) Past Surgical History Past Surgical Hx: no surgical history Family History Significant Family History: other (No family history of colon cancer) Social History Alcohol Use: other (Quit drinking last year) Smoking Status: Never smoker Drug Use: none Exam/Review of Systems Vital Signs Vitals Vital Signs Date Time Temp Pulse Resp B/P Pulse Ox O2 Delivery O2 Flow Rate FiO2 04/01/17 08:15 73 04/01/17 07:49 98.5 20 98/54 95 04/01/17 01:09 Room Air Intake and Output 03/31/17 03/31/17 04/01/17 15:00 23:00 07:00 Intake Total 60 ml Balance 60 ml Results Result Diagram: 04/01/17 0659 04/01/17 0659 Results 24 hrs Laboratory Tests Test 03/31/17 23:50 04/01/17 01:14 04/01/17 03:17 04/01/17 06:59 White Blood Count 11.6 H 11.0 H Red Blood Count 3.05 L 2.48 L Hemoglobin 11.3 L 9.1 L Hematocrit 32.1 L 26.5 L Mean Corpuscular Volume 105.2 H 106.9 H Mean Corpuscular Hemoglobin 37.0 H 36.7 H Mean Corpuscular Hemoglobin Concent 35.2 34.3 Red Cell Distribution Width 15.9 H 15.9 H Platelet Count 58 #L 56 L Mean Platelet Volume 10.5 H 9.7 Neutrophils % 71.9 71.3 Lymphocytes % 8.8 L 11.0 L Monocytes % 12.2 H 9.7 Eosinophils % 4.3 5.6 Basophils % 1.3 0.9 Nucleated Red Blood Cells % 0.0 0.0 Neutrophils # 8.4 H 7.9 H Lymphocytes # 1.0 1.2 Monocytes # 1.4 H 1.1 H Eosinophils # 0.5 0.6 H Basophils # 0.2 H 0.1 Nucleated Red Blood Cells # 0.0 0.0 Prothrombin Time 19.3 H Prothrombin Time Ratio 1.5 INR International Normalized Ratio 1.61 Activated Partial Thromboplast Time 33.3 Sodium Level 132 L 132 L Potassium Level 5.0 4.3 Chloride Level 102 107 Carbon Dioxide Level 22 21 Anion Gap 13 8 Blood Urea Nitrogen 24 H 20 Creatinine 0.94 0.83 Glucose Level 131 98 Lactic Acid Level 1.4 1.2 1.3 Calcium Level 9.0 8.0 L Total Bilirubin 7.2 H 6.2 H Direct Bilirubin 0.70 H 0.70 H Indirect Bilirubin 6.5 H 5.5 H Aspartate Amino Transf (AST/SGOT) 76 H 55 H Alanine Aminotransferase (ALT/SGPT) 55 47 Alkaline Phosphatase 317 H 203 H Troponin I < 0.012 Total Protein 7.8 5.9 #L Albumin 2.7 L 2.0 L Globulin 5.10 H 3.90 H Albumin/Globulin Ratio 0.52 0.51 Lipase 170 Urine Color SYLVIA Urine Clarity CLEAR Urine pH 6.0 Urine Specific [place] 1.025 Urine Ketones NEGATIVE Urine Nitrite NEGATIVE Urine Bilirubin 1+ H Urine Urobilinogen 2+ H Urine Leukocyte Esterase NEGATIVE Urine Hemoglobin NEGATIVE Urine Glucose NEGATIVE Urine Total Protein NEGATIVE Magnesium Level 1.6 L Medications Medications Current Medications Dextrose/Sodium Chloride (D5-1/2ns) 1,000 ml @ 30 mls/hr Q24H IV Last administered on 04/01/17 04:28; Admin Dose 30 MLS/HR; Start 04/01/17 at 03:52 ; Stop 04/01/17 at 23:00 Lorazepam (Ativan) 0.5 mg Q6H PRN IV ANXIETY; Start 04/01/17 at 04:00 Ondansetron HCl (Zofran Inj) 4 mg Q6H PRN IV NAUSEA AND/OR VOMITING; Start at 04:00 Morphine Sulfate (morphine) 2 mg Q4H PRN IV PAIN LEVEL 7-10 Last administered on 04/01/17 04:28; Admin Dose 2 MG; Start 04/01/17 at 04:00 Folic Acid (Folic Acid) 1 mg DAILY PO Last administered on 04/01/17 09:49; Admin Dose 1 MG; Start 04/01/17 at 09:00 Furosemide (Lasix) 20 mg Q8 PO Last administered on 04/01/17 05:54; Admin Dose 20 MG; Start 04/01/17 at 06:00 Lactulose (Enulose) 10 gm BID PO ; Start 04/01/17 at 09:00 Spironolactone (Aldactone) 25 mg BID PO Last administered on 04/01/17 09:49; Admin Dose 25 MG; Start 04/01/17 at 09:00 Thiamine HCl 50 mg 50 mg QAM PO Last administered on 04/01/17 09:49; Admin Dose 50 MG; Start 04/01/17 at 09:00 Piperacillin Sod/ Tazobactam Sod (Zosyn 3.375gm/ 100 ml (Pmx)) 100 ml @ 200 mls /hr Q6 IVPB ; Start 04/01/17 at 12:00 Copies To: CC: ANNABELLE LIN MD, VICTORIA Apr 01, 2017 12:05
[2017-04-01] MEDS: PIPER-TAZO 3.375 GM IV (PMX) 100 ML IVPB SCH ×3 (12:36→23:39)
[2017-04-01] MEDS: PANTOPRAZOLE (EC) 40 MG TAB PO SCH (12:40)
[2017-04-01] MEDS: LORAZEPAM 2 MG INJ IV PRN (21:29)
[2017-04-02] VITALS (11 sets, daily range): BP systolic 93–109; BP diastolic 50–58; PULSE 61–76; RESP 15–20
[2017-04-02] MEDS: PANTOPRAZOLE (EC) 40 MG TAB PO SCH (05:29)
[2017-04-02] MEDS: FUROSEMIDE 20 MG TAB PO SCH ×3 (05:30→22:00)
[2017-04-02] MEDS: PIPER-TAZO 3.375 GM IV (PMX) 100 ML IVPB SCH ×4 (05:31→23:27)
[2017-04-02] MEDS: FOLIC ACID 1 MG TAB PO SCH (09:05)
[2017-04-02] MEDS: LACTULOSE 30ML CUP PO SCH ×2 (09:05→20:27)
[2017-04-02] MEDS: THIAMINE 100 MG TAB PO SCH (09:05)
[2017-04-02] MEDS: SPIRONOLACTONE 25 MG TAB PO SCH ×2 (09:06→20:24)
[2017-04-02] MEDS ORDERED: MAGNESIUM SULFATE 2 GM/50 ML 50 ML IVPB ONE (10:00)
--- NOTE | 2017-04-02 13:12 | PN ---
Date/Time of Note Date/Time of Note DATE: 04/02/17 TIME: 13:11 Assessment/Plan VTE Prophylaxis VTE Prophylaxis Intervention: SCD's Lines/Catheters IV Catheter Type (from [facility]): Peripheral IV Urinary Cath still in place: No Assessment/Plan Chief Complaint/Hosp Course Patient is a 47-year-old male with past medical history of alcoholic liver cirrhosis who presents with decompensated alcoholic cirrhosis with ascites and bacteremia Assessment and plan Gram-negative bacteremia Abdominal pain Ascites Liver cirrhosis Right hand fracture Anemia -Still pending paracentesis, will follow up with labs -Continue antibiotics for now -Repeat blood cultures ordered for bacteremia, gram-negative -GI is following, general surgery has signed off the case -Continue home meds as able -Monitor closely and DISPO when able Problems: Subjective 24 Hr Interval Summary Free Text/Dictation feels better Exam/Review of Systems Vital Signs Vitals Vital Signs Date Time Temp Pulse Resp B/P Pulse Ox O2 Delivery O2 Flow Rate FiO2 04/02/17 12:52 61 04/02/17 12:07 99.9 20 99/58 98 04/01/17 01:09 Room Air Intake and Output 04/01/17 04/01/17 04/02/17 15:00 23:00 07:00 Intake Total 1210 ml 300 ml Output Total 1050 ml Balance 160 ml 300 ml Exam Physical exam General: Patient is laying in bed and answers questions appropriately Mentation: Patient is alert and oriented 4, Head: Normocephalic atraumatic Eyes: EOMI, pupils reactive to light Neck: Supple, nontender, midline Respiratory: Clear to auscultation bilaterally Cardiovascular: regular rate, no obvious murmurs Gastrointestinal: mildly tender to palpation, bowel sounds heard. distended Neurological: Moves all extremities spontaneously Skin: No new skin lesions Results Result Diagram: 04/02/17 0738 04/02/17 0738 Results 24 hrs Laboratory Tests Test 04/02/17 07:38 White Blood Count 5.6 # Red Blood Count 2.56 L Hemoglobin 9.1 L Hematocrit 27.2 L Mean Corpuscular Volume 106.3 H Mean Corpuscular Hemoglobin 35.5 H Mean Corpuscular Hemoglobin Concent 33.5 Red Cell Distribution Width 15.7 H Platelet Count 55 L Mean Platelet Volume 10.2 Neutrophils % 51.3 Lymphocytes % 16.2 Monocytes % 15.5 H Eosinophils % 11.6 H Basophils % 1.8 Nucleated Red Blood Cells % 0.0 Neutrophils # 2.9 Lymphocytes # 0.9 Monocytes # 0.9 Eosinophils # 0.7 H Basophils # 0.1 Nucleated Red Blood Cells # 0.0 Sodium Level 131 L Potassium Level 4.1 Chloride Level 103 Carbon Dioxide Level 21 Anion Gap 11 Blood Urea Nitrogen 17 Creatinine 0.83 Glucose Level 103 Calcium Level 8.0 L Phosphorus Level 3.7 Magnesium Level 1.6 L Medications Medications Current Medications Lorazepam (Ativan) 0.5 mg Q6H PRN IV ANXIETY Last administered on 04/01/17 21 :29; Admin Dose 0.5 MG; Start 04/01/17 at 04:00 Ondansetron HCl (Zofran Inj) 4 mg Q6H PRN IV NAUSEA AND/OR VOMITING; Start at 04:00 Morphine Sulfate (morphine) 2 mg Q4H PRN IV PAIN LEVEL 7-10 Last administered on 04/01/17 04:28; Admin Dose 2 MG; Start 04/01/17 at 04:00 Folic Acid (Folic Acid) 1 mg DAILY PO Last administered on 04/02/17 09:05; Admin Dose 1 MG; Start 04/01/17 at 09:00 Furosemide (Lasix) 20 mg Q8 PO Last administered on 04/02/17 05:30; Admin Dose 20 MG; Start 04/01/17 at 06:00 Lactulose (Enulose) 10 gm BID PO Last administered on 04/02/17 09:05; Admin Dose 10 GM; Start 04/01/17 at 09:00 Spironolactone (Aldactone) 25 mg BID PO Last administered on 04/02/17 09:06; Admin Dose 25 MG; Start 04/01/17 at 09:00 Thiamine HCl 50 mg 50 mg QAM PO Last administered on 04/02/17 09:05; Admin Dose 50 MG; Start 04/01/17 at 09:00 Piperacillin Sod/ Tazobactam Sod (Zosyn 3.375gm/ 100 ml (Pmx)) 100 ml @ 200 mls /hr Q6 IVPB Last administered on 04/02/17 11:27; Admin Dose 200 MLS/HR; Start 04/01/17 at 12:00 Pantoprazole (Protonix Tab) 40 mg DAILY@06 PO Last administered on 04/02/17t 05:29; Admin Dose 40 MG; Start 04/01/17 at 12:30 SPENCER JADE Apr 02, 2017 13:12
--- NOTE | 2017-04-02 16:27 | PN ---
Date/Time of Note Date/Time of Note DATE: 04/02/17 TIME: 16:26 Assessment/Plan VTE Prophylaxis VTE Prophylaxis Intervention: SCD's Lines/Catheters IV Catheter Type (from [facility]): Peripheral IV Urinary Cath still in place: No Assessment/Plan Chief Complaint/Hosp Course Summary Assessment and Plan: Assessment: End stage alcoholic liver disease with ascites - on transplant list at [facility] Abdominal pain- likely secondary to ascites Macrocytic anemia- likely secondary to cirrhosis Gram-negative bacteremia- on antibiotics Plan: Continue PPI Clear liquids-advance as tolerated Paracentesis diagnostic work-up-to be done tomorrow Pt will need to follow-up as an out-patient to reevaluate esophageal varices Pt seen in collaboration with Dr. Lin Subjective: Course reviewed with nursing staff Patient interviewed and examined All labs, imaging and other results reviewed The patient doing ok -paracentesis to be done tomorrow Patient not tolerating clear liquid diet stating causing headaches We will advance diet as tolerated PHYSICAL EXAMINATION: GENERAL: Well developed, well nourished, alert & oriented x 3, in no acute distress SKIN: No lesions, stigmata of chronic liver disease, no evidence of bleeding diathesis, jaundice LYMPHATIC: No palpable lymphadenopathy. HEAD: Normocephalic, atraumatic, no tenderness. EYES: Pupils equal reactive to light and accommodation, full extraocular movements, icteric, no discharge. EARS/NOSE AND THROAT: Ears normal, nose normal, oropharynx normal, oral membranes well hydrated without lesions. NECK: Supple, no masses, thyroid normal, JVP within normal limits, carotids normal without bruits. CHEST: Inspection within normal limits. CARDIOVASCULAR: Heart: Regular rate and rhythm, no murmurs, gallops or rubs. Peripheral pulses present within normal limits, no cyanosis, clubbing or edemas. No pulsatile abdominal mass RESPIRATORY: Lungs clear to auscultation and percussion, no wheezing, no rubs GASTROINTESTINAL AND LIVER: Abdomen:distended, no hernias, no masses, ascites, no guarding, no rebound tenderness, normoactive bowel sounds. Rectal: Deferred. GENITOURINARY: Male genitalia within normal limits. EXTREMITIES: BLE edema. Problems: Exam/Review of Systems Vital Signs Vitals Vital Signs Date Time Temp Pulse Resp B/P Pulse Ox O2 Delivery O2 Flow Rate FiO2 04/02/17 16:15 69 04/02/17 12:07 99.9 20 99/58 98 04/01/17 01:09 Room Air Intake and Output 04/01/17 04/01/17 04/02/17 15:00 23:00 07:00 Intake Total 1210 ml 300 ml Output Total 1050 ml Balance 160 ml 300 ml Results Result Diagram: 04/02/17 0738 04/02/17 0738 Results 24 hrs Laboratory Tests Test 04/02/17 07:38 White Blood Count 5.6 # Red Blood Count 2.56 L Hemoglobin 9.1 L Hematocrit 27.2 L Mean Corpuscular Volume 106.3 H Mean Corpuscular Hemoglobin 35.5 H Mean Corpuscular Hemoglobin Concent 33.5 Red Cell Distribution Width 15.7 H Platelet Count 55 L Mean Platelet Volume 10.2 Neutrophils % 51.3 Lymphocytes % 16.2 Monocytes % 15.5 H Eosinophils % 11.6 H Basophils % 1.8 Nucleated Red Blood Cells % 0.0 Neutrophils # 2.9 Lymphocytes # 0.9 Monocytes # 0.9 Eosinophils # 0.7 H Basophils # 0.1 Nucleated Red Blood Cells # 0.0 Sodium Level 131 L Potassium Level 4.1 Chloride Level 103 Carbon Dioxide Level 21 Anion Gap 11 Blood Urea Nitrogen 17 Creatinine 0.83 Glucose Level 103 Calcium Level 8.0 L Phosphorus Level 3.7 Magnesium Level 1.6 L Medications Medications Current Medications Lorazepam (Ativan) 0.5 mg Q6H PRN IV ANXIETY Last administered on 04/01/17 21 :29; Admin Dose 0.5 MG; Start 04/01/17 at 04:00 Ondansetron HCl (Zofran Inj) 4 mg Q6H PRN IV NAUSEA AND/OR VOMITING; Start at 04:00 Morphine Sulfate (morphine) 2 mg Q4H PRN IV PAIN LEVEL 7-10 Last administered on 04/01/17 04:28; Admin Dose 2 MG; Start 04/01/17 at 04:00 Folic Acid (Folic Acid) 1 mg DAILY PO Last administered on 04/02/17 09:05; Admin Dose 1 MG; Start 04/01/17 at 09:00 Furosemide (Lasix) 20 mg Q8 PO Last administered on 04/02/17 13:15; Admin Dose 20 MG; Start 04/01/17 at 06:00 Lactulose (Enulose) 10 gm BID PO Last administered on 04/02/17 09:05; Admin Dose 10 GM; Start 04/01/17 at 09:00 Spironolactone (Aldactone) 25 mg BID PO Last administered on 04/02/17 09:06; Admin Dose 25 MG; Start 04/01/17 at 09:00 Thiamine HCl 50 mg 50 mg QAM PO Last administered on 04/02/17 09:05; Admin Dose 50 MG; Start 04/01/17 at 09:00 Piperacillin Sod/ Tazobactam Sod (Zosyn 3.375gm/ 100 ml (Pmx)) 100 ml @ 200 mls /hr Q6 IVPB Last administered on 04/02/17 11:27; Admin Dose 200 MLS/HR; Start 04/01/17 at 12:00 Pantoprazole (Protonix Tab) 40 mg DAILY@06 PO Last administered on 04/02/17 05:29; Admin Dose 40 MG; Start 04/01/17 at 12:30 ANKITA YA Apr 02, 2017 16:27 Ondansetron HCl (Zofran Inj) 4 mg Q6H PRN IV NAUSEA AND/OR VOMITING; Start at 04:00 Morphine Sulfate (morphine) 2 mg Q4H PRN IV PAIN LEVEL 7-10 Last administered on 04/01/17 04:28; Admin Dose 2 MG; Start 04/01/17 at 04:00 Folic Acid (Folic Acid) 1 mg DAILY PO Last administered on 04/02/17 09:05; Admin Dose 1 MG; Start 04/01/17 at 09:00 Furosemide (Lasix) 20 mg Q8 PO Last administered on 04/02/17 13:15; Admin Dose 20 MG; Start 04/01/17 at 06:00 Lactulose (Enulose) 10 gm BID PO Last administered on 04/02/17 09:05; Admin Dose 10 GM; Start 04/01/17 at 09:00 Spironolactone (Aldactone) 25 mg BID PO Last administered on 04/02/17 09:06; Admin Dose 25 MG; Start 04/01/17 at 09:00 Thiamine HCl 50 mg 50 mg QAM PO Last administered on 04/02/17 09:05; Admin Dose 50 MG; Start 04/01/17 at 09:00 Piperacillin Sod/ Tazobactam Sod (Zosyn 3.375gm/ 100 ml (Pmx)) 100 ml @ 200 mls /hr Q6 IVPB Last administered on 04/02/17 11:27; Admin Dose 200 MLS/HR; Start 04/01/17 at 12:00 Pantoprazole (Protonix Tab) 40 mg DAILY@06 PO Last administered on 04/02/17 05:29; Admin Dose 40 MG; Start 04/01/17 at 12:30 ANKITA YA Apr 02, 2017 16:27
[2017-04-02] MEDS: LORAZEPAM 2 MG INJ IV PRN (23:27)
[2017-04-03] VITALS (15 sets, daily range): BP systolic 86–127; BP diastolic 43–85; PULSE 69–74; RESP 16–20
[2017-04-03] MEDS: PIPER-TAZO 3.375 GM IV (PMX) 100 ML IVPB SCH ×4 (05:45→23:51)
[2017-04-03] MEDS: PANTOPRAZOLE (EC) 40 MG TAB PO SCH (05:45)
[2017-04-03] MEDS: FUROSEMIDE 20 MG TAB PO SCH ×3 (05:46→21:29)
[2017-04-03] MEDS: LACTULOSE 30ML CUP PO SCH ×2 (09:00→21:28)
[2017-04-03] MEDS: morphine 2 MG INJ IV PRN (09:19)
[2017-04-03] MEDS: FOLIC ACID 1 MG TAB PO SCH (09:27)
[2017-04-03] MEDS: THIAMINE 100 MG TAB PO SCH (09:27)
[2017-04-03] MEDS: SPIRONOLACTONE 25 MG TAB PO SCH ×2 (09:27→21:29)
[2017-04-03] MEDS ORDERED: LIDOCAINE 1% (MPF) 5 ML VIAL ONE (09:52)
--- NOTE | 2017-04-03 10:42 | PN ---
Date/Time of Note Date/Time of Note DATE: 04/03/17 TIME: 10:42 Assessment/Plan VTE Prophylaxis VTE Prophylaxis Intervention: SCD's Lines/Catheters IV Catheter Type (from [facility]): Saline Lock Urinary Cath still in place: No Assessment/Plan Assessment/Plan 1. Gram-negative bacteremia - Initial blood cultures grew Enterococcus - Repeat blood cultures negative - Continue on IV antibiotics day 3/7 2. Abdominal pain 2/2 Ascites - improvement after paracentesis this am. Will await fluid studies 3. End stage alcoholic liver disease with ascites - on transplant list at [facility] - GI on board and recommendations appreciated - Continue on current medications - Continue advancing diet as tolerated - Will need outpatient evaluation for esophageal varices 4. Anemia - stable 5. Disposition - Advance diet as tolerated - Await final blood culture results Subjective 24 Hr Interval Summary Free Text/Dictation Patient states feeling relief after paracentesis this am. States tried to eat soft foods this am but did not tolerate well. Still wanted to try same consistency today. No acute overnight events. Exam/Review of Systems Vital Signs Vitals Vital Signs Date Time Temp Pulse Resp B/P Pulse Ox O2 Delivery O2 Flow Rate FiO2 04/03/17 08:27 98.2 68 17 95/54 100 04/01/17 01:09 Room Air Intake and Output 04/02/17 04/02/17 04/03/17 15:00 23:00 07:00 Intake Total 200 ml Balance 200 ml Exam General: Patient is laying in bed and answers questions appropriately. NAD Mentation: Patient is alert and oriented 4, Head: Normocephalic atraumatic Eyes: EOMI, pupils reactive to light, icteric Neck: Supple, nontender, midline Respiratory: Clear to auscultation bilaterally Cardiovascular: regular rate, no obvious murmurs Gastrointestinal: soft, nontender, mild distension, bowel sounds heard. no rebound or guarding Neurological: Moves all extremities spontaneously Results Result Diagram: 04/03/17 0749 04/03/17 0749 Results 24 hrs Laboratory Tests Test 04/03/17 07:49 White Blood Count 4.9 Red Blood Count 2.77 L Hemoglobin 10.3 L Hematocrit 29.4 L Mean Corpuscular Volume 106.1 H Mean Corpuscular Hemoglobin 37.2 H Mean Corpuscular Hemoglobin Concent 35.0 Red Cell Distribution Width 15.8 H Platelet Count 67 #L Mean Platelet Volume 10.0 Neutrophils % 45.5 Lymphocytes % 22.8 Monocytes % 16.1 H Eosinophils % 12.2 H Basophils % 1.6 Nucleated Red Blood Cells % 0.0 Neutrophils # 2.2 Lymphocytes # 1.1 Monocytes # 0.8 Eosinophils # 0.6 H Basophils # 0.1 Nucleated Red Blood Cells # 0.0 Sodium Level 133 L Potassium Level 4.2 Chloride Level 106 Carbon Dioxide Level 21 Anion Gap 10 Blood Urea Nitrogen 15 Creatinine 0.82 Glucose Level 98 Calcium Level 8.5 Phosphorus Level 3.6 Magnesium Level 1.8 Medications Medications Current Medications Lorazepam (Ativan) 0.5 mg Q6H PRN IV ANXIETY Last administered on 04/02/17 23 :27; Admin Dose 0.5 MG; Start 04/01/17 at 04:00 Ondansetron HCl (Zofran Inj) 4 mg Q6H PRN IV NAUSEA AND/OR VOMITING; Start at 04:00 Morphine Sulfate (morphine) 2 mg Q4H PRN IV PAIN LEVEL 7-10 Last administered on 04/03/17 09:19; Admin Dose 2 MG; Start 04/01/17 at 04:00 Folic Acid (Folic Acid) 1 mg DAILY PO Last administered on 04/03/17 09:27; Admin Dose 1 MG; Start 04/01/17 at 09:00 Furosemide (Lasix) 20 mg Q8 PO Last administered on 04/03/17 05:46; Admin Dose 20 MG; Start 04/01/17 at 06:00 Lactulose (Enulose) 10 gm BID PO Last administered on 04/02/17 09:05; Admin Dose 10 GM; Start 04/01/17 at 09:00 Spironolactone (Aldactone) 25 mg BID PO Last administered on 04/03/17 09:27; Admin Dose 25 MG; Start 04/01/17 at 09:00 Thiamine HCl 50 mg 50 mg QAM PO Last administered on 04/03/17 09:27; Admin Dose 50 MG; Start 04/01/17 at 09:00 Piperacillin Sod/ Tazobactam Sod (Zosyn 3.375gm/ 100 ml (Pmx)) 100 ml @ 200 mls /hr Q6 IVPB Last administered on 04/03/17 05:45; Admin Dose 200 MLS/HR; Start 04/01/17 at 12:00 Pantoprazole (Protonix Tab) 40 mg DAILY@06 PO Last administered on 04/03/17t 05:45; Admin Dose 40 MG; Start 04/01/17 at 12:30 NISHI SIMS MD Apr 03, 2017 10:42
--- NOTE | 2017-04-03 11:53 | RADRPT ---
PROCEDURE: Ultrasound guided paracentesis. CLINICAL INDICATION: Ascites and shortness of breath. COMPARISON: No prior studies are available for comparison. TECHNIQUE: The risks, benefits, and alternatives were explained to the patient and/or the patient's family, inc luding but not limited to bleeding, infection, pain, visceral or vascular damage, shock, and . The patient and/or the patient's family understood the risks and the alternatives and wished to pro ceed with the procedure. Informed written consent was obtained. A procedural time out was performed . The patient's name, date of , and procedure to be performed were verified. Utilizing ultrasound guidance, optimal location for entry to the peritoneal cavity was ascertained. The overlying skin was prepped and draped in the usual sterile fashion. Approximately 10 ml of 1% Xylocaine was injected locally for pain control. Using ultrasound guidance, an 8 [place] catheter wa s introduced into the peritoneal cavity in the right lower quadrant without difficulty. FINDINGS: Initial images demonstrate ascites. Approximately 6.4 liters of serous fluid was aspirated and sent for laboratory analysis. The patient tolerated the procedure well without complication. IMPRESSION: 1. Successful ultrasound-guided paracentesis. RPTAT: QQ .David Mosley MD, Date Time Electronically viewed and signed by .David Mosley MD, on 04/03/2017 11:53 .R/
[2017-04-03] MEDS: LORAZEPAM 2 MG INJ IV PRN (21:42)
[2017-04-04] VITALS (14 sets, daily range): BP systolic 87–100; BP diastolic 50–56; PULSE 62–76; RESP 17–18
[2017-04-04] MEDS: PIPER-TAZO 3.375 GM IV (PMX) 100 ML IVPB SCH ×2 (06:18→12:35)
[2017-04-04] MEDS: PANTOPRAZOLE (EC) 40 MG TAB PO SCH (06:18)
[2017-04-04] MEDS: FUROSEMIDE 20 MG TAB PO SCH ×3 (06:22→20:18)
[2017-04-04] MEDS: LACTULOSE 30ML CUP PO SCH (09:00)
[2017-04-04] MEDS: FOLIC ACID 1 MG TAB PO SCH (09:17)
[2017-04-04] MEDS: THIAMINE 100 MG TAB PO SCH (09:17)
[2017-04-04] MEDS: SPIRONOLACTONE 25 MG TAB PO SCH ×2 (09:17→20:17)
--- NOTE | 2017-04-04 10:26 | PN ---
Date/Time of Note Date/Time of Note DATE: 04/04/17 TIME: 10:26 Assessment/Plan VTE Prophylaxis VTE Prophylaxis Intervention: SCD's Lines/Catheters IV C[facility]ter Type (from [facility]): Saline Lock Urinary Cath still in place: No Assessment/Plan Assessment/Plan 1. Gram-negative bacteremia - Initial blood cultures grew Enterococcus - Repeat blood cultures negative - Spoke with Dr. Turner who believes Enterococcus was contaminant and no need for further antibiotic treatment at this time. D/C Zosyn - Patients WBC normalized and remains afebrile 2. Abdominal pain 2/2 Ascites - improvement after paracentesis. fluid cultures pending - Cell count not suspicious for SBP 3. End stage alcoholic liver disease with ascites - on transplant list at [facility] - GI on board and recommendations appreciated - Continue on current medications - Continue advancing diet as tolerated - Will need outpatient evaluation for esophageal varices 4. Anemia - stable 5. Disposition - If remains stable, will d/c in am Subjective 24 Hr Interval Summary Free Text/Dictation Patient doing well and feels relief after paracentesis. Tolerating diet better than yesterday and no new complaints. No acute overnight events. Exam/Review of Systems Vital Signs Vitals Vital Signs Date Time Temp Pulse Resp B/P Pulse Ox O2 Delivery O2 Flow Rate FiO2 04/04/17 09:34 65 04/04/17 09:10 100/56 04/04/17 03:54 98.4 18 98 04/03/17 10:15 Room Air Intake and Output 04/03/17 04/03/17 04/04/17 15:00 23:00 07:00 Intake Total 200 ml 600 ml Output Total 6400 ml Balance -6400 ml 200 ml 600 ml Exam General: Patient in NAD. awake and alert Head: Normocephalic atraumatic Eyes: EOMI, pupils reactive to light, icteric Neck: Supple, nontender, midline Respiratory: Clear to auscultation bilaterally Cardiovascular: regular rate, no obvious murmurs Gastrointestinal: soft, nontender, mild distension, bowel sounds heard. no rebound or guarding Neurological: Moves all extremities spontaneously Results Result Diagram: 04/03/17 0749 04/03/17 0749 Medications Medications Current Medications Lorazepam (Ativan) 0.5 mg Q6H PRN IV ANXIETY Last administered on 04/03/17t 21 :42; Admin Dose 0.5 MG; Start 04/01/17 at 04:00 Ondansetron HCl (Zofran Inj) 4 mg Q6H PRN IV NAUSEA AND/OR VOMITING; Start at 04:00 Morphine Sulfate (morphine) 2 mg Q4H PRN IV PAIN LEVEL 7-10 Last administered on 04/03/17 09:19; Admin Dose 2 MG; Start 04/01/17 at 04:00 Folic Acid (Folic Acid) 1 mg DAILY PO Last administered on 04/04/17 09:17; Admin Dose 1 MG; Start 04/01/17 at 09:00 Furosemide (Lasix) 20 mg Q8 PO Last administered on 04/04/17 06:22; Admin Dose 20 MG; Start 04/01/17 at 06:00 Lactulose (Enulose) 10 gm BID PO Last administered on 04/03/17 21:28; Admin Dose 10 GM; Start 04/01/17 at 09:00 Spironolactone (Aldactone) 25 mg BID PO Last administered on 04/04/17 09:17; Admin Dose 25 MG; Start 04/01/17 at 09:00 Thiamine HCl 50 mg 50 mg QAM PO Last administered on 04/04/17 09:17; Admin Dose 50 MG; Start 04/01/17 at 09:00 Piperacillin Sod/ Tazobactam Sod (Zosyn 3.375gm/ 100 ml (Pmx)) 100 ml @ 200 mls /hr Q6 IVPB Last administered on 04/04/17 06:18; Admin Dose 200 MLS/HR; Start 04/01/17 at 12:00 Pantoprazole (Protonix Tab) 40 mg DAILY@06 PO Last administered on 04/04/17 06:18; Admin Dose 40 MG; Start 04/01/17 at 12:30 NISHI SIMS MD Apr 04, 2017 10:26
--- NOTE | 2017-04-04 13:03 | PN ---
Date/Time of Note Date/Time of Note DATE: 04/04/17 TIME: 13:01 Assessment/Plan VTE Prophylaxis VTE Prophylaxis Intervention: SCD's Lines/Catheters IV C[facility]ter Type (from [facility] Saline Lock Urinary Cath still in place: No Assessment/Plan Chief Complaint/Hosp Course Summary Assessment and Plan: Assessment: End stage alcoholic liver disease with ascites - on transplant list at [facility] Abdominal pain- likely secondary to ascites Macrocytic anemia- likely secondary to cirrhosis Gram-negative bacteremia- on antibiotics Plan: Continue PPI Paracentesis done yesterday- removed 6.7 liters Fluid cx- pending- no growth as of yet Pt will need to follow-up as an out-patient to reevaluate esophageal varices Pt seen in collaboration with Dr. Lin Subjective: Course reviewed with nursing staff Patient interviewed and examined All labs, imaging and other results reviewed The patient feeling much better post paracentesis, he states the "pressure" feeling he had in his chest has resolved. No c/o nausea or vomiting Tolerating diet well Has been afebrile. PHYSICAL EXAMINATION: GENERAL: Well developed, well nourished, alert & oriented x 3, in no acute distress SKIN: No lesions, stigmata of chronic liver disease, no evidence of bleeding diathesis, jaundice LYMPHATIC: No palpable lymphadenopathy. HEAD: Normocephalic, atraumatic, no tenderness. EYES: Pupils equal reactive to light and accommodation, full extraocular movements, icteric, no discharge. EARS/NOSE AND THROAT: Ears normal, nose normal, oropharynx normal, oral membranes well hydrated without lesions. NECK: Supple, no masses, thyroid normal, JVP within normal limits, carotids normal without bruits. CHEST: Inspection within normal limits. CARDIOVASCULAR: Heart: Regular rate and rhythm, no murmurs, gallops or rubs. Peripheral pulses present within normal limits, no cyanosis, clubbing or edemas. No pulsatile abdominal mass RESPIRATORY: Lungs clear to auscultation and percussion, no wheezing, no rubs GASTROINTESTINAL AND LIVER: Abdomen: less distended, no hernias, no masses, ascites, no guarding, no rebound tenderness, normoactive bowel sounds. Rectal: Deferred. GENITOURINARY: Male genitalia within normal limits. EXTREMITIES: BLE edema. Problems: Exam/Review of Systems Vital Signs Vitals Vital Signs Date Time Temp Pulse Resp B/P Pulse Ox O2 Delivery O2 Flow Rate FiO2 04/04/17 12:37 62 04/04/17 12:36 98.7 17 100/56 99 04/03/17 10:15 Room Air Intake and Output 04/03/17 04/03/17 04/04/17 15:00 23:00 07:00 Intake Total 200 ml 600 ml Output Total 6400 ml Balance -6400 ml 200 ml 600 ml Results Result Diagram: 04/03/17 0749 04/03/17 0749 Medications Medications Current Medications Lorazepam (Ativan) 0.5 mg Q6H PRN IV ANXIETY Last administered on 04/03/17 21 :42; Admin Dose 0.5 MG; Start 04/01/17 at 04:00 Ondansetron HCl (Zofran Inj) 4 mg Q6H PRN IV NAUSEA AND/OR VOMITING; Start at 04:00 Morphine Sulfate (morphine) 2 mg Q4H PRN IV PAIN LEVEL 7-10 Last administered on 04/03/17 09:19; Admin Dose 2 MG; Start 04/01/17 at 04:00 Folic Acid (Folic Acid) 1 mg DAILY PO Last administered on 04/04/17 09:17; Admin Dose 1 MG; Start 04/01/17 at 09:00 Furosemide (Lasix) 20 mg Q8 PO Last administered on 04/04/17 06:22; Admin Dose 20 MG; Start 04/01/17 at 06:00 Spironolactone (Aldactone) 25 mg BID PO Last administered on 04/04/17 09:17; Admin Dose 25 MG; Start 04/01/17 at 09:00 Thiamine HCl 50 mg 50 mg QAM PO Last administered on 04/04/17 09:17; Admin Dose 50 MG; Start 04/01/17 at 09:00 Piperacillin Sod/ Tazobactam Sod (Zosyn 3.375gm/ 100 ml (Pmx)) 100 ml @ 200 mls /hr Q6 IVPB Last administered on 04/04/17 12:35; Admin Dose 200 MLS/HR; Start 04/01/17 at 12:00 Pantoprazole (Protonix Tab) 40 mg DAILY@06 PO Last administered on 04/04/17 06:18; Admin Dose 40 MG; Start 04/01/17 at 12:30 Lactulose (Enulose) 5 gm DAILY PO ; Start 04/05/17 at 09:00 ANKITA YA Apr 04, 2017 13:03
[2017-04-04] MEDS: LORAZEPAM 2 MG INJ IV PRN (21:22)
[2017-04-05] VITALS (12 sets, daily range): BP systolic 86–101; BP diastolic 50–61; PULSE 70–80; RESP 16–18
[2017-04-05] MEDS: PANTOPRAZOLE (EC) 40 MG TAB PO SCH (06:03)
[2017-04-05] MEDS: FUROSEMIDE 20 MG TAB PO SCH ×2 (06:04→13:53)
[2017-04-05] MEDS ORDERED: LACTULOSE 30ML CUP PO SCH (09:00)
[2017-04-05] MEDS: FOLIC ACID 1 MG TAB PO SCH (09:12)
[2017-04-05] MEDS: SPIRONOLACTONE 25 MG TAB PO SCH (09:12)
[2017-04-05] MEDS: THIAMINE 100 MG TAB PO SCH (09:12)
--- NOTE | 2017-04-05 09:43 | PN ---
Date/Time of Note Date/Time of Note DATE: 04/05/17 TIME: 09:43 Assessment/Plan VTE Prophylaxis VTE Prophylaxis Intervention: SCD's Lines/Catheters IV [facility]ter Type (from [facility]): Saline Lock Urinary Cath still in place: No Assessment/Plan Assessment/Plan 1. Gram-negative bacteremia- resolved - Initial blood cultures grew Enterococcus - Repeat blood cultures negative - Spoke with Dr. Turner who believes Enterococcus was contaminant and no need for further antibiotic treatment at this time. - Patients WBC normalized and remains afebrile 2. Abdominal pain 2/2 Ascites - improvement after paracentesis. fluid cultures no growth - Cell count not suspicious for SBP 3. End stage alcoholic liver disease with ascites - on transplant list at [facility] - GI on board and recommendations appreciated. Advised patient to follow up with Dr. Lin for evaluation of esophageal varices given had banding performed in December 2016 - Continue on current medications - Tolerating normal diet - Discussed to limit salt intake and take lactulose with goal of 3-4 BMs per day 4. Anemia - stable 5. Disposition - medically stable for discharge home Subjective 24 Hr Interval Summary Free Text/Dictation Patient states hes feeling better and tolerating diet. Spoke about dietary restrictions and ways to prevent rehospitalizations. No acute overnight events or new complaints. Exam/Review of Systems Vital Signs Vitals Vital Signs Date Time Temp Pulse Resp B/P Pulse Ox O2 Delivery O2 Flow Rate FiO2 04/05/17 09:13 79 101/61 04/05/17 07:50 98.0 18 97 04/03/17 10:15 Room Air Intake and Output 04/04/17 04/04/17 04/05/17 15:00 23:00 07:00 Intake Total 1200 ml 900 ml Output Total 1500 ml Balance -300 ml 900 ml Exam General: Patient in NAD. awake and alert Head: Normocephalic atraumatic Eyes: EOMI, pupils reactive to light, icteric Neck: Supple, nontender, midline Respiratory: Clear to auscultation bilaterally Cardiovascular: regular rate, no obvious murmurs Gastrointestinal: soft, nontender, mild distension, bowel sounds heard. no rebound or guarding Neurological: Moves all extremities spontaneously Results Result Diagram: 04/03/17 0749 04/03/17 0749 Medications Medications Current Medications Lorazepam (Ativan) 0.5 mg Q6H PRN IV ANXIETY Last administered on 04/04/17 21 :22; Admin Dose 0.5 MG; Start 04/01/17 at 04:00 Ondansetron HCl (Zofran Inj) 4 mg Q6H PRN IV NAUSEA AND/OR VOMITING; Start at 04:00 Morphine Sulfate (morphine) 2 mg Q4H PRN IV PAIN LEVEL 7-10 Last administered on 04/03/17 09:19; Admin Dose 2 MG; Start 04/01/17 at 04:00 Folic Acid (Folic Acid) 1 mg DAILY PO Last administered on 04/05/17 09:12; Admin Dose 1 MG; Start 04/01/17 at 09:00 Furosemide (Lasix) 20 mg Q8 PO Last administered on 04/05/17 06:04; Admin Dose 20 MG; Start 04/01/17 at 06:00 Spironolactone (Aldactone) 25 mg BID PO Last administered on 04/05/17 09:12; Admin Dose 25 MG; Start 04/01/17 at 09:00 Thiamine HCl (Vitamin B1) 50 mg QAM PO Last administered on 04/05/17 09:12; Admin Dose 50 MG; Start 04/01/17 at 09:00 Pantoprazole (Protonix Tab) 40 mg DAILY@06 PO Last administered on 04/05/17 06 :03; Admin Dose 40 MG; Start 04/01/17 at 12:30 Lactulose (Enulose) 5 gm DAILY PO ; Start 04/05/17 at 09:00 NISHI SIMS MD Apr 05, 2017 09:43
[2017-04-05] MEDS ORDERED: PANT40TA4 PO (09:51)
--- NOTE | 2017-04-05 09:53 | PDOCDIS ---
Discharge Instructions DIAGNOSIS Discharge Diagnosis 1. Gram-negative bacteremia- resolved 2. Abdominal pain 2/2 Ascites s/p paracentesis 3. End stage alcoholic liver disease with ascites - on transplant list at [facility] 4. Anemia CONDITION Patient Condition: Good HOME CARE INSTRUCTIONS: Diet Instructions: Low Fat /Cholesterol ACTIVITY: Activity Restrictions: No Restrictions FOLLOW UP/APPOINTMENTS Follow-up Plan 1. Take Lactulose 5cc and titrate dose with goal of 3-4 bowel movements a day 2. Limit salt intake to 2 grams daily 3. Follow up with GI in 2 weeks for evaluation of esophageal varices 4. Follow up with your jive developer as previously scheduled 5. Continue on Pantoprazole daily 6. Follow up with your primary care physician in 1 week REFERRALS Other Referrals Kenny Lin MD Specialty: Gastroenterology Office Address [id number] [address] Office NISHI SIMS MD Apr 05, 2017 09:53
--- NOTE | 2017-04-05 09:53 | PDOCDIS ---
Discharge Instructions DIAGNOSIS Discharge Diagnosis 1. Gram-negative bacteremia- resolved 2. Abdominal pain 2/2 Ascites s/p paracentesis 3. End stage alcoholic liver disease with ascites - on transplant list at [facility] 4. Anemia CONDITION Patient Condition: Good HOME CARE INSTRUCTIONS: Diet Instructions: Low Fat /Cholesterol ACTIVITY: Activity Restrictions: No Restrictions FOLLOW UP/APPOINTMENTS Follow-up Plan 1. Take Lactulose 5cc and titrate dose with goal of 3-4 bowel movements a day 2. Limit salt intake to 2 grams daily 3. Follow up with GI in 2 weeks for evaluation of esophageal varices 4. 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 Continue on Pantoprazole daily 6. Follow up with your primary care physician in 1 week REFERRALS Other Referrals Kenny Lin MD Specialty: Gastroenterology Office Address [id number] [address] Office NISHI SIMS MD Apr 05, 2017 09:53
--- NOTE | 2017-04-05 09:53 | PDOCDIS ---
Discharge Instructions DIAGNOSIS Discharge Diagnosis 1. Gram-negative bacteremia- resolved 2. Abdominal pain 2/2 Ascites s/p paracentesis 3. End stage alcoholic liver disease with ascites - on transplant list at [facility] 4. Anemia CONDITION Patient Condition: Good HOME CARE INSTRUCTIONS: Diet Instructions: Low Fat /Cholesterol ACTIVITY: Activity Restrictions: No Restrictions FOLLOW UP/APPOINTMENTS Follow-up Plan 1. Take Lactulose 5cc and titrate dose with goal of 3-4 bowel movements a day 2. Limit salt intake to 2 grams daily 3. Follow up with GI in 2 weeks for evaluation of esophageal varices 4. Follow up with your stave planer tender as previously scheduled 5. Continue on Pantoprazole daily 6. Follow up with your primary care physician in 1 week REFERRALS Other Referrals Kenny Lin MD Specialty: Gastroenterology Office Address [address] [address] Office NISHI SIMS MD Apr 05, 2017 09:53
--- NOTE | 2017-04-05 11:16 | PN ---
Date/Time of Note Date/Time of Note DATE: 04/05/17 TIME: 11:10 Assessment/Plan VTE Prophylaxis VTE Prophylaxis Intervention: SCD's Lines/Catheters [facility] Saline Lock Urinary Cath still in place: No Assessment/Plan Chief Complaint/Hosp Course Summary Assessment and Plan: Assessment: End stage alcoholic liver disease with ascites - on transplant list at [facility] Abdominal pain- likely secondary to ascites Macrocytic anemia- likely secondary to cirrhosis Gram-negative bacteremia- on antibiotics Plan: Continue PPI Paracentesis done yesterday- removed 6.7 liters Fluid cultures without growth Cell count not suspicious for SBP Pt will need to follow-up as an out-patient for EGD to reevaluate esophageal varices Cleared by GI for D/c Pt seen in collaboration with Dr. Lin Subjective: Course reviewed with nursing staff Patient interviewed and examined All labs, imaging and other results reviewed Patient feeling better today, no c/o abd pain nausea or vomiting No growth from fluid cx- Ok to for discharge by GI F/u with outpatient EGD to reevaluate esophageal varices PHYSICAL EXAMINATION: GENERAL: Well developed, well nourished, alert & oriented x 3, in no acute distress SKIN: No lesions, stigmata of chronic liver disease, no evidence of bleeding diathesis, jaundice LYMPHATIC: No palpable lymphadenopathy. HEAD: Normocephalic, atraumatic, no tenderness. EYES: Pupils equal reactive to light and accommodation, full extraocular movements, icteric, no discharge. EARS/NOSE AND THROAT: Ears normal, nose normal, oropharynx normal, oral membranes well hydrated without lesions. NECK: Supple, no masses, thyroid normal, JVP within normal limits, carotids normal without bruits. CHEST: Inspection within normal limits. CARDIOVASCULAR: Heart: Regular rate and rhythm, no murmurs, gallops or rubs. Peripheral pulses present within normal limits, no cyanosis, clubbing or edemas. No pulsatile abdominal mass RESPIRATORY: Lungs clear to auscultation and percussion, no wheezing, no rubs GASTROINTESTINAL AND LIVER: Abdomen: less distended, no hernias, no masses, ascites, no guarding, no rebound tenderness, normoactive bowel sounds. Rectal: Deferred. GENITOURINARY: Male genitalia within normal limits. EXTREMITIES: BLE edema. Problems: Exam/Review of Systems Vital Signs Vitals Vital Signs Date Time Temp Pulse Resp B/P Pulse Ox O2 Delivery O2 Flow Rate FiO2 04/05/17 09:13 79 101/61 04/05/17 07:50 98.0 18 97 04/03/17 10:15 Room Air Intake and Output 04/04/17 04/04/17 04/05/17 15:00 23:00 07:00 Intake Total 1200 ml 900 ml Output Total 1500 ml Balance -300 ml 900 ml Results Result Diagram: 04/03/17 0749 04/03/17 0749 Medications Medications Current Medications Lorazepam (Ativan) 0.5 mg Q6H PRN IV ANXIETY Last administered on 04/04/17 21 :22; Admin Dose 0.5 MG; Start 04/01/17 at 04:00 Ondansetron HCl (Zofran Inj) 4 mg Q6H PRN IV NAUSEA AND/OR VOMITING; Start at 04:00 Morphine Sulfate (morphine) 2 mg Q4H PRN IV PAIN LEVEL 7-10 Last administered on 04/03/17 09:19; Admin Dose 2 MG; Start 04/01/17 at 04:00 Folic Acid (Folic Acid) 1 mg DAILY PO Last administered on 04/05/17 09:12; Admin Dose 1 MG; Start 04/01/17 at 09:00 Furosemide (Lasix) 20 mg Q8 PO Last administered on 04/05/17 06:04; Admin Dose 20 MG; Start 04/01/17 at 06:00 Spironolactone (Aldactone) 25 mg BID PO Last administered on 04/05/17 09:12; Admin Dose 25 MG; Start 04/01/17 at 09:00 Thiamine HCl (Vitamin B1) 50 mg QAM PO Last administered on 04/05/17 09:12; Admin Dose 50 MG; Start 04/01/17 at 09:00 Pantoprazole (Protonix Tab) 40 mg DAILY@06 PO Last administered on 04/05/17 06 :03; Admin Dose 40 MG; Start 04/01/17 at 12:30 Lactulose (Enulose) 5 gm DAILY PO ; Start 04/05/17 at 09:00 ANKITA YA Apr 05, 2017 11:16
[2017-04-05] MEDS ORDERED: MAGNESIUM SULFATE 4 GM/100 ML 100 ML IVPB ONE (15:00)
--- NOTE | 2017-04-05 17:13 | DS ---
Date/Time of Note Date/Time of Note DATE: 04/05/17 TIME: 17:00 Discharge Summary Admission/Discharge Info Admit Date/Time Apr 01, 2017 at 01:12 Discharge Date/Time 04/05/17 Discharge Diagnosis 1. Gram-negative bacteremia- resolved 2. Abdominal pain 2/2 Ascites s/p paracentesis 3. End stage alcoholic liver disease with ascites - on transplant list at [facility] 4. Anemia Patient Condition: Good Consults Surgery- Dr. Gamez GI- Dr. Lin Procedures Paracentesis Hx of Present Illness This is a 47-year-old male with a history of decompensated alcoholic liver cirrhosis, esophageal varices, recurrent lower extremity cellulitis and recurrent MSSA bacteremia who presented to the emergency department complaining of abdominal pain. Patient had been admitted here multiple times for recurrent cellulitis and for abdominal pain/ascites requiring large volume paracentesis. He said his current abdominal pain is diffuse and he has been noticing progressively worsening abdominal distention. Patient also has a persistent jaundice. He also reported nausea and nonbloody nonbilious vomiting. Last admission was 2 weeks ago for rectal bleeding which was thought to be from a hemorrhoid. Patient follows up at [facility] and he seems to be listed for liver transplant. . Hospital Course Patient was admitted for evaluated of abdominal distention and paracentesis was ordered. Patient was also found to have cholelithiasis on abdominal US and surgery was consulted. No surgical intervention was needed especially since patient was asymptomatic. Paracentesis was performed and 6.7 liters of fluid was removed which provided patient with great deal of relief. Fluid as well as cultures were sent which were negative for SBP or bacterial growth. GI was consulted as well and given patients history of recent variceal banding in December , follow up EGD was required after discharge. Patient was continued on home medications and diet slowly advanced. Patient was doing well and no longer was experiencing abdominal discomfort. He was also tolerating regular diet prior to discharge. Patient was counseled about importance of diet modification and follow up with specialists. patient was discharged home in good condition. Home Meds Active Scripts Pantoprazole* (Pantoprazole*) 40 Mg Tablet., 40 MG PO DAILY@06 for 30 Days, # 30 TAB Prov:NISHI SIMS MD 04/05/17 Spironolactone* (Aldactone*) 50 Mg Tablet, 25 MG PO BID, #60 TAB Prov:JS JACKSON MD 01/28/17 Reported Medications Lactulose* (Lactulose*) 10 Gm/15 Ml Solution, 10 GM PO BID, ML 04/01/17 Thiamine* (Vitamin B-1*) 100 Mg Tablet, 50 MG PO QAM, TAB 01/18/17 Folic Acid* (Folic Acid*) 1 Mg Tablet, 1 MG PO DAILY, TAB 01/18/17 Furosemide* (Furosemide*) 20 Mg Tablet, 20 MG PO TID, #60 TAB 01/18/17 Discontinued Scripts Amoxicillin/Potassium Clav (Amox-Clav 875-125 mg Tablet) 875-125 mg Tab, 1 TAB PO BID, #20 TAB Prov:TARA BURGOS MD 03/16/17 Follow-up Plan 1. Take Lactulose 5cc and titrate dose with goal of 3-4 bowel movements a day 2. Limit salt intake to 2 grams daily 3. Follow up with GI in 2 weeks for evaluation of esophageal varices 4. Follow up with your generator technician as previously scheduled 5. Continue on Pantoprazole daily 6. Follow up with your primary care physician in 1 week Primary Care Provider Gatito Hernandez MD Time spent on discharge: > 30 minutes Pending Labs Laboratory Tests Test 04/05/17 11:19 White Blood Count 4.410^3/ul (4.8-10.8) Red Blood Count 2.6110^6/ul (4.70-6.10) Hemoglobin 9.6g/dl (14.0-18.0) Hematocrit 28.0% (42.0-52.0) Mean Corpuscular Volume 107.3fl (82.0-101.0) Mean Corpuscular Hemoglobin 36.8pg (29.0-33.0) Mean Corpuscular Hemoglobin Concent 34.3g/dl (32.0-37.0) Red Cell Distribution Width 16.2% (11.5-14.5) Platelet Count 5410^3/UL (140-415) Mean Platelet Volume 10.2fl (7.4-10.4) Neutrophils % 45.5% (39.0-77.0) Lymphocytes % 22.1% (15.0-51.0) Monocytes % 15.3% (0.0-11.0) Eosinophils % 13.7% (0.0-7.0) Basophils % 1.8% (0.0-2.0) Nucleated Red Blood Cells % 0.0/100WBC (0.0-0.0) Neutrophils # 2.010^3/ul (1.6-7.5) Lymphocytes # 1.010^3/ul (0.8-2.9) Monocytes # 0.710^3/ul (0.3-0.9) Eosinophils # 0.610^3/ul (0.0-0.5) Basophils # 0.110^3/ul (0.0-0.1) Nucleated Red Blood Cells # 0.010^3/ul (0.0-0.0) Sodium Level 134mmol/L (135-144) Potassium Level 4.2mmol/L (3.5-5.1) Chloride Level 106mmol/L (97-110) Carbon Dioxide Level 20mmol/L (21-31) Anion Gap 12 (8-16) Blood Urea Nitrogen 16mg/dl (7-20) Creatinine 0.81mg/dl (0.61-1.24) Glucose Level 139mg/dl (70-220) Calcium Level 7.5mg/dl (8.4-10.2) Magnesium Level 1.6mg/dl (1.7-2.5) Total Bilirubin 3.2mg/dl (0.2-1.3) Direct Bilirubin 0.00mg/dl (0.00-0.20) Indirect Bilirubin 3.2mg/dl (0-1.1) Aspartate Amino Transf (AST/SGOT) 54IU/L (15-46) Alanine Aminotransferase (ALT/SGPT) 46IU/L (13-69) Alkaline Phosphatase 210IU/L (42-121) Total Protein 5.7g/dl (6.1-8.1) Albumin 1.9g/dl (3.3-4.9) Globulin 3.80g/dl (1.3-3.2) Albumin/Globulin Ratio 0.50 NISHI SIMS MD Apr 05, 2017 17:13
== END 2017-04-05 20:24 | disposition home or self-care (01) | DRG 433 ==
LOC: E/R 21:51 → MS4 04-01 01:12
PROVIDERS: ADMIT Internal Medicine; ATTEND Internal Medicine
PROC: 0W9G3ZZ Drainage of Peritoneal Cavity, Percutaneous Approach (ICD-10-PCS; principal; 2017-04-03)
DX: K70.31 Alcoholic cirrhosis of liver with ascites (principal); R78.81 Bacteremia; Z76.82 Awaiting organ transplant status; R17 Unspecified jaundice; B96.89 Other specified bacterial agents as the cause of diseases classified elsewhere; K80.20 Calculus of gallbladder without cholecystitis without obstruction; N20.0 Calculus of kidney; D53.9 Nutritional anemia, unspecified
CPT/HCPCS: 36415; 71010; 76705; 76775; 80048; 80053; 81003; 82042; 82150; 82945; 83605; 83615; 83690; 83735; 84100; 84157; 84484; 85025; 85610; 85730; 86850; 86900; 86901; 87040; 87070; 87086; 89051; 93005; 96374; 96375; J0692; J0696; J2060; J2270; J2543; J3370; J3475; J7030; J7042

== ENCOUNTER 2017-04-09 22:18 | Inpatient (IN) | payer OTHER ==
[~2017-04-09] VITALS: Ht 180.3 cm; Wt 94.9 kg
[~2017-04-09 22:18] MED LIST changes: -AMOX1TAB10 PO; +LACT10SO5 PO; +PANT40TA4 PO
[2017-04-09] MEDS ORDERED: CEFTRIAXONE 1 GM/50 ML (PMX) 50 ML IVPB STA (23:40)
[2017-04-09] MEDS ORDERED: morphine 4 MG/ML VIAL IV STA (23:40)
[2017-04-09] MEDS ORDERED: ONDANSETRON 4 MG INJ IV STA (23:40)
[2017-04-10] MEDS ORDERED: VANCOMYCIN 1 GM (PMX) 250 ML IVPB SCH
[2017-04-10 00:15] LABS: ABNORMAL IP MESSAGE 1; BASOPHILS % 0.6 % (0.0-2.0); EOSINOPHILS # 0.1 10^3/ul (0.0-0.5); EOSINOPHILS % 1.4 % (0.0-7.0); HEMATOCRIT 31.2 % (42.0-52.0); HEMOGLOBIN 10.7 g/dl (14.0-18.0); LYMPHOCYTES # 0.7 10^3/ul (0.8-2.9); LYMPHOCYTES % 11.6 % (15.0-51.0); MEAN CORPUSCULAR HEMOGLOBIN 36.8 pg (29.0-33.0); MEAN CORPUSCULAR HGB CONC 34.3 g/dl (32.0-37.0); MEAN CORPUSCULAR VOLUME 107.2 fl (82.0-101.0); MEAN PLATELET VOLUME 10.9 fl (7.4-10.4); MONOCYTE # 0.2 10^3/ul (0.3-0.9); MONOCYTES % 3.4 % (0.0-11.0); NEUTROPHIL # 5.2 10^3/ul (1.6-7.5); NEUTROPHILS % 81.4 % (39.0-77.0); PLATELET COUNT 59 10^3/UL (140-415); POSITIVE DIFF @See below; RED BLOOD COUNT 2.91 10^6/ul (4.70-6.10); RED CELL DISTRIBUTION WIDTH 16.1 % (11.5-14.5); WHITE BLOOD COUNT 6.4 10^3/ul (4.8-10.8)
[2017-04-10 00:39] LABS: ALBUMIN 2.6 g/dl (3.3-4.9); ALBUMIN/GLOBULIN RATIO 0.55; BILIRUBIN,DIRECT 0.2 mg/dl (0.00-0.20); BILIRUBIN,INDIRECT 5.5 mg/dl (0-1.1); BILIRUBIN,TOTAL 5.7 mg/dl (0.2-1.3); CALCIUM 8.8 mg/dl (8.4-10.2); CREATININE 1.06 mg/dl (0.61-1.24); POTASSIUM 4.6 mmol/L (3.5-5.1); TOTAL PROTEIN 7.3 g/dl (6.1-8.1)
--- NOTE | 2017-04-10 01:35 | ERD ---
ER Documentation Chief Complaint Chief Complaint abd pain/distention, hx of liver cirrhosis, HPI This is a very pleasant 47-year-old male with abdominal pain distention for the past 2-3 days. He also complains low-grade fevers. No nausea no vomiting no chills. No other current complaints. Pain started 2 days ago and is noted progressive abdominal distention since then. Patient has history of cirrhosis. Pain is mild to moderate in intensity and comes in waves with no exacerbating or alleviating factors ROS All systems reviewed and are negative except as per history of present illness. Medications Home Meds Active Scripts Pantoprazole* (Pantoprazole*) 40 Mg Tablet.dr, 40 MG PO DAILY@06 for 30 Days, # 30 TAB Prov:NISHI SIMS MD 04/05/17 Spironolactone* (Aldactone*) 50 Mg Tablet, 25 MG PO BID, #60 TAB Prov:JS JACKSON MD 01/28/17 Reported Medications Lactulose* (Lactulose*) 10 Gm/15 Ml Solution, 10 GM PO BID, ML 04/01/17 Thiamine* (Vitamin B-1*) 100 Mg Tablet, 50 MG PO QAM, TAB 01/18/17 Folic Acid* (Folic Acid*) 1 Mg Tablet, 1 MG PO DAILY, TAB 01/18/17 Furosemide* (Furosemide*) 20 Mg Tablet, 20 MG PO TID, #60 TAB 01/18/17 Allergies Allergies: Coded Allergies: ibuprofen (Unverified Allergy, Unknown, 04/09/17) PMhx/Soc Medical and Surgical Hx: pt denies Medical Hx, pt denies Surgical Hx History of Surgery: No Anesthesia Reaction: No Hx Neurological Disorder: No Hx Respiratory Disorders: No Hx Cardiac Disorders: No Hx Psychiatric Problems: No Hx Miscellaneous Medical Probl: Yes (liver failure (waiting for transplant), gallstones) Hx Alcohol Use: Yes (stopped 2015) Hx Substance Use: No Hx Tobacco Use: No Smoking Status: Never smoker Physical Exam Vitals Vital Signs Date Time Temp Pulse Resp B/P Pulse Ox O2 Delivery O2 Flow Rate FiO2 04/09/17 23:35 100.0 100 22 130/72 100 Room Air 04/09/17 22:42 100.0 91 20 110/53 100 Physical Exam Const: [] Head: Atraumatic Eyes: Normal Conjunctiva ENT: Normal External Ears, Nose and Mouth. Neck: Full range of motion..~ No meningismus. Resp: Clear to auscultation bilaterally Cardio: Regular rate and rhythm, no murmurs Abd: Soft, non tender, non distended. Normal bowel sounds Skin: No petechiae or rashes Back: No midline or flank tenderness Ext: No cyanosis, or edema Neur: Awake and alert Psych: Normal Mood and Affect Result Diagram: 04/09/17 2356 04/09/17 2356 Results 24 hrs Laboratory Tests Test 04/09/17 23:56 White Blood Count 6.410^3/ul Red Blood Count 2.9110^6/ul Hemoglobin 10.7g/dl Hematocrit 31.2% Mean Corpuscular Volume 107.2fl Mean Corpuscular Hemoglobin 36.8pg Mean Corpuscular Hemoglobin Concent 34.3g/dl Red Cell Distribution Width 16.1% Platelet Count 5910^3/UL Mean Platelet Volume 10.9fl Neutrophils % 81.4% Lymphocytes % 11.6% Monocytes % 3.4% Eosinophils % 1.4% Basophils % 0.6% Nucleated Red Blood Cells % 0.0/100WBC Neutrophils # 5.210^3/ul Lymphocytes # 0.710^3/ul Monocytes # 0.210^3/ul Eosinophils # 0.110^3/ul Basophils # 0.010^3/ul Nucleated Red Blood Cells # 0.010^3/ul Sodium Level 139mmol/L Potassium Level 4.6mmol/L Chloride Level 110mmol/L Carbon Dioxide Level 20mmol/L Anion Gap 14 Blood Urea Nitrogen 21mg/dl Creatinine 1.06mg/dl Glucose Level 132mg/dl Calcium Level 8.8mg/dl Total Bilirubin 5.7mg/dl Direct Bilirubin 0.20mg/dl Indirect Bilirubin 5.5mg/dl Aspartate Amino Transf (AST/SGOT) 61IU/L Alanine Aminotransferase (ALT/SGPT) 52IU/L Alkaline Phosphatase 240IU/L Total Protein 7.3g/dl Albumin 2.6g/dl Globulin 4.70g/dl Albumin/Globulin Ratio 0.55 Lipase 122U/L Current Medications Medications (Trade) Dose Ordered Sig/Abbe Route PRN Reason Start Time Stop Time Status Last Admin Dose Admin Morphine Sulfate (morphine) 4 mg ONCE STAT IV 04/09/17 23:40 04/09/17 23:42 DC 11/6/17 00:34 Ondansetron HCl 4 mg 4 mg ONCE STAT IV 04/09/17 23:40 04/09/17 23:42 DC 04/10/17 00:31 Ceftriaxone Sodium 50 ml @ 100 mls/hr ONCE STAT IVPB 04/09/17 23:40 04/10/17 00:09 DC 04/10/17 00:36 Vancomycin HCl (Vancocin) 250 ml @ 125 mls/hr ONCE IVPB 04/10/17 00:00 04/10/17 01:59 Procedures/MDM Medical decision-makin-year-old male with abdominal distention and fever. At this point patient was be considered a risk for spontaneous bacterial peritonitis. He has been cultured and started on antibiotics probably. Patient will be admitted to hospitalist. Departure Diagnosis: Primary Impression: Abdominal pain Abdominal location: unspecified location Qualified Code: R10.9 - Abdominal pain, unspecified abdominal location Condition: Serious JS RENO Apr 10, 2017 01:35
[2017-04-10 01:49] LABS: ADD UMIC YES; UR ASCORBIC ACID NEGATIVE (NEGATIVE); UR BILIRUBIN (Dip) NEGATIVE (NEGATIVE); UR BLOOD (Dip) 3+ mg/dL (NEGATIVE); UR CLARITY CLEAR (CLEAR); UR COLOR AMBER (YELLOW); UR GLUCOSE (Dip) NEGATIVE (NEGATIVE); UR KETONES (Dip) NEGATIVE (NEGATIVE); UR LEUKOCYTE ESTERASE (Dip) NEGATIVE Leu/ul (NEGATIVE); UR MUCUS FEW /HPF (NONE SEEN); UR NITRITE (Dip) NEGATIVE (NEGATIVE); UR RBC 9 /HPF (0-5); UR TOTAL PROTEIN (Dip) NEGATIVE (NEGATIVE); UR UROBILINOGEN (Dip) 2+ mg/dL (NEGATIVE)
[2017-04-10 02:53] VITALS: TEMP 99.1
[2017-04-10] MEDS ORDERED: NACL 0.9% 3 ML SYG IV SCH (03:00)
[2017-04-10] MEDS ORDERED: BISACODYL (EC) 5 MG TAB PO PRN (03:00)
[2017-04-10] MEDS ORDERED: ONDANSETRON 4 MG INJ IV PRN (03:00)
[2017-04-10] MEDS ORDERED: DOCUSATE SODIUM 100 MG CAP PO PRN (03:00)
[2017-04-10] MEDS ORDERED: ACETAMINOPHEN 325 MG TAB PO PRN (03:00)
[2017-04-10 03:10] VITALS: BP 112/72; RESP 19
[2017-04-10 03:35] VITALS: Ht 180.3 cm; Wt 94.9 kg
[2017-04-10 05:13] LABS: ABNORMAL IP MESSAGE 1; HEMATOCRIT 28.7 % (42.0-52.0); HEMOGLOBIN 9.7 g/dl (14.0-18.0); MEAN CORPUSCULAR HEMOGLOBIN 35.9 pg (29.0-33.0); MEAN CORPUSCULAR HGB CONC 33.8 g/dl (32.0-37.0); MEAN CORPUSCULAR VOLUME 106.3 fl (82.0-101.0); MEAN PLATELET VOLUME 11.1 fl (7.4-10.4); PLATELET COUNT 49 10^3/UL (140-415); POSITIVE DIFF @See below; RED CELL DISTRIBUTION WIDTH 15.9 % (11.5-14.5); WHITE BLOOD COUNT 11.2 10^3/ul (4.8-10.8)
[2017-04-10 05:32] LABS: INR 1.88; PROTIME 21.8 Sec (12.2-14.2); PT RATIO 1.7
[2017-04-10 05:43] LABS: ALBUMIN 2.2 g/dl (3.3-4.9); ALBUMIN/GLOBULIN RATIO 0.52; BILIRUBIN,DIRECT 0.2 mg/dl (0.00-0.20); BILIRUBIN,INDIRECT 5.8 mg/dl (0-1.1); CALCIUM 8.5 mg/dl (8.4-10.2); CREATININE 1.09 mg/dl (0.61-1.24); MAGNESIUM 1.4 mg/dl (1.7-2.5); POTASSIUM 4.5 mmol/L (3.5-5.1); TOTAL PROTEIN 6.4 g/dl (6.1-8.1)
[2017-04-10] MEDS: PANTOPRAZOLE (EC) 40 MG TAB PO SCH (06:26)
[2017-04-10 07:44] VITALS: BP 109/62; RESP 18
--- NOTE | 2017-04-10 07:49 | HP ---
Date/Time of Note Date/Time of Note DATE: 04/10/17 TIME: 07:48 Assessment/Plan VTE Prophylaxis VTE Prophylaxis Intervention: SCD's Lines/Catheters IV Catheter Type (from [facility]): Saline Lock Assessment/Plan Chief Complaint/Hosp Course This is a 47-year-old [facility]: #1 abdominal pain: Rule out SBP: Patient did present with a temperature of 100. White blood cell count was initially normal will continue to trend. He did receive a paracentesis approximately on the 2016. At the current time will order a paracentesis. Will also evaluate for SBP. Patient was started on cefotaxime. Will follow-up results. #2 decompensated liver cirrhosis with ascites: Patient is currently on transplant list at [facility]. His last drink was in May 2016. -will continue his home Lasix, Aldactone, and Lactulose. He recently underwent EGD here with finding of esophageal varices status post banding. He does not appear to be confused and is not displaying asterixis. Will check an ammonia level though nonetheless. Currently no signs of any hematemesis. #3. Macrocytic anemia secondary to end-stage liver disease: H&H is stable. Iron studies consistent with anemia of chronic disease #4 DVT and GI prophylaxis: SCDs, no GI prophylaxis indicated Further treatment strategy will be implemented for the clinical course Problems: HPI/ROS Admit Date/Time Admit Date/Time Apr 10, 2017 at 01:35 Hx of Present Illness Chief complaint: Abdominal pain, distention This is a very pleasant 47-year-old male with abdominal pain distention for the past 2-3 days. He also complains low-grade fevers. No nausea no vomiting no chills. No other current complaints. Pain started 2 days ago and is noted progressive abdominal distention since then. Patient has history of cirrhosis. Pain is mild to moderate in intensity and comes in waves with no exacerbating or alleviating factors. He last had a paracentesis on 04/03/2017 that drained approximately 6.4 L of fluid. Allergies: NKDA Medications: See WILBERTO DREW Const: As per HPI Eyes : No pain discharge or redness or change in visual acuity ENT: No pain, sore throat, congestion, congestion, dysphagia or discharge Respiratory: No shortness of breath, cough, sputum, wheezing, or pleuritic pain Cardiovascular: No chest pain, palpitation, PND, or edema GI : As per HPI Genitourinary: No dysuria, hematuria, flank pain , discharge or CVA tenderness Musculoskeletal: No joint pain, back pain, neck pain, restricted range of motion in neck or joints Skin: No rash, bruising or hives Neuro: No headache, dizziness, syncope, seizure, focal weakness Endocrine: No polyuria, polydipsia, temperature intolerance Psych: No hallucination, depression, anxiety or suicidal ideation PMH/Family/Social Past Medical History decompensated alcoholic liver cirrhosis, esophageal varices, recurrent lower extremity cellulitis and recurrent MSSA bacteremia Past Surgical History Paracentesis Social History Alcohol Use: sober (Since May 2016) Smoking Status: Never smoker Drug Use: none Exam/Review of Systems Vital Signs Vitals Vital Signs Date Time Temp Pulse Resp B/P Pulse Ox O2 Delivery O2 Flow Rate FiO2 04/10/17 03:10 98.1 97 19 112/72 97 04/10/17 02:53 Room Air Intake and Output 04/09/17 04/09/17 04/10/17 15:00 23:00 07:00 Intake Total 400 ml Balance 400 ml Exam Exam General: Patient is seen at the bedside lying in bed in no acute distress HEENT: Atraumatic, normocephalic. The pupils are equal, round and reactive. Extraocular motor are intact Neck: Supple with full range of motion. No rigidity or meningismus Chest: Nontender Lungs: Clear to auscultation bilaterally no crackles rales or wheezing Heart: Normal S1-S2, Regular rhythm and rate. Abdomen: Soft, distended, positive fluid wave, mild tenderness to palpation. Extremities: Normal to inspection, no edema no cyanosis Neurologic: Normal mental status, speech normal, cranial nerves II through XII are intact, motor and sensory are intact, no focal weakness, no asterixis, patient does not appear to be confused. Labs Result Diagram: 04/10/1744004/10/17440 Medications Medications Current Medications Folic Acid (Folic Acid) 1 mg DAILY PO ; Start 04/10/17 at 09:00 Furosemide (Lasix) 20 mg TID PO ; Start 04/10/17 at 09:00 Lactulose (Enulose) 10 gm BID PO ; Start 04/10/17 at 09:00 Pantoprazole (Protonix Tab) 40 mg DAILY@06 PO Last administered on 04/10/17t 06 :26; Admin Dose 40 MG; Start 04/10/17 at 06:00 Thiamine HCl (Vitamin B1) 50 mg QAM PO ; Start 04/10/17 at 09:00 Ondansetron HCl (Zofran Inj) 4 mg Q6H PRN IV NAUSEA AND/OR VOMITING; Start 04/10/17 at 03:00 Acetaminophen (Tylenol Tab) 650 mg Q6H PRN PO PAIN LEVEL 1-3 OR FEVER; Start 04/10/17 at 03:00 Docusate Sodium (Colace) 100 mg Q12H PRN PO CONSTIPATION; Start 04/10/17 at 03: 00 Bisacodyl 5 mg 5 mg DAILY PRN PO CONSTIPATION; Start 04/10/17 at 03:00 Cefotaxime Sodium/ Dextrose (Claforan 2gm/50 ml (Pmx)) 50 ml @ 100 mls/hr Q8 IVPB ; Start 04/10/17 at 06:00 JAMAR GUERRA Apr 10, 2017 07:49
[2017-04-10] MEDS ORDERED: SPIRONOLACTONE 50 MG TAB PO SCH (09:00)
[2017-04-10 09:04] LABS: ANISOCYTOSIS 2+ (0-0); MONOCYTES % (M) 3 % (0-11); MYELOCYTES % (M) 3 % (0-0); PLATELET ESTIMATE DECREASED; POIKILOCYTOSIS 3+ (0-0); POLYCHROMASIA 3+ (0-0)
[2017-04-10] MEDS: FUROSEMIDE 20 MG TAB PO SCH ×2 (09:39→13:00)
[2017-04-10] MEDS: CEFOTAXIME 2 GM/50 ML (PMX) 50 ML IVPB SCH ×3 (09:39→22:00)
[2017-04-10] MEDS: LACTULOSE 30ML CUP PO SCH ×2 (09:39→21:00)
[2017-04-10] MEDS: THIAMINE 100 MG TAB PO SCH (09:40)
[2017-04-10] MEDS: FOLIC ACID 1 MG TAB PO SCH (09:40)
[2017-04-10] MEDS ORDERED: KETOROLAC 15 MG INJ IV STA (10:38)
[2017-04-10] MEDS ORDERED: morphine 2 MG INJ IV ONE (11:00)
[2017-04-10] MEDS ORDERED: LIDOCAINE 1% (MPF) 5 ML VIAL ONE (12:06)
--- NOTE | 2017-04-10 12:13 | RADRPT ---
PROCEDURE: Ultrasound guided paracentesis. CLINICAL INDICATION: Ascites and shortness of breath. COMPARISON: 04/03/2017. TECHNIQUE: The risks, benefits, and alternatives were explained to the patient and/or the patient's family, inc luding but not limited to bleeding, infection, pain, visceral or vascular damage, shock, and . The patient and/or the patient's family understood the risks and the alternatives and wished to pro ceed with the procedure. Informed written consent was obtained. A procedural time out was performed . The patient's name, date of , and procedure to be performed were verified. Utilizing ultrasound guidance, optimal location for entry to the peritoneal cavity was ascertained. The overlying skin was prepped and draped in the usual sterile fashion. Approximately 10 ml of 1% Xylocaine was injected locally for pain control. Using ultrasound guidance, an 8 [place] catheter wa s introduced into the peritoneal cavity in the right lower quadrant without difficulty. FINDINGS: Initial images demonstrate ascites. Approximately 4.95 liters of serous fluid was aspirated and sen t for laboratory analysis. The patient tolerated the procedure well without complication. IMPRESSION: 1. Successful ultrasound-guided paracentesis. RPTAT: QQ .David Mosley MD, Date Time Electronically viewed and signed by .David Mosley MD, on 04/10/2017 12:12 .R/
[2017-04-10 13:13] VITALS: BP 99/50; PULSE 92; RESP 18
[2017-04-10 14:24] LABS: FLD MN% 12.1 %; FLD PMN% 87.9 %; FLD RBC 3000 /uL; FLD WBC 8560 /cmm
[2017-04-10 14:39] LABS: FLUID GLUCOSE 121 mg/dl; FLUID TYPE PARACENTESIS FLUID
[2017-04-10 14:40] LABS: FLUID LD 216 U/L; FLUID TOTAL PROTEIN < 2.0 g/dl; FLUID TYPE PARACENTESIS FLUID
[2017-04-10 14:41] LABS: FLUID AMYLASE < 30 U/L
[2017-04-10 15:01] VITALS: BP 96/53; RESP 18
[2017-04-10 15:54] LABS: FLD CLARITY CLOUDY; FLD COLOR YELLOW; FLD TYPE ASCITES
[2017-04-10 20:00] VITALS: BP 99/57; RESP 19
[2017-04-11 02:52] VITALS: BP 101/59; RESP 18
[2017-04-11 05:20] LABS: ABNORMAL IP MESSAGE 1; BASOPHILS % 0.3 % (0.0-2.0); EOSINOPHILS # 0.4 10^3/ul (0.0-0.5); EOSINOPHILS % 3.1 % (0.0-7.0); HEMATOCRIT 25.1 % (42.0-52.0); HEMOGLOBIN 8.7 g/dl (14.0-18.0); LYMPHOCYTES # 1.2 10^3/ul (0.8-2.9); LYMPHOCYTES % 9.9 % (15.0-51.0); MEAN CORPUSCULAR HEMOGLOBIN 37.2 pg (29.0-33.0); MEAN CORPUSCULAR HGB CONC 34.7 g/dl (32.0-37.0); MEAN CORPUSCULAR VOLUME 107.3 fl (82.0-101.0); MEAN PLATELET VOLUME 11.5 fl (7.4-10.4); MONOCYTE # 1.4 10^3/ul (0.3-0.9); MONOCYTES % 12.2 % (0.0-11.0); NEUTROPHIL # 8.7 10^3/ul (1.6-7.5); NEUTROPHILS % 73.4 % (39.0-77.0); PLATELET COUNT 42 10^3/UL (140-415); POSITIVE DIFF @See below; RED BLOOD COUNT 2.34 10^6/ul (4.70-6.10); RED CELL DISTRIBUTION WIDTH 15.3 % (11.5-14.5); WHITE BLOOD COUNT 11.8 10^3/ul (4.8-10.8)
[2017-04-11] MEDS: PANTOPRAZOLE (EC) 40 MG TAB PO SCH (05:34)
[2017-04-11] MEDS: traMADol 50 MG TAB PO PRN ×3 (05:35→20:22)
[2017-04-11] MEDS: CEFOTAXIME 2 GM/50 ML (PMX) 50 ML IVPB SCH ×3 (05:39→21:42)
[2017-04-11 05:42] LABS: CALCIUM 8.2 mg/dl (8.4-10.2); CREATININE 0.98 mg/dl (0.61-1.24); MAGNESIUM 1.6 mg/dl (1.7-2.5); POTASSIUM 4.6 mmol/L (3.5-5.1)
[2017-04-11 07:24] VITALS: BP 103/56; RESP 18
[2017-04-11] MEDS: THIAMINE 100 MG TAB PO SCH (08:21)
[2017-04-11] MEDS: LACTULOSE 30ML CUP PO SCH ×2 (08:21→21:00)
[2017-04-11] MEDS: FOLIC ACID 1 MG TAB PO SCH (08:21)
[2017-04-11] MEDS: FUROSEMIDE 40 MG TAB PO SCH (08:22)
[2017-04-11 09:44] VITALS: BP 101/57; PULSE 79; RESP 18
[2017-04-11] MEDS ORDERED: MAGNESIUM SULFATE 2 GM/50 ML 50 ML IVPB ONE (10:00)
--- NOTE | 2017-04-11 10:09 | PN ---
Date/Time of Note Date/Time of Note DATE: 04/11/17 TIME: 10:09 Assessment/Plan VTE Prophylaxis VTE Prophylaxis Intervention: ambulation Lines/Catheters IV Catheter Type (from [facility]): Saline Lock Urinary Cath still in place: No Assessment/Plan Chief Complaint/Hosp Course 47-year-old male with a history of decompensated liver cirrhosis/ascites who is currently on transplant list at [facility], presented to the emergency room with increased abdominal distention and pain. 1.Decompensated liver cirrhosis with ascites, Patient is currently on transplant list at [facility]. -Status post paracentesis with 5 L output. Blood culture growing gram-negative concerning for possible spontaneous bacterial peritonitis. -Continue cefotaxime for SBP prophylaxis,Lasix plus Aldactone. -Follow-up fluid Gram stain/culture and final blood cultures. -ID consult. 2. Thrombocytopenia of liver disease. Will monitor. Currently no indication to transfuse. 3. Hyponatremia, likely dilutional. No neurological deficits. Continue with fluid restrictions. 4. History of alcohol abuse. Quit May 2016. 5. Anemia of liver disease. H&H stable. Will monitor. 6. History of esophageal varices with status post banding. Prophylaxis: SCDs/PPI. Plan: Follow-up with fluid cultures, final blood cultures. Follow-up with ID recommendations. Patient was seen in collaboration with Dr. Sharma. Problems: Subjective 24 Hr Interval Summary Free Text/Dictation Patient had paracentesis yesterday with 5 L output. His abdomen remains distended but at baseline. He reports abdominal pain which is now improved from prior. Patient is afebrile. He has been tolerating diet. Exam/Review of Systems Vital Signs Vitals Vital Signs Date Time Temp Pulse Resp B/P Pulse Ox O2 Delivery O2 Flow Rate FiO2 04/11/17 09:44 79 18 101/57 98 Room Air 04/11/17 07:24 98.7 Intake and Output 04/10/17 04/10/17 04/11/17 15:00 23:00 07:00 Intake Total 50 ml 450 ml Output Total 200 ml Balance 50 ml 250 ml Exam General: Well developed,adequately built, not in any acute distress . HEENT: Normocephalic, Atraumatic, No laceration or hematoma; Eyes: PEERL, Conjunctiva clear, Anicteric sclera Neck: Supple without any lymphadenopathy, nontender, no JVD, no carotid bruits, trachea midline, no thyromegaly Cardiac: S1, S2 auscultated, regular rhythm and rate, no mumurs or gallop Pulmonary: Normal respiratory effort. Chest clear to auscultation bilaterally, no adventitious breath sounds GI: Abdomen distended and tender, with ascites. No masses, no rebound tenderness or guarding. Bowel sounds active on all four quadrants Genitourinary: Deferred Extremities: No cyanosis, clubbing, or edema. Pulses [2+] bilaterally. Full ROM on all four extremities. No focal weakness appreciated. Neurologic: Alert to person, place, time, and situation. Affect appropriate, intact sensation. Skin: Ashen skin. No ecchymosis, no rashes, or lesions Results Result Diagram: 04/11/17 0455 04/11/17 0438 Results 24 hrs Laboratory Tests Test 04/10/17 11:30 04/11/17 04:38 04/11/17 04:55 Body Fluid Type ASCITES Body Fluid Volume 650.0 Body Fluid Color YELLOW Body Fluid Appearance CLOUDY Body Fluid WBC 8560 Body Fluid RBC (Auto) 3000 Body Fluid Polynuclear WBCs (%) 87.9 Body Fluid Mononuclear Cells % Auto 12.1 Body Fluid Glucose 121 Body Fluid Total Protein < 2.0 Body Fluid Lactate Dehydrogenase 216 Body Fluid Amylase < 30 Sodium Level 132 L Potassium Level 4.6 Chloride Level 108 Carbon Dioxide Level 21 Anion Gap 8 Blood Urea Nitrogen 25 H Creatinine 0.98 Glucose Level 115 Calcium Level 8.2 L Magnesium Level 1.6 L White Blood Count 11.8 H Red Blood Count 2.34 L Hemoglobin 8.7 L Hematocrit 25.1 L Mean Corpuscular Volume 107.3 H Mean Corpuscular Hemoglobin 37.2 H Mean Corpuscular Hemoglobin Concent 34.7 Red Cell Distribution Width 15.3 H Platelet Count 42 L Mean Platelet Volume 11.5 H Neutrophils % 73.4 Lymphocytes % 9.9 L Monocytes % 12.2 H Eosinophils % 3.1 Basophils % 0.3 Nucleated Red Blood Cells % 0.0 Neutrophils # 8.7 H Lymphocytes # 1.2 Monocytes # 1.4 H Eosinophils # 0.4 Basophils # 0.0 Nucleated Red Blood Cells # 0.0 Medications Medications Current Medications Folic Acid (Folic Acid) 1 mg DAILY PO Last administered on 04/11/17 08:21; Admin Dose 1 MG; Start 04/10/17 at 09:00 Lactulose (Enulose) 10 gm BID PO Last administered on 04/11/17 08:21; Admin Dose 10 GM; Start 04/10/17 at 09:00 Pantoprazole (Protonix Tab) 40 mg DAILY@06 PO Last administered on 04/11/17 05 :34; Admin Dose 40 MG; Start 04/10/17 at 06:00 Thiamine HCl (Vitamin B1) 50 mg QAM PO Last administered on 04/11/17 08:21; Admin Dose 50 MG; Start 04/10/17 at 09:00 Ondansetron HCl (Zofran Inj) 4 mg Q6H PRN IV NAUSEA AND/OR VOMITING; Start 04/10/17 at 03:00 Acetaminophen (Tylenol Tab) 650 mg Q6H PRN PO PAIN LEVEL 1-3 OR FEVER; Start 04/10/17 at 03:00 Docusate Sodium (Colace) 100 mg Q12H PRN PO CONSTIPATION; Start 04/10/17 at 03: 00 Bisacodyl 5 mg 5 mg DAILY PRN PO CONSTIPATION; Start 04/10/17 at 03:00 Cefotaxime Sodium/ Dextrose (Claforan 2gm/50 ml (Pmx)) 50 ml @ 100 mls/hr Q8 IVPB Last administered on 04/11/17 05:39; Admin Dose 100 MLS/HR; Start at 06:00 Spironolactone (Aldactone) 100 mg DAILY PO ; Start 04/11/17 at 17:00 Furosemide (Lasix) 40 mg DAILY PO Last administered on 04/11/17 08:22; Admin Dose 40 MG; Start 04/11/17 at 09:00 Tramadol HCl 50 mg 50 mg Q6H PRN PO PAIN Last administered on 04/11/17 05:35; Admin Dose 50 MG; Start 04/10/17 at 22:00 Magnesium Sulfate (Magnesium Sulfate 2 Gm/50 ml) 50 ml @ 25 mls/hr ONCE ONCE IVPB Last administered on 04/11/17 09:37; Admin Dose 25 MLS/HR; Start at 10:00; Stop 04/11/17 at 11:59 DENNY MATTHEWS V. WELFARE INTERVIEWER Apr 11, 2017 10:09 DENNY MATTHEWS NP Apr 11, 2017 10:09 DENNY MATTHEWS NP Apr 11, 2017 10:09
--- NOTE | 2017-04-11 14:24 | CONS ---
DATE OF ADMISSION: 04/10/2017 DATE OF CONSULTATION: 04/11/2017 TYPE OF CONSULTATION: Infectious Disease. REASON FOR CONSULTATION: Antibiotic management. HISTORY OF PRESENT ILLNESS: Santy Meyer is a 47-year-old male who was admitted to [facility] floor for abdominal pain. Patient has had abdominal pain and distention for 2 to 3 days, along with low grade fever. He has no nausea or vomiting. The pain started 2 days ago and he notes progr essive abdominal distention since then. He has a history of cirrhosis of the liver and the pain is mild to moderate in intensity. He had a paracentesis on 04/03/2017 in which 6.4 liters of fluid was removed. PAST MEDICAL HISTORY: He has decompensated alcoholic liver disease, esophageal varices, recurrent l ower extremity cellulitis, recurrent methicillin-sensitive Staph aureus bacteremia. PAST SURGICAL HISTORY: Includes paracentesis. FAMILY HISTORY: Noncontributory. SOCIAL HISTORY: He does not smoke, drink or abuse drugs. He is sober since 05/2016. ALLERGIES: NONE TO PENICILLIN, SULFA OR FOODS. MEDICATIONS: Per chart. REVIEW OF SYSTEMS: Noncontributory. PHYSICAL EXAMINATION: GENERAL: The patient is an ill-appearing male who is awake, responsive, in no acute distress. VITAL SIGNS: Stable. He is afebrile. SKIN: Without generalized rash. HEENT: Within normal limits. NECK: Supple. LYMPH NODES: None palpable. CHEST: Decreased breath sounds at the bases. HEART: Without murmur or gallop. ABDOMEN: Soft, nontender, distended. He has positive fluid wave, tenderness to palpation, mild. EXTREMITIES: Without cyanosis, clubbing, or edema. RECTAL AND GENITAL: Deferred. NEUROLOGIC: No focal neurological abnormalities. ANCILLARY LABORATORY DATA: White count 11.2, H and H of 9.7 and 28.7, platelet count 49,000. BUN a nd creatinine 22 and 1.09. Random glucose of 154. IMPRESSION AND PLAN: Patient may very well have spontaneous bacterial peritonitis versus just decom pensated liver disease with ascites. He did undergo an EGD at [facility] with findings of esophageal varices status post banding. Currently, he is not confused. The patient was started on cefotaxime. He had successful ultrasound-guided paracentesis on the in which 4.95 liters of [place] fluid was removed. Currently on cefotaxime for possible spontaneous bacterial peritonitis. He has the body fluid culture pending, blood cultures, AFB culture and smear and fungal cultures. We will continue him on current therapy. I will dictate my findings to the hospitalist. Dictated By: DENNIS BRUCE MD, JD/HECTOR Conf#: [id number] DID#: [id number]
[2017-04-11 14:56] VITALS: BP 113/65; RESP 20
[2017-04-11] MEDS: SPIRONOLACTONE 50 MG TAB PO SCH (17:11)
[2017-04-11 17:15] VITALS: BP 108/64; PULSE 81
[2017-04-11 21:09] VITALS: BP 110/67; RESP 18
[2017-04-12 02:08] VITALS: BP 114/74; RESP 18
[2017-04-12] MEDS: traMADol 50 MG TAB PO PRN ×4 (02:24→23:03)
[2017-04-12 05:41] LABS: ABNORMAL IP MESSAGE 1; BASOPHIL # 0.1 10^3/ul (0.0-0.1); BASOPHILS % 0.7 % (0.0-2.0); EOSINOPHILS # 0.7 10^3/ul (0.0-0.5); EOSINOPHILS % 5.1 % (0.0-7.0); HEMATOCRIT 28.6 % (42.0-52.0); HEMOGLOBIN 9.8 g/dl (14.0-18.0); LYMPHOCYTES # 1.1 10^3/ul (0.8-2.9); LYMPHOCYTES % 7.9 % (15.0-51.0); MEAN CORPUSCULAR HEMOGLOBIN 36.3 pg (29.0-33.0); MEAN CORPUSCULAR HGB CONC 34.3 g/dl (32.0-37.0); MEAN CORPUSCULAR VOLUME 105.9 fl (82.0-101.0); MEAN PLATELET VOLUME 11.3 fl (7.4-10.4); MONOCYTE # 2.2 10^3/ul (0.3-0.9); NEUTROPHIL # 9.4 10^3/ul (1.6-7.5); PLATELET COUNT 61 10^3/UL (140-415); POSITIVE DIFF @See below; RED CELL DISTRIBUTION WIDTH 14.6 % (11.5-14.5); WHITE BLOOD COUNT 13.8 10^3/ul (4.8-10.8)
[2017-04-12] MEDS: CEFOTAXIME 2 GM/50 ML (PMX) 50 ML IVPB SCH ×3 (05:43→22:09)
[2017-04-12] MEDS: PANTOPRAZOLE (EC) 40 MG TAB PO SCH (05:43)
[2017-04-12 05:58] LABS: CALCIUM 8.6 mg/dl (8.4-10.2); CREATININE 0.87 mg/dl (0.61-1.24); MAGNESIUM 1.9 mg/dl (1.7-2.5); POTASSIUM 4.9 mmol/L (3.5-5.1)
[2017-04-12 07:59] VITALS: BP 123/65; RESP 18
[2017-04-12] MEDS: FUROSEMIDE 40 MG TAB PO SCH (08:04)
[2017-04-12] MEDS: LACTULOSE 30ML CUP PO SCH (08:04)
[2017-04-12] MEDS: THIAMINE 100 MG TAB PO SCH (08:04)
[2017-04-12] MEDS: SPIRONOLACTONE 50 MG TAB PO SCH (08:05)
[2017-04-12] MEDS: FOLIC ACID 1 MG TAB PO SCH (08:05)
--- NOTE | 2017-04-12 11:47 | PN ---
Date/Time of Note Date/Time of Note DATE: 04/12/17 TIME: 11:47 Assessment/Plan VTE Prophylaxis VTE Prophylaxis Intervention: ambulation, SCD's Lines/Catheters IV [facility] (from [facility] Saline Lock Urinary Cath still in place: No Assessment/Plan Chief Complaint/Hosp Course 47-year-old male with a history of decompensated liver cirrhosis/ascites who is currently on transplant list at [facility], presented to the emergency room with increased abdominal distention and pain. 1.Decompensated liver cirrhosis with ascites, Patient is currently on transplant list at [facility]. -Status post paracentesis with 5 L output. -Continue cefotaxime for SBP prophylaxis,Lasix plus Aldactone. -Follow-up fluid Gram stain/culture and final blood cultures. 2. Citrobacter braakii bacteremia on admission. Spontaneous bacterial peritonitis is difficult to exclude at this time. -Follow-up with fluid culture and Gram stain. Continue antibiotics. Follow-up with ID recommendations. 3. Thrombocytopenia of liver disease. No need for transfusion at this time. Will monitor. 4. Hyponatremia, likely dilutional from ascites. Today's sodium dropped to 129. -Obtain urine studies. Continue with fluid restriction and diuretics. 5. History of alcohol abuse. Quit May 2016. 6. Anemia of liver disease. H&H stable. Will monitor. 7. History of esophageal varices with status post banding. Prophylaxis: SCDs/PPI. Plan: Follow-up with fluid cultures, final blood cultures. Follow-up with ID recommendations. Patient was seen in collaboration with Dr. Sharma. Problems: Subjective 24 Hr Interval Summary Free Text/Dictation Patient remains slightly lethargic. He continued to have abdominal pain. Tolerates diet. No vomiting or nausea. Exam/Review of Systems Vital Signs Vitals Vital Signs Date Time Temp Pulse Resp B/P Pulse Ox O2 Delivery O2 Flow Rate FiO2 04/12/17 07:59 98.0 83 18 123/65 97 04/11/17 09:44 Room Air Intake and Output 04/11/17 04/11/17 04/12/17 14:59 22:59 06:59 Intake Total 100 ml 610 ml 290 ml Output Total 650 ml 100 ml Balance 100 ml -40 ml 190 ml Exam General: Well developed,adequately built, not in any acute distress . HEENT: Normocephalic, Atraumatic, No laceration or hematoma; Eyes: PEERL, Conjunctiva clear, Anicteric sclera Neck: Supple without any lymphadenopathy, nontender, no JVD, no carotid bruits, trachea midline, no thyromegaly Cardiac: S1, S2 auscultated, regular rhythm and rate, no mumurs or gallop Pulmonary: Normal respiratory effort. Chest clear to auscultation bilaterally, no adventitious breath sounds GI: Abdomen distended and tender, with ascites. No masses, no rebound tenderness or guarding. Bowel sounds active on all four quadrants Genitourinary: Deferred Extremities: No cyanosis, clubbing, or edema. Pulses [2+] bilaterally. Full ROM on all four extremities. No focal weakness appreciated. Neurologic: Alert to person, place, time, and situation. Affect appropriate, intact sensation. Skin: Ashen skin. No ecchymosis, no rashes, or lesions Results Result Diagram: 04/12/179 04/12/179 Results 24 hrs Laboratory Tests Test 04/12/17 04:49 White Blood Count 13.8 H Red Blood Count 2.70 L Hemoglobin 9.8 L Hematocrit 28.6 L Mean Corpuscular Volume 105.9 H Mean Corpuscular Hemoglobin 36.3 H Mean Corpuscular Hemoglobin Concent 34.3 Red Cell Distribution Width 14.6 H Platelet Count 61 #L Mean Platelet Volume 11.3 H Neutrophils % 68.0 Lymphocytes % 7.9 L Monocytes % 16.0 H Eosinophils % 5.1 Basophils % 0.7 Nucleated Red Blood Cells % 0.0 Neutrophils # 9.4 H Lymphocytes # 1.1 Monocytes # 2.2 H Eosinophils # 0.7 H Basophils # 0.1 Nucleated Red Blood Cells # 0.0 Sodium Level 129 L Potassium Level 4.9 Chloride Level 104 Carbon Dioxide Level 20 L Anion Gap 10 Blood Urea Nitrogen 27 H Creatinine 0.87 Glucose Level 109 Calcium Level 8.6 Magnesium Level 1.9 Medications Medications Current Medications Folic Acid (Folic Acid) 1 mg DAILY PO Last administered on 04/12/17 08:05; Admin Dose 1 MG; Start 04/10/17 at 09:00 Lactulose (Enulose) 10 gm BID PO Last administered on 04/12/17 08:04; Admin Dose 10 GM; Start 04/10/17 at 09:00 Pantoprazole (Protonix Tab) 40 mg DAILY@06 PO Last administered on 04/12/17 05 :43; Admin Dose 40 MG; Start 04/10/17 at 06:00 Thiamine HCl (Vitamin B1) 50 mg QAM PO Last administered on 04/12/17 08:04; Admin Dose 50 MG; Start 04/10/17 at 09:00 Ondansetron HCl (Zofran Inj) 4 mg Q6H PRN IV NAUSEA AND/OR VOMITING; Start 04/10/17 at 03:00 Acetaminophen (Tylenol Tab) 650 mg Q6H PRN PO PAIN LEVEL 1-3 OR FEVER; Start 04/10/17 at 03:00 Docusate Sodium (Colace) 100 mg Q12H PRN PO CONSTIPATION; Start 04/10/17 at 03: 00 Bisacodyl 5 mg 5 mg DAILY PRN PO CONSTIPATION; Start 04/10/17 at 03:00 Cefotaxime Sodium/ Dextrose (Claforan 2gm/50 ml (Pmx)) 50 ml @ 100 mls/hr Q8 IVPB Last administered on 04/12/17 05:43; Admin Dose 100 MLS/HR; Start at 06:00 Spironolactone (Aldactone) 100 mg DAILY PO Last administered on 04/12/17 08:05 ; Admin Dose 100 MG; Start 04/11/17 at 17:00 Furosemide (Lasix) 40 mg DAILY PO Last administered on 04/12/17 08:04; Admin Dose 40 MG; Start 04/11/17 at 09:00 Tramadol HCl (Ultram) 50 mg Q6H PRN PO PAIN Last administered on 04/12/17 09: 34; Admin Dose 50 MG; Start 04/10/17 at 22:00 DENNY MATTHEWS NP Apr 12, 2017 11:47
[2017-04-12 14:00] VITALS: BP 114/68; RESP 18
--- NOTE | 2017-04-12 14:19 | PN ---
DATE: 04/12/2017 SUBJECTIVE: No acute changes. The patient is awake, looks comfortable, no fevers. LABORATORIES: WBC today 13.8 with hemoglobin and hematocrit 9.8 and 28.6, platelets 61, neutrophils 68. BUN 27, creatinine 0.87. MICROBIOLOGY: Blood cultures on admission grew Citrobacter braakii. Intra-abdominal fluid culture had been negative. ANTIMICROBIALS: The patient is on cefotaxime. PHYSICAL EXAMINATION: GENERAL: Well-developed, middle-aged man who is alert, in no distress. HEENT: Head atraumatic, normocephalic. Sclerae anicteric. Buccal mucosa dry. NECK: Supple. CHEST: Rise symmetrical. Breath sounds clear, diminished to bases. HEART: S1, S2. ABDOMEN: Soft, bowel tones present. EXTREMITIES: Without cyanosis. ASSESSMENT: 1. Recurrent ascites, status post paracentesis with fluid cultures being negative; however spontane ous bacterial peritonitis is not ruled out. 2. Citrobacter braakii bacteremia on admission. 3. End-stage liver disease. 4. Anemia and thrombocytopenia. 5. History of esophageal varices banding. 6. History of ETOH abuse. 7. Hyponatremia. PLAN: The patient remains stable. We are going to keep him on current antibiotics for now. Repeat blood cultures. Anticipate discharge on oral Levaquin once he is medically cleared. Dictated By: JULIA HO HOGSHEAD BUILDER for DENNIS GREENBERG/HECTOR Conf#: [id number] DID#: [id number]
[2017-04-12 20:15] VITALS: BP 107/64; RESP 18
[2017-04-12] MEDS ORDERED: LACTULOSE 30ML CUP PO SCH (21:00)
[2017-04-13 03:07] VITALS: BP 119/71; RESP 18
[2017-04-13] MEDS: traMADol 50 MG TAB PO PRN ×2 (05:26→12:47)
[2017-04-13] MEDS: PANTOPRAZOLE (EC) 40 MG TAB PO SCH (05:26)
[2017-04-13] MEDS: CEFOTAXIME 2 GM/50 ML (PMX) 50 ML IVPB SCH (05:26)
[2017-04-13 07:19] LABS: CREATININE 0.93 mg/dl (0.61-1.24); POTASSIUM 4.8 mmol/L (3.5-5.1)
[2017-04-13 07:34] VITALS: BP 127/68; RESP 18
[2017-04-13] MEDS: FOLIC ACID 1 MG TAB PO SCH (08:35)
[2017-04-13] MEDS: SPIRONOLACTONE 50 MG TAB PO SCH ×3 (08:35→21:25)
[2017-04-13] MEDS: LACTULOSE 30ML CUP PO SCH ×2 (08:35→17:39)
[2017-04-13] MEDS: THIAMINE 100 MG TAB PO SCH (08:36)
[2017-04-13] MEDS: FUROSEMIDE 40 MG TAB PO SCH ×3 (08:49→21:24)
[2017-04-13] MEDS: morphine 2 MG INJ IV PRN ×2 (13:15→21:26)
[2017-04-13] MEDS ORDERED: LIDOCAINE 1% (MPF) 5 ML VIAL ONE (13:47)
--- NOTE | 2017-04-13 14:03 | RADRPT ---
PROCEDURE: Ultrasound guided paracentesis. CLINICAL INDICATION: Ascites and shortness of breath. COMPARISON: 04/10/2017. TECHNIQUE: The risks, benefits, and alternatives were explained to the patient and/or the patient's family, inc luding but not limited to bleeding, infection, pain, visceral or vascular damage, shock, and . The patient and/or the patient's family understood the risks and the alternatives and wished to pro ceed with the procedure. Informed written consent was obtained. A procedural time out was performed . The patient's name, date of , and procedure to be performed were verified. Utilizing ultrasound guidance, optimal location for entry to the peritoneal cavity was ascertained. The overlying skin was prepped and draped in the usual sterile fashion. Approximately 10 ml of 1% Xylocaine was injected locally for pain control. Using ultrasound guidance, an 8 [place] catheter wa s introduced into the peritoneal cavity in the right lower quadrant without difficulty. FINDINGS: Initial images demonstrate ascites. Approximately 4.7 liters of serous fluid was aspirated and disc arded. The patient tolerated the procedure well without complication. IMPRESSION: 1. Successful ultrasound-guided paracentesis. RPTAT: QQ .David Mosley MD, Date Time Electronically viewed and signed by .David Mosley MD, on 04/13/2017 14:03 .R/
--- NOTE | 2017-04-13 14:12 | PN ---
DATE: 04/13/2017 SUBJECTIVE: The patient is awake, very weak, complaining of pain. Complaining of no appetite. No fevers. No labs this morning. MICROBIOLOGY: Repeat blood cultures pending, initial blood culture grew on Citrobacter, pleural flu id cultures have been negative. ANTIMICROBIALS: The patient is on cefotaxime. PHYSICAL EXAMINATION: GENERAL: This is a well-developed, ill-appearing, 47-year-old man who is awake, in no dist ress. HEENT: Head atraumatic, normocephalic. Sclerae anicteric. Buccal mucosa dry. NECK: Supple. CHEST: Rise symmetrical. Breath sounds diminished to bases. HEART: S1, S2. ABDOMEN: Soft, slightly distended. Bowel tones hypoactive. EXTREMITIES: Bilateral trace lower extremity edema. ASSESSMENT: 1. Recurrent ascites, status post thoracentesis with fluid cultures being negative. 2. Citrobacter bacteremia. 3. Anemia. 4. End-stage liver disease. 5. History of ETOH abuse. PLAN: The patient remains stable. We will continue him on antibiotics. We can change cefotaxime t o Rocephin, await for repeat blood cultures. Continue supportive care. Dictated By: JULIA HO VASCULAR TECHNOLOGIST for DENNIS GREENBERG/HECTOR Conf#: [id number] DID#: [id number]
[2017-04-13 14:43] VITALS: BP 121/68; RESP 20
--- NOTE | 2017-04-13 14:50 | PN ---
Date/Time of Note Date/Time of Note DATE: 04/13/17 TIME: 14:49 Assessment/Plan VTE Prophylaxis VTE Prophylaxis Intervention: ambulation Lines/Catheters IV [facility]from [facility] Saline Lock Urinary Cath still in place: No Assessment/Plan Chief Complaint/Hosp Course 47-year-old male with a history of decompensated liver cirrhosis/ascites who is currently on transplant list at [facility], presented to the emergency room with increased abdominal distention and pain. 1.Decompensated liver cirrhosis with ascites, Patient is currently on transplant list at [facility]. Status post paracentesis with 5 L output. -Today patient with more abdominal distention pain, we will order ultrasound- guided paracentesis today. -Continue antibiotics per ID recommendations,Lasix plus Aldactone. -Follow-up fluid Gram stain/culture and final blood cultures. 2. Citrobacter braakii bacteremia on admission. Spontaneous bacterial peritonitis is difficult to exclude at this time. -Follow-up with fluid culture and Gram stain. Continue antibiotics. Follow-up with ID recommendations. 3. Thrombocytopenia of liver disease. No need for transfusion at this time. Will monitor. 4. Hyponatremia, likely dilutional from ascites. Sodium improved. - Continue with fluid restriction and diuretics. 5. History of alcohol abuse. Quit May 2016. 6. Anemia of liver disease. H&H stable. Will monitor. 7. History of esophageal varices with status post banding. Prophylaxis: SCDs/PPI. Plan: Follow-up with fluid cultures, repeat blood cultures. Follow-up with ID recommendations. If patient feels improvement over the next 24 hours, most likely he can be discharged with outpatient back up machine operator follow-up. We will also recommend up titration of Lasix and Aldactone upon discharge. Patient was seen in collaboration with Dr. Sharma. Problems: Subjective 24 Hr Interval Summary Free Text/Dictation Today patient with more abdominal distention and pain. He was unable to eat secondary to pain. Exam/Review of Systems Vital Signs Vitals Vital Signs Date Time Temp Pulse Resp B/P Pulse Ox O2 Delivery O2 Flow Rate FiO2 04/13/17 14:43 98.0 81 20 121/68 98 04/11/17 09:44 Room Air Intake and Output 04/12/17 04/12/17 04/13/17 15:00 23:00 07:00 Intake Total 50 ml 550 ml 290 ml Output Total 450 ml 200 ml Balance 50 ml 100 ml 90 ml Exam General: Well developed,adequately built, not in any acute distress . HEENT: Normocephalic, Atraumatic, No laceration or hematoma; Eyes: PEERL, Conjunctiva clear, Anicteric sclera Neck: Supple without any lymphadenopathy, nontender, no JVD, no carotid bruits, trachea midline, no thyromegaly Cardiac: S1, S2 auscultated, regular rhythm and rate, no mumurs or gallop Pulmonary: Normal respiratory effort. Chest clear to auscultation bilaterally, no adventitious breath sounds GI: Abdomen distended and tender, with ascites. No masses, no rebound tenderness or guarding. Bowel sounds active on all four quadrants Genitourinary: Deferred Extremities: No cyanosis, clubbing, or edema. Pulses [2+] bilaterally. Full ROM on all four extremities. No focal weakness appreciated. Neurologic: Alert to person, place, time, and situation. Affect appropriate, intact sensation. Skin: Ashen skin. No ecchymosis, no rashes, or lesions Results Result Diagram: 04/12/17 0449 04/13/17 0547 Results 24 hrs Laboratory Tests Test 04/13/17 05:47 Sodium Level 130 L Potassium Level 4.8 Chloride Level 102 Carbon Dioxide Level 21 Anion Gap 12 Blood Urea Nitrogen 31 H Creatinine 0.93 Glucose Level 108 Calcium Level 9.0 Medications Medications Current Medications Folic Acid (Folic Acid) 1 mg DAILY PO Last administered on 04/13/17 08:35; Admin Dose 1 MG; Start 04/10/17 at 09:00 Pantoprazole (Protonix Tab) 40 mg DAILY@06 PO Last administered on 04/13/17 05 :26; Admin Dose 40 MG; Start 04/10/17 at 06:00 Thiamine HCl (Vitamin B1) 50 mg QAM PO Last administered on 04/13/17 08:36; Admin Dose 50 MG; Start 04/10/17 at 09:00 Ondansetron HCl (Zofran Inj) 4 mg Q6H PRN IV NAUSEA AND/OR VOMITING; Start 04/10/17 at 03:00 Acetaminophen (Tylenol Tab) 650 mg Q6H PRN PO PAIN LEVEL 1-3 OR FEVER; Start 04/10/17 at 03:00 Docusate Sodium (Colace) 100 mg Q12H PRN PO CONSTIPATION; Start 04/10/17 at 03: 00 Bisacodyl (Dulcolax) 5 mg DAILY PRN PO CONSTIPATION; Start 04/10/17 at 03:00 Spironolactone (Aldactone) 100 mg DAILY PO Last administered on 04/13/17 08:35 ; Admin Dose 100 MG; Start 04/11/17 at 17:00; Status Future hold Furosemide (Lasix) 40 mg DAILY PO Last administered on 04/12/17 08:04; Admin Dose 40 MG; Start 04/11/17 at 09:00; Status Future hold Tramadol HCl (Ultram) 50 mg Q6H PRN PO PAIN Last administered on 04/13/17 12: 47; Admin Dose 50 MG; Start 04/10/17 at 22:00 Morphine Sulfate 2 mg 2 mg Q4H PRN IV PAIN Last administered on 04/13/17 13:15 ; Admin Dose 2 MG; Start 04/13/17 at 12:30 Ceftriaxone Sodium (Rocephin) 50 ml @ 100 mls/hr Q24H IVPB ; Start 04/13/17 at 14:00 DENNY MATTHEWS V. JUVENILE PROBATION OFFICER Apr 13, 2017 14:50
[2017-04-13] MEDS: CEFTRIAXONE 1 GM/50 ML (PMX) 50 ML IVPB SCH (16:55)
[2017-04-13 21:18] VITALS: BP 114/71; RESP 18
[2017-04-14] MEDS: morphine 2 MG INJ IV PRN ×2 (02:32→21:45)
[2017-04-14 02:58] VITALS: BP 109/66; RESP 18
[2017-04-14] MEDS: PANTOPRAZOLE (EC) 40 MG TAB PO SCH (05:40)
[2017-04-14 07:12] LABS: CALCIUM 8.5 mg/dl (8.4-10.2); CREATININE 0.77 mg/dl (0.61-1.24)
[2017-04-14 08:00] VITALS: BP 124/74; RESP 20
[2017-04-14] MEDS: traMADol 50 MG TAB PO PRN ×2 (08:38→15:16)
[2017-04-14] MEDS: LACTULOSE 30ML CUP PO SCH ×2 (08:38→18:05)
[2017-04-14] MEDS: FOLIC ACID 1 MG TAB PO SCH (08:40)
[2017-04-14] MEDS: THIAMINE 100 MG TAB PO SCH (08:40)
[2017-04-14] MEDS: FUROSEMIDE 40 MG TAB PO SCH ×2 (08:41→21:30)
[2017-04-14] MEDS: SPIRONOLACTONE 50 MG TAB PO SCH ×2 (08:41→21:30)
[2017-04-14] MEDS ORDERED: VANCOMYCIN IV PER PHARMACY XX SCH (10:00)
[2017-04-14] MEDS ORDERED: VANCOMYCIN 2 GM in SOD CHLORIDE 0.9% 500 ML IVPB ONE (11:00)
--- NOTE | 2017-04-14 12:04 | PN ---
Date/Time of Note Date/Time of Note DATE: 04/14/17 TIME: 12:02 Assessment/Plan VTE Prophylaxis VTE Prophylaxis Intervention: ambulation Lines/Catheters IV C[facility]ter Type (from [facility]): [facility]ine [facility] Urinary Cath still in place: No Assessment/Plan Chief Complaint/Hosp Course 47-year-old male with a history of decompensated liver cirrhosis/ascites who is currently on transplant list at [facility], presented to the emergency room with increased abdominal distention and pain. 1.Decompensated liver cirrhosis with ascites requiring multiple paracentesis. Patient is currently on transplant list at [facility]. Status post paracentesis with 4.7 L output 04/13/17 Status post paracentesis with 4.95 L output 04/10/17 -Continue antibiotics per ID recommendations,Lasix 80 + Aldactone 200. -Follow-up fluid Gram stain/culture and final blood cultures. 2.Sepsis with staph bacteremia with Possible SBP,present on admission -Continue broad spectrum IVabx- spoke with ID and further recs to add vancomycin 3. Thrombocytopenia of liver disease. No need for transfusion at this time. Will monitor. 4. Hyponatremia, likely dilutional from ascites. - Continue with fluid restriction and diuretics. 5. History of alcohol abuse. Quit May 2016. 6. Anemia of liver disease. H&H stable. Will monitor. 7. History of esophageal varices with status post banding. Prophylaxis: SCDs/PPI. Plan: PICC line in anticipation of care home IV abx. Follow-up with fluid cultures, repeat blood cultures. DC planning in next 24 hrs with 2 weeks Ceftriaxone+Vanco followed by 4 wks oral Bactrim for SBP prophylaxis per ID recs. Patient was seen in collaboration with Dr. Sharma. Problems: Subjective 24 Hr Interval Summary Free Text/Dictation Had paracentesis with 4.7 L outpt. Today patient feels better. Abdominal pain minimal.Tolerates diet. Exam/Review of Systems Vital Signs Vitals Vital Signs Date Time Temp Pulse Resp B/P Pulse Ox O2 Delivery O2 Flow Rate FiO2 04/14/17 08:00 97.8 94 20 124/74 96 04/11/17 09:44 Room Air Intake and Output 04/13/17 04/13/17 04/14/17 14:59 22:59 06:59 Intake Total 410 ml 300 ml Balance 410 ml 300 ml Exam General: Well developed,adequately built, not in any acute distress . HEENT: Normocephalic, Atraumatic, No laceration or hematoma; Eyes: PEERL, Conjunctiva clear, Anicteric sclera Neck: Supple without any lymphadenopathy, nontender, no JVD, no carotid bruits, trachea midline, no thyromegaly Cardiac: S1, S2 auscultated, regular rhythm and rate, no mumurs or gallop Pulmonary: Normal respiratory effort. Chest clear to auscultation bilaterally, no adventitious breath sounds GI: Abdomen distended and tender, with ascites. No masses, no rebound tenderness or guarding. Bowel sounds active on all four quadrants Genitourinary: Deferred Extremities: No cyanosis, clubbing, or edema. Pulses [2+] bilaterally. Full ROM on all four extremities. No focal weakness appreciated. Neurologic: Alert to person, place, time, and situation. Affect appropriate, intact sensation. Skin: Ashen skin. No ecchymosis, no rashes, or lesions Results Result Diagram: 04/12/17 0449 04/14/17 0521 Results 24 hrs Laboratory Tests Test 04/14/17 05:21 Sodium Level 128 L Potassium Level 5.0 Chloride Level 101 Carbon Dioxide Level 19 L Anion Gap 13 Blood Urea Nitrogen 34 H Creatinine 0.77 Glucose Level 88 Calcium Level 8.5 Medications Medications Current Medications Folic Acid (Folic Acid) 1 mg DAILY PO Last administered on 04/14/17 08:40; Admin Dose 1 MG; Start 04/10/17 at 09:00 Pantoprazole (Protonix Tab) 40 mg DAILY@06 PO Last administered on 04/14/17 05:40; Admin Dose 40 MG; Start 04/10/17 at 06:00 Thiamine HCl (Vitamin B1) 50 mg QAM PO Last administered on 04/14/17 08:40; Admin Dose 50 MG; Start 04/10/17 at 09:00 Ondansetron HCl (Zofran Inj) 4 mg Q6H PRN IV NAUSEA AND/OR VOMITING; Start 04/10/17 at 03:00 Acetaminophen (Tylenol Tab) 650 mg Q6H PRN PO PAIN LEVEL 1-3 OR FEVER; Start 04/10/17 at 03:00 Docusate Sodium (Colace) 100 mg Q12H PRN PO CONSTIPATION; Start 04/10/17 at 03: 00 Bisacodyl (Dulcolax) 5 mg DAILY PRN PO CONSTIPATION; Start 04/10/17 at 03:00 Tramadol HCl (Ultram) 50 mg Q6H PRN PO PAIN Last administered on 04/14/17 08: 38; Admin Dose 50 MG; Start 04/10/17 at 22:00 Morphine Sulfate 2 mg 2 mg Q4H PRN IV PAIN Last administered on 04/14/17 02: 32; Admin Dose 2 MG; Start 04/13/17 at 12:30 Ceftriaxone Sodium (Rocephin) 50 ml @ 100 mls/hr Q24H IVPB Last administered on 04/13/17 16:55; Admin Dose 100 MLS/HR; Start 04/13/17 at 14:00 Furosemide (Lasix) 40 mg BID PO Last administered on 04/14/17 08:41; Admin Dose 40 MG; Start 04/13/17 at 21:00 Spironolactone 100 mg 100 mg BID PO Last administered on 04/14/17 08:41; Admin Dose 100 MG; Start 04/13/17 at 21:00 Vancomycin HCl/ Dextrose/Water (Vancocin/D5W) 150 ml @ 75 mls/hr Q8H IVPB ; Start 04/14/17 at 19:00 DENNY MATTHEWS NP Apr 14, 2017 12:04 DENNY MATTHEWS NP Apr 14, 2017 12:04
--- NOTE | 2017-04-14 12:27 | CONS ---
Date/Time of Note Date/Time of Note DATE: 04/14/17 TIME: 12:24 Assessment/Plan Assessment/Plan Chief Complaint/Hosp Course SUBJECTIVE: The patient is awake, feels better. No fevers. MICROBIOLOGY: Repeat blood cultures + Staph, initial blood culture grew on Citrobacter, pleural fluid cultures have been negative. ANTIMICROBIALS: The patient is on cefotaxime. PHYSICAL EXAMINATION: GENERAL: This is a well-developed, ill-appearing, 47-year-old man who is awake, in no distress. HEENT: Head atraumatic, normocephalic. Sclerae anicteric. Buccal mucosa dry. NECK: Supple. CHEST: Rise symmetrical. Breath sounds diminished to bases. HEART: S1, S2. ABDOMEN: Soft, slightly distended. Bowel tones hypoactive. EXTREMITIES: Bilateral trace lower extremity edema. ASSESSMENT: 1. Recurrent ascites, status post thoracentesis yesterday==> + purulent fluid per patho 2. Citrobacter and Staph bacteremia. 3. Anemia. 4. End-stage liver disease. 5. History of ETOH abuse. PLAN: The patient remains stable. We will add Vanco, continue Rocephin. Recommend PICC, abx for 2+ weeks DW staff Problems: Consultation Date/Type/Reason Admit Date/Time Apr 10, 2017 at 01:35 Initial Consult Date Type of Consultation: id Exam/Review of Systems Vital Signs Vitals Vital Signs Date Time Temp Pulse Resp B/P Pulse Ox O2 Delivery O2 Flow Rate FiO2 04/14/17 08:00 97.8 94 20 124/74 96 04/11/17 09:44 Room Air Intake and Output 04/13/17 04/13/17 04/14/17 14:59 22:59 06:59 Intake Total 410 ml 300 ml Balance 410 ml 300 ml Results Result Diagram: 04/12/17 0449 04/14/17 0521 Results 24 hrs Laboratory Tests Test 04/14/17 05:21 Sodium Level 128 L Potassium Level 5.0 Chloride Level 101 Carbon Dioxide Level 19 L Anion Gap 13 Blood Urea Nitrogen 34 H Creatinine 0.77 Glucose Level 88 Calcium Level 8.5 Medications Medications Current Medications Folic Acid (Folic Acid) 1 mg DAILY PO Last administered on 04/14/17t 08:40; Admin Dose 1 MG; Start 04/10/17 at 09:00 Pantoprazole (Protonix Tab) 40 mg DAILY@06 PO Last administered on 04/14/17 05:40; Admin Dose 40 MG; Start 04/10/17 at 06:00 Thiamine HCl (Vitamin B1) 50 mg QAM PO Last administered on 04/14/17 08:40; Admin Dose 50 MG; Start 04/10/17 at 09:00 Ondansetron HCl (Zofran Inj) 4 mg Q6H PRN IV NAUSEA AND/OR VOMITING; Start 04/10/17 at 03:00 Acetaminophen (Tylenol Tab) 650 mg Q6H PRN PO PAIN LEVEL 1-3 OR FEVER; Start 04/10/17 at 03:00 Docusate Sodium (Colace) 100 mg Q12H PRN PO CONSTIPATION; Start 04/10/17 at 03: 00 Bisacodyl (Dulcolax) 5 mg DAILY PRN PO CONSTIPATION; Start 04/10/17 at 03:00 Tramadol HCl (Ultram) 50 mg Q6H PRN PO PAIN Last administered on 04/14/17 08: 38; Admin Dose 50 MG; Start 04/10/17 at 22:00 Morphine Sulfate 2 mg 2 mg Q4H PRN IV PAIN Last administered on 04/14/17 02: 32; Admin Dose 2 MG; Start 04/13/17 at 12:30 Ceftriaxone Sodium (Rocephin) 50 ml @ 100 mls/hr Q24H IVPB Last administered on 04/13/17 16:55; Admin Dose 100 MLS/HR; Start 04/13/17 at 14:00 Furosemide (Lasix) 40 mg BID PO Last administered on 04/14/17 08:41; Admin Dose 40 MG; Start 04/13/17 at 21:00 Spironolactone 100 mg 100 mg BID PO Last administered on 04/14/17 08:41; Admin Dose 100 MG; Start 04/13/17 at 21:00 Vancomycin HCl/ Dextrose/Water (Vancocin/D5W) 150 ml @ 75 mls/hr Q8H IVPB ; Start 04/14/17 at 19:00 Lidocaine (Xylocaine 1% (Mpf)) 5 ml ONCE ONCE SC ; Start 04/14/17 at 12:30; Stop 04/14/17 at 12:31 JULIA HO NP Apr 14, 2017 12:27
[2017-04-14] MEDS ORDERED: LIDOCAINE 1% (MPF) 5 ML VIAL SC ONE (12:30)
[2017-04-14 14:00] VITALS: BP 117/65; RESP 20
--- NOTE | 2017-04-14 16:57 | RADRPT ---
PROCEDURE: US guidance for PICC line CLINICAL INDICATION: PICC line placement TECHNIQUE: Multiple real-time images were acquired of the patient's arm utilizing a high resolutio n transducer. This was performed by the PICC line nurse for venous access. COMPARISON: None FINDINGS: Ultrasound guidance for PICC line placement. IMPRESSION: Ultrasound guidance for PICC line placement. RPTAT: AA .Jaime Jones MD, MD Date Time Electronically viewed and signed by .Jaime Jones MD, on 04/14/2017 16:57 .S/
--- NOTE | 2017-04-14 17:16 | RADRPT ---
PROCEDURE: XR Chest. CLINICAL INDICATION: PICC line placement TECHNIQUE: Single portable view of the chest was obtained. COMPARISON: 04/01/2017 FINDINGS: Cardiac/vascular structures: Normal cardiomediastinal silhouette. Pulmonary: Improved aeration with bibasilar air space opacities. No pleural effusion or pneumothora x. Osseous structures: Normal Soft tissues: Normal. Elevated right diaphragm. Left PICC tip over the right atrium. Recommend retracting 4 cm. IMPRESSION: Left PICC tip over the right atrium. Recommend retracting 4 cm. Improved aeration with residual bibasilar air space opacities representing atelectasis or pneumonia. RPTAT:AAJJ Physician Nuvia Date Time Electronically viewed and signed by Physician Nuvia on 04/14/2017 17:16 /
[2017-04-14] MEDS: CEFTRIAXONE 1 GM/50 ML (PMX) 50 ML IVPB SCH (18:05)
[2017-04-14] MEDS ORDERED: SOD CHLORIDE 0.9% 100 ML ONE (18:45)
[2017-04-14] MEDS ORDERED: VANCOMYCIN 750 MG in DEXTROSE 5% 150 ML IVPB SCH (19:00)
[2017-04-14 20:12] VITALS: BP 120/60; RESP 18
[2017-04-15] MEDS: VANCOMYCIN 750 MG in DEXTROSE 5% 150 ML IVPB SCH ×4 (02:00→17:50)
[2017-04-15 02:32] VITALS: BP 117/61; RESP 17
[2017-04-15] MEDS: PANTOPRAZOLE (EC) 40 MG TAB PO SCH (05:16)
[2017-04-15 05:46] LABS: ABNORMAL IP MESSAGE 1; BASOPHIL # 0.2 10^3/ul (0.0-0.1); BASOPHILS % 1.6 % (0.0-2.0); EOSINOPHILS # 0.1 10^3/ul (0.0-0.5); HEMATOCRIT 28.1 % (42.0-52.0); HEMOGLOBIN 9.8 g/dl (14.0-18.0); LYMPHOCYTES # 1.3 10^3/ul (0.8-2.9); LYMPHOCYTES % 11.2 % (15.0-51.0); MEAN CORPUSCULAR HEMOGLOBIN 36.6 pg (29.0-33.0); MEAN CORPUSCULAR HGB CONC 34.9 g/dl (32.0-37.0); MEAN CORPUSCULAR VOLUME 104.9 fl (82.0-101.0); MEAN PLATELET VOLUME 10.2 fl (7.4-10.4); MONOCYTE # 2.2 10^3/ul (0.3-0.9); NEUTROPHIL # 6.9 10^3/ul (1.6-7.5); NEUTROPHILS % 58.2 % (39.0-77.0); POSITIVE DIFF @See below; RED BLOOD COUNT 2.68 10^6/ul (4.70-6.10); RED CELL DISTRIBUTION WIDTH 14.7 % (11.5-14.5); WHITE BLOOD COUNT 11.8 10^3/ul (4.8-10.8)
[2017-04-15 06:05] LABS: MONOCYTES % 18.4 % (0.0-11.0); PLATELET COUNT 127 10^3/UL (140-415)
[2017-04-15 06:20] LABS: CALCIUM 8.5 mg/dl (8.4-10.2); CREATININE 0.84 mg/dl (0.61-1.24); POTASSIUM 4.4 mmol/L (3.5-5.1)
[2017-04-15 07:15] VITALS: BP 104/59; RESP 16
[2017-04-15] MEDS: THIAMINE 100 MG TAB PO SCH (08:45)
[2017-04-15] MEDS: SPIRONOLACTONE 50 MG TAB PO SCH (08:45)
[2017-04-15] MEDS: LACTULOSE 30ML CUP PO SCH ×2 (08:45→17:50)
[2017-04-15] MEDS: FUROSEMIDE 40 MG TAB PO SCH (08:45)
[2017-04-15] MEDS: FOLIC ACID 1 MG TAB PO SCH (08:45)
[2017-04-15] MEDS: traMADol 50 MG TAB PO PRN (09:28)
--- NOTE | 2017-04-15 10:04 | RADRPT ---
Echocardiogram Report Patient Name: ALLYSON LICONA Gender: Male Date: 1970 Study Date: 14-Apr-2017 Beck Operator: Deonna [facility] Location: 2249 Ref. Physician: JULIA HO Quality: Adequate Procedures: Transthoracic echocardiogram with complete 2D, M-Mode, and doppler examination. Indications: R/O Vegetation. 2D/M Mode Doppler Measurement Value Normal Ranges Measurement Value Normal Ranges LVIDd 2D 4.7 3.5 - 5.6 cm AV Peak Tom 2.0 m/sec LVIDs 2D 3.0 2.1 - 4.1 cm AV Peak PG 16.0 mmHg FS 2D 36.7 % LVOT Peak Tom 1.6 m/sec LVPWd 2D 1.0 0.6 - 1.1 cm LVOT Peak PG 10.0 mmHg IVSd 2D 1.1 0.6 - 1.1 cm MV E Peak Tom 0.9 m/sec IVS/LVPW 2D 1.1 MV A Peak Tom 0.7 m/sec AoR Diam 2D 2.8 2.0 - 3.7 cm MV E/A 1.3 LA/Ao 2D 1 0 - 1 MV Decel Time 204 msec EDV 2D 105.0 cm3 MV E/A 1.3 ESV 2D 26.7 cm3 TR Peak Tom 2.8 m/sec LA Dimen 2D 4.0 2.3 - 4.0 cm TR Peak PG 31.0 mmHg RVSP 34.0 mmHg Findings Left Ventricle: Normal left ventricular systolic function. Normal left ventricular cavity size. Normal left ventricular wall thickness. Ejection fraction is visually estimated at 65 %. Abnormal Diastolic Function. Right Ventricle: Normal right ventricular size. Normal right ventricular systolic function. Left Atrium: The left atrium is normal in size. Right Atrium: The right atrium is normal in size. Mitral Valve: Mild mitral leaflet calcification. Mild mitral annular calcification. Trace mitral regurgitation. Aortic Valve: Normal appearance of the aortic valve. No significant aortic stenosis or insufficiency. Tricuspid Valve: Normal appearance of the tricuspid valve. Estimated peak PA systolic pressure 34 mmHg. There is mild tricuspid regurgitation. Pulmonic Valve: Normal pulmonic valve appearance. There is trace pulmonic regurgitation. Pericardium: Normal pericardium with no significant pericardial effusion. Pleural effusion seen. Aorta: Normal aortic root. IVC: Normal size and normal respiratory collapse consistent with normal right atrial pressure. Conclusions 1.Normal left ventricular systolic function. Normal left ventricular cavity size. Normal left ventricular wall thickness. Ejection fraction is visually estimated at 65 %. Abnormal Diastolic Function. 2.Normal right ventricular size. Normal right ventricular systolic function. 3.Mild mitral leaflet calcification. Mild mitral annular calcification. Trace mitral regurgitation. 4.Normal appearance of the aortic valve. No significant aortic stenosis or insufficiency. 5.Normal appearance of the tricuspid valve. Estimated peak PA systolic pressure 34 mmHg. There is mild tricuspid regurgitation. 6.Normal pulmonic valve appearance. There is trace pulmonic regurgitation. 7.Normal size and normal respiratory collapse consistent with normal right atrial pressure. Electronically Signed By: Ronny Griffin 15-Apr-2017 10:03:57 -0800 Patient Name: ALLYSON LICONA Study Date: 14-Apr-[id number]
--- NOTE | 2017-04-15 10:12 | PDOCDIS ---
Discharge Instructions CONDITION Patient Condition: Stable HOME CARE INSTRUCTIONS: Special Diet: low chol low fat FOLLOW UP/APPOINTMENTS Follow-up Plan 1.Follow up with primary care physician in 1 week If you don't have one please let someone know, we can give you resources that may help you pick one. You may also call your insurance company to assign one to you. Review your medication list with your nurse before leaving and if you need new prescriptions please let your nurse know. I may have made changes to your home medications or given you new prescriptions, please let your primary doctor know as well. Stay compliant with your medications and report any side effects to your PCP or pharmacist. Return to the ER if you have any concerns and cannot reach your doctors or call your insurance company, they usually have a nurse that can help you. 2. Call 911 or go to the nearest emergency room if experiencing loss of consciousness, dizziness, chest pain, shortness of breath, vomiting/abdominal pain, speech difficulties, motor weakness or any unusual symptoms. DENNY MATTHEWS NP Apr 15, 2017 10:12
[2017-04-15] MEDS ORDERED: FURO40TA4 PO (10:22)
[2017-04-15] MEDS ORDERED: SPIR50TA PO (10:22)
[2017-04-15] MEDS ORDERED: LACT20SO2 PO (10:22)
[2017-04-15] MEDS ORDERED: CEFT1FRO2 IV (10:22)
[2017-04-15] MEDS ORDERED: TRAM50TA2 PO (10:25)
[2017-04-15] MEDS ORDERED: Vancomycin Iv Per Pharmacy XX (10:25)
--- NOTE | 2017-04-15 10:27 | DS ---
Date/Time of Note Date/Time of Note DATE: 04/15/17 TIME: 10:27 Discharge Summary Admission/Discharge Info Admit Date/Time Apr 10, 2017 at 01:35 Discharge Date/Time Discharge Diagnosis 1.Decompensated liver cirrhosis with ascites requiring multiple paracentesis. Patient is currently on transplant list at [facility]. Status post paracentesis with 4.7 L output 04/13/17 Status post paracentesis with 4.95 L output 04/10/17 2. Status post sepsis from staph bacteremia with Possible SBP,present on admission. Patient was sent home on 2 weeks IV antibiotics with further Bactrim for SBP prophylaxis. 3. Thrombocytopenia of liver disease. 4. Hyponatremia, likely dilutional from ascites. 5. History of alcohol abuse. Quit May 2016. 6. Anemia of liver disease. 7. History of esophageal varices with status post banding. Patient Condition: Stable Consults Dr. Turner, ID Procedures paracentesis with 4.7 L output 04/13/17 paracentesis with 4.95 L output 04/10/17 Left upper arm PICC line insertion, 04/14/2017. Hospital Course This is a very unfortunate 47-year-old male with a past medical history of alcohol abuse, decompensated alcoholic liver disease with ascites requiring multiple paracenteses who is now on transplant list at [facility], esophageal varices with status post banding, history of sepsis and staph bacteremia, presented to the emergency room with 3 day duration of worsening abdominal distention with pain and subjective fevers. Patient was admitted. On 04/10/2017, patient had ultrasound-guided paracentesis with 4.95 L output. Fluid appearance was cloudy and there was high concern for spontaneous bacterial peritonitis with recurrent ascites and decompensated liver cirrhosis. He was also in sepsis from staph bacteremia with Possible SBP. He was continued on broad-spectrum IV antibiotics per ID recommendations. Patient also had associated thrombocytopenia of liver disease for which he did not require any blood transfusion. Patient also had hypokalemia which was treated with fluid restriction and diuretics. Patient was then started on a diet. However, his abdominal distention got worse again and required another paracentesis on 04/13/2017 with 4.7 L output. Patient tolerated procedure well. He was kept in-house and did not have any further deterioration of abdominal distention. He was able to tolerate diet and activities well. Medical management was further maximized to 80 mg of Lasix with 200 mg Aldactone. At this time, as per ID recommendation, patient can be managed as outpatient and he will require 2 more weeks on IV ceftriaxone and vancomycin. Ascites fluid cultures without any growth. Repeat blood culture did not show any growth after 2 days. As per ID recommendation, patient is medically stable for discharge on 2 weeks IV vancomycin and ceftriaxone. However, due to recurrent ascites requiring paracentesis with pathology fluid in purulent nature, patient is at high risk for spontaneous bacterial peritonitis and would benefit from long-term SBP prophylaxis. Therefore, we recommended at least 6 weeks of Bactrim based on clinical evidence date as after his 2 weeks IV antibiotic course. 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 Disposition: Patient will be discharged home with outpatient ceramic research engineer follow -up and he has it arranged on week of April. Patient had home health arranged for continuation of IV antibiotics and he had PICC line inserted on left upper arm. Patient is no prescriptions were electronically prescribed to his preferred pharmacy. Patient and family verbalized discharge instructions. Approximately 60 minutes was spent in coordinating the discharge on this patient. Patient was seen in collaboration with Dr. Sharma. Home Meds Active Scripts Sulfamethoxazole/Trimethoprim* (Bactrim Ds* Tablet) 1 Each Tablet, 1 TAB PO BID for 42 Days, #84 TAB START FIRST DOSE ON 04/30/2017 AND CONTINUE FOR 6 WEEKS Prov:DENNY MATTHEWS NP 04/16/17 Tramadol HCl (Tramadol HCl) 50 Mg Tablet, 50 MG PO Q6H Y for PAIN, #30 TAB Prov:DENNY MATTHEWS NP 04/15/17 [Vancomycin Iv Per Pharmacy] 1 EA EACH No Conflict Check, 0 EA XX .PER PROTOCOL for 14 Days PHARMACY TO DOSE Prov:DENNY MATTHEWS NP 04/15/17 Ceftriaxone Na/Dextrose,Iso (Ceftriaxone 1 gm Piggyback) 1 Gm/50 Ml Froz.piggy, 1 GM IV Q24H, #14 SYR Prov:DENNY MATTHEWS NP 04/15/17 Lactulose* (Lactulose*) 20 Gm/30 Ml Solution, 20 GM PO DAILY, #30 DOSE Prov:DENNY MATTHEWS NP 04/15/17 Furosemide* (Furosemide*) 40 Mg Tablet, 40 MG PO BID, #60 TAB Prov:DENNY MATTHEWS V. SPACE SCHEDULER 04/15/17 Spironolactone* (Aldactone*) 50 Mg Tablet, 100 MG PO BID, #60 TAB Prov:DENNY MATTHEWS V. SPACE SCHEDULER 04/15/17 Pantoprazole* (Pantoprazole*) 40 Mg Tablet.dr, 40 MG PO DAILY@06 for 30 Days, # 30 TAB Prov:NISHI SIMS MD 04/05/17 Reported Medications Thiamine* (Vitamin B-1*) 100 Mg Tablet, 50 MG PO QAM, TAB 01/18/17 Folic Acid* (Folic Acid*) 1 Mg Tablet, 1 MG PO DAILY, TAB 01/18/17 Discontinued Reported Medications Lactulose* (Lactulose*) 10 Gm/15 Ml Solution, 10 GM PO BID, ML 04/01/17 Furosemide* (Furosemide*) 20 Mg Tablet, 20 MG PO TID, #60 TAB 01/18/17 Discontinued Scripts Spironolactone* (Aldactone*) 50 Mg Tablet, 25 MG PO BID, #60 TAB Prov:JS JACKSON MD 01/28/17 Follow-up Plan 1.Follow up with primary care physician in 1 week If you don't have one please let someone know, we can give you resources that may help you pick one. You may also call your insurance company to assign one to you. Review your medication list with your nurse before leaving and if you need new prescriptions please let your nurse know. I may have made changes to your home medications or given you new prescriptions, please let your primary doctor know as well. Stay compliant with your medications and report any side effects to your PCP or pharmacist. Return to the ER if you have any concerns and cannot reach your doctors or call your insurance company, they usually have a nurse that can help you. 2. Call 911 or go to the nearest emergency room if experiencing loss of consciousness, dizziness, chest pain, shortness of breath, vomiting/abdominal pain, speech difficulties, motor weakness or any unusual symptoms. Primary Care Provider Gatito Hernandez MD Pending Labs Laboratory Tests Test 04/15/17 04:48 White Blood Count 11.810^3/ul (4.8-10.8) Red Blood Count 2.6810^6/ul (4.70-6.10) Hemoglobin 9.8g/dl (14.0-18.0) Hematocrit 28.1% (42.0-52.0) Mean Corpuscular Volume 104.9fl (82.0-101.0) Mean Corpuscular Hemoglobin 36.6pg (29.0-33.0) Mean Corpuscular Hemoglobin Concent 34.9g/dl (32.0-37.0) Red Cell Distribution Width 14.7% (11.5-14.5) Platelet Count 91634^3/UL (140-415) Mean Platelet Volume 10.2fl (7.4-10.4) Neutrophils % 58.2% (39.0-77.0) Lymphocytes % 11.2% (15.0-51.0) Monocytes % 18.4% (0.0-11.0) Eosinophils % 1.0% (0.0-7.0) Basophils % 1.6% (0.0-2.0) Nucleated Red Blood Cells % 0.0/100WBC (0.0-0.0) Neutrophils # 6.910^3/ul (1.6-7.5) Lymphocytes # 1.310^3/ul (0.8-2.9) Monocytes # 2.210^3/ul (0.3-0.9) Eosinophils # 0.110^3/ul (0.0-0.5) Basophils # 0.210^3/ul (0.0-0.1) Nucleated Red Blood Cells # 0.010^3/ul (0.0-0.0) Sodium Level 127mmol/L (135-144) Potassium Level 4.4mmol/L (3.5-5.1) Chloride Level 101mmol/L (97-110) Carbon Dioxide Level 19mmol/L (21-31) Anion Gap 11 (8-16) Blood Urea Nitrogen 34mg/dl (7-20) Creatinine 0.84mg/dl (0.61-1.24) Glucose Level 83mg/dl (70-220) Calcium Level 8.5mg/dl (8.4-10.2) DENNY MATTHEWS NP Apr 15, 2017 10:27
[2017-04-15 14:00] VITALS: BP 104/59; RESP 16
[2017-04-15] MEDS ORDERED: CEFTRIAXONE 1 GM/50 ML (PMX) 50 ML IVPB SCH (17:00)
--- NOTE | 2017-04-15 17:13 | CONS ---
Date/Time of Note Date/Time of Note DATE: 04/15/17 TIME: 17:11 Assessment/Plan Assessment/Plan Chief Complaint/Hosp Course SUBJECTIVE: Alert, feels much better. No fevers. S/p LUE PICC MICROBIOLOGY: Repeat blood cultures + Staph, initial blood culture grew on Citrobacter, pleural fluid cultures have been negative. ANTIMICROBIALS: Vanco Rocephin. PHYSICAL EXAMINATION: GENERAL: This is a well-developed, ill-appearing, 47-year-old man who is awake, in no distress. HEENT: Head atraumatic, normocephalic. Sclerae anicteric. Buccal mucosa dry. NECK: Supple. CHEST: Rise symmetrical. Breath sounds diminished to bases. HEART: S1, S2. ABDOMEN: Soft, slightly distended. Bowel tones hypoactive. EXTREMITIES: Bilateral trace lower extremity edema. ASSESSMENT: 1. Recurrent ascites, status post thoracentesis yesterday==> + purulent fluid per patho 2. Citrobacter and Staph bacteremia. 3. Anemia. 4. End-stage liver disease. 5. History of ETOH abuse. PLAN: The patient remains stable. Pending dc planning on current abx for 2+ weeks, may require prophylactic abx for recurrent SBP, needs to f/u with [facility] staff Problems: Consultation Date/Type/Reason Admit Date/Time Apr 10, 2017 at 01:35 Type of Consultation: id Exam/Review of Systems Vital Signs Vitals Vital Signs Date Time Temp Pulse Resp B/P Pulse Ox O2 Delivery O2 Flow Rate FiO2 04/15/17 14:00 97.8 76 16 104/59 99 04/11/17 09:44 Room Air Intake and Output 04/14/17 04/14/17 04/15/17 15:00 23:00 07:00 Intake Total 770 ml 390 ml Balance 770 ml 390 ml Results Result Diagram: 04/15/17 0448 04/15/17 0448 Results 24 hrs Laboratory Tests Test 04/15/17 04:48 White Blood Count 11.8 H Red Blood Count 2.68 L Hemoglobin 9.8 L Hematocrit 28.1 L Mean Corpuscular Volume 104.9 H Mean Corpuscular Hemoglobin 36.6 H Mean Corpuscular Hemoglobin Concent 34.9 Red Cell Distribution Width 14.7 H Platelet Count 127 #L Mean Platelet Volume 10.2 Neutrophils % 58.2 Lymphocytes % 11.2 L Monocytes % 18.4 H Eosinophils % 1.0 Basophils % 1.6 Nucleated Red Blood Cells % 0.0 Neutrophils # 6.9 Lymphocytes # 1.3 Monocytes # 2.2 H Eosinophils # 0.1 Basophils # 0.2 H Nucleated Red Blood Cells # 0.0 Sodium Level 127 L Potassium Level 4.4 Chloride Level 101 Carbon Dioxide Level 19 L Anion Gap 11 Blood Urea Nitrogen 34 H Creatinine 0.84 Glucose Level 83 Calcium Level 8.5 Medications Medications Current Medications Folic Acid (Folic Acid) 1 mg DAILY PO Last administered on 04/15/17 08:45; Admin Dose 1 MG; Start 04/10/17 at 09:00 Pantoprazole (Protonix Tab) 40 mg DAILY@06 PO Last administered on 04/15/17 05:16; Admin Dose 40 MG; Start 04/10/17 at 06:00 Thiamine HCl (Vitamin B1) 50 mg QAM PO Last administered on 04/15/17 08:45; Admin Dose 50 MG; Start 04/10/17 at 09:00 Ondansetron HCl (Zofran Inj) 4 mg Q6H PRN IV NAUSEA AND/OR VOMITING; Start 04/10/17 at 03:00 Acetaminophen (Tylenol Tab) 650 mg Q6H PRN PO PAIN LEVEL 1-3 OR FEVER; Start 04/10/17 at 03:00 Docusate Sodium (Colace) 100 mg Q12H PRN PO CONSTIPATION; Start 04/10/17 at 03: 00 Bisacodyl (Dulcolax) 5 mg DAILY PRN PO CONSTIPATION; Start 04/10/17 at 03:00 Tramadol HCl (Ultram) 50 mg Q6H PRN PO PAIN Last administered on 04/15/17 09: 28; Admin Dose 50 MG; Start 04/10/17 at 22:00 Morphine Sulfate (morphine) 2 mg Q4H PRN IV PAIN Last administered on 21:45; Admin Dose 2 MG; Start 04/13/17 at 12:30 Furosemide (Lasix) 40 mg BID PO Last administered on 04/15/17 08:45; Admin Dose 40 MG; Start 04/13/17 at 21:00 Spironolactone (Aldactone) 100 mg BID PO Last administered on 04/15/17 08:45 ; Admin Dose 100 MG; Start 04/13/17 at 21:00 IV Flush 10 ml 10 ml PRN PRN IV IV PROTOCOL; Start 04/14/17 at 17:00 Ceftriaxone Sodium 50 ml @ 100 mls/hr Q24H IVPB Last administered on t 16:16; Admin Dose 100 MLS/HR; Start 04/15/17 at 17:00 Vancomycin HCl/ Dextrose/Water (Vancocin/D5W) 150 ml @ 75 mls/hr Q8H IVPB Last administered on 04/15/17t 10:32; Admin Dose 75 MLS/HR; Start 04/15/17 at 02:00 Miscellaneous Information (*Rx Drug Level Order Reminder*) VANCOMYCIN TROUGH ON 04/05... ONCE ONCE XX ; Start 04/16/17 at 01:00; Stop 04/16/17 at 01:01 JULIA HO NP Apr 15, 2017 17:13
[2017-04-16] MEDS ORDERED: SULF1TAB31 PO (10:14)
== END 2017-04-15 17:53 | disposition home health service (06) | DRG 871 ==
LOC: E/R 22:18 → PP2 04-10 01:35
PROVIDERS: ADMIT Family Medicine; ATTEND Family Medicine
PROC: 0W9G3ZX Drainage of Peritoneal Cavity, Percutaneous Approach, Diagnostic (ICD-10-PCS; principal; 2017-04-10)
PROC: 0W9G3ZX Drainage of Peritoneal Cavity, Percutaneous Approach, Diagnostic (ICD-10-PCS; 2017-04-13)
PROC: 02H633Z Insertion of Infusion Device into Right Atrium, Percutaneous Approach (ICD-10-PCS; 2017-04-14)
PROC: B244ZZZ Ultrasonography of Right Heart (ICD-10-PCS; 2017-04-14)
DX: A41.9 Sepsis, unspecified organism (principal); K65.2 Spontaneous bacterial peritonitis; D69.59 Other secondary thrombocytopenia; K70.31 Alcoholic cirrhosis of liver with ascites; K72.90 Hepatic failure, unspecified without coma; E87.1 Hypo-osmolality and hyponatremia; D63.8 Anemia in other chronic diseases classified elsewhere; F10.21 Alcohol dependence, in remission
CPT/HCPCS: 36569; 71010; 76937; 80048; 80053; 81001; 82140; 82150; 82945; 83615; 83690; 83735; 83930; 83935; 84157; 84300; 84484; 85025; 85610; 85730; 87040; 87070; 87102; 87116; 88104; 88305; 89051; 93306; 96374; 96375; J0696; J0698; J2270; J2405; J3370; J3475; J7040

== ENCOUNTER 2017-04-17 11:54 | Emergency (ER) | payer OTHER ==
[~2017-04-17] VITALS: Wt 98.4 kg
[~2017-04-17 11:54] MED LIST changes: +CEFT1FRO2 IV; -FURO20TA3 PO; +FURO40TA4 PO; -LACT10SO5 PO; +LACT20SO2 PO; +SULF1TAB31 PO; +TRAM50TA2 PO; +Vancomycin Iv Per Pharmacy XX
[2017-04-17] MEDS ORDERED: SOD CHLORIDE 0.9% 1,000 ML IV STA (12:23)
[2017-04-17] MEDS ORDERED: ONDANSETRON 4 MG INJ IV STA (12:42)
[2017-04-17] MEDS ORDERED: HYDROmorphONE 1 MG/ML SYG IV STA (12:42)
[2017-04-17 12:56] LABS: ABNORMAL IP MESSAGE 1; BASOPHIL # 0.1 10^3/ul (0.0-0.1); BASOPHILS % 0.7 % (0.0-2.0); HEMATOCRIT 28.1 % (42.0-52.0); HEMOGLOBIN 10.1 g/dl (14.0-18.0); LYMPHOCYTES # 0.9 10^3/ul (0.8-2.9); LYMPHOCYTES % 8.5 % (15.0-51.0); MEAN CORPUSCULAR HEMOGLOBIN 37.1 pg (29.0-33.0); MEAN CORPUSCULAR HGB CONC 35.9 g/dl (32.0-37.0); MEAN CORPUSCULAR VOLUME 103.3 fl (82.0-101.0); MEAN PLATELET VOLUME 9.4 fl (7.4-10.4); MONOCYTE # 1.3 10^3/ul (0.3-0.9); MONOCYTES % 11.9 % (0.0-11.0); NEUTROPHIL # 7.8 10^3/ul (1.6-7.5); NEUTROPHILS % 73.7 % (39.0-77.0); PLATELET COUNT 153 10^3/UL (140-415); POSITIVE DIFF @See below; RED BLOOD COUNT 2.72 10^6/ul (4.70-6.10); RED CELL DISTRIBUTION WIDTH 15.9 % (11.5-14.5); WHITE BLOOD COUNT 10.6 10^3/ul (4.8-10.8)
[2017-04-17 13:13] LABS: ALBUMIN 2.1 g/dl (3.3-4.9); ALBUMIN/GLOBULIN RATIO 0.5; BILIRUBIN,DIRECT 0.8 mg/dl (0.00-0.20); BILIRUBIN,INDIRECT 4.6 mg/dl (0-1.1); BILIRUBIN,TOTAL 5.4 mg/dl (0.2-1.3); CREATININE 0.94 mg/dl (0.61-1.24); POTASSIUM 4.4 mmol/L (3.5-5.1); TOTAL PROTEIN 6.3 g/dl (6.1-8.1)
[2017-04-17 13:15] LABS: ADD UMIC NO; UR ASCORBIC ACID NEGATIVE (NEGATIVE); UR BILIRUBIN (Dip) NEGATIVE (NEGATIVE); UR BLOOD (Dip) NEGATIVE (NEGATIVE); UR CLARITY CLEAR (CLEAR); UR COLOR AMBER (YELLOW); UR GLUCOSE (Dip) NEGATIVE (NEGATIVE); UR KETONES (Dip) TRACE mg/dL (NEGATIVE); UR LEUKOCYTE ESTERASE (Dip) NEGATIVE Leu/ul (NEGATIVE); UR NITRITE (Dip) NEGATIVE (NEGATIVE); UR SPECIFIC GRAVITY (Dip) 1.018 (1.003-1.030); UR TOTAL PROTEIN (Dip) NEGATIVE (NEGATIVE); UR UROBILINOGEN (Dip) 2+ mg/dL (NEGATIVE)
--- NOTE | 2017-04-17 13:15 | RADRPT ---
PROCEDURE: XR Chest AP portable CLINICAL INDICATION: Abdominal pain TECHNIQUE: An AP portable radiograph of the chest was submitted. COMPARISON: 04/14/2017 FINDINGS: Support Hardware: The left are prior extremity PICC catheter is stable in positioning with the tip a t the atriocaval junction. Cardiovascular: The cardiovascular silhouette appears unremarkable. Lung Bailey: The patient has again taken a suboptimal inspiration slightly compressing lung parenchy ma with discoid atelectatic change noted at the lung bases. Pleural Spaces: No pneumothorax or pleural effusion is identified. Osseous Structures: The osseous structures appear intact. Soft Tissues: The right hemidiaphragm is slightly more elevated. IMPRESSION: 1. The left upper extremity PICC catheter are stable in positioning. 2. Poor inspiration with discoid atelectasis at the lung bases, unchanged. 3. The right hemidiaphragm is slightly more elevated. Physician Kristine Date Time Electronically viewed and signed by Physician Kristine on 04/17/2017 13:14 /
[2017-04-17] MEDS ORDERED: HYDR-902 PO (14:45)
[2017-04-17] MEDS ORDERED: AZIT250T94 PO (14:45)
--- NOTE | 2017-04-17 14:46 | ERD ---
ER Documentation Chief Complaint Chief Complaint body pain, throat pain currently on antibx tx w picc to [facility] This a 47-year-old male with a history of liver cirrhosis who was just discharged from the hospital a few days ago for spontaneous bacterial peritonitis he is taking Rocephin and vancomycin IV through his PICC line. He says for the past 2 days he has had diffuse body aches and muscle pain and complains of a sore throat. He does not have any headache no fever no vomiting diarrhea no shortness of breath. He can was a sharp pain in the throat when he swallows there is no throat swelling. Denies any swollen lymph nodes. No abdominal pain vomiting diarrhea chest pain or shortness of breath ROS All systems reviewed and are negative except as per history of present illness. Medications Home Meds Active Scripts Hydrocodone/Acetaminophen ([place] 10-325 Tablet) 1 Each Tablet, 1 TAB PO Q6H Y for PAIN, #7 TAB Prov:MEI MORALES DO 04/17/17 Azithromycin* (Zithromax*) 250 Mg Tablet, 250 MG PO .[place] DIRECTED, #6 TAB TAKE 500 MG (2 TABS) THE FIRST DAY THEN 250 MG (1 TAB) DAYS 2-5 Prov:MEI MORALES DO 04/17/17 Sulfamethoxazole/Trimethoprim* (Bactrim Ds* Tablet) 1 Each Tablet, 1 TAB PO BID for 42 Days, #84 TAB START FIRST DOSE ON 04/30/2017 AND CONTINUE FOR 6 WEEKS Prov:DENNY MATTHEWS NP 04/16/17 Tramadol HCl (Tramadol HCl) 50 Mg Tablet, 50 MG PO Q6H Y for PAIN, #30 TAB Prov:DENNY MATTHEWS NP 04/15/17 [Vancomycin Iv Per Pharmacy] 1 EA EACH No Conflict Check, 0 EA XX .PER PROTOCOL for 14 Days PHARMACY TO DOSE Prov:DENNY MATTHEWS NP 04/15/17 Ceftriaxone Na/Dextrose,Iso (Ceftriaxone 1 gm Piggyback) 1 Gm/50 Ml Froz.piggy, 1 GM IV Q24H, #14 SYR Prov:DENNY MATTHEWS NP 04/15/17 Lactulose* (Lactulose*) 20 Gm/30 Ml Solution, 20 GM PO DAILY, #30 DOSE Prov:DENNY MATTHEWS NP 04/15/17 Furosemide* (Furosemide*) 40 Mg Tablet, 40 MG PO BID, #60 TAB Prov:MATTHEWS,DENNY V. DATABASE MANAGEMENT SPECIALIST 04/15/17 Spironolactone* (Aldactone*) 50 Mg Tablet, 100 MG PO BID, #60 TAB Prov:MATTHEWS,DENNY V. DATABASE MANAGEMENT SPECIALIST 04/15/17 Pantoprazole* (Pantoprazole*) 40 Mg Tablet.dr, 40 MG PO DAILY@06 for 30 Days, # 30 TAB Prov:NISHI SIMS MD 04/05/17 Reported Medications Thiamine* (Vitamin B-1*) 100 Mg Tablet, 50 MG PO QAM, TAB 01/18/17 Folic Acid* (Folic Acid*) 1 Mg Tablet, 1 MG PO DAILY, TAB 01/18/17 Discontinued Reported Medications Lactulose* (Lactulose*) 10 Gm/15 Ml Solution, 10 GM PO BID, ML 04/01/17 Furosemide* (Furosemide*) 20 Mg Tablet, 20 MG PO TID, #60 TAB 01/18/17 Discontinued Scripts Spironolactone* (Aldactone*) 50 Mg Tablet, 25 MG PO BID, #60 TAB Prov:JS JACKSON MD 01/28/17 Allergies Allergies: Coded Allergies: ibuprofen (Unverified Allergy, Unknown, 04/09/17) PMhx/Soc History of Surgery: No Anesthesia Reaction: No Hx Neurological Disorder: No Hx Respiratory Disorders: No Hx Cardiac Disorders: No Hx Psychiatric Problems: No Hx Miscellaneous Medical Probl: Yes (LIVER CIRRHOSIS, GALLSTONES) Hx Alcohol Use: Yes (HISTORY ONLY) Hx Substance Use: No Hx Tobacco Use: No Smoking Status: Never smoker FmHx Family History: No coronary disease Physical Exam Vitals Vital Signs Date Time Temp Pulse Resp B/P Pulse Ox O2 Delivery O2 Flow Rate FiO2 04/17/17 11:57 99.0 92 20 127/67 99 Physical Exam Const: Well-developed, well-nourished Head: Atraumatic, normocephalic Eyes: Normal Conjunctiva, PERRLA, EOMI, normal sclera, no nystagmus ENT: Normal External Ears, Nose and Mouth, moist mucus membranes bilateral tonsillar pillars with deep erythema no exudate no swelling. Neck: Full range of motion. No meningismus, no lymphadenopathy. Resp: Clear to auscultation bilaterally, no wheezing, rhonchi, rales Cardio: Regular rate and rhythm, no murmurs, S1 S2 present Abd: Soft, non tender x 4, non distended. Normal bowel sounds, no guarding or rebound, no pulsitile abdominal masses or bruits Skin: No petechiae or rashes, no ecchymosis , no maculopapular rash Back: No midline or flank tenderness Ext: No cyanosis, or edema, FROM x 4, normal inspection, neurovascularly intact x 4 Neur: Awake and alert, STR 5/5 x 4, sensation intact x 4, no focal findings, cerebellum intact Psych: Normal Mood and Affect Result Diagram: 04/17/17 1228 04/17/17 1228 Results 24 hrs Laboratory Tests Test 04/17/17 12:28 White Blood Count 10.610^3/ul Red Blood Count 2.7210^6/ul Hemoglobin 10.1g/dl Hematocrit 28.1% Mean Corpuscular Volume 103.3fl Mean Corpuscular Hemoglobin 37.1pg Mean Corpuscular Hemoglobin Concent 35.9g/dl Red Cell Distribution Width 15.9% Platelet Count 05718^3/UL Mean Platelet Volume 9.4fl Neutrophils % 73.7% Lymphocytes % 8.5% Monocytes % 11.9% Eosinophils % 0.0% Basophils % 0.7% Nucleated Red Blood Cells % 0.0/100WBC Neutrophils # 7.810^3/ul Lymphocytes # 0.910^3/ul Monocytes # 1.310^3/ul Eosinophils # 0.010^3/ul Basophils # 0.110^3/ul Nucleated Red Blood Cells # 0.010^3/ul Sodium Level 128mmol/L Potassium Level 4.4mmol/L Chloride Level 99mmol/L Carbon Dioxide Level 20mmol/L Anion Gap 13 Blood Urea Nitrogen 27mg/dl Creatinine 0.94mg/dl Glucose Level 170mg/dl Calcium Level 8.0mg/dl Total Bilirubin 5.4mg/dl Direct Bilirubin 0.80mg/dl Indirect Bilirubin 4.6mg/dl Aspartate Amino Transf (AST/SGOT) 44IU/L Alanine Aminotransferase (ALT/SGPT) 39IU/L Alkaline Phosphatase 123IU/L Creatine Kinase 21IU/L Total Protein 6.3g/dl Albumin 2.1g/dl Globulin 4.20g/dl Albumin/Globulin Ratio 0.50 Current Medications Medications (Trade) Dose Ordered Sig/Abbe Route PRN Reason Start Time Stop Time Status Last Admin Dose Admin Sodium Chloride (NS) 1,000 ml @ 1,000 mls/hr Q1H STAT IV 04/17/17 12:23 04/17/17 13:22 DC 04/17/17 13:08 Hydromorphone HCl (Dilaudid) 1 mg ONCE STAT IV 04/17/17 12:42 04/17/17 12:43 DC 04/17/17 13:08 Ondansetron HCl (Zofran Inj) 4 mg ONCE STAT IV 04/17/17 12:42 04/17/17 12:43 DC 04/17/17 13:08 Procedures/MDM Blood work looks relatively stable compared to prior He is feeling better after treatment here. We will discharge home on Zithromax and pain control Departure Diagnosis: Primary Impression: Pharyngitis Pharyngitis/tonsillitis etiology: unspecified etiology Qualified Code: J02.9 - Pharyngitis, unspecified etiology Condition: Stable Patient Instructions: Pharyngitis, Strep (Presumed) MEI MORALES DO Apr 17, 2017 14:46
[2017-04-17 15:24] VITALS: BP 116/72; PULSE 89; RESP 17; TEMP 98.8
== END 2017-04-17 15:25 | disposition home or self-care (01) ==
LOC: E/R 11:54
DX: J02.9 Acute pharyngitis, unspecified (principal); R07.9 Chest pain, unspecified
CPT/HCPCS: 36415; 71010; 80053; 81003; 82550; 85025; 96374; 96375; J1170; J2405; J7030; Z7502

== ENCOUNTER 2017-05-13 23:33 | Emergency (ER) | payer OTHER ==
[~2017-05-13] VITALS: Ht 170.2 cm; Wt 90.8 kg
[~2017-05-13 23:33] MED LIST changes: +AZIT250T94 PO; +HYDR-902 PO
[2017-05-13 23:38] VITALS: Ht 170.2 cm; Wt 90.8 kg
[2017-05-14] MEDS ORDERED: ONDANSETRON 4 MG INJ IV STA (00:15)
[2017-05-14] MEDS ORDERED: HYDROmorphONE 1 MG/ML SYG IV STA (00:15)
[2017-05-14 00:52] LABS: ABNORMAL IP MESSAGE 1; BASOPHIL # 0.1 10^3/ul (0.0-0.1); BASOPHILS % 1.3 % (0.0-2.0); HEMATOCRIT 26.8 % (42.0-52.0); HEMOGLOBIN 9.2 g/dl (14.0-18.0); LYMPHOCYTES # 1.1 10^3/ul (0.8-2.9); LYMPHOCYTES % 19.1 % (15.0-51.0); MEAN CORPUSCULAR HEMOGLOBIN 34.2 pg (29.0-33.0); MEAN CORPUSCULAR HGB CONC 34.3 g/dl (32.0-37.0); MEAN CORPUSCULAR VOLUME 99.6 fl (82.0-101.0); MEAN PLATELET VOLUME 9.7 fl (7.4-10.4); MONOCYTE # 0.7 10^3/ul (0.3-0.9); MONOCYTES % 12.1 % (0.0-11.0); NEUTROPHIL # 3.8 10^3/ul (1.6-7.5); NEUTROPHILS % 63.3 % (39.0-77.0); PLATELET COUNT 85 10^3/UL (140-415); POSITIVE DIFF @See below; RED BLOOD COUNT 2.69 10^6/ul (4.70-6.10); RED CELL DISTRIBUTION WIDTH 15.3 % (11.5-14.5)
[2017-05-14 01:13] LABS: INR 1.51; PROTIME 18.5 Sec (11.9-14.9); PT RATIO 1.4
[2017-05-14 01:27] LABS: ALBUMIN 2.4 g/dl (3.3-4.9); ALBUMIN/GLOBULIN RATIO 0.51; BILIRUBIN,INDIRECT 2.3 mg/dl (0-1.1); BILIRUBIN,TOTAL 2.3 mg/dl (0.2-1.3); CALCIUM 8.7 mg/dl (8.4-10.2); CREATININE 2.15 mg/dl (0.61-1.24); POTASSIUM 5.2 mmol/L (3.5-5.1); TOTAL PROTEIN 7.1 g/dl (6.1-8.1)
[2017-05-14] MEDS ORDERED: HYDR-906 PO (01:49)
[2017-05-14] MEDS ORDERED: CEPH-443 PO (01:49)
[2017-05-14 01:51] VITALS: BP 96/58; PULSE 76; RESP 17; TEMP 97.9
--- NOTE | 2017-05-14 01:56 | ERD ---
ER Documentation Chief Complaint Chief Complaint abd pain distended abdomen and both leg swelling, hx- ascitis HPI This 47-year-old male known to me who has a history of liver cirrhosis and repeated paracentesis. The patient says he is here for paracentesis due to increased ascites over the past couple of weeks. He also is complaining of a red rash to his right anterior weiner onset today. He says it hurts somewhat but does know how he got it denies any trauma. Does not have any abdominal pain or shortness of breath no nausea vomiting diarrhea or fever. States his primary goal for his visit tonight is for paracentesis ROS All systems reviewed and are negative except as per history of present illness. Medications Home Meds Active Scripts Hydrocodone/Acetaminophen ([place] 5-325 Tablet) 1 Each Tablet, 1 TAB PO Q6H Y for PAIN, #7 TAB Prov:MEI MORALES DO 05/14/17 Cephalexin* (Keflex*) 500 Mg Capsule, 500 MG PO QID for 7 Days, CAP Prov:MEI MORALES DO 05/14/17 Hydrocodone/Acetaminophen ([place] 10-325 Tablet) 1 Each Tablet, 1 TAB PO Q6H Y for PAIN, #7 TAB Prov:MEI MORALES DO 04/17/17 Azithromycin* (Zithromax*) 250 Mg Tablet, 250 MG PO .ZPACK DIRECTED, #6 TAB TAKE 500 MG (2 TABS) THE FIRST DAY THEN 250 MG (1 TAB) DAYS 2-5 Prov:MEI MORALES DO 04/17/17 Sulfamethoxazole/Trimethoprim* (Bactrim Ds* Tablet) 1 Each Tablet, 1 TAB PO BID for 42 Days, #84 TAB START FIRST DOSE ON 04/30/2017 AND CONTINUE FOR 6 WEEKS Prov:DENNY MATTHEWS NP 04/16/17 Tramadol HCl (Tramadol HCl) 50 Mg Tablet, 50 MG PO Q6H Y for PAIN, #30 TAB Prov:DENNY MATTHEWS NP 04/15/17 [Vancomycin Iv Per Pharmacy] 1 EA EACH No Conflict Check, 0 EA XX .PER PROTOCOL for 14 Days PHARMACY TO DOSE Prov:DENNY MATTHEWS NP 04/15/17 Ceftriaxone Na/Dextrose,Iso (Ceftriaxone 1 gm Piggyback) 1 Gm/50 Ml Froz.piggy, 1 GM IV Q24H, #14 SYR Prov:MATTHEWSJOHNA V. BILINGUAL LOAN PROCESSOR 04/15/17 Lactulose* (Lactulose*) 20 Gm/30 Ml Solution, 20 GM PO DAILY, #30 DOSE Prov:MATTHEWS,EDNNY V. BILINGUAL LOAN PROCESSOR 04/15/17 Furosemide* (Furosemide*) 40 Mg Tablet, 40 MG PO BID, #60 TAB Prov:MATTHEWS,DENNY V. BILINGUAL LOAN PROCESSOR 04/15/17 Spironolactone* (Aldactone*) 50 Mg Tablet, 100 MG PO BID, #60 TAB Prov:MATTHEWS,DENNY V. BILINGUAL LOAN PROCESSOR 04/15/17 Pantoprazole* (Pantoprazole*) 40 Mg Tablet.dr, 40 MG PO DAILY@06 for 30 Days, # 30 TAB Prov:NISHI SIMS MD 04/05/17 Reported Medications Thiamine* (Vitamin B-1*) 100 Mg Tablet, 50 MG PO QAM, TAB 01/18/17 Folic Acid* (Folic Acid*) 1 Mg Tablet, 1 MG PO DAILY, TAB 01/18/17 Allergies Allergies: Coded Allergies: ibuprofen (Unverified Allergy, Unknown, 04/09/17) PMhx/Soc History of Surgery: No Anesthesia Reaction: No Hx Neurological Disorder: No Hx Respiratory Disorders: No Hx Cardiac Disorders: No Hx Psychiatric Problems: No Hx Miscellaneous Medical Probl: Yes (LIVER CIRRHOSIS, GALLSTONES, on transplant list) Hx Alcohol Use: Yes (HISTORY ONLY) Hx Substance Use: No Hx Tobacco Use: No Smoking Status: Unknown if ever smoked FmHx Family History: No coronary disease Physical Exam Vitals Vital Signs Date Time Temp Pulse Resp B/P Pulse Ox O2 Delivery O2 Flow Rate FiO2 05/14/17 01:51 97.9 76 17 96/58 99 Room Air 05/13/17 23:38 98.2 76 20 116/70 100 Physical Exam Const: Well-developed, well-nourished Head: Atraumatic, normocephalic Eyes: Normal Conjunctiva, PERRLA, EOMI, normal sclera, no nystagmus ENT: Normal External Ears, Nose and Mouth, moist mucus membranes. Neck: Full range of motion. No meningismus, no lymphadenopathy. Resp: Clear to auscultation bilaterally, no wheezing, rhonchi, rales Cardio: Regular rate and rhythm, no murmurs, S1 S2 present Abd: Soft, non tender x 4, mild distention with ascites. Normal bowel sounds, no guarding or rebound, no pulsitile abdominal masses or bruits Skin: No petechiae or rashes, no ecchymosis , the right weiner has a mildly red rash with some small tiny pustules on close examination. There is no swelling and there is some mild tenderness Back: No midline or flank tenderness Ext: No cyanosis, or edema, FROM x 4, normal inspection, neurovascularly intact x 4 Neur: Awake and alert, STR 5/5 x 4, sensation intact x 4, no focal findings, cerebellum intact Psych: Normal Mood and Affect Result Diagram: 05/14/173005/14/1731 Results 24 hrs Laboratory Tests Test 05/14/17 00:31 05/14/17 00:32 White Blood Count 6.010^3/ul Red Blood Count 2.6910^6/ul Hemoglobin 9.2g/dl Hematocrit 26.8% Mean Corpuscular Volume 99.6fl Mean Corpuscular Hemoglobin 34.2pg Mean Corpuscular Hemoglobin Concent 34.3g/dl Red Cell Distribution Width 15.3% Platelet Count 8510^3/UL Mean Platelet Volume 9.7fl Neutrophils % 63.3% Lymphocytes % 19.1% Monocytes % 12.1% Eosinophils % 0.0% Basophils % 1.3% Nucleated Red Blood Cells % 0.0/100WBC Neutrophils # 3.810^3/ul Lymphocytes # 1.110^3/ul Monocytes # 0.710^3/ul Eosinophils # 0.010^3/ul Basophils # 0.110^3/ul Nucleated Red Blood Cells # 0.010^3/ul Prothrombin Time 18.5Sec Prothrombin Time Ratio 1.4 INR International Normalized Ratio 1.51 Activated Partial Thromboplast Time 34.0Sec Sodium Level 131mmol/L Potassium Level 5.2mmol/L Chloride Level 104mmol/L Carbon Dioxide Level 20mmol/L Anion Gap 12 Blood Urea Nitrogen 37mg/dl Creatinine 2.15mg/dl Glucose Level 140mg/dl Calcium Level 8.7mg/dl Total Bilirubin 2.3mg/dl Direct Bilirubin 0.00mg/dl Indirect Bilirubin 2.3mg/dl Aspartate Amino Transf (AST/SGOT) 61IU/L Alanine Aminotransferase (ALT/SGPT) 51IU/L Alkaline Phosphatase 279IU/L Total Protein 7.1g/dl Albumin 2.4g/dl Globulin 4.70g/dl Albumin/Globulin Ratio 0.51 Current Medications Medications (Trade) Dose Ordered Sig/Abbe Route PRN Reason Start Time Stop Time Status Last Admin Dose Admin Hydromorphone HCl (Dilaudid) 1 mg ONCE STAT IV 05/14/17 00:15 05/14/17 00:17 DC 05/14/17 00:34 Ondansetron HCl (Zofran Inj) 4 mg ONCE STAT IV 05/14/17 00:15 05/14/17 00:17 DC 05/14/17 00:34 Procedures/MDM Explained to the patient he cannot get a paracentesis at midnight. Told him we will draw labs and return in the morning for paracentesis. We will treat his weiner erythema with some Keflex Departure Diagnosis: Primary Impression: Cellulitis Site of cellulitis: extremity Site of cellulitis of extremity: lower extremity Laterality: right Qualified Code: L03.115 - Cellulitis of right lower extremity Additional Impression: Ascites Ascites type: other type Qualified Code: R18.8 - Other ascites Condition: Stable Patient Instructions: Cellulitis, Ascites MEI MORALES DO May 14, 2017 01:56
== END 2017-05-14 02:05 | disposition home or self-care (01) ==
LOC: E/R 23:33
DX: L03.115 Cellulitis of right lower limb (principal); R18.8 Other ascites; R07.9 Chest pain, unspecified
CPT/HCPCS: 36415; 80053; 85025; 85610; 85730; 96374; 96375; J1170; J2405; Z7502

== ENCOUNTER 2017-05-14 13:48 | Emergency (ER) | payer OTHER ==
[~2017-05-14] VITALS: Ht 180.3 cm; Wt 91.1 kg
[~2017-05-14 13:48] MED LIST changes: +CEPH-443 PO; +HYDR-906 PO
[2017-05-14 13:52] VITALS: Ht 180.3 cm; Wt 91.1 kg
[2017-05-14] MEDS ORDERED: HYDROCODONE/APAP (10/325) TAB ONE (14:47)
--- NOTE | 2017-05-14 14:53 | ERD ---
ER Documentation Chief Complaint Chief Complaint Complains of abdominal pain Needs paracentesis HPI The patient presents to the emergency room asking for paracentesis. Patient has a history of cirrhosis secondary to alcohol abuse. He was here early this morning but we do not have access to interventional radiology. The patient is returning for large volume therapeutic paracentesis. He describes abdominal fullness but no significant pain. He does note sensitivity with paracentesis and is asking for [place]. He denies any hematemesis or melena. ROS All systems reviewed and are negative except as per history of present illness. Medications Home Meds Active Scripts Hydrocodone/Acetaminophen ([place] 5-325 Tablet) 1 Each Tablet, 1 TAB PO Q6H Y for PAIN, #7 TAB Prov:MEI MORALES DO 05/14/17 Cephalexin* (Keflex*) 500 Mg Capsule, 500 MG PO QID for 7 Days, CAP Prov:MEI MORALES DO 05/14/17 Hydrocodone/Acetaminophen ([place] 10-325 Tablet) 1 Each Tablet, 1 TAB PO Q6H Y for PAIN, #7 TAB Prov:MEI MORALES DO 04/17/17 Azithromycin* (Zithromax*) 250 Mg Tablet, 250 MG PO .ZPACK DIRECTED, #6 TAB TAKE 500 MG (2 TABS) THE FIRST DAY THEN 250 MG (1 TAB) DAYS 2-5 Prov:MEI MORALES DO 04/17/17 Sulfamethoxazole/Trimethoprim* (Bactrim Ds* Tablet) 1 Each Tablet, 1 TAB PO BID for 42 Days, #84 TAB START FIRST DOSE ON 04/30/2017 AND CONTINUE FOR 6 WEEKS Prov:DENNY MATTHEWS NP 04/16/17 Tramadol HCl (Tramadol HCl) 50 Mg Tablet, 50 MG PO Q6H Y for PAIN, #30 TAB Prov:DENNY MATTHEWS NP 04/15/17 [Vancomycin Iv Per Pharmacy] 1 EA EACH No Conflict Check, 0 EA XX .PER PROTOCOL for 14 Days PHARMACY TO DOSE Prov:DENNY MATTHEWS NP 04/15/17 Ceftriaxone Na/Dextrose,Iso (Ceftriaxone 1 gm Piggyback) 1 Gm/50 Ml Froz.piggy, 1 GM IV Q24H, #14 SYR Prov:DENNY MATTHEWS V. CLAIMS ADMINISTRATOR 04/15/17 Lactulose* (Lactulose*) 20 Gm/30 Ml Solution, 20 GM PO DAILY, #30 DOSE Prov:MATTHEWSNELSYDENNY V. CLAIMS ADMINISTRATOR 04/15/17 Furosemide* (Furosemide*) 40 Mg Tablet, 40 MG PO BID, #60 TAB Prov:MATTHEWS,DENNY V. CLAIMS ADMINISTRATOR 04/15/17 Spironolactone* (Aldactone*) 50 Mg Tablet, 100 MG PO BID, #60 TAB Prov:MATTHEWSNELSYDENNY V. CLAIMS ADMINISTRATOR 04/15/17 Pantoprazole* (Pantoprazole*) 40 Mg Tablet.dr, 40 MG PO DAILY@06 for 30 Days, # 30 TAB Prov:NISHI SIMS MD 04/05/17 Reported Medications Thiamine* (Vitamin B-1*) 100 Mg Tablet, 50 MG PO QAM, TAB 01/18/17 Folic Acid* (Folic Acid*) 1 Mg Tablet, 1 MG PO DAILY, TAB 01/18/17 Allergies Allergies: Coded Allergies: ibuprofen (Unverified Allergy, Unknown, 04/09/17) PMhx/Soc History of Surgery: No Anesthesia Reaction: No Hx Neurological Disorder: No Hx Respiratory Disorders: No Hx Cardiac Disorders: No Hx Psychiatric Problems: No Hx Miscellaneous Medical Probl: Yes (LIVER CIRRHOSIS, [place]ALLSTONES, on transplant list) Hx Alcohol Use: Yes (HISTORY ONLY) Hx Substance Use: No Hx Tobacco Use: No Smoking Status: Never smoker FmHx Family History: No diabetes Physical Exam Vitals Vital Signs Date Time Temp Pulse Resp B/P Pulse Ox O2 Delivery O2 Flow Rate FiO2 05/14/17 16:24 98.1 72 16 120/67 100 Room Air 05/14/17 13:52 98.3 82 20 119/62 98 Physical Exam General: Well developed, well nourished, no acute distress Head: Normocephalic, atraumatic. Eyes: Pupils equally reactive, EOM intact ENT: Moist mucous membranes Neck: Supple, no lymphadenopathy Respiratory: Lungs clear bilaterally, no distress Cardiovascular: RRR, no murmurs, rubs, or gallops Abdominal: protuberant with fluid wave, nontender : Deferred MSK: No edema, no unilateral swelling, 5/5 strength Neurologic: Alert and oriented, moving all extremities, normal speech, no focal weakness, no cerebellar signs Skin: No rash Psych: Normal mood Results 24 hrs Current Medications Medications (Trade) Dose Ordered Sig/Abbe Route PRN Reason Start Time Stop Time Status Last Admin Dose Admin Acetaminophen/ Hydrocodone Bitart ([place] (10/325)) 1 tab ONCE ONCE PO 05/14/17 15:00 05/14/17 15:01 DC 05/14/17 14:49 Acetaminophen/ Hydrocodone Bitart ([place] (10/325)) 1 tab STK-MED ONCE .ROUTE 05/14/17 14:47 05/14/17 14:48 DC Lidocaine (Xylocaine 1% (Mpf)) 5 ml STK-MED ONCE .ROUTE 05/14/17 15:57 05/14/17 15:58 DC 05/14/17 16:01 Procedures/MDM EKG, MONITORS, & DIAGNOSTIC IMAGING: Large volume therapeutic paracentesis performed by interventional radiology. LAB INTERPRETATION: No significant coagulopathy noted on laboratory values from this morning MEDICAL DECISION MAKING: The patient presents with abdominal ascites likely secondary to cirrhosis. Patient does not exhibit any signs or symptoms concerning for complications of cirrhosis such as GI bleed, hepatic encephalopathy or spontaneous bacterial peritonitis. There is no indication currently for diagnostic paracentesis. The patient will benefit from large volume therapeutic paracentesis by interventional radiology. If the patient remains stable without evidence of hemodynamic compromise secondary to fluid shifts the patient can be safely discharged home with close primary care and hepatology follow-up. ER COURSE: The patient had successful large volume therapeutic paracentesis. The patient remained hemodynamically stable and otherwise well-appearing. The patient is safe for discharge home. I kept the patient and/or family informed of laboratory and diagnostic imaging results throughout the emergency room course. DISPOSITION PLAN: We discussed follow up with the patient's primary care doctor within 24 to 48 hours as needed. We also discussed return to the emergency room for worsening symptoms or worsening condition. Discharge Medications: None Departure Diagnosis: Primary Impression: Ascites Ascites type: due to alcoholic cirrhosis Qualified Code: K70.31 - Ascites due to alcoholic cirrhosis Additional Impression: Cirrhosis Hepatic cirrhosis type: alcoholic cirrhosis Ascites presence: with ascites Qualified Code: K70.31 - Alcoholic cirrhosis of liver with ascites Condition: Stable ARSALAN ALDRIDGE MD May 14, 2017 14:53
[2017-05-14] MEDS ORDERED: HYDROCODONE/APAP (10/325) TAB PO ONE (15:00)
[2017-05-14] MEDS ORDERED: LIDOCAINE 1% (MPF) 5 ML VIAL ONE (15:57)
--- NOTE | 2017-05-14 16:38 | RADRPT ---
PROCEDURE: Ultrasound-guided paracentesis. CLINICAL INDICATION: Ascites . Therapeutic TECHNIQUE: The patient was informed of the benefits and risks of the procedure and signed consent was obtained. Risks include bleeding, infection, visceral organ or bowel injury. The abdomen was s terilely prepped and draped. Local anesthesia with 1% lidocaine was administered. Initial ultrasou nd scanning of the abdomen is performed to locate a pocket of ascites suitable for paracentesis. Un anahy ultrasound guidance, a 19-gauge Yueh multi side-hole centesis needle and sheath was advanced int o the pocket of ascites. Paracentesis performed with vacuum. The patient tolerated procedure well a nd there no complications. Patient left department in stable condition. COMPARISON: None FINDINGS: Initial scanning shows ascites in the bilateral lower quadrants. IMPRESSION: Ultrasound-guided paracentesis of 5.4 liters of clear yellow ascites from the right abdomen. Fluid w as discarded. RPTAT: QQ .Fer Wright MD, Date Time Electronically viewed and signed by .Fer Wright MD, on 05/14/2017 16:38 .L/
[2017-05-14 17:12] VITALS: BP 106/60; PULSE 80; RESP 17; TEMP 98
== END 2017-05-14 17:12 | disposition home or self-care (01) ==
LOC: E/R 13:48
DX: K70.31 Alcoholic cirrhosis of liver with ascites (principal)
CPT/HCPCS: Z7502; Z7610

== ENCOUNTER 2017-05-22 06:08 | Inpatient (IN) | payer OTHER ==
[~2017-05-22] VITALS: Ht 180.3 cm; Wt 82.0 kg
[2017-05-22] VITALS (14 sets, daily range): BP systolic 94–124; BP diastolic 45–63; PULSE 63–89; RESP 14–20; TEMP 98; Ht 180.3 cm; Wt 82.0 kg
[2017-05-22] MEDS ORDERED: PANTOPRAZOLE IV 80 MG in SOD CHLORIDE 0.9% 100 ML IVPB STA (06:46)
[2017-05-22] MEDS ORDERED: OCTREOTIDE 50 MCG in SOD CHLORIDE 0.9% 25 ML IVPB STA (06:46)
[2017-05-22] MEDS ORDERED: PANTOPRAZOLE IV 80 MG in SOD CHLORIDE 0.9% 100 ML IV STA (06:46)
[2017-05-22] MEDS ORDERED: ONDANSETRON 4 MG INJ IV STA ×3 (06:51→09:19)
[2017-05-22] MEDS ORDERED: CEFTRIAXONE 1 GM/50 ML (PMX) 50 ML IVPB ONE (07:00)
[2017-05-22 07:52] LABS: ABNORMAL IP MESSAGE 1; POSITIVE DIFF @See below
[2017-05-22] MEDS ORDERED: morphine 4 MG/ML VIAL IV STA (08:03)
[2017-05-22 08:17] LABS: ALBUMIN 2.4 g/dl (3.3-4.9); ALBUMIN/GLOBULIN RATIO 0.52; BILIRUBIN,DIRECT 0.1 mg/dl (0.00-0.20); BILIRUBIN,INDIRECT 3.2 mg/dl (0-1.1); BILIRUBIN,TOTAL 3.3 mg/dl (0.2-1.3); CALCIUM 8.8 mg/dl (8.4-10.2); CREATININE 1.47 mg/dl (0.61-1.24); POTASSIUM 5.9 mmol/L (3.5-5.1)
[2017-05-22 08:18] LABS: INR 1.48; PARTIAL THROMBOPLASTIN TIME 26.2 Sec (25.0-35.0); PROTIME 18.2 Sec (11.9-14.9); PT RATIO 1.4
[2017-05-22 08:28] LABS: TROPONIN-I 0.012 ng/ml (0.00-0.12)
[2017-05-22] MEDS ORDERED: SPIR25TA PO (08:39)
[2017-05-22] MEDS ORDERED: FURO-110 PO (08:39)
[2017-05-22 09:02] LABS: HEMATOCRIT 21.9 % (42.0-52.0); HEMOGLOBIN 7.6 g/dl (14.0-18.0); RED BLOOD COUNT 2.21 10^6/ul (4.70-6.10); WHITE BLOOD COUNT 8.9 10^3/ul (4.8-10.8)
[2017-05-22 09:03] LABS: MEAN CORPUSCULAR HEMOGLOBIN 34.4 pg (29.0-33.0); MEAN CORPUSCULAR HGB CONC 34.7 g/dl (32.0-37.0); MEAN CORPUSCULAR VOLUME 99.1 fl (82.0-101.0); PLATELET COUNT 79 10^3/UL (140-415); RED CELL DISTRIBUTION WIDTH 15.6 % (11.5-14.5)
[2017-05-22 09:04] LABS: BASOPHILS % 0.8 % (0.0-2.0); EOSINOPHILS % 1.8 % (0.0-7.0); LYMPHOCYTES % 14.3 % (15.0-51.0); MEAN PLATELET VOLUME 10.8 fl (7.4-10.4); MONOCYTES % 9.4 % (0.0-11.0); NEUTROPHILS % 69.2 % (39.0-77.0); NUCLEATED RED BLOOD CELLS% 4.5 /100WBC (0.0-0.0)
[2017-05-22 09:05] LABS: BASOPHIL # 0.1 10^3/ul (0.0-0.1); EOSINOPHILS # 0.2 10^3/ul (0.0-0.5); LYMPHOCYTES # 1.3 10^3/ul (0.8-2.9); MONOCYTE # 0.8 10^3/ul (0.3-0.9); NEUTROPHIL # 6.2 10^3/ul (1.6-7.5)
[2017-05-22] MEDS ORDERED: SOD CHLORIDE 0.9% 250 ML IV ONE (09:05)
[2017-05-22] MEDS ORDERED: OCTREOTIDE 500 MCG in SOD CHLORIDE 0.9% 49 ML IV STA (09:19)
[2017-05-22] MEDS ORDERED: ACETAMINOPHEN 650 MG SUPP PR PRN (09:30)
[2017-05-22] MEDS ORDERED: MAGNESIUM HYDROXIDE 30ML CUP PO PRN (09:30)
[2017-05-22] MEDS ORDERED: ACETAMINOPHEN 325 MG TAB PO PRN ×2 (09:30)
[2017-05-22] MEDS ORDERED: morphine 2 MG INJ IV PRN (09:30)
[2017-05-22] MEDS ORDERED: DOCUSATE SODIUM 100 MG CAP PO PRN (09:30)
[2017-05-22] MEDS ORDERED: NA POLYST SULFON 15 GM/60 ML BTL PO ONE (09:30)
[2017-05-22] MEDS ORDERED: NACL 0.9% 3 ML SYG IV SCH (09:30)
[2017-05-22] MEDS ORDERED: ONDANSETRON 4 MG INJ IV PRN ×2 (09:30)
[2017-05-22] MEDS ORDERED: BISACODYL 10 MG SUPP PR PRN (09:30)
[2017-05-22] MEDS ORDERED: LIDOCAINE 1% (MPF) 5 ML VIAL SC ONE (10:00)
--- NOTE | 2017-05-22 10:33 | ERD ---
ER Documentation Chief Complaint Chief Complaint vomiting blood since 10 pm, HPI Patient is a 47-year-old male with cirrhosis and esophageal varices who presents with vomiting blood. The patient started vomiting blood last night at 10 PM. He said that it was dark brown. He had decreased intake by mouth as well. He said that it was "a lot" this morning. Upon review of old medical records this is the patient's third visit since May 13 and he has had 13 visits since 2013. His primary doctor is Dr. Hernandez and he does not remember the GI doctor. ROS All systems reviewed and are negative except as per history of present illness. Medications Home Meds Active Scripts Cephalexin* (Keflex*) 500 Mg Capsule, 500 MG PO QID for 7 Days, CAP Prov:MEI MORALES DO 05/14/17 Reported Medications Furosemide* (Lasix*) 20 Mg Tablet, 20 MG PO TID, TAB 05/22/17 Spironolactone* (Aldactone*) 25 Mg Tablet, 25 MG PO TID, #60 TAB 05/22/17 Thiamine* (Vitamin B-1*) 100 Mg Tablet, 50 MG PO QAM, TAB 01/18/17 Folic Acid* (Folic Acid*) 1 Mg Tablet, 1 MG PO DAILY, TAB 01/18/17 Discontinued Scripts Hydrocodone/Acetaminophen ([place] 5-325 Tablet) 1 Each Tablet, 1 TAB PO Q6H Y for PAIN, #7 TAB Prov:MEI MORALES DO 05/14/17 Hydrocodone/Acetaminophen ([place] 10-325 Tablet) 1 Each Tablet, 1 TAB PO Q6H Y for PAIN, #7 TAB Prov:MEI MORALES DO 04/17/17 Azithromycin* (Zithromax*) 250 Mg Tablet, 250 MG PO .TseringPACK DIRECTED, #6 TAB TAKE 500 MG (2 TABS) THE FIRST DAY THEN 250 MG (1 TAB) DAYS 2-5 Prov:MEI MORALES DO 04/17/17 Sulfamethoxazole/Trimethoprim* (Bactrim Ds* Tablet) 1 Each Tablet, 1 TAB PO BID for 42 Days, #84 TAB START FIRST DOSE ON 04/30/2017 AND CONTINUE FOR 6 WEEKS Prov:DENNY MATTHEWS NP 04/16/17 Tramadol HCl (Tramadol HCl) 50 Mg Tablet, 50 MG PO Q6H Y for PAIN, #30 TAB Prov:DENNY MATTHEWS V. UNDERGROUND UTILITY LOCATOR 04/15/17 [Vancomycin Iv Per Pharmacy] 1 EA EACH No Conflict Check, 0 EA XX .PER PROTOCOL for 14 Days PHARMACY TO DOSE Prov:MATTHEWSJOHNA V. UNDERGROUND UTILITY LOCATOR 04/15/17 Ceftriaxone Na/Dextrose,Iso (Ceftriaxone 1 gm Piggyback) 1 Gm/50 Ml Froz.piggy, 1 GM IV Q24H, #14 SYR Prov:MATTHEWSNELSYDENNY V. UNDERGROUND UTILITY LOCATOR 04/15/17 Lactulose* (Lactulose*) 20 Gm/30 Ml Solution, 20 GM PO DAILY, #30 DOSE Prov:MATTHEWSNELSYDENNY V. UNDERGROUND UTILITY LOCATOR 04/15/17 Furosemide* (Furosemide*) 40 Mg Tablet, 40 MG PO BID, #60 TAB Prov:MATTHEWS,DENNY V. UNDERGROUND UTILITY LOCATOR 04/15/17 Spironolactone* (Aldactone*) 50 Mg Tablet, 100 MG PO BID, #60 TAB Prov:MATTHEWSJOHNA V. UNDERGROUND UTILITY LOCATOR 04/15/17 Pantoprazole* (Pantoprazole*) 40 Mg Tablet., 40 MG PO DAILY@06 for 30 Days, # 30 TAB Prov:NISHI SIMS MD 04/05/17 Allergies Allergies: Coded Allergies: ibuprofen (Unverified Allergy, Unknown, 04/09/17) PMhx/Soc History of Surgery: No Anesthesia Reaction: No Hx Neurological Disorder: No Hx Respiratory Disorders: No Hx Cardiac Disorders: No Hx Psychiatric Problems: No Hx Miscellaneous Medical Probl: Yes (LIVER CIRRHOSIS, GALLSTONES, on transplant list) Hx Alcohol Use: Yes (HISTORY ONLY) Hx Substance Use: No Hx Tobacco Use: No Smoking Status: Never smoker FmHx Family History: diabetes Physical Exam Vitals Vital Signs Date Time Temp Pulse Resp B/P Pulse Ox O2 Delivery O2 Flow Rate FiO2 05/22/17 09:30 72 14 101/43 100 Nasal Cannula 2.0 05/22/17 08:45 Nasal Cannula 2 05/22/17 08:00 98.0 78 16 111/54 100 Room Air 05/22/17 06:17 97.2 76 16 102/56 100 Physical Exam Const: Chronically ill Head: Atraumatic Eyes: Normal Conjunctiva ENT: Normal External Ears, Nose and Mouth. Neck: Full range of motion..~ No meningismus. Resp: Clear to auscultation bilaterally Cardio: Regular rate and rhythm, no murmurs Abd: Soft, distended abdomen Skin: Pale skin with jaundice Back: No midline or flank tenderness Ext: No cyanosis, or edema Neur: Awake and alert Psych: Normal Mood and Affect Result Diagram: 05/22/17 0700 05/22/17 0700 Results 24 hrs Laboratory Tests Test 05/22/17 07:00 White Blood Count 8.910^3/ul Red Blood Count 2.2110^6/ul Hemoglobin 7.6g/dl Hematocrit 21.9% Mean Corpuscular Volume 99.1fl Mean Corpuscular Hemoglobin 34.4pg Mean Corpuscular Hemoglobin Concent 34.7g/dl Red Cell Distribution Width 15.6% Platelet Count 7910^3/UL Mean Platelet Volume 10.8fl Neutrophils % 69.2% Lymphocytes % 14.3% Monocytes % 9.4% Eosinophils % 1.8% Basophils % 0.8% Nucleated Red Blood Cells % 4.5/100WBC Neutrophils # 6.210^3/ul Lymphocytes # 1.310^3/ul Monocytes # 0.810^3/ul Eosinophils # 0.210^3/ul Basophils # 0.110^3/ul Nucleated Red Blood Cells # 0.010^3/ul Prothrombin Time 18.2Sec Prothrombin Time Ratio 1.4 INR International Normalized Ratio 1.48 Activated Partial Thromboplast Time 26.2Sec Sodium Level 129mmol/L Potassium Level 5.9mmol/L Chloride Level 99mmol/L Carbon Dioxide Level 20mmol/L Anion Gap 16 Blood Urea Nitrogen 67mg/dl Creatinine 1.47mg/dl Glucose Level 162mg/dl Calcium Level 8.8mg/dl Total Bilirubin 3.3mg/dl Direct Bilirubin 0.10mg/dl Indirect Bilirubin 3.2mg/dl Aspartate Amino Transf (AST/SGOT) 88IU/L Alanine Aminotransferase (ALT/SGPT) 54IU/L Alkaline Phosphatase 231IU/L Troponin I 0.012ng/ml Total Protein 7.0g/dl Albumin 2.4g/dl Globulin 4.60g/dl Albumin/Globulin Ratio 0.52 Current Medications Medications (Trade) Dose Ordered Sig/Abbe Route PRN Reason Start Time Stop Time Status Last Admin Dose Admin Pantoprazole 80 mg/Sodium Chloride 100 ml @ 400 mls/hr ONCE STAT IVPB 05/22/17 06:46 05/22/17 07:00 DC 05/22/17 08:14 Pantoprazole 80 mg/Sodium Chloride 100 ml @ 10 mls/hr ONCE STAT IV 05/22/17 06:46 05/22/17 16:45 05/22/17 08:14 Octreotide Acetate 50 mcg/ Sodium Chloride 26 ml @ 100 mls/hr Q16M STAT IVPB 05/22/17 06:46 05/22/17 07:01 DC 05/22/17 07:36 Ceftriaxone Sodium (Rocephin) 50 ml @ 100 mls/hr ONCE ONCE IVPB 05/22/17 07:00 05/22/17 07:29 DC 05/22/17 07:29 Ondansetron HCl (Zofran Inj) 4 mg ONCE STAT IV 05/22/17 06:51 05/22/17 06:52 DC 05/22/17 07:28 Morphine Sulfate (morphine) 4 mg ONCE STAT IV 05/22/17 08:03 05/22/17 08:04 DC 05/22/17 08:12 Ondansetron HCl 4 mg 4 mg ONCE STAT IV 05/22/17 08:03 05/22/17 08:04 DC 05/22/17 08:12 Sodium Chloride (NS) 250 ml @ 0 mls/hr Q0M ONCE IV 05/22/17 09:05 05/22/17 09:06 DC Ondansetron HCl (Zofran Inj) 4 mg BRIDGE ORDER PRN IV NAUSEA AND/OR VOMITING 05/22/17 09:30 05/23/17 09:29 Acetaminophen 650 mg 650 mg ER BRIDGE PRN PO MILD PAIN/FEVER 05/22/17 09:30 05/23/17 09:29 Octreotide Acetate/Sodium Chloride (Sandostatin/NS) 50 ml @ 5 mls/hr ONCE STAT IV 05/22/17 09:19 05/22/17 09:30 DC Ondansetron HCl (Zofran Inj) 4 mg ONCE STAT IV 05/22/17 09:19 05/22/17 09:20 DC 05/22/17 09:53 Folic Acid (Folic Acid) 1 mg DAILY PO 05/23/17 09:00 Furosemide (Lasix) 20 mg TID PO 05/22/17 13:00 Spironolactone (Aldactone) 25 mg TID PO 05/22/17 13:00 Thiamine HCl 50 mg 50 mg QAM PO 05/23/17 09:00 Sodium Chloride (NS) 1,000 ml @ 80 mls/hr [id number] IV 05/22/17 09:15 IV Flush (NS 3 ml) 3 ml PER PROTOCOL IV 05/22/17 09:30 Ondansetron HCl (Zofran Inj) 4 mg Q6H PRN IV NAUSEA AND/OR VOMITING 05/22/17 09:30 Acetaminophen (Tylenol Tab) 650 mg Q6H PRN PO PAIN LEVEL 1-3 OR FEVER 05/22/17 09:30 Acetaminophen (Tylenol Supp) 650 mg Q6H PRN [place] PAIN LEVEL 1-3 OR FEVER 05/22/17 09:30 Acetaminophen/ Hydrocodone Bitart ([place] (5/325)) 1 tab Q6H PRN PO MODERATE PAIN LEVEL 4-6 05/22/17 09:30 Acetaminophen/ Hydrocodone Bitart ([place] (5/325)) 2 tab Q6H PRN PO SEVERE PAIN LEVEL 7-10 05/22/17 09:30 Morphine Sulfate (morphine) 2 mg Q4H PRN IV SEVERE PAIN LEVEL 7-10 05/22/17 09:30 Docusate Sodium (Colace) 100 mg Q12H PRN PO CONSTIPATION 05/22/17 09:30 Magnesium Hydroxide (Milk Of Mag) 30 ml DAILY PRN PO CONSTIPATION 05/22/17 09:30 Bisacodyl (Dulcolax Supp) 10 mg DAILY PRN MD CONSTIPATION 05/22/17 09:30 Pantoprazole (Protonix Iv) 40 mg DAILY@06 IV 05/23/17 06:00 Sodium Polystyrene Sulfonate 30 gm 30 gm ONCE ONCE PO 05/22/17 09:30 05/22/17 09:49 DC 05/22/17 09:53 Octreotide Acetate/Sodium Chloride (Sandostatin/NS) 50 ml @ 5 mls/hr TID IV 05/22/17 09:30 Lidocaine (Xylocaine 1% (Mpf)) 5 ml ONCE ONCE SC 05/22/17 10:00 05/22/17 10:01 DC Procedures/MDM EKG read by me: Rate/Rhythm: Regular rate and rhythm at a rate of 73 Intervals: Normal Impression: No evidence of ischemia or arrhythmia Patient is a 47-year-old male presents with acute GI bleed. I was concerned for esophageal variceal bleed and the patient was given Protonix and octreotide bolus and then drip. The patient will need a PICC line placed as well. The patient will be admitted to the care of the panel team to Dr. Jasmine to a telemetry bed. Given his age and comorbidities his prognosis is poor. The patient was transfused 2 units of packed red blood cells for a hemoglobin of 7.6. He may require continued transfusion. Critical Care: Time: 45 minutes excluding all billable procedures. Treatments/Evaluations: Close monitoring and treatment of unstable vital signs, cardiorespiratory, and neurologic status, while maintaining tight balance of fluid, respiratory, and cardiac interventions. Departure Diagnosis: Primary Impression: GI bleed GI bleed type/associated pathology: unspecified gastrointestinal hemorrhage type Qualified Code: K92.2 - Gastrointestinal hemorrhage, unspecified gastrointestinal hemorrhage type Additional Impression: Nausea and vomiting Vomiting type: hematemesis Qualified Code: K92.0 - Hematemesis with nausea Condition: Serious MENDY ELDRIDGE MD May 22, 2017 10:33
--- NOTE | 2017-05-22 10:55 | CONS ---
Date/Time of Note Date/Time of Note DATE: 05/22/17 TIME: 10:39 Assessment/Plan Assessment/Plan Chief Complaint/Hosp Course Assessment Hematemesis R/t esophageal varices vs other Anemia Esophageal Varices Decompensating alcoholic liver cirrhosis Thrombocytopenia secondary to ALC Hepatorenal syndrome? Hyperkalemia/treated Plan: Continue PPI drip Monitor h/h transfuse if HGB below 7.5 EGD today Keep NPO CM consult- transfer patient to [facility] once stable Start Xifaxan Start Lactulose Continue Octreotide Recommend nephrology consult Patient seen in collaboration with Dr. Lin Problems: Consultation Date/Type/Reason Admit Date/Time Date of Consultation: May 22, 2017 Type of Consultation: GI Reason for Consultation Hematemesis Hx of Present Illness This is a 47 year old male with past medical history of decompensating acholic liver cirrhosis,( who is on the transplant list at [facility]) esophageal varices, and recurrent MSSA. Presented to the ER with hematemesis starting at 10pm last night and again at 0300 this am. Pt currently is feeling weak, no further episodes of hematemesis noted. Initial lab work-up shows HGB 7.6, WBC 8.9, PLT 79, NA 129, K+ 5.9 (kayexalate given), Cr 1.47, Bilirubin 3.3, AST 88, ALT 54, alk phos 231, Alb 2,4, Pt 18.2, INR 1.48. Plan to place PICC line, monitor h/h and transfuse as needed. EGD today, keep NPO, CM consulted highly recommend transferring patient once stable to liver transplant unit at [facility]. Continue PPI drip, octreotide, start Xifaxan, and lactulose. Continue close observation. Further recommendations with clinical course and results of EGD. Past Medical History Medical History: GI bleed, other (esophageal varices, decompensating ALC) Social History Alcohol Use: other (Hx of ETOH abuse- quit 1 year ago) Smoking Status: Never smoker Exam/Review of Systems Vital Signs Vitals Vital Signs Date Time Temp Pulse Resp B/P Pulse Ox O2 Delivery O2 Flow Rate FiO2 05/22/17 09:30 72 14 101/43 100 Nasal Cannula 2.0 05/22/17 08:00 98.0 Exam PHYSICAL EXAMINATION: GENERAL: Chronically ill appearing, alert & oriented x 3, jaundice SKIN: No lesions, positive stigmata chronic liver disease, no evidence of bleeding diathesis LYMPHATIC: No palpable lymphadenopathy. HEAD: Normocephalic, atraumatic, no tenderness. EYES: Pupils equal reactive to light and accommodation, full extraocular movements, sclera clear, non-icteric, no discharge. EARS/NOSE AND THROAT: Ears normal, nose normal, NECK: Supple, no masses, thyroid normal CHEST: Inspection within normal limits. CARDIOVASCULAR: Heart: Regular rate and rhythm, RESPIRATORY: Lungs clear to auscultation GASTROINTESTINAL AND LIVER: Abdomen: Soft, non tenderness, non-distended, no hernias, no masses, ascites, no guarding, no rebound tenderness, normoactive bowel sounds. Rectal: Deferred. GENITOURINARY: Male genitalia within normal limits. EXTREMITIES: BLE edema. Results Result Diagram: 05/22/17 0700 05/22/17 0700 Results 24 hrs Laboratory Tests Test 05/22/17 07:00 White Blood Count 8.9 # Red Blood Count 2.21 L Hemoglobin 7.6 L Hematocrit 21.9 L Mean Corpuscular Volume 99.1 Mean Corpuscular Hemoglobin 34.4 H Mean Corpuscular Hemoglobin Concent 34.7 Red Cell Distribution Width 15.6 H Platelet Count 79 L Mean Platelet Volume 10.8 H Neutrophils % 69.2 Lymphocytes % 14.3 L Monocytes % 9.4 Eosinophils % 1.8 Basophils % 0.8 Nucleated Red Blood Cells % 4.5 H Neutrophils # 6.2 Lymphocytes # 1.3 Monocytes # 0.8 Eosinophils # 0.2 Basophils # 0.1 Nucleated Red Blood Cells # 0.0 Prothrombin Time 18.2 H Prothrombin Time Ratio 1.4 INR International Normalized Ratio 1.48 Activated Partial Thromboplast Time 26.2 Sodium Level 129 L Potassium Level 5.9 H Chloride Level 99 Carbon Dioxide Level 20 L Anion Gap 16 Blood Urea Nitrogen 67 H Creatinine 1.47 H Glucose Level 162 Calcium Level 8.8 Total Bilirubin 3.3 H Direct Bilirubin 0.10 Indirect Bilirubin 3.2 H Aspartate Amino Transf (AST/SGOT) 88 H Alanine Aminotransferase (ALT/SGPT) 54 Alkaline Phosphatase 231 H Troponin I 0.012 Total Protein 7.0 Albumin 2.4 L Globulin 4.60 H Albumin/Globulin Ratio 0.52 Medications Medications Current Medications Folic Acid (Folic Acid) 1 mg DAILY PO ; Start 05/23/17 at 09:00 Furosemide (Lasix) 20 mg TID PO ; Start 05/22/17 at 13:00 Spironolactone (Aldactone) 25 mg TID PO ; Start 05/22/17 at 13:00 Thiamine HCl 50 mg 50 mg QAM PO ; Start 05/23/17 at 09:00 Sodium Chloride (NS) 1,000 ml @ 80 mls/hr [id number] IV ; Start 05/22/17 at 09:15 Ondansetron HCl (Zofran Inj) 4 mg Q6H PRN IV NAUSEA AND/OR VOMITING; Start at 09:30 Acetaminophen (Tylenol Tab) 650 mg Q6H PRN PO PAIN LEVEL 1-3 OR FEVER; Start 05/22/17 at 09:30 Acetaminophen (Tylenol Supp) 650 mg Q6H PRN [place] PAIN LEVEL 1-3 OR FEVER; Start 05/22/17 at 09:30 Acetaminophen/ Hydrocodone Bitart ([place] (5/325)) 1 tab Q6H PRN PO MODERATE PAIN LEVEL 4-6; Start 05/22/17 at 09:30 Acetaminophen/ Hydrocodone Bitart ([place] (5/325)) 2 tab Q6H PRN PO SEVERE PAIN LEVEL 7-10; Start 05/22/17 at 09:30 Morphine Sulfate (morphine) 2 mg Q4H PRN IV SEVERE PAIN LEVEL 7-10; Start at 09:30 Docusate Sodium (Colace) 100 mg Q12H PRN PO CONSTIPATION; Start 05/22/17 at 09 :30 Magnesium Hydroxide (Milk Of Mag) 30 ml DAILY PRN PO CONSTIPATION; Start 05/22 at 09:30 Bisacodyl (Dulcolax Supp) 10 mg DAILY PRN [place] CONSTIPATION; Start 05/22/17 at 09:30 Pantoprazole 40 mg 40 mg DAILY@06 IV ; Start 05/23/17 at 06:00 Octreotide Acetate/Sodium Chloride (Sandostatin/NS) 50 ml @ 5 mls/hr TID IV ; Start 05/22/17 at 09:30 Copies To: CC: ANNABELLE LIN MD, VICTORIA May 22, 2017 10:49
--- NOTE | 2017-05-22 11:31 | RADRPT ---
PROCEDURE: XR Chest. CLINICAL INDICATION: PICC placement TECHNIQUE: Single frontal view of the chest was obtained. COMPARISON: 04/17/2017. FINDINGS: There is a left PICC with tip at the cavoatrial junction. The cardiomediastinal silhouette is normal in size. There are aortic calcifications. No focal consolidation is seen. No pleural effusion is seen. No definite pneumothorax. No acute osseous abnormality. IMPRESSION: 1. Left PICC with tip at the cavoatrial junction. 2. No radiographic evidence of an acute cardiopulmonary process. RPTAT: AAEE Margarito Sullivan Physician Date Time Electronically viewed and signed by Margarito Sullivan Physician on 05/22/2017 11:31 PH/
[2017-05-22] MEDS: OCTREOTIDE 500 MCG in SOD CHLORIDE 0.9% 49 ML IV SCH ×2 (11:35→17:28)
[2017-05-22] MEDS ORDERED: SOD CHLORIDE 0.9% 100 ML ONE (11:38)
--- NOTE | 2017-05-22 11:39 | RADRPT ---
PROCEDURE: Ultrasound proximal upper extremity for PICC placement CLINICAL INDICATION: PICC placement TECHNIQUE: Sonographic evaluation of the proximal left upper extremity vessels was performed utilizi ng a high-frequency linear transducer. COMPARISON: None available FINDINGS: Limited evaluation of the proximal upper extremity for vascular access for PICC placement. Grossly, no abnormality is seen. IMPRESSION: 1. Unremarkable limited proximal left upper extremity ultrasound for PICC placement. RPTAT: AAQQ .Anish Carrillo MD, MD Date Time Electronically viewed and signed by .Anish Carrillo MD, MD on 05/22/2017 11:39 .R/
[2017-05-22] MEDS: FUROSEMIDE 20 MG TAB PO SCH ×2 (13:00→21:11)
[2017-05-22] MEDS: SPIRONOLACTONE 25 MG TAB PO SCH ×2 (13:00→21:00)
[2017-05-22] MEDS: SOD CHLORIDE 0.9% 1,000 ML IV SCH ×2 (13:03→21:24)
--- NOTE | 2017-05-22 14:36 | HP ---
Date/Time of Note Date/Time of Note DATE: 05/22/17 TIME: 14:33 Assessment/Plan VTE Prophylaxis VTE Prophylaxis Intervention: SCD's Lines/Catheters IV C[facility]ter Type (from [facility] PICC Line Urinary Cath still in place: No Assessment/Plan Chief Complaint/Hosp Course Assessment and plan 1. Hematemesis. Patient being trances blood products right now. Monitor H&H. Tentative plan for EGD. Customer Account Administrator was consulted. 2. History of decompensated liver cirrhosis. Patient is on the liver transplant list at [facility]. Patient for outpatient follow-up with computer network specialist. 3. Thrombocytopenia secondary to #2. Monitor level. Transfuse blood products as needed. 4. Acute renal insufficiency. Shipper And Receiving was consulted. Follow-up with recommendations. 5. Hyperkalemia. Patient provided with Kayexalate. Monitor level. Will follow. 6. Hyponatremia. IV fluids for now. To be managed per cigar packing examiner. Disposition and plan: Tentative plan for EGD. Transfuse blood products as needed. Discussed plan of care with Dr. Sharma Problems: HPI/ROS Admit Date/Time Admit Date/Time Hx of Present Illness This is a 47-year-old male with history of decompensated liver cirrhosis, thrombocytopenia secondary to #1, history of alcohol abuse (quit May 2016) , anemia of liver disease, esophageal varices status post banding, came to bypass during hospital due to reports of hematemesis. Patient did report that 3 days prior to admission he started to have few episodes of brown emesis. He reports subjective feelings of heat as well as anxiety. This morning he started to have further episodes of vomiting, reportedly 9 episodes of hematemesis and as such went to [facility] for further evaluation. Upon examination he did have blood work drawn that did show him to have a hemoglobin of 7.6 and hematocrit 21.9. Her main afebrile with no leukocytosis. On labs he was hyponatremic and with potassium of 5.9. His creatinine was also seen at 1.47. We will evaluate him for the aformentiond issues. ROS 12 point review of systems obtained and entirely negative except that mentioned in the history present illness PMH/Family/Social Past Medical History Medical History: GI bleed, other (esophageal varices, decompensating ALC) Social History Alcohol Use: other (Hx of ETOH abuse- quit 1 year ago) Smoking Status: Never smoker Exam/Review of Systems Vital Signs Vitals Vital Signs Date Time Temp Pulse Resp B/P Pulse Ox O2 Delivery O2 Flow Rate FiO2 05/22/17 12:45 98.5 80 18 94/45 95 Nasal Cannula 2.0 Exam Constitutional: alert, oriented (Slightly lethargic) Psych: nl mood/affect Head: normocephalic Eyes: icteric Neck: non-tender, supple Respiratory: clear to auscultation, normal air movement Cardiovascular: regular rate and rhythm Gastrointestinal: other (Appears distended but nontender), soft Musculoskeletal: swelling (Bilateral lower extremities) Neurological: TYPISTS SUPERVISOR 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, nl mental status, nl speech Skin: other (Jaundice) Labs Result Diagram: 05/22/17 0700 05/22/17 0700 Medications Medications Current Medications Folic Acid (Folic Acid) 1 mg DAILY PO ; Start 05/23/17 at 09:00 Furosemide (Lasix) 20 mg TID PO ; Start 05/22/17 at 13:00 Spironolactone (Aldactone) 25 mg TID PO ; Start 05/22/17 at 13:00 Thiamine HCl 50 mg 50 mg QAM PO ; Start 05/23/17 at 09:00 Sodium Chloride (NS) 1,000 ml @ 80 mls/hr [id number] IV Last administered on t 13:03; Admin Dose 80 MLS/HR; Start 05/22/17 at 09:15 Ondansetron HCl (Zofran Inj) 4 mg Q6H PRN IV NAUSEA AND/OR VOMITING; Start at 09:30 Acetaminophen (Tylenol Tab) 650 mg Q6H PRN PO PAIN LEVEL 1-3 OR FEVER; Start 05/22/17 at 09:30 Acetaminophen (Tylenol Supp) 650 mg Q6H PRN [place] PAIN LEVEL 1-3 OR FEVER; Start 05/22/17 at 09:30 Acetaminophen/ Hydrocodone Bitart ([place] (5/325)) 1 tab Q6H PRN PO MODERATE PAIN LEVEL 4-6; Start 05/22/17 at 09:30 Acetaminophen/ Hydrocodone Bitart ([place] (5/325)) 2 tab Q6H PRN PO SEVERE PAIN LEVEL 7-10; Start 05/22/17 at 09:30 Morphine Sulfate (morphine) 2 mg Q4H PRN IV SEVERE PAIN LEVEL 7-10; Start at 09:30 Docusate Sodium (Colace) 100 mg Q12H PRN PO CONSTIPATION; Start 05/22/17 at 09 :30 Magnesium Hydroxide (Milk Of Mag) 30 ml DAILY PRN PO CONSTIPATION; Start 05/22 at 09:30 Bisacodyl (Dulcolax Supp) 10 mg DAILY PRN [place] CONSTIPATION; Start 05/22/17 at 09:30 Pantoprazole 40 mg 40 mg DAILY@06 IV ; Start 05/23/17 at 06:00 Octreotide Acetate/Sodium Chloride (Sandostatin/NS) 50 ml @ 5 mls/hr TID IV Last administered on 05/22/17t 11:35; Admin Dose 5 MLS/HR; Start 05/22/17 at 09:30 Rifaximin (Xifaxan) 550 mg BID PO ; Start 05/22/17 at 21:00 Lactulose (Enulose) 20 gm Q6 PO ; Start 05/22/17 at 18:00 IV Flush (NS 10 ml) 10 ml PRN PRN IV IV PROTOCOL; Start 05/22/17 at 12:00 GINGER MEJIA May 22, 2017 14:36
--- NOTE | 2017-05-22 17:10 | RADRPT ---
PROCEDURE: US Retroperitoneal CLINICAL INDICATION: Acute renal insufficiency TECHNIQUE: Multiple sonographic images of the kidneys and bladder were obtained. Evaluation of th e kidneys and bladder was performed as well with gutiérrez scale and color and Doppler evaluation using a curved array transducer. The images were reviewed on a high-resolution PACS workstation. COMPARISON: 04/01/2017 FINDINGS: The right kidney measures 10.2 cm in length. The left kidney measures 11.9 cm in length. A 1.9 cm in diameter complex cystic lesion is seen within the superior pole right kidney which was not demonstr ated on the previous study. The santiago appears somewhat irregular. No intra renal calcification or hy dronephrosis is evident. The left kidney appears normal without hydronephrosis. The bladder appears unremarkable although suboptimal distension gives the wall is slightly thickened appearance. There is again a moderate amount of free intraperitoneal fluid.. IMPRESSION: 1. The kidneys appear normal in size without hydronephrosis. A 1.9 cm complex cystic lesion is now seen within the superior pole right kidney with slightly irregular margins. This was not demonstrate d on the previous scan. This could be further evaluated by means of MRI or CT. 2. Normal appearing bladder. 3. There is again a moderate amount of free intraperitoneal fluid. Physician Kristine Date Time Electronically viewed and signed by Physician Kristine on 05/22/2017 17:09 /
[2017-05-22 17:34] LABS: CALCIUM 8.7 mg/dl (8.4-10.2); CREATININE 1.61 mg/dl (0.61-1.24); POTASSIUM 5.9 mmol/L (3.5-5.1)
[2017-05-22] MEDS ORDERED: PROPOFOL 20 ML ONE (18:41)
[2017-05-22] MEDS ORDERED: MIDAZOLAM 1 MG/ML 2 ML INJ ONE (18:42)
--- NOTE | 2017-05-22 18:49 | HPN ---
Date/Time of Note Date/Time of Note DATE: 05/22/17 TIME: 18:49 Interval H&P Admission Note Pt. seen H&P reviewed: No system changes ANNABELLE BOBBY MD May 22, 2017 18:49
--- NOTE | 2017-05-22 19:13 | OPPN ---
Date/Time of Note Date/Time of Note DATE: 05/22/17 TIME: 19:06 Proc Note GI Procedure Date 05/22/17 Indication: other Pre-procedure Diagnosis GI bleeding/hematemesis/cirrhosis Post-procedure Diagnosis Impression: Grade III-IV/IV esophageal varices Post EVL 6 without complications Portal hypertensive gastropathy Old blood in the stomach. Plan: Continue octreotide and Protonix drips Monitor H&H transfuse as necessary Contact [facility] liver transplant program for possible transfer Close monitoring Clear liquid diet . Procedure Performed: Endoscopy (with EVL) Surgeon ANNABELLE BOBBY MD See signature line Textiles Sales Representative none Anesthesia Type: MAC Anesthesiologist: CLINT VOGEL DO Tourniquet Time none EBL none Transfusion required none Biopsy 1: None Grafts/Implants none Tubes/Drains none Complication(s) none Procedure Description After informed consent, with the patient/relatives understanding the procedure, its indications, potential risks and complications, including but not limited to : allergic reaction, bleeding, perforation or infection, and after all pertinent questions were answered to the patients satisfaction, the patient/ relatives signed witnessed informed consent. Following this, premedication was administered slowly IV push under careful cardiovascular and respiratory monitoring with pulse oximetry, automatic blood pressure, and supervisor opening and picking. Once the sedative effect was achieved the patient was place in the left lateral decubitus, the panendoscope was introduced and advanced under visual control. Careful examination of the upper gastrointestinal tract, both on insertion as well as withdrawal of the instrument disclosing the following findings: ESOPHAGUS: the mucosa of the entire esophagus was carefully examined and showed the following findings: There are very large grade III-IV/IV esophageal varices. Varices on top of varices. No active bleeding. Evidence of recent bleeding. Endoscopic variceal ligation EVL X 6. Otherwise the mucosa appears within normal limits. There is no evidence of esophagitis, neoplasm, or stricture. No Hiatal Hernia identified. STOMACH: Upon entrance to the stomach air was insufflated, the gastric santiago distended normally. The mucosa of the fundus, body and antrum of the stomach was carefully examined both head-on and on retroflexion, and showed the following findings: There are moderate amounts of old blood in the stomach. There is evidence of portal hypertensive gastropathy with congestion erythema of the mucosa. Examination of the fundus is suboptimal due to the presence of old blood. Otherwise the mucosa appears within normal limits with no abnormalities. There is no evidence of ulcers or neoplasm. PYLORUS: The pylorus was carefully examined and showed the following findings: the pylorus appears patent and within normal limits, with no evidence of gastric outlet obstruction. DUODENUM: The duodenal mucosa was carefully examined in the duodenal bulb as well as the second portion of the duodenum and showed the following findings: the mucosa appears unremarkable with no evidence of duodenitis, ulcer or neoplasm. Copies To: CC: ANNABELLE BOBBY MD, MORDO MD May 22, 2017 19:13
[2017-05-22] MEDS ORDERED: ONDANSETRON 4 MG INJ ONE (19:16)
[2017-05-22] MEDS ORDERED: METOCLOPRAMIDE 10 MG INJ ONE (19:17)
--- NOTE | 2017-05-22 20:19 | CONS ---
DATE OF ADMISSION: 05/22/2017 DATE OF CONSULTATION: TYPE OF CONSULTATION: Nephrology. REASON FOR CONSULTATION: Acute kidney injury, hyperkalemia. REQUESTING PHYSICIAN: Dr. Ramirez HISTORY OF PRESENT ILLNESS: This is a 47-year-old male with a past medical history of decompensated liver cirrhosis secondary to ETOH abuse, history of GI bleed, history of thrombocytopenia, who pres ents to [facility] for evaluation of hematemesis. The patient states 3 days prior to admission, he was having noted brown emesis. The patient states he was also having lethargy, we akness. The patient then reported in the morning prior to admission multiple episodes of hematemesi s. As a result, he came to [facility] emergency room. Upon arrival, the patient was noted to have a hemoglobin of 7.6, hematocrit of 21.9. Patient had laboratory data drawn, which showed a potassium of 5.9, creatinine 1.47. In the emergency room, the patient was placed on octreotide and Protonix drip and started on IV fluids. The patient was admitted to telemetry for evaluation. In terms of the patient's renal history, the patient's previous baseline creatinine ranges from 0.7- 0.9 mg/dL. The patient was taking Lasix, Aldactone at home. The patient denies any copious water u se. The patient further denies any pyuria, hematuria or any rashes. PAST MEDICAL HISTORY: History of decompensated cirrhosis, history of hyponatremia, history of throm bocytopenia, history of anemia. PAST SURGICAL HISTORY: None. SOCIAL HISTORY: Previous history of alcohol use. FAMILY HISTORY: Noncontributory. MEDICATIONS: The patient's medications have been reviewed. REVIEW OF SYSTEMS: A 14-point review of systems was conducted. Pertinent positives stated in HPI, otherwise negative. PHYSICAL EXAMINATION: VITAL SIGNS: Blood pressure is 94/45, respirations 18, pulse 80, temperature 98.5. HEENT: Head is normocephalic. NECK: Supple. HEART: Regular rate. LUNGS: Show diminished breath sounds at the base. ABDOMEN: Soft, nontender to palpation. No rebound or guarding. EXTREMITIES: Negative for clubbing, cyanosis. No edema. DERMATOLOGIC: No rashes. MUSCULOSKELETAL: No joint effusion. NEUROLOGIC: No obvious focal deficits. LABORATORY DATA: Shows sodium 129, potassium 5.9, bicarb 30, BUN 64, creatinine 1.47. White count 8.9, hemoglobin 7.6, hematocrit of 21.9, platelet count of 79. IMAGING STUDIES: As stated in HPI. ASSESSMENT AND PLAN: This is a 47-year-old male who presents with: 1. Nonoliguric acute kidney injury with a previous baseline creatinine of 0/7-0.9 mg/dL. Etiology of acute kidney injury is likely multifactorial secondary to hemodynamics, volume depletion, diureti c use, Lasix, Aldactone. The possibility of acute tubular necrosis is a consideration. Lower suspi cion for acute glomerulonephritis or vasculitis given the patient's clinical presentation. The diag nosis of hepatorenal syndrome cannot be made at this is a diagnosis of exclusion. Plan at this poin t is to do a full evaluation. Will check urinalysis with microanalysis, check urine electrolytes. We will quantify protein/creatinine ratio. We will check a renal ultrasound. Would hold diuretics, Lasix., Aldactone. Continue volume repletion with intravenous fluids. Monitor renal function clos jennie. 2. Hyperkalemia. Etiology is multifactorial secondary to acute kidney injury in conjunction with A ldactone use. Plan is to continue the patient on intravenous fluids. Will hold Lasix, Aldactone, a nd monitor closely. 3. Hyponatremia. Etiology is secondary to acute kidney injury causing decreased free water urinary excretion in conjunction with elevated antidiuretic hormone levels due to cirrhosis pathophysiology . Plan at this point would be to monitor patient closely on intravenous fluids. Would minimize jakub e water intake. 4. Acidosis. Etiology is likely secondary to acute kidney injury. There may be a compensatory res ponse as patient is cirrhotic. Consider checking arterial blood gas. 5. Anemia, likely from gastrointestinal bleed. Monitor hemoglobin and hematocrit levels. 6. Hematemesis, acute gastrointestinal bleed, likely from varices. The patient is currently on Pro tonix and octreotide. Continue to monitor. Follow up serial hemoglobin and hematocrit levels. Fol low up with gastroenterology. 7. Decompensated cirrhosis. The patient is decompensated with hematemesis at this time. Continue current treatment plan as stated above. Follow up with gastroenterology. 8. Thrombocytopenia. Continue to monitor. Thank you, Dr. Ramirez, for this interesting consultation. It will be a pleasure to follow the patien t with you throughout the hospital course. Dictated By: JANETTE MCFARLAND/HECTOR Conf#: [id number] DID#: [id number] CC: ZE RAMIREZ MD; GUILLERMINA ROBERT MD;*End*
[2017-05-22] MEDS: OCTREOTIDE 1 MG in DEXTROSE 5% 95 ML IV SCH (20:30)
[2017-05-22] MEDS: PANTOPRAZOLE IV 80 MG in SOD CHLORIDE 0.9% 100 ML IV SCH (21:06)
[2017-05-22] MEDS: RIFAXIMIN 550 MG TAB PO SCH (21:10)
[2017-05-22] MEDS: LACTULOSE 30ML CUP PO SCH (21:10)
[2017-05-22] MEDS: METOCLOPRAMIDE 10 MG INJ IV SCH (21:15)
[2017-05-23] VITALS (12 sets, daily range): BP systolic 101–125; BP diastolic 55–59; PULSE 73–87; RESP 18–20
[2017-05-23] MEDS: LACTULOSE 30ML CUP PO SCH ×4 (00:52→17:18)
[2017-05-23 01:13] LABS: HEMATOCRIT 21.6 % (42.0-52.0); HEMOGLOBIN 7.7 g/dl (14.0-18.0)
[2017-05-23] MEDS: METOCLOPRAMIDE 10 MG INJ IV SCH ×4 (01:45→17:18)
[2017-05-23 03:17] LABS: ADD UMIC NO; UR ASCORBIC ACID NEGATIVE (NEGATIVE); UR BILIRUBIN (Dip) NEGATIVE (NEGATIVE); UR BLOOD (Dip) NEGATIVE (NEGATIVE); UR CLARITY CLEAR (CLEAR); UR COLOR YELLOW (YELLOW); UR GLUCOSE (Dip) NEGATIVE (NEGATIVE); UR KETONES (Dip) NEGATIVE (NEGATIVE); UR LEUKOCYTE ESTERASE (Dip) NEGATIVE Leu/ul (NEGATIVE); UR NITRITE (Dip) NEGATIVE (NEGATIVE); UR SPECIFIC GRAVITY (Dip) 1.015 (1.003-1.030); UR TOTAL PROTEIN (Dip) NEGATIVE (NEGATIVE); UR UROBILINOGEN (Dip) NEGATIVE (NEGATIVE)
[2017-05-23] MEDS: OCTREOTIDE 1 MG in DEXTROSE 5% 95 ML IV SCH ×2 (05:13→15:47)
[2017-05-23] MEDS: PANTOPRAZOLE IV 80 MG in SOD CHLORIDE 0.9% 100 ML IV SCH ×2 (05:30→15:46)
[2017-05-23] MEDS ORDERED: PANTOPRAZOLE 40 MG INJ IV SCH (06:00)
[2017-05-23 07:44] LABS: ABNORMAL IP MESSAGE 1; BASOPHIL # 0.1 10^3/ul (0.0-0.1); BASOPHILS % 0.5 % (0.0-2.0); EOSINOPHILS # 0.9 10^3/ul (0.0-0.5); EOSINOPHILS % 9.3 % (0.0-7.0); HEMATOCRIT 22.4 % (42.0-52.0); HEMOGLOBIN 7.8 g/dl (14.0-18.0); LYMPHOCYTES # 1.2 10^3/ul (0.8-2.9); LYMPHOCYTES % 13.1 % (15.0-51.0); MEAN CORPUSCULAR HEMOGLOBIN 32.8 pg (29.0-33.0); MEAN CORPUSCULAR HGB CONC 34.8 g/dl (32.0-37.0); MEAN CORPUSCULAR VOLUME 94.1 fl (82.0-101.0); MEAN PLATELET VOLUME 10.3 fl (7.4-10.4); MONOCYTE # 1.6 10^3/ul (0.3-0.9); MONOCYTES % 16.8 % (0.0-11.0); NEUTROPHIL # 5.2 10^3/ul (1.6-7.5); NEUTROPHILS % 55.8 % (39.0-77.0); NUCLEATED RED BLOOD CELLS% 0.2 /100WBC (0.0-0.0); PLATELET COUNT 76 10^3/UL (140-415); POSITIVE DIFF @See below; RED BLOOD COUNT 2.38 10^6/ul (4.70-6.10); RED CELL DISTRIBUTION WIDTH 19.9 % (11.5-14.5); WHITE BLOOD COUNT 9.2 10^3/ul (4.8-10.8)
[2017-05-23 08:24] LABS: ALBUMIN 1.9 g/dl (3.3-4.9); ALBUMIN/GLOBULIN RATIO 0.5; BILIRUBIN,DIRECT 0.2 mg/dl (0.00-0.20); BILIRUBIN,INDIRECT 3.6 mg/dl (0-1.1); BILIRUBIN,TOTAL 3.8 mg/dl (0.2-1.3); CALCIUM 8.6 mg/dl (8.4-10.2); CHOL/HDL RATIO 4.7 RATIO; CREATININE 1.72 mg/dl (0.61-1.24); MAGNESIUM 1.9 mg/dl (1.7-2.5); POTASSIUM 4.6 mmol/L (3.5-5.1); TOTAL PROTEIN 5.7 g/dl (6.1-8.1)
[2017-05-23 08:51] LABS: THYROID STIMULATING HORMONE 0.664 MIU/L (0.465-4.680)
[2017-05-23] MEDS: FOLIC ACID 1 MG TAB PO SCH (08:58)
[2017-05-23] MEDS: THIAMINE 100 MG TAB PO SCH (08:59)
[2017-05-23] MEDS: SOD CHLORIDE 0.9% 1,000 ML IV SCH (08:59)
[2017-05-23] MEDS: RIFAXIMIN 550 MG TAB PO SCH ×2 (08:59→20:24)
[2017-05-23] MEDS: FUROSEMIDE 20 MG TAB PO SCH (08:59)
[2017-05-23] MEDS: ALBUMIN HUMAN 25% 100 ML IV SCH ×2 (09:44→17:18)
--- NOTE | 2017-05-23 09:53 | PN ---
Date/Time of Note Date/Time of Note DATE: 05/23/17 TIME: 09:46 Assessment/Plan VTE Prophylaxis VTE Prophylaxis Intervention: SCD's Lines/Catheters [facility] Peripheral IV Urinary Cath still in place: No Assessment/Plan Chief Complaint/Hosp Course Assessment Hematemesis EGD 05/22/17 Impression: Grade III-IV/IV esophageal varices Post EVL 6 without complications Portal hypertensive gastropathy Old blood in the stomach. Anemia Esophageal Varices Decompensating alcoholic liver cirrhosis Thrombocytopenia secondary to ALC Hepatorenal syndrome? Hyperkalemia/treated Plan: Continue octreotide and Protonix drips Monitor H&H transfuse for hgb less than 7.5 or active signs of bleeding Contact [facility] liver transplant program for possible transfer Lesia Spencer asset coordinator Close monitoring H/H q 6 hours Clear liquid diet today advance as tolerated Recommend nephrology consult Patient seen in collaboration with Dr. Lin Subjective: Course reviewed with nursing staff Patient interviewed and examined All labs, imaging and other results reviewed The patient feels well, tolerating diet without difficulty will advance to full liquid diet. Continue close observation Cr trending up, H/H stable Transfer as soon as stable and bed available. Spoke to Case management. PHYSICAL EXAMINATION: GENERAL: Chronically ill appearing, alert & oriented x 3, jaundice SKIN: No lesions, positive stigmata chronic liver disease, no evidence of bleeding diathesis LYMPHATIC: No palpable lymphadenopathy. HEAD: Normocephalic, atraumatic, no tenderness. EYES: Pupils equal reactive to light and accommodation, full extraocular movements, sclera clear, non-icteric, no discharge. EARS/NOSE AND THROAT: Ears normal, nose normal, NECK: Supple, no masses, thyroid normal CHEST: Inspection within normal limits. CARDIOVASCULAR: Heart: Regular rate and rhythm, RESPIRATORY: Lungs clear to auscultation GASTROINTESTINAL AND LIVER: Abdomen: Soft, non tenderness, non-distended, no hernias, no masses, ascites, no guarding, no rebound tenderness, normoactive bowel sounds. Rectal: Deferred. GENITOURINARY: Male genitalia within normal limits. EXTREMITIES: BLE edema. Problems: Exam/Review of Systems Vital Signs Vitals Vital Signs Date Time Temp Pulse Resp B/P Pulse Ox O2 Delivery O2 Flow Rate FiO2 05/23/17 08:06 78 05/23/17 07:44 97.9 18 125/58 100 05/22/17 19:38 Nasal Cannula 05/22/17 19:31 2.0 Intake and Output 05/22/17 05/22/17 05/23/17 15:00 23:00 07:00 Intake Total 30 ml 380 ml 1115 ml Output Total 350 ml Balance 30 ml 380 ml 765 ml Results Result Diagram: 05/23/17 0651 05/23/17 0651 Results 24 hrs Laboratory Tests Test 05/22/17 14:58 05/22/17 16:50 05/22/17 22:31 05/23/17 00:30 Potassium Level 5.7 H 5.9 H 5.5 H Sodium Level 130 L Chloride Level 102 Carbon Dioxide Level 19 L Anion Gap 15 Blood Urea Nitrogen 72 H Creatinine 1.61 H Glucose Level 169 Calcium Level 8.7 Hemoglobin 7.7 L Hematocrit 21.6 L Test 05/23/17 02:55 05/23/17 06:51 05/23/17 07:53 Urine Color YELLOW Urine Clarity CLEAR Urine pH 6.0 Urine Specific [place] 1.015 Urine Ketones NEGATIVE Urine Nitrite NEGATIVE Urine Bilirubin NEGATIVE Urine Urobilinogen NEGATIVE Urine Leukocyte Esterase NEGATIVE Urine Hemoglobin NEGATIVE Urine Random Creatinine 58.17 Urine Random Sodium 31 Urine Glucose NEGATIVE Urine Total Protein 7.0 White Blood Count 9.2 Red Blood Count 2.38 L Hemoglobin 7.8 L Hematocrit 22.4 L Mean Corpuscular Volume 94.1 Mean Corpuscular Hemoglobin 32.8 Mean Corpuscular Hemoglobin Concent 34.8 Red Cell Distribution Width 19.9 #H Platelet Count 76 L Mean Platelet Volume 10.3 Neutrophils % 55.8 Lymphocytes % 13.1 L Monocytes % 16.8 H Eosinophils % 9.3 H Basophils % 0.5 Nucleated Red Blood Cells % 0.2 H Neutrophils # 5.2 Lymphocytes # 1.2 Monocytes # 1.6 H Eosinophils # 0.9 H Basophils # 0.1 Nucleated Red Blood Cells # 0.0 Sodium Level 132 L Potassium Level 4.6 Chloride Level 104 Carbon Dioxide Level 17 L Anion Gap 16 Blood Urea Nitrogen 69 H Creatinine 1.72 H Glucose Level 153 Hemoglobin A1c 5.0 Calcium Level 8.6 Phosphorus Level 5.0 H Magnesium Level 1.9 Total Bilirubin 3.8 H Direct Bilirubin 0.20 Indirect Bilirubin 3.6 H Aspartate Amino Transf (AST/SGOT) 54 H Alanine Aminotransferase (ALT/SGPT) 50 Alkaline Phosphatase 121 Total Protein 5.7 #L Albumin 1.9 L Globulin 3.80 H Albumin/Globulin Ratio 0.50 Triglycerides Level 75 Cholesterol Level 160 LDL Cholesterol, Calculated 111 HDL Cholesterol 34 Cholesterol/HDL Ratio 4.7 Thyroid Stimulating Hormone (TSH) 0.664 Free Thyroxine Index Pending Thyroxine (T4) Pending Triiodothyronine (T3) Uptake Pending Lab Scanned Report BLOOD TRANSFUSION Medications Medications Current Medications Folic Acid (Folic Acid) 1 mg DAILY PO Last administered on 05/23/17 08:58; Admin Dose 1 MG; Start 05/23/17 at 09:00 Furosemide (Lasix) 20 mg TID PO Last administered on 05/23/17 08:59; Admin Dose 20 MG; Start 05/22/17 at 13:00; Status Future Hold Thiamine HCl 50 mg 50 mg QAM PO Last administered on 05/23/17 08:59; Admin Dose 50 MG; Start 05/23/17 at 09:00 Sodium Chloride (NS) 1,000 ml @ 50 mls/hr Q20H IV Last administered on 08:59; Admin Dose 80 MLS/HR; Start 05/22/17 at 09:15 Ondansetron HCl (Zofran Inj) 4 mg Q6H PRN IV NAUSEA AND/OR VOMITING; Start at 09:30 Acetaminophen (Tylenol Tab) 650 mg Q6H PRN PO PAIN LEVEL 1-3 OR FEVER; Start 05/22/17 at 09:30 Acetaminophen (Tylenol Supp) 650 mg Q6H PRN [place] PAIN LEVEL 1-3 OR FEVER; Start 05/22/17 at 09:30 Acetaminophen/ Hydrocodone Bitart ([place] (5/325)) 1 tab Q6H PRN PO MODERATE PAIN LEVEL 4-6; Start 05/22/17 at 09:30 Acetaminophen/ Hydrocodone Bitart ([place] (5/325)) 2 tab Q6H PRN PO SEVERE PAIN LEVEL 7-10; Start 05/22/17 at 09:30 Morphine Sulfate (morphine) 2 mg Q4H PRN IV SEVERE PAIN LEVEL 7-10; Start at 09:30 Docusate Sodium (Colace) 100 mg Q12H PRN PO CONSTIPATION; Start 05/22/17 at 09 :30 Magnesium Hydroxide (Milk Of Mag) 30 ml DAILY PRN PO CONSTIPATION; Start 05/22 at 09:30 Bisacodyl 10 mg 10 mg DAILY PRN [place] CONSTIPATION; Start 05/22/17 at 09:30 Octreotide Acetate/Sodium Chloride (Sandostatin/NS) 50 ml @ 5 mls/hr TID IV Last administered on 05/22/17 17:28; Admin Dose 5 MLS/HR; Start 05/22/17 at 09:30; Status Future Hold Rifaximin (Xifaxan) 550 mg BID PO Last administered on 05/23/17 08:59; Admin Dose 550 MG; Start 05/22/17 at 21:00 Lactulose (Enulose) 20 gm Q6 PO Last administered on 05/23/17 05:08; Admin Dose 20 GM; Start 05/22/17 at 18:00 IV Flush 10 ml 10 ml PRN PRN IV IV PROTOCOL; Start 05/22/17 at 12:00 Pantoprazole 80 mg/Sodium Chloride 100 ml @ 10 mls/hr Q10H IV Last administered on 05/22/17 21:06; Admin Dose 10 MLS/HR; Start 05/22/17 at 19:30 Octreotide Acetate/Dextrose (Sandostatin/D5W) 100 ml @ 5 mls/hr Q20H IV Last administered on 05/23/17 05:13; Admin Dose 5 MLS/HR; Start 05/22/17 at 20:30 Metoclopramide HCl 10 mg 10 mg Q6 IV Last administered on 05/23/17 05:09; Admin Dose 10 MG; Start 05/22/17 at 19:30 Albumin Human (Albumin Human 25%) 100 ml @ 100 mls/hr Q8H IV Last administered on 05/23/17 09:44; Admin Dose 100 MLS/HR; Start 05/23/17 at 09: 30; Stop 05/24/17 at 02:29 ANKITA YA May 23, 2017 09:53
--- NOTE | 2017-05-23 11:57 | PN ---
DATE: 05/23/2017 SUBJECTIVE: The patient is stable. No events overnight. No fevers, chills, nausea, vomiting. OBJECTIVE: VITAL SIGNS: Blood pressure is 125/58, respiration 18, pulse 80, temperature 97.9. HEENT: Head is normocephalic. NECK: Supple. HEART: Regular rate. LUNGS: Show diminished breath sounds at base. ABDOMEN: Soft, nontender to palpation. No rebound or guarding. EXTREMITIES: Negative for clubbing, cyanosis. No edema. DERMATOLOGIC: No rashes. MUSCULOSKELETAL: No joint effusions. NEUROLOGIC: No change in exam. MEDICATIONS: The patient's medications reviewed. LABORATORY DATA: Showed sodium 132, potassium 4.6, BUN 6, creatinine 1.72. White count 9.2, hemogl obin 7.8, platelet count is 76. The patient's urinalysis is bland, FENa 1%, no significant proteinu arian. Renal ultrasound shows normal kidneys in size without hydronephrosis. There is a complex cyst noted in the right kidney superior pole and moderate amount of intraperitone al fluid. MEDICATIONS: The patient's medications have been reviewed. ASSESSMENT AND PLAN: 1. Nonoliguric acute kidney injury with previous baseline creatinine 0.7 to 0.9 mg/dL. Etiology of acute kidney injury is likely multifactorial secondary to hemodynamics, diuretic use, Lasix, Aldact one. Lower suspicion for acute glomerulonephritis, vasculitis given the patient's clinical presenta tion. The patient's urinalysis was reviewed and bland, no significant proteinuria. The patient's r enal ultrasound was reviewed. No evidence of increased echogenicity to suggest chronic kidney disea se. The patient's renal function has continued to decline in the last 24 hours. Urinary output has been marginal. The possibility of hepatorenal syndrome is a consideration, yet this is a diagnosis of exclusion. Plan at this point is to continue IV hydration. Will give albumin 25% 100 mL q.8h _ ___ 48 hours. Otherwise, continue supportive care, renally dose all meds, avoid nephrotoxins. Woul d hold diuretic therapy. 2. Hyperkalemia, improved, etiology secondary to acute kidney injury in conjunction with Aldactone. Continue IV fluids. Hold diuretics. The patient is status post Kayexalate. 3. Hyponatremia secondary to acute kidney injury causing decreased free water urinary excretion and elevated ADH level due to cirrhosis. Continue to monitor. Minimize free water intake. 4. Acidosis, etiology secondary to acute kidney injury and possible compensatory. Continue to ismael tor. 5. Anemia from gastrointestinal bleed. Continue to monitor hemoglobin and hematocrit levels. Cont inue Protonix and octreotide. 6. Decompensated cirrhosis. The patient has noted ascites. Consider a therapeutic paracentesis. 7. Thrombocytopenia. Continue to monitor. Dictated By: JANETTE MCFARLAND/HECTOR Conf#: [id number] DID#: [id number]
[2017-05-23 13:32] LABS: T3 UPTAKE 55.9 % (23.5-40.5)
[2017-05-23 15:38] LABS: HEMATOCRIT 21.4 % (42.0-52.0); HEMOGLOBIN 7.4 g/dl (14.0-18.0)
--- NOTE | 2017-05-23 17:07 | PN ---
Date/Time of Note Date/Time of Note DATE: 05/23/17 TIME: 17:07 Assessment/Plan Lines/Catheters IV C[facility] Type ([facility] PICC Line Urinary Cath still in place: No Assessment/Plan Chief Complaint/Hosp Course Assessment and plan 1. Hematemesis. . Monitor H&H. Tentative plan for EGD. [employer] was consulted. 2. History of decompensated liver cirrhosis. Patient is on the liver transplant list at [facility]. Patient for outpatient follow-up with hi teacher. 3. Thrombocytopenia secondary to #2. Monitor level. Transfuse blood products as needed. 4. Acute renal insufficiency. Respiratory Coordinator was consulted. Follow-up with recommendations. 5. Hyperkalemia. Patient provided with Kayexalate. Monitor level. Will follow. 6. Hyponatremia. IV fluids for now. To be managed per inside sales person. Disposition and plan: Tentative plan for EGD. Transfuse blood products as needed. Discussed plan of care with Dr. Sharma Problems: Exam/Review of Systems Vital Signs Vitals Vital Signs Date Time Temp Pulse Resp B/P Pulse Ox O2 Delivery O2 Flow Rate FiO2 05/23/17 16:06 73 05/23/17 11:55 98.0 18 108/57 99 05/22/17 19:38 Nasal Cannula 05/22/17 19:31 2.0 Intake and Output 05/22/17 05/22/17 05/23/17 15:00 23:00 07:00 Intake Total 30 ml 380 ml 1115 ml Output Total 350 ml Balance 30 ml 380 ml 765 ml Results Result Diagram: 05/23/17 1502 05/23/17 0651 Results 24 hrs Laboratory Tests Test 05/22/17 22:31 05/23/17 00:30 05/23/17 02:55 05/23/17 06:51 Potassium Level 5.5 H 4.6 Hemoglobin 7.7 L 7.8 L Hematocrit 21.6 L 22.4 L Urine Color YELLOW Urine Clarity CLEAR Urine pH 6.0 Urine Specific [place] 1.015 Urine Ketones NEGATIVE Urine Nitrite NEGATIVE Urine Bilirubin NEGATIVE Urine Urobilinogen NEGATIVE Urine Leukocyte Esterase NEGATIVE Urine Hemoglobin NEGATIVE Urine Random Creatinine 58.17 Urine Random Sodium 31 Urine Glucose NEGATIVE Urine Total Protein 7.0 White Blood Count 9.2 Red Blood Count 2.38 L Mean Corpuscular Volume 94.1 Mean Corpuscular Hemoglobin 32.8 Mean Corpuscular Hemoglobin Concent 34.8 Red Cell Distribution Width 19.9 #H Platelet Count 76 L Mean Platelet Volume 10.3 Neutrophils % 55.8 Lymphocytes % 13.1 L Monocytes % 16.8 H Eosinophils % 9.3 H Basophils % 0.5 Nucleated Red Blood Cells % 0.2 H Neutrophils # 5.2 Lymphocytes # 1.2 Monocytes # 1.6 H Eosinophils # 0.9 H Basophils # 0.1 Nucleated Red Blood Cells # 0.0 Sodium Level 132 L Chloride Level 104 Carbon Dioxide Level 17 L Anion Gap 16 Blood Urea Nitrogen 69 H Creatinine 1.72 H Glucose Level 153 Hemoglobin A1c 5.0 Calcium Level 8.6 Phosphorus Level 5.0 H Magnesium Level 1.9 Total Bilirubin 3.8 H Direct Bilirubin 0.20 Indirect Bilirubin 3.6 H Aspartate Amino Transf (AST/SGOT) 54 H Alanine Aminotransferase (ALT/SGPT) 50 Alkaline Phosphatase 121 Total Protein 5.7 #L Albumin 1.9 L Globulin 3.80 H Albumin/Globulin Ratio 0.50 Triglycerides Level 75 Cholesterol Level 160 LDL Cholesterol, Calculated 111 HDL Cholesterol 34 Cholesterol/HDL Ratio 4.7 Thyroid Stimulating Hormone (TSH) 0.664 Free Thyroxine Index 2.80 Thyroxine (T4) 5.0 L Triiodothyronine (T3) Uptake 55.9 H Test 05/23/17 07:53 05/23/17 15:02 Lab Scanned Report BLOOD TRANSFUSION Hemoglobin 7.4 L Hematocrit 21.4 L Medications Medications Current Medications Folic Acid (Folic Acid) 1 mg DAILY PO Last administered on 05/23/17 08:58; Admin Dose 1 MG; Start 05/23/17 at 09:00 Furosemide (Lasix) 20 mg TID PO Last administered on 05/23/17 08:59; Admin Dose 20 MG; Start 05/22/17 at 13:00; Status Future Hold Thiamine HCl 50 mg 50 mg QAM PO Last administered on 05/23/17 08:59; Admin Dose 50 MG; Start 05/23/17 at 09:00 Sodium Chloride (NS) 1,000 ml @ 50 mls/hr Q20H IV Last administered on 08:59; Admin Dose 80 MLS/HR; Start 05/22/17 at 09:15 Ondansetron HCl (Zofran Inj) 4 mg Q6H PRN IV NAUSEA AND/OR VOMITING; Start at 09:30 Acetaminophen (Tylenol Tab) 650 mg Q6H PRN PO PAIN LEVEL 1-3 OR FEVER; Start 05/22/17 at 09:30 Acetaminophen (Tylenol Supp) 650 mg Q6H PRN [place] PAIN LEVEL 1-3 OR FEVER; Start 05/22/17 at 09:30 Acetaminophen/ Hydrocodone Bitart ([place] (5/325)) 1 tab Q6H PRN PO MODERATE PAIN LEVEL 4-6; Start 05/22/17 at 09:30 Acetaminophen/ Hydrocodone Bitart ([place] (5/325)) 2 tab Q6H PRN PO SEVERE PAIN LEVEL 7-10; Start 05/22/17 at 09:30 Morphine Sulfate (morphine) 2 mg Q4H PRN IV SEVERE PAIN LEVEL 7-10; Start at 09:30 Docusate Sodium (Colace) 100 mg Q12H PRN PO CONSTIPATION; Start 05/22/17 at 09 :30 Magnesium Hydroxide (Milk Of Mag) 30 ml DAILY PRN PO CONSTIPATION; Start 05/22 at 09:30 Bisacodyl 10 mg 10 mg DAILY PRN [place] CONSTIPATION; Start 05/22/17 at 09:30 Octreotide Acetate/Sodium Chloride (Sandostatin/NS) 50 ml @ 5 mls/hr TID IV Last administered on 05/22/17 17:28; Admin Dose 5 MLS/HR; Start 05/22/17 at 09:30; Status Future Hold Rifaximin (Xifaxan) 550 mg BID PO Last administered on 05/23/17 08:59; Admin Dose 550 MG; Start 05/22/17 at 21:00 Lactulose (Enulose) 20 gm Q6 PO Last administered on 05/23/17 11:49; Admin Dose 20 GM; Start 05/22/17 at 18:00 IV Flush 10 ml 10 ml PRN PRN IV IV PROTOCOL; Start 05/22/17 at 12:00 Pantoprazole 80 mg/Sodium Chloride 100 ml @ 10 mls/hr Q10H IV Last administered on 05/23/17 15:46; Admin Dose 10 MLS/HR; Start 05/22/17 at 19:30 Octreotide Acetate/Dextrose (Sandostatin/D5W) 100 ml @ 5 mls/hr Q20H IV Last administered on 05/23/17 15:47; Admin Dose 5 MLS/HR; Start 05/22/17 at 20:30 Metoclopramide HCl 10 mg 10 mg Q6 IV Last administered on 05/23/17 11:50; Admin Dose 10 MG; Start 05/22/17 at 19:30 Albumin Human (Albumin Human 25%) 100 ml @ 100 mls/hr Q8H IV Last administered on 05/23/17 09:44; Admin Dose 100 MLS/HR; Start 05/23/17 at 09: 30; Stop 05/24/17 at 02:29 GINGER MEJIA May 23, 2017 17:07
[2017-05-23 18:42] LABS: HEMATOCRIT 20.9 % (42.0-52.0); HEMOGLOBIN 7.5 g/dl (14.0-18.0)
[2017-05-23] MEDS: HYDROCODONE/APAP (5/325) TAB PO PRN (22:54)
[2017-05-24] VITALS (11 sets, daily range): BP systolic 90–110; BP diastolic 52–74; PULSE 59–79; RESP 16–20
[2017-05-24] MEDS: LACTULOSE 30ML CUP PO SCH ×4 (00:39→18:26)
[2017-05-24] MEDS: METOCLOPRAMIDE 10 MG INJ IV SCH ×4 (00:39→18:27)
[2017-05-24 01:09] LABS: HEMATOCRIT 18.4 % (42.0-52.0)
[2017-05-24] MEDS: ALBUMIN HUMAN 25% 100 ML IV SCH ×3 (01:13→18:26)
[2017-05-24 01:23] LABS: HEMOGLOBIN 6.5 g/dl (14.0-18.0)
[2017-05-24] MEDS: SOD CHLORIDE 0.9% 1,000 ML IV SCH (02:33)
[2017-05-24] MEDS: PANTOPRAZOLE IV 80 MG in SOD CHLORIDE 0.9% 100 ML IV SCH ×2 (02:33→12:46)
[2017-05-24] MEDS: THIAMINE 100 MG TAB PO SCH (07:49)
[2017-05-24] MEDS: RIFAXIMIN 550 MG TAB PO SCH ×2 (07:49→20:45)
[2017-05-24] MEDS: FOLIC ACID 1 MG TAB PO SCH (07:49)
--- NOTE | 2017-05-24 09:54 | PN ---
DATE: 05/24/2017 SUBJECTIVE: The patient is stable. No events overnight. No fevers, chills, nausea, vomiting. Tiffanie ibshop is receiving blood transfusion. OBJECTIVE: VITAL SIGNS: Blood pressure is 98/60, respirations 16, pulse 78, temperature 98.0. HEENT: Head is normocephalic. NECK: Supple. HEART: Regular rate. LUNGS: Show diminished breath sounds at base. ABDOMEN: Soft, nontender to palpation. No rebound or guarding. EXTREMITIES: Negative for clubbing, cyanosis, no edema. DERMATOLOGIC: No rashes. MUSCULOSKELETAL: No joint effusions. NEUROLOGIC: No change in exam. MEDICATIONS: The patient's medications have been reviewed. LABORATORY DATA: Shows a hemoglobin of 6.5. The patient's BMP is pending. ASSESSMENT AND PLAN: 1. Nonoliguric acute kidney injury with previous baseline creatinine of 0.7 to 0.9 mg/dL. Etiology of acute kidney injury is multifactorial secondary to hemodynamics, diuretics. The possibility of hepatorenal syndrome is a consideration, although this is a diagnosis of exclusion. The patient's r enal function has continued to decline; however, waiting for renal panel this morning. Plan is to crow garsia current treatment plan. Follow up renal panel. Continue IV albumin and volume resuscitatio n for another 48 hours. Continue supportive care, renally dose all meds, avoid nephrotoxins. 2. Hyperkalemia secondary to acute kidney injury and Aldactone effect, improved. 3. Hyponatremia secondary to acute kidney injury and underlying cirrhosis, improving. Continue to monitor. Continue free water restriction. 4. Severe anemia, felt to be secondary to a gastrointestinal bleed. Continue blood transfusions. Continue Protonix and octreotide. 5. Metabolic acidosis. Continue to monitor. 6. Decompensated cirrhosis. The patient has ascites. Consider paracentesis. Continue to treat un derlying encephalopathy. Continue octreotide and Protonix. Follow up with GI. 8. Thrombocytopenia. Continue to monitor. Dictated By: JANETTE JN DO NR/NTS Conf#: [id number] DID#: [id number] CC: GUILLERMINA ROBERT MD;*EndCC*
[2017-05-24 11:04] LABS: HEMOGLOBIN 8.8 g/dl (14.0-18.0)
[2017-05-24 11:22] LABS: CALCIUM 8.6 mg/dl (8.4-10.2); CREATININE 1.5 mg/dl (0.61-1.24); POTASSIUM 4.6 mmol/L (3.5-5.1)
--- NOTE | 2017-05-24 12:18 | PN ---
Date/Time of Note Date/Time of Note DATE: 05/24/17 TIME: 12:12 Assessment/Plan VTE Prophylaxis VTE Prophylaxis Intervention: SCD's Lines/Catheters IV Catheter Type (from Nrs): PICC Line Central line still needed: Yes (meds) Urinary Cath still in place: No Assessment/Plan Chief Complaint/Hosp Course Assessment Hematemesis EGD 05/22/17 Impression: Grade III-IV/IV esophageal varices Post EVL 6 without complications Portal hypertensive gastropathy Old blood in the stomach. Anemia Esophageal Varices Decompensating alcoholic liver cirrhosis Thrombocytopenia secondary to ALC Hepatorenal syndrome? Hyperkalemia/treated Plan: Continue octreotide and Protonix drips Monitor H&H transfuse for hgb less than 7.5 or active signs of bleeding CM to Contact [facility] liver transplant program for possible transfer Lesia Spencer investor relations coordinator Close monitoring H/H q 6 hours Patient seen in collaboration with Dr. Lin Subjective: Course reviewed with nursing staff Patient interviewed and examined All labs, imaging and other results reviewed Pt feels well, slight drop in HGB overnight without evidence of overt GI bleed, blood transfusion given, HGB now 8.8, slight improvement on CR Continue to monitor patient. Will continue to assess need for paracentesis. PHYSICAL EXAMINATION: GENERAL: Chronically ill appearing, alert & oriented x 3, jaundice SKIN: No lesions, positive stigmata chronic liver disease, no evidence of bleeding diathesis LYMPHATIC: No palpable lymphadenopathy. HEAD: Normocephalic, atraumatic, no tenderness. EYES: Pupils equal reactive to light and accommodation, full extraocular movements, sclera clear, non-icteric, no discharge. EARS/NOSE AND THROAT: Ears normal, nose normal, NECK: Supple, no masses, thyroid normal CHEST: Inspection within normal limits. CARDIOVASCULAR: Heart: Regular rate and rhythm, RESPIRATORY: Lungs clear to auscultation GASTROINTESTINAL AND LIVER: Abdomen: Soft, non tenderness, non-distended, no hernias, no masses, ascites, no guarding, no rebound tenderness, normoactive bowel sounds. Rectal: Deferred. GENITOURINARY: Male genitalia within normal limits. EXTREMITIES: BLE edema. Problems: Exam/Review of Systems Vital Signs Vitals Vital Signs Date Time Temp Pulse Resp B/P Pulse Ox O2 Delivery O2 Flow Rate FiO2 05/24/17 11:15 98.4 60 16 95/52 100 05/22/17 19:38 Nasal Cannula 05/22/17 19:31 2.0 Intake and Output 05/23/17 05/23/17 05/24/17 15:00 23:00 07:00 Intake Total 90 ml 1595 ml 1230 ml Output Total 1350 ml 700 ml Balance 90 ml 245 ml 530 ml Results Result Diagram: 05/24/17 1030 05/24/17 1030 Results 24 hrs Laboratory Tests Test 05/23/17 15:02 05/23/17 18:23 05/24/17 01:00 05/24/17 10:30 Hemoglobin 7.4 L 7.5 L 6.5 *L 8.8 #L Hematocrit 21.4 L 20.9 L 18.4 L 25.0 #L Sodium Level 134 L Potassium Level 4.6 Chloride Level 107 Carbon Dioxide Level 20 L Anion Gap 12 Blood Urea Nitrogen 49 #H Creatinine 1.50 H Glucose Level 142 Calcium Level 8.6 Medications Medications Current Medications Folic Acid (Folic Acid) 1 mg DAILY PO Last administered on 05/24/17 07:49; Admin Dose 1 MG; Start 05/23/17 at 09:00 Furosemide (Lasix) 20 mg TID PO Last administered on 05/23/17 08:59; Admin Dose 20 MG; Start 05/22/17 at 13:00; Status Future Hold Thiamine HCl 50 mg 50 mg QAM PO Last administered on 05/24/17 07:49; Admin Dose 50 MG; Start 05/23/17 at 09:00 Sodium Chloride (NS) 1,000 ml @ 50 mls/hr Q20H IV Last administered on 02:33; Admin Dose 50 MLS/HR; Start 05/22/17 at 09:15 Ondansetron HCl (Zofran Inj) 4 mg Q6H PRN IV NAUSEA AND/OR VOMITING; Start at 09:30 Acetaminophen (Tylenol Tab) 650 mg Q6H PRN PO PAIN LEVEL 1-3 OR FEVER; Start 05/22/17 at 09:30 Acetaminophen (Tylenol Supp) 650 mg Q6H PRN [place] PAIN LEVEL 1-3 OR FEVER; Start 05/22/17 at 09:30 Acetaminophen/ Hydrocodone Bitart ([place] (5/325)) 1 tab Q6H PRN PO MODERATE PAIN LEVEL 4-6 Last administered on 05/23/17 22:54; Admin Dose 1 TAB; Start 05/22/17 at 09:30 Acetaminophen/ Hydrocodone Bitart ([place] (5/325)) 2 tab Q6H PRN PO SEVERE PAIN LEVEL 7-10; Start 05/22/17 at 09:30 Morphine Sulfate (morphine) 2 mg Q4H PRN IV SEVERE PAIN LEVEL 7-10; Start at 09:30 Docusate Sodium (Colace) 100 mg Q12H PRN PO CONSTIPATION; Start 05/22/17 at 09 :30 Magnesium Hydroxide (Milk Of Mag) 30 ml DAILY PRN PO CONSTIPATION; Start 05/22 at 09:30 Bisacodyl 10 mg 10 mg DAILY PRN [place] CONSTIPATION; Start 05/22/17 at 09:30 Octreotide Acetate/Sodium Chloride (Sandostatin/NS) 50 ml @ 5 mls/hr TID IV Last administered on 05/22/17 17:28; Admin Dose 5 MLS/HR; Start 05/22/17 at 09:30; Status Future Hold Rifaximin (Xifaxan) 550 mg BID PO Last administered on 05/24/17 07:49; Admin Dose 550 MG; Start 05/22/17 at 21:00 Lactulose (Enulose) 20 gm Q6 PO Last administered on 05/24/17 05:36; Admin Dose 20 GM; Start 05/22/17 at 18:00 IV Flush 10 ml 10 ml PRN PRN IV IV PROTOCOL; Start 05/22/17 at 12:00 Pantoprazole 80 mg/Sodium Chloride 100 ml @ 10 mls/hr Q10H IV Last administered on 05/24/17 02:33; Admin Dose 10 MLS/HR; Start 05/22/17 at 19:30 Octreotide Acetate/Dextrose (Sandostatin/D5W) 100 ml @ 5 mls/hr Q20H IV Last administered on 05/23/17 15:47; Admin Dose 5 MLS/HR; Start 05/22/17 at 20:30 Metoclopramide HCl 10 mg 10 mg Q6 IV Last administered on 05/24/17 05:36; Admin Dose 10 MG; Start 05/22/17 at 19:30 Albumin Human (Albumin Human 25%) 100 ml @ 100 mls/hr Q8H IV ; Start 05/24/17 at 09:00; Stop 05/25/17 at 01:59 ANKITA YA May 24, 2017 12:18
[2017-05-24] MEDS: OCTREOTIDE 1 MG in DEXTROSE 5% 95 ML IV SCH (12:46)
[2017-05-24 13:52] LABS: CREATININE, RANDOM URINE 63 mg/dL (20-370); MICROALBUMIN <0.2 mg/dL; MICROALBUMIN/CREATININE RATIO NOTE (<30)
--- NOTE | 2017-05-24 15:51 | PN ---
Date/Time of Note Date/Time of Note DATE: 05/24/17 TIME: 15:48 Assessment/Plan VTE Prophylaxis VTE Prophylaxis Intervention: SCD's Lines/Catheters [facility] P[facility] Line Urinary Cath still in place: No Assessment/Plan Chief Complaint/Hosp Course Assessment and plan 1. Hematemesis. transfuse prbc as needed. Monitor H&H. continue with GI recs. EGD did show grade 3 to grade 4 esophageal varices as well as portal hypertensive gastropathy.. 2. History of decompensated liver cirrhosis. Patient is on the liver transplant list at [facility]. Patient for outpatient follow-up with refiner operator. 3. Thrombocytopenia secondary to #2. Monitor level. Transfuse blood products as needed. 4. Acute renal insufficiency. Leadlighter was consulted. Follow-up with recommendations. 5. Hyperkalemia. Patient provided with Kayexalate. Monitor level. Will follow. 6. Hyponatremia. IV fluids for now. To be managed per power driven brush maker. Disposition and plan: Plan for transfer to [facility] [place]. awaiting placement Discussed plan of care with Dr. Cruz Problems: Subjective 24 Hr Interval Summary Free Text/Dictation comfortable at present. denies any pain. no reports of dyspnea Exam/Review of Systems Vital Signs Vitals Vital Signs Date Time Temp Pulse Resp B/P Pulse Ox O2 Delivery O2 Flow Rate FiO2 05/24/17 15:29 98.0 60 18 99/61 99 05/22/17 19:38 Nasal Cannula 05/22/17 19:31 2.0 Intake and Output 05/23/17 05/23/17 05/24/17 15:00 23:00 07:00 Intake Total 90 ml 1595 ml 1230 ml Output Total 1350 ml 700 ml Balance 90 ml 245 ml 530 ml Exam Constitutional: alert, oriented Psych: nl mood/affect Eyes: icteric Cardiovascular: regular rate and rhythm Gastrointestinal: other (appears distended), soft Musculoskeletal: swelling (ble) Neurological: CNC MANAGER 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, nl mental status, nl speech Skin: other (jaundice) Results Result Diagram: 05/24/17 1030 05/24/17 1030 Results 24 hrs Laboratory Tests Test 05/23/17 18:23 05/24/17 01:00 05/24/17 10:30 Hemoglobin 7.5 L 6.5 *L 8.8 #L Hematocrit 20.9 L 18.4 L 25.0 #L Sodium Level 134 L Potassium Level 4.6 Chloride Level 107 Carbon Dioxide Level 20 L Anion Gap 12 Blood Urea Nitrogen 49 #H Creatinine 1.50 H Glucose Level 142 Calcium Level 8.6 Medications Medications Current Medications Folic Acid (Folic Acid) 1 mg DAILY PO Last administered on 05/24/17 07:49; Admin Dose 1 MG; Start 05/23/17 at 09:00 Furosemide (Lasix) 20 mg TID PO Last administered on 05/23/17 08:59; Admin Dose 20 MG; Start 05/22/17 at 13:00; Status Future Hold Thiamine HCl 50 mg 50 mg QAM PO Last administered on 05/24/17 07:49; Admin Dose 50 MG; Start 05/23/17 at 09:00 Sodium Chloride (NS) 1,000 ml @ 50 mls/hr Q20H IV Last administered on 02:33; Admin Dose 50 MLS/HR; Start 05/22/17 at 09:15 Ondansetron HCl (Zofran Inj) 4 mg Q6H PRN IV NAUSEA AND/OR VOMITING; Start at 09:30 Acetaminophen (Tylenol Tab) 650 mg Q6H PRN PO PAIN LEVEL 1-3 OR FEVER; Start 05/22/17 at 09:30 Acetaminophen (Tylenol Supp) 650 mg Q6H PRN [place] PAIN LEVEL 1-3 OR FEVER; Start 05/22/17 at 09:30 Acetaminophen/ Hydrocodone Bitart ([place] (5/325)) 1 tab Q6H PRN PO MODERATE PAIN LEVEL 4-6 Last administered on 05/23/17 22:54; Admin Dose 1 TAB; Start 05/22/17 at 09:30 Acetaminophen/ Hydrocodone Bitart ([place] (5/325)) 2 tab Q6H PRN PO SEVERE PAIN LEVEL 7-10; Start 05/22/17 at 09:30 Morphine Sulfate (morphine) 2 mg Q4H PRN IV SEVERE PAIN LEVEL 7-10; Start at 09:30 Docusate Sodium (Colace) 100 mg Q12H PRN PO CONSTIPATION; Start 05/22/17 at 09 :30 Magnesium Hydroxide (Milk Of Mag) 30 ml DAILY PRN PO CONSTIPATION; Start 05/22 at 09:30 Bisacodyl 10 mg 10 mg DAILY PRN [place] CONSTIPATION; Start 05/22/17 at 09:30 Octreotide Acetate/Sodium Chloride (Sandostatin/NS) 50 ml @ 5 mls/hr TID IV Last administered on 05/22/17 17:28; Admin Dose 5 MLS/HR; Start 05/22/17 at 09:30; Status Future Hold Rifaximin (Xifaxan) 550 mg BID PO Last administered on 05/24/17 07:49; Admin Dose 550 MG; Start 05/22/17 at 21:00 Lactulose (Enulose) 20 gm Q6 PO Last administered on 05/24/17 12:47; Admin Dose 20 GM; Start 05/22/17 at 18:00 IV Flush 10 ml 10 ml PRN PRN IV IV PROTOCOL; Start 05/22/17 at 12:00 Pantoprazole 80 mg/Sodium Chloride 100 ml @ 10 mls/hr Q10H IV Last administered on 05/24/17 12:46; Admin Dose 10 MLS/HR; Start 05/22/17 at 19:30 Octreotide Acetate/Dextrose (Sandostatin/D5W) 100 ml @ 5 mls/hr Q20H IV Last administered on 05/24/17 12:46; Admin Dose 5 MLS/HR; Start 05/22/17 at 20:30 Metoclopramide HCl 10 mg 10 mg Q6 IV Last administered on 05/24/17 12:46; Admin Dose 10 MG; Start 05/22/17 at 19:30 Albumin Human (Albumin Human 25%) 100 ml @ 100 mls/hr Q8H IV Last administered on 05/24/17 12:46; Admin Dose 100 MLS/HR; Start 05/24/17 at 09: 00; Stop 05/25/17 at 01:59 GINGER MEJIA May 24, 2017 15:51
[2017-05-24 18:22] LABS: HEMATOCRIT 25.3 % (42.0-52.0); HEMOGLOBIN 8.7 g/dl (14.0-18.0)
[2017-05-24] MEDS: ZOLPIDEM 5 MG TAB PO PRN (20:45)
[2017-05-25] VITALS (11 sets, daily range): BP systolic 93–120; BP diastolic 55–87; PULSE 57–80; RESP 16–18
[2017-05-25] MEDS: LACTULOSE 30ML CUP PO SCH ×5 (00:03→23:28)
[2017-05-25] MEDS: METOCLOPRAMIDE 10 MG INJ IV SCH ×5 (00:03→23:28)
[2017-05-25] MEDS: ALBUMIN HUMAN 25% 100 ML IV SCH (00:08)
[2017-05-25 01:05] LABS: HEMATOCRIT 22.9 % (42.0-52.0); HEMOGLOBIN 8.2 g/dl (14.0-18.0)
[2017-05-25] MEDS: PANTOPRAZOLE IV 80 MG in SOD CHLORIDE 0.9% 100 ML IV SCH ×2 (01:14→09:42)
[2017-05-25] MEDS: SOD CHLORIDE 0.9% 1,000 ML IV SCH ×2 (02:15→15:31)
[2017-05-25 07:22] LABS: ABNORMAL IP MESSAGE 1; BASOPHIL # 0.1 10^3/ul (0.0-0.1); BASOPHILS % 1.6 % (0.0-2.0); EOSINOPHILS # 0.7 10^3/ul (0.0-0.5); EOSINOPHILS % 14.3 % (0.0-7.0); HEMATOCRIT 23.4 % (42.0-52.0); HEMOGLOBIN 8.2 g/dl (14.0-18.0); LYMPHOCYTES # 1.2 10^3/ul (0.8-2.9); LYMPHOCYTES % 23.1 % (15.0-51.0); MEAN CORPUSCULAR HEMOGLOBIN 32.8 pg (29.0-33.0); MEAN CORPUSCULAR VOLUME 93.6 fl (82.0-101.0); MEAN PLATELET VOLUME 10.4 fl (7.4-10.4); MONOCYTE # 0.8 10^3/ul (0.3-0.9); MONOCYTES % 14.9 % (0.0-11.0); NEUTROPHIL # 2.3 10^3/ul (1.6-7.5); NEUTROPHILS % 43.9 % (39.0-77.0); PLATELET COUNT 49 10^3/UL (140-415); POSITIVE DIFF @See below; RED CELL DISTRIBUTION WIDTH 19.3 % (11.5-14.5); WHITE BLOOD COUNT 5.1 10^3/ul (4.8-10.8)
[2017-05-25 07:54] LABS: ALBUMIN 2.5 g/dl (3.3-4.9); ALBUMIN/GLOBULIN RATIO 0.78; BILIRUBIN,INDIRECT 3.5 mg/dl (0-1.1); BILIRUBIN,TOTAL 3.5 mg/dl (0.2-1.3); CALCIUM 8.7 mg/dl (8.4-10.2); CREATININE 1.32 mg/dl (0.61-1.24); POTASSIUM 4.1 mmol/L (3.5-5.1); TOTAL PROTEIN 5.7 g/dl (6.1-8.1)
[2017-05-25] MEDS: RIFAXIMIN 550 MG TAB PO SCH ×2 (08:45→21:07)
[2017-05-25] MEDS: FOLIC ACID 1 MG TAB PO SCH (08:45)
[2017-05-25] MEDS: THIAMINE 100 MG TAB PO SCH (08:45)
[2017-05-25] MEDS: OCTREOTIDE 1 MG in DEXTROSE 5% 95 ML IV SCH (08:48)
[2017-05-25 10:24] LABS: MAGNESIUM 1.8 mg/dl (1.7-2.5)
--- NOTE | 2017-05-25 10:35 | PN ---
DATE: 05/25/2017 SUBJECTIVE: The patient is stable. No events overnight. No fevers, chills, nausea, vomiting. OBJECTIVE: VITAL SIGNS: Blood pressure is 93/56, respirations 16, pulse 68, temperature 98.4. HEENT: Head is normocephalic. NECK: Supple. HEART: Regular rate. LUNGS: Show diminished breath sounds at the base. ABDOMEN: Soft, nontender to palpation. No rebound or guarding. EXTREMITIES: Negative for clubbing, cyanosis, no edema. DERMATOLOGIC: No rashes. MUSCULOSKELETAL: No joint effusions. NEUROLOGIC: No change in exam. MEDICATIONS: The patient's medications have been reviewed. LABORATORY DATA: Shows white count 5.1, hemoglobin 8.2, hematocrit of 23.4, platelet count 49. Sod ium 135, potassium 4.1, chloride 109, BUN 36, creatinine 1.32. ASSESSMENT AND PLAN: 1. Nonoliguric acute kidney injury with previous baseline creatinine of 0.7 to 0.9 mg/dL. The etio logy of acute kidney injury is likely secondary to hemodynamics, volume depletion from recent diuret ic therapy. The patient's renal function has been improving with IV fluids. At this point, will co ntinue current treatment plan, supportive care, renally dose all meds. 2. Hyperkalemia secondary to acute kidney injury and Aldactone effect, improved. 3. Hyponatremia secondary to acute kidney injury and underlying cirrhosis, improved. Continue to m onitor. 4. Severe anemia secondary to gastrointestinal bleed. Continue blood transfusions. Continue Sammy nix with . 5. Metabolic acidosis. Continue to monitor. 6. Decompensated cirrhosis. The patient has underlying ascites. We will continue to monitor close ly. We will ordered paracenteses as needed. 7. Thrombocytopenia. Continue to monitor. Dictated By: JANETTE NJ DO NR/NTS Conf#: [id number] DID#: [id number] CC: GUILLERMINA ROBERT MD;*EndCC*
--- NOTE | 2017-05-25 11:14 | PN ---
Date/Time of Note Date/Time of Note DATE: 05/25/17 TIME: 11:08 Assessment/Plan VTE Prophylaxis VTE Prophylaxis Intervention: SCD's Lines/Catheters IV Catheter Type (from Nrs): PICC Line Central line still needed: Yes (meds) Urinary Cath still in place: No Assessment/Plan Chief Complaint/Hosp Course Assessment Hematemesis EGD 05/22/17 Impression: Grade III-IV/IV esophageal varices Post EVL 6 without complications Portal hypertensive gastropathy Old blood in the stomach. Anemia Esophageal Varices Decompensating alcoholic liver cirrhosis Thrombocytopenia secondary to ALC Hepatorenal syndrome? Hyperkalemia/treated Plan: Stop octreotide drip Change Protonix to PO BID Monitor H&H transfuse for hgb less than 7.5 or active signs of bleeding CM to Contact [facility] liver transplant program for possible transfer Lesia Spencer donor relations coordinator Close monitoring H/H q 12 hours Patient seen in collaboration with Dr. Lin Subjective: Course reviewed with nursing staff Patient interviewed and examined All labs, imaging and other results reviewed Pt feels well, continue to monitor H/H q12hr. no over night events. Will continue to assess need for paracentesis. PHYSICAL EXAMINATION: GENERAL: Chronically ill appearing, alert & oriented x 3, jaundice SKIN: No lesions, positive stigmata chronic liver disease, no evidence of bleeding diathesis LYMPHATIC: No palpable lymphadenopathy. HEAD: Normocephalic, atraumatic, no tenderness. EYES: Pupils equal reactive to light and accommodation, full extraocular movements, sclera clear, non-icteric, no discharge. EARS/NOSE AND THROAT: Ears normal, nose normal, NECK: Supple, no masses, thyroid normal CHEST: Inspection within normal limits. CARDIOVASCULAR: Heart: Regular rate and rhythm, RESPIRATORY: Lungs clear to auscultation GASTROINTESTINAL AND LIVER: Abdomen: Soft, non tenderness, non-distended, no hernias, no masses, ascites, no guarding, no rebound tenderness, normoactive bowel sounds. Rectal: Deferred. GENITOURINARY: Male genitalia within normal limits. EXTREMITIES: BLE edema. Problems: Exam/Review of Systems Vital Signs Vitals Vital Signs Date Time Temp Pulse Resp B/P Pulse Ox O2 Delivery O2 Flow Rate FiO2 05/25/17 08:16 57 05/25/17 07:21 98.4 16 93/56 97 05/25/17 00:00 Room Air 05/22/17 19:31 2.0 Intake and Output 05/24/17 05/24/17 05/25/17 15:00 23:00 07:00 Intake Total 1450 ml 945 ml Balance 1450 ml 945 ml Results Result Diagram: 05/25/17 0629 05/25/17 0629 Results 24 hrs Laboratory Tests Test 05/24/17 18:14 05/25/17 00:51 05/25/17 06:29 Hemoglobin 8.7 L 8.2 L 8.2 L Hematocrit 25.3 L 22.9 L 23.4 L White Blood Count 5.1 # Red Blood Count 2.50 L Mean Corpuscular Volume 93.6 Mean Corpuscular Hemoglobin 32.8 Mean Corpuscular Hemoglobin Concent 35.0 Red Cell Distribution Width 19.3 H Platelet Count 49 #L Mean Platelet Volume 10.4 Neutrophils % 43.9 Lymphocytes % 23.1 Monocytes % 14.9 H Eosinophils % 14.3 H Basophils % 1.6 Nucleated Red Blood Cells % 0.0 Neutrophils # 2.3 Lymphocytes # 1.2 Monocytes # 0.8 Eosinophils # 0.7 H Basophils # 0.1 Nucleated Red Blood Cells # 0.0 Sodium Level 135 Potassium Level 4.1 Chloride Level 109 Carbon Dioxide Level 17 L Anion Gap 13 Blood Urea Nitrogen 36 #H Creatinine 1.32 H Glucose Level 161 Calcium Level 8.7 Phosphorus Level 3.0 # Magnesium Level 1.8 Total Bilirubin 3.5 H Direct Bilirubin 0.00 # Indirect Bilirubin 3.5 H Aspartate Amino Transf (AST/SGOT) 43 Alanine Aminotransferase (ALT/SGPT) 50 Alkaline Phosphatase 87 Total Protein 5.7 L Albumin 2.5 L Globulin 3.20 Albumin/Globulin Ratio 0.78 Medications Medications Current Medications Folic Acid (Folic Acid) 1 mg DAILY PO Last administered on 05/25/17 08:45; Admin Dose 1 MG; Start 05/23/17 at 09:00 Furosemide (Lasix) 20 mg TID PO Last administered on 05/23/17 08:59; Admin Dose 20 MG; Start 05/22/17 at 13:00; Status Future Hold Thiamine HCl 50 mg 50 mg QAM PO Last administered on 05/25/17 08:45; Admin Dose 50 MG; Start 05/23/17 at 09:00 Sodium Chloride (NS) 1,000 ml @ 50 mls/hr Q20H IV Last administered on 02:33; Admin Dose 50 MLS/HR; Start 05/22/17 at 09:15 Ondansetron HCl (Zofran Inj) 4 mg Q6H PRN IV NAUSEA AND/OR VOMITING; Start at 09:30 Acetaminophen (Tylenol Tab) 650 mg Q6H PRN PO PAIN LEVEL 1-3 OR FEVER; Start 05/22/17 at 09:30 Acetaminophen (Tylenol Supp) 650 mg Q6H PRN [place] PAIN LEVEL 1-3 OR FEVER; Start 05/22/17 at 09:30 Acetaminophen/ Hydrocodone Bitart ([place] (5/325)) 1 tab Q6H PRN PO MODERATE PAIN LEVEL 4-6 Last administered on 05/23/17 22:54; Admin Dose 1 TAB; Start 05/22/17 at 09:30 Acetaminophen/ Hydrocodone Bitart ([place] (5/325)) 2 tab Q6H PRN PO SEVERE PAIN LEVEL 7-10; Start 05/22/17 at 09:30 Morphine Sulfate (morphine) 2 mg Q4H PRN IV SEVERE PAIN LEVEL 7-10; Start at 09:30 Docusate Sodium (Colace) 100 mg Q12H PRN PO CONSTIPATION; Start 05/22/17 at 09 :30 Magnesium Hydroxide (Milk Of Mag) 30 ml DAILY PRN PO CONSTIPATION; Start 05/22 at 09:30 Bisacodyl 10 mg 10 mg DAILY PRN [place] CONSTIPATION; Start 05/22/17 at 09:30 Octreotide Acetate/Sodium Chloride (Sandostatin/NS) 50 ml @ 5 mls/hr TID IV Last administered on 05/22/17 17:28; Admin Dose 5 MLS/HR; Start 05/22/17 at 09:30; Status Future Hold Rifaximin (Xifaxan) 550 mg BID PO Last administered on 05/25/17 08:45; Admin Dose 550 MG; Start 05/22/17 at 21:00 Lactulose (Enulose) 20 gm Q6 PO Last administered on 05/25/17 05:31; Admin Dose 20 GM; Start 05/22/17 at 18:00 IV Flush 10 ml 10 ml PRN PRN IV IV PROTOCOL; Start 05/22/17 at 12:00 Pantoprazole 80 mg/Sodium Chloride 100 ml @ 10 mls/hr Q10H IV Last administered on 05/25/17 09:42; Admin Dose 10 MLS/HR; Start 05/22/17 at 19:30 Octreotide Acetate/Dextrose (Sandostatin/D5W) 100 ml @ 5 mls/hr Q20H IV Last administered on 05/25/17 08:48; Admin Dose 5 MLS/HR; Start 05/22/17 at 20:30 Metoclopramide HCl (Reglan) 10 mg Q6 IV Last administered on 05/25/17 05:31; Admin Dose 10 MG; Start 05/22/17 at 19:30 Zolpidem Tartrate (Ambien) 10 mg HS PRN PO INSOMNIA Last administered on 20:45; Admin Dose 10 MG; Start 05/24/17 at 20:30 ANKITA YA May 25, 2017 11:14
--- NOTE | 2017-05-25 14:58 | PN ---
Date/Time of Note Date/Time of Note DATE: 05/25/17 TIME: 14:55 Assessment/Plan VTE Prophylaxis VTE Prophylaxis Intervention: SCD's Lines/Catheters IV Catheter Type (from Nrs): PICC Line Urinary Cath still in place: No Assessment/Plan Chief Complaint/Hosp Course Assessment and plan 1. Hematemesis. transfuse prbc as needed. Monitor H&H. continue with GI recs. EGD did show grade 3 to grade 4 esophageal varices as well as portal hypertensive gastropathy.. 2. History of decompensated liver cirrhosis. Patient is on the liver transplant list at [facility]. Patient for outpatient follow-up with investment fund manager. 3. Thrombocytopenia secondary to #2. Monitor level. Transfuse blood products as needed. 4. Acute renal insufficiency. Apple Thinner was consulted. Follow-up with recommendations. 5. Hyperkalemia. Patient provided with Kayexalate. Monitor level. Will follow. 6. Hyponatremia. IV fluids for now. To be managed per certified tumor registrar. Disposition and plan: Plan for transfer to [facility] [place]. awaiting placement . check AM labs Discussed plan of care with Dr. Cruz Problems: Subjective 24 Hr Interval Summary Free Text/Dictation resting at this time. family at bedside. no specific complaints Exam/Review of Systems Vital Signs Vitals Vital Signs Date Time Temp Pulse Resp B/P Pulse Ox O2 Delivery O2 Flow Rate FiO2 05/25/17 12:18 63 05/25/17 11:18 98.3 18 93/55 100 05/25/17 00:00 Room Air 05/22/17 19:31 2.0 Intake and Output 05/24/17 05/24/17 05/25/17 15:00 23:00 07:00 Intake Total 1450 ml 945 ml Balance 1450 ml 945 ml Exam Constitutional: alert, oriented Psych: nl mood/affect Eyes: icteric Cardiovascular: regular rate and rhythm Gastrointestinal: other (appears distended), soft Musculoskeletal: swelling (ble) Neurological: HAND SAMPLE MAKER 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, nl mental status, nl speech Skin: other (jaundice) Results Result Diagram: 05/25/17 0629 05/25/17 0629 Results 24 hrs Laboratory Tests Test 05/24/17 18:14 05/25/17 00:51 05/25/17 06:29 Hemoglobin 8.7 L 8.2 L 8.2 L Hematocrit 25.3 L 22.9 L 23.4 L White Blood Count 5.1 # Red Blood Count 2.50 L Mean Corpuscular Volume 93.6 Mean Corpuscular Hemoglobin 32.8 Mean Corpuscular Hemoglobin Concent 35.0 Red Cell Distribution Width 19.3 H Platelet Count 49 #L Mean Platelet Volume 10.4 Neutrophils % 43.9 Lymphocytes % 23.1 Monocytes % 14.9 H Eosinophils % 14.3 H Basophils % 1.6 Nucleated Red Blood Cells % 0.0 Neutrophils # 2.3 Lymphocytes # 1.2 Monocytes # 0.8 Eosinophils # 0.7 H Basophils # 0.1 Nucleated Red Blood Cells # 0.0 Sodium Level 135 Potassium Level 4.1 Chloride Level 109 Carbon Dioxide Level 17 L Anion Gap 13 Blood Urea Nitrogen 36 #H Creatinine 1.32 H Glucose Level 161 Calcium Level 8.7 Phosphorus Level 3.0 # Magnesium Level 1.8 Total Bilirubin 3.5 H Direct Bilirubin 0.00 # Indirect Bilirubin 3.5 H Aspartate Amino Transf (AST/SGOT) 43 Alanine Aminotransferase (ALT/SGPT) 50 Alkaline Phosphatase 87 Total Protein 5.7 L Albumin 2.5 L Globulin 3.20 Albumin/Globulin Ratio 0.78 Medications Medications Current Medications Folic Acid (Folic Acid) 1 mg DAILY PO Last administered on 05/25/17 08:45; Admin Dose 1 MG; Start 05/23/17 at 09:00 Furosemide (Lasix) 20 mg TID PO Last administered on 05/23/17 08:59; Admin Dose 20 MG; Start 05/22/17 at 13:00; Status Future Hold Thiamine HCl 50 mg 50 mg QAM PO Last administered on 05/25/17 08:45; Admin Dose 50 MG; Start 05/23/17 at 09:00 Sodium Chloride (NS) 1,000 ml @ 50 mls/hr Q20H IV Last administered on 02:33; Admin Dose 50 MLS/HR; Start 05/22/17 at 09:15 Ondansetron HCl (Zofran Inj) 4 mg Q6H PRN IV NAUSEA AND/OR VOMITING; Start at 09:30 Acetaminophen (Tylenol Tab) 650 mg Q6H PRN PO PAIN LEVEL 1-3 OR FEVER; Start 05/22/17 at 09:30 Acetaminophen (Tylenol Supp) [address] PAIN LEVEL 1-3 OR FEVER; Start 05/22/17 at 09:30 Acetaminophen/ Hydrocodone Bitart ([place] (5/325)) 1 tab Q6H PRN PO MODERATE PAIN LEVEL 4-6 Last administered on 05/23/17 22:54; Admin Dose 1 TAB; Start 05/22/17 at 09:30 Acetaminophen/ Hydrocodone Bitart ([place] (5/325)) 2 tab Q6H PRN PO SEVERE PAIN LEVEL 7-10; Start 05/22/17 at 09:30 Morphine Sulfate (morphine) 2 mg Q4H PRN IV SEVERE PAIN LEVEL 7-10; Start at 09:30 Docusate Sodium (Colace) 100 mg Q12H PRN PO CONSTIPATION; Start 05/22/17 at 09 :30 Magnesium Hydroxide (Milk Of Mag) 30 ml DAILY PRN PO CONSTIPATION; Start 05/22 at 09:30 Bisacodyl 10 mg [address] CONSTIPATION; Start 05/22/17 at 09:30 Octreotide Acetate/Sodium Chloride (Sandostatin/NS) 50 ml @ 5 mls/hr TID IV Last administered on 05/22/17 17:28; Admin Dose 5 MLS/HR; Start 05/22/17 at 09:30; Status Future Hold Rifaximin (Xifaxan) 550 mg BID PO Last administered on 05/25/17 08:45; Admin Dose 550 MG; Start 05/22/17 at 21:00 Lactulose (Enulose) 20 gm Q6 PO Last administered on 05/25/17 13:25; Admin Dose 20 GM; Start 05/22/17 at 18:00 IV Flush (NS 10 ml) 10 ml PRN PRN IV IV PROTOCOL; Start 05/22/17 at 12:00 Metoclopramide HCl (Reglan) 10 mg Q6 IV Last administered on 05/25/17 05:31; Admin Dose 10 MG; Start 05/22/17 at 19:30 Zolpidem Tartrate (Ambien) 10 mg HS PRN PO INSOMNIA Last administered on 20:45; Admin Dose 10 MG; Start 05/24/17 at 20:30 Pantoprazole (Protonix Tab) 40 mg BID@18 PO ; Start 05/25/17 at 18:00 GINGER MEJIA May 25, 2017 14:57
[2017-05-25] MEDS: PANTOPRAZOLE (EC) 40 MG TAB PO SCH (18:39)
[2017-05-25] MEDS: ZOLPIDEM 5 MG TAB PO PRN (21:11)
[2017-05-26] VITALS (13 sets, daily range): BP systolic 98–103; BP diastolic 55–66; PULSE 49–73; RESP 16–20
[2017-05-26] MEDS: PANTOPRAZOLE (EC) 40 MG TAB PO SCH ×2 (05:40→17:19)
[2017-05-26] MEDS: LACTULOSE 30ML CUP PO SCH ×3 (05:40→17:19)
[2017-05-26] MEDS: METOCLOPRAMIDE 10 MG INJ IV SCH ×4 (05:40→23:32)
[2017-05-26] MEDS: RIFAXIMIN 550 MG TAB PO SCH ×2 (08:48→20:34)
[2017-05-26] MEDS: FOLIC ACID 1 MG TAB PO SCH (08:49)
[2017-05-26] MEDS: THIAMINE 100 MG TAB PO SCH (08:49)
[2017-05-26 09:37] LABS: HEMATOCRIT 23.7 % (42.0-52.0); HEMOGLOBIN 8.3 g/dl (14.0-18.0)
[2017-05-26 10:37] LABS: CALCIUM 8.4 mg/dl (8.4-10.2); CREATININE 1.19 mg/dl (0.61-1.24); MAGNESIUM 1.7 mg/dl (1.7-2.5); PHOSPHORUS 3.1 mg/dl (2.5-4.9); POTASSIUM 4.3 mmol/L (3.5-5.1)
--- NOTE | 2017-05-26 12:51 | PN ---
DATE: 05/26/2017 SUBJECTIVE: The patient is stable. No events overnight. No fevers, chills, nausea, vomiting. OBJECTIVE: VITAL SIGNS: Blood pressure is 98/55, respiration 18, pulse 65, temperature 98.8. HEENT: Head is normocephalic. NECK: Supple. HEART: Regular rate. LUNGS: Show diminished breath sounds at base. ABDOMEN: Soft, nontender to palpation. No rebound or guarding. EXTREMITIES: Negative for clubbing, cyanosis, no edema. DERMATOLOGIC: No rashes. MUSCULOSKELETAL: No joint effusions. NEUROLOGIC: No change in exam. MEDICATIONS: The patient's medications have been reviewed. LABORATORY DATA: From 05/25/2017 was reviewed. The patient has a sodium of 135, potassium 4.1, BUN 36, creatinine 1.32. ASSESSMENT AND PLAN: 1. Nonoliguric acute kidney injury with previous baseline creatinine 0.7 to 0.9 mg/dL. Etiology of acute kidney injury is likely secondary to hemodynamics and volume depletion from gastrointestinal bleed and diuretic use. The patient's renal function has been improving with IV fluids. At this po int, continue current treatment plan, supportive care, renally dose all meds. Will discontinue IV f luids and monitor. 2. Hyperkalemia secondary to acute kidney injury, resolved. 3. Hyponatremia secondary to acute kidney injury, cirrhosis, improved. Continue to monitor. 4. Severe anemia secondary to gastrointestinal bleed. The patient is status post blood transfusion . Continue Protonix. Follow up with gastroenterology. 5. Metabolic acidosis. Continue to monitor. 6. Decompensated cirrhosis. The patient's underlying ascites, lower extremity edema. Will discont inue IV fluids if renal function remains stable, may reintroduce diuretic therapy. 7. Thrombocytopenia. Continue to monitor. Dictated By: JANETTE MCFARLAND/HECTOR Conf#: [id number] DID#: [id number]
--- NOTE | 2017-05-26 13:43 | PN ---
Date/Time of Note Date/Time of Note DATE: 05/26/17 TIME: 13:29 Assessment/Plan VTE Prophylaxis VTE Prophylaxis Intervention: SCD's Lines/Catheters IV Catheter Type (from [facility]): Saline Lock Urinary Cath still in place: No Assessment/Plan Chief Complaint/Hosp Course Assessment: Hematemesis-resolved EGD 05/22/17 Impression: Grade III-IV/IV esophageal varices Post EVL 6 without complications Portal hypertensive gastropathy Old blood in the stomach. Anemia 8.3 today Esophageal Varices Decompensating alcoholic liver cirrhosis Thrombocytopenia secondary to ALC Acute renal injury-creatinine returned to normal Depression Plan: Currently transfusing 2 units of blood Continue Protonix Monitor H&H transfuse for hgb less than 7.5 or active signs of bleeding CM to Contact [facility] liver transplant program for possible transfer Lesia Spencer merchandising coordinator -waiting for the bed Close monitoring of H/H q 12 hours Patient seen in collaboration with Dr. Lin Subjective: Patient reports feeling tired and very depressed. He states he wants to go home instead of being transferred to [facility]. Psych consult will be appreciated. He is eating regular diet and had 4 loose bowel movements since yesterday. Course reviewed with nursing staff' patient examined. Patient and his have been updated on the treatment plan. All labs, imaging and other results reviewed PHYSICAL EXAMINATION: GENERAL: Well developed, well nourished, alert & oriented x 3, in no acute distress SKIN: No lesions, jaundiced, no evidence of bleeding diathesis LYMPHATIC: No palpable lymphadenopathy. HEAD: Normocephalic, atraumatic, no tenderness. EYES: Pupils equal reactive to light and accommodation, full extraocular movements, sclera clear, icteric, no discharge. EARS/NOSE AND THROAT: Ears normal, nose normal, oropharynx normal, oral membranes well hydrated without lesions. NECK: Supple, no masses, thyroid normal, JVP within normal limits, carotids normal without bruits. CHEST: Inspection within normal limits. CARDIOVASCULAR: Heart: Regular rate and rhythm, no murmurs, gallops or rubs. Peripheral pulses present within normal limits, no cyanosis, clubbing or edemas. No pulsatile abdominal mass RESPIRATORY: Lungs clear to auscultation and percussion, no wheezing, no rubs GASTROINTESTINAL AND LIVER: Abdomen: Soft, obese, non tenderness, non-distended , no hernias, no masses, no organomegaly, ascites present, no guarding, no rebound tenderness, normoactive bowel sounds. Rectal: Deferred. GENITOURINARY: Male genitalia within normal limits. EXTREMITIES: No cyanosis, clubbing or edema. Problems: Exam/Review of Systems Vital Signs Vitals Vital Signs Date Time Temp Pulse Resp B/P Pulse Ox O2 Delivery O2 Flow Rate FiO2 05/26/17 12:08 58 05/26/17 11:16 97.6 18 98/61 100 05/25/17 00:00 Room Air 05/22/17 19:31 2.0 Intake and Output 05/25/17 05/25/17 05/26/17 15:00 23:00 07:00 Intake Total 750 ml 1225 ml Output Total 550 ml Balance 750 ml 675 ml Results Result Diagram: 05/26/17 0815 05/26/17 0815 Results 24 hrs Laboratory Tests Test 05/26/17 08:15 Hemoglobin 8.3 L Hematocrit 23.7 L Sodium Level 135 Potassium Level 4.3 Chloride Level 111 H Carbon Dioxide Level 16 L Anion Gap 12 Blood Urea Nitrogen 26 H Creatinine 1.19 Glucose Level 123 Calcium Level 8.4 Phosphorus Level 3.1 Magnesium Level 1.7 Medications Medications Current Medications Folic Acid (Folic Acid) 1 mg DAILY PO Last administered on 05/26/17 08:49; Admin Dose 1 MG; Start 05/23/17 at 09:00 Furosemide (Lasix) 20 mg TID PO Last administered on 05/23/17 08:59; Admin Dose 20 MG; Start 05/22/17 at 13:00; Status Future Hold Thiamine HCl (Vitamin B1) 50 mg QAM PO Last administered on 05/26/17 08:49; Admin Dose 50 MG; Start 05/23/17 at 09:00 Ondansetron HCl (Zofran Inj) 4 mg Q6H PRN IV NAUSEA AND/OR VOMITING; Start at 09:30 Acetaminophen (Tylenol Tab) 650 mg Q6H PRN PO PAIN LEVEL 1-3 OR FEVER; Start 05/22/17 at 09:30 Acetaminophen (Tylenol Supp) 650 mg Q6H PRN [place] PAIN LEVEL 1-3 OR FEVER; Start 05/22/17 at 09:30 Acetaminophen/ Hydrocodone Bitart ([place] (5/325)) 1 tab Q6H PRN PO MODERATE PAIN LEVEL 4-6 Last administered on 05/23/17 22:54; Admin Dose 1 TAB; Start 05/22/17 at 09:30 Acetaminophen/ Hydrocodone Bitart ([place] (5/325)) 2 tab Q6H PRN PO SEVERE PAIN LEVEL 7-10; Start 05/22/17 at 09:30 Morphine Sulfate (morphine) 2 mg Q4H PRN IV SEVERE PAIN LEVEL 7-10; Start at 09:30 Docusate Sodium (Colace) 100 mg Q12H PRN PO CONSTIPATION; Start 05/22/17 at 09 :30 Magnesium Hydroxide (Milk Of Mag) 30 ml DAILY PRN PO CONSTIPATION; Start 05/22 at 09:30 Bisacodyl 10 mg 10 mg DAILY PRN [place] CONSTIPATION; Start 05/22/17 at 09:30 Octreotide Acetate/Sodium Chloride (Sandostatin/NS) 50 ml @ 5 mls/hr TID IV Last administered on 05/22/17 17:28; Admin Dose 5 MLS/HR; Start 05/22/17 at 09:30; Status Future Hold Rifaximin (Xifaxan) 550 mg BID PO Last administered on 05/26/17 08:48; Admin Dose 550 MG; Start 05/22/17 at 21:00 Lactulose (Enulose) 20 gm Q6 PO Last administered on 05/26/17 12:11; Admin Dose 20 GM; Start 05/22/17 at 18:00 IV Flush (NS 10 ml) 10 ml PRN PRN IV IV PROTOCOL; Start 05/22/17 at 12:00 Metoclopramide HCl (Reglan) 10 mg Q6 IV Last administered on 05/26/17 12:11; Admin Dose 10 MG; Start 05/22/17 at 19:30 Zolpidem Tartrate (Ambien) 10 mg HS PRN PO INSOMNIA Last administered on 21:11; Admin Dose 10 MG; Start 05/24/17 at 20:30 Pantoprazole (Protonix Tab) 40 mg BID@06,18 PO Last administered on 05/26/17 05:40; Admin Dose 40 MG; Start 05/25/17 at 18:00 Copies To: CC: ANNABELLE LIN MD, ANASTASIA NP May 26, 2017 13:39
--- NOTE | 2017-05-26 15:37 | PN ---
Date/Time of Note Date/Time of Note DATE: 05/26/17 TIME: 15:35 Assessment/Plan Lines/Catheters IV C[facility]ter Type (from [facility]): Saline Lock Urinary Cath still in place: No Assessment/Plan Chief Complaint/Hosp Course Assessment and plan 1. Hematemesis. being transfused blood products right now. Monitor H&H. continue with GI recs. EGD did show grade 3 to grade 4 esophageal varices as well as portal hypertensive gastropathy.. 2. History of decompensated liver cirrhosis. Patient is on the liver transplant list at [facility]. Patient for outpatient follow-up with resort desk clerk. 3. Thrombocytopenia secondary to #2. Monitor level. Transfuse blood products as needed. 4. Acute renal insufficiency. [employer] Press Feeder was consulted. Follow-up with recommendations. 5. Hyperkalemia. Patient provided with Kayexalate. Monitor level. Will follow. 6. Hyponatremia. IV fluids for now. To be managed per analytical research chemist. Disposition and plan: Plan for transfer to [facility] [place]. prbc transfusion as needed. no overt signs of bleeding at this time. Will monitor Discussed plan of care with Dr. Cruz Problems: Subjective 24 Hr Interval Summary Free Text/Dictation no s/s of distress. receiving blood transfusion during visit Exam/Review of Systems Vital Signs Vitals Vital Signs Date Time Temp Pulse Resp B/P Pulse Ox O2 Delivery O2 Flow Rate FiO2 05/26/17 15:25 98.3 68 20 100/61 91 05/25/17 00:00 Room Air 05/22/17 19:31 2.0 Intake and Output 05/25/17 05/25/17 05/26/17 15:00 23:00 07:00 Intake Total 750 ml 1225 ml Output Total 550 ml Balance 750 ml 675 ml Exam Constitutional: alert, oriented Psych: nl mood/affect Eyes: icteric Cardiovascular: regular rate and rhythm Gastrointestinal: other (appears distended), soft Musculoskeletal: swelling (ble) Neurological: REVIEW TRAINER 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, nl mental status, nl speech Skin: other (jaundice) Results Result Diagram: 05/26/17 0815 05/26/17 0815 Results 24 hrs Laboratory Tests Test 05/26/17 08:15 Hemoglobin 8.3 L Hematocrit 23.7 L Sodium Level 135 Potassium Level 4.3 Chloride Level 111 H Carbon Dioxide Level 16 L Anion Gap 12 Blood Urea Nitrogen 26 H Creatinine 1.19 Glucose Level 123 Calcium Level 8.4 Phosphorus Level 3.1 Magnesium Level 1.7 Medications Medications Current Medications Folic Acid (Folic Acid) 1 mg DAILY PO Last administered on 05/26/17 08:49; Admin Dose 1 MG; Start 05/23/17 at 09:00 Furosemide (Lasix) 20 mg TID PO Last administered on 05/23/17 08:59; Admin Dose 20 MG; Start 05/22/17 at 13:00; Status Future Hold Thiamine HCl (Vitamin B1) 50 mg QAM PO Last administered on 05/26/17 08:49; Admin Dose 50 MG; Start 05/23/17 at 09:00 Ondansetron HCl (Zofran Inj) 4 mg Q6H PRN IV NAUSEA AND/OR VOMITING; Start at 09:30 Acetaminophen (Tylenol Tab) 650 mg Q6H PRN PO PAIN LEVEL 1-3 OR FEVER; Start 05/22/17 at 09:30 Acetaminophen (Tylenol Supp) 650 mg Q6H PRN [place] PAIN LEVEL 1-3 OR FEVER; Start 05/22/17 at 09:30 Acetaminophen/ Hydrocodone Bitart ([place] (5/325)) 1 tab Q6H PRN PO MODERATE PAIN LEVEL 4-6 Last administered on 05/23/17 22:54; Admin Dose 1 TAB; Start 05/22/17 at 09:30 Acetaminophen/ Hydrocodone Bitart ([place] (5/325)) 2 tab Q6H PRN PO SEVERE PAIN LEVEL 7-10; Start 05/22/17 at 09:30 Morphine Sulfate (morphine) 2 mg Q4H PRN IV SEVERE PAIN LEVEL 7-10; Start at 09:30 Docusate Sodium (Colace) 100 mg Q12H PRN PO CONSTIPATION; Start 05/22/17 at 09 :30 Magnesium Hydroxide (Milk Of Mag) 30 ml DAILY PRN PO CONSTIPATION; Start 05/22 at 09:30 Bisacodyl 10 mg 10 mg DAILY PRN [place] CONSTIPATION; Start 05/22/17 at 09:30 Octreotide Acetate/Sodium Chloride (Sandostatin/NS) 50 ml @ 5 mls/hr TID IV Last administered on 05/22/17 17:28; Admin Dose 5 MLS/HR; Start 05/22/17 at 09:30; Status Future Hold Rifaximin (Xifaxan) 550 mg BID PO Last administered on 05/26/17 08:48; Admin Dose 550 MG; Start 05/22/17 at 21:00 Lactulose (Enulose) 20 gm Q6 PO Last administered on 05/26/17 12:11; Admin Dose 20 GM; Start 05/22/17 at 18:00 IV Flush (NS 10 ml) 10 ml PRN PRN IV IV PROTOCOL; Start 05/22/17 at 12:00 Metoclopramide HCl (Reglan) 10 mg Q6 IV Last administered on 05/26/17 12:11; Admin Dose 10 MG; Start 05/22/17 at 19:30 Zolpidem Tartrate (Ambien) 10 mg HS PRN PO INSOMNIA Last administered on 21:11; Admin Dose 10 MG; Start 05/24/17 at 20:30 Pantoprazole (Protonix Tab) 40 mg BID@,18 PO Last administered on 05/26/17 05:40; Admin Dose 40 MG; Start 05/25/17 at 18:00 GINGER MEJIA May 26, 2017 15:37
[2017-05-26] MEDS: ZOLPIDEM 5 MG TAB PO PRN (22:13)
[2017-05-27] VITALS (11 sets, daily range): BP systolic 90–107; BP diastolic 54–64; PULSE 65–90; RESP 16–18
[2017-05-27] MEDS: PANTOPRAZOLE (EC) 40 MG TAB PO SCH ×2 (06:03→17:35)
[2017-05-27] MEDS: METOCLOPRAMIDE 10 MG INJ IV SCH ×3 (06:03→17:35)
[2017-05-27] MEDS: LACTULOSE 30ML CUP PO SCH ×4 (06:03→17:35)
[2017-05-27 08:30] LABS: ABNORMAL IP MESSAGE 1; BASOPHIL # 0.1 10^3/ul (0.0-0.1); BASOPHILS % 1.3 % (0.0-2.0); EOSINOPHILS # 0.5 10^3/ul (0.0-0.5); EOSINOPHILS % 11.5 % (0.0-7.0); HEMATOCRIT 26.9 % (42.0-52.0); HEMOGLOBIN 9.4 g/dl (14.0-18.0); LYMPHOCYTES # 0.8 10^3/ul (0.8-2.9); LYMPHOCYTES % 20.1 % (15.0-51.0); MEAN CORPUSCULAR HEMOGLOBIN 32.3 pg (29.0-33.0); MEAN CORPUSCULAR HGB CONC 34.9 g/dl (32.0-37.0); MEAN CORPUSCULAR VOLUME 92.4 fl (82.0-101.0); MEAN PLATELET VOLUME 10.6 fl (7.4-10.4); MONOCYTE # 0.4 10^3/ul (0.3-0.9); MONOCYTES % 9.2 % (0.0-11.0); NEUTROPHIL # 2.2 10^3/ul (1.6-7.5); NEUTROPHILS % 56.9 % (39.0-77.0); PLATELET COUNT 43 10^3/UL (140-415); POSITIVE DIFF @See below; RED BLOOD COUNT 2.91 10^6/ul (4.70-6.10); RED CELL DISTRIBUTION WIDTH 20.1 % (11.5-14.5); WHITE BLOOD COUNT 3.9 10^3/ul (4.8-10.8)
[2017-05-27] MEDS: THIAMINE 100 MG TAB PO SCH (08:48)
[2017-05-27] MEDS: FOLIC ACID 1 MG TAB PO SCH (08:48)
[2017-05-27] MEDS: RIFAXIMIN 550 MG TAB PO SCH ×2 (08:49→20:44)
[2017-05-27 08:54] LABS: CALCIUM 8.4 mg/dl (8.4-10.2); CREATININE 1.05 mg/dl (0.61-1.24); MAGNESIUM 1.6 mg/dl (1.7-2.5); PHOSPHORUS 2.7 mg/dl (2.5-4.9); POTASSIUM 4.1 mmol/L (3.5-5.1)
--- NOTE | 2017-05-27 09:49 | PN ---
Date/Time of Note Date/Time of Note DATE: 05/27/17 TIME: 09:48 Assessment/Plan VTE Prophylaxis VTE Prophylaxis Intervention: other Lines/Catheters [facility] Saline Lock Urinary Cath still in place: No Assessment/Plan Chief Complaint/Hosp Course renal follow up SUBJECTIVE: The patient is stable. No events overnight. No fevers, chills, nausea, vomiting. OBJECTIVE: HEENT: Head is normocephalic. NECK: Supple. HEART: Regular rate. LUNGS: Show diminished breath sounds at base. ABDOMEN: Soft, nontender to palpation. No rebound or guarding. EXTREMITIES: Negative for clubbing, cyanosis, no edema. DERMATOLOGIC: No rashes. MUSCULOSKELETAL: No joint effusions. NEUROLOGIC: No change in exam. MEDICATIONS: The patient's medications have been reviewed. ASSESSMENT AND PLAN: 1. Nonoliguric acute kidney injury with previous baseline creatinine 0.7 to 0.9 mg/dL. Etiology of acute kidney injury is likely secondary to hemodynamics and volume depletion from gastrointestinal bleed and diuretic use. The patient' s renal function has been improving with IV fluids. At this point, continue current treatment plan, supportive care, renally dose all meds. Will discontinue IV fluids and monitor. 2. Hyperkalemia secondary to acute kidney injury, resolved. 3. Hyponatremia secondary to acute kidney injury, cirrhosis, improved. Continue to monitor. 4. Severe anemia secondary to gastrointestinal bleed. The patient is status post blood transfusion. Continue Protonix. Follow up with gastroenterology. 5. Metabolic acidosis. Continue to monitor. 6. Decompensated cirrhosis. The patient's underlying ascites, lower extremity edema. Will discontinue IV fluids if renal function remains stable, may reintroduce diuretic therapy. 7. Thrombocytopenia. Continue to monitor. Problems: Exam/Review of Systems Vital Signs Vitals Vital Signs Date Time Temp Pulse Resp B/P Pulse Ox O2 Delivery O2 Flow Rate FiO2 05/27/17 07:42 98.0 69 18 107/64 95 05/25/17 00:00 Room Air Intake and Output 05/26/17 05/26/17 05/27/17 15:00 23:00 07:00 Intake Total 1250 ml 500 ml Balance 1250 ml 500 ml Results Result Diagram: 05/27/17 0748 05/27/17 0748 Results 24 hrs Laboratory Tests Test 05/27/17 07:48 White Blood Count 3.9 #L Red Blood Count 2.91 L Hemoglobin 9.4 L Hematocrit 26.9 L Mean Corpuscular Volume 92.4 Mean Corpuscular Hemoglobin 32.3 Mean Corpuscular Hemoglobin Concent 34.9 Red Cell Distribution Width 20.1 H Platelet Count 43 L Mean Platelet Volume 10.6 H Neutrophils % 56.9 Lymphocytes % 20.1 Monocytes % 9.2 Eosinophils % 11.5 H Basophils % 1.3 Nucleated Red Blood Cells % 0.0 Neutrophils # 2.2 Lymphocytes # 0.8 Monocytes # 0.4 Eosinophils # 0.5 Basophils # 0.1 Nucleated Red Blood Cells # 0.0 Sodium Level 134 L Potassium Level 4.1 Chloride Level 110 Carbon Dioxide Level 16 L Anion Gap 12 Blood Urea Nitrogen 21 H Creatinine 1.05 Glucose Level 164 Calcium Level 8.4 Phosphorus Level 2.7 Magnesium Level 1.6 L Medications Medications Current Medications Folic Acid (Folic Acid) 1 mg DAILY PO Last administered on 05/27/17 08:48; Admin Dose 1 MG; Start 05/23/17 at 09:00 Furosemide (Lasix) 20 mg TID PO Last administered on 05/23/17 08:59; Admin Dose 20 MG; Start 05/22/17 at 13:00; Status Future Hold Thiamine HCl (Vitamin B1) 50 mg QAM PO Last administered on 05/27/17 08:48; Admin Dose 50 MG; Start 05/23/17 at 09:00 Ondansetron HCl (Zofran Inj) 4 mg Q6H PRN IV NAUSEA AND/OR VOMITING; Start at 09:30 Acetaminophen (Tylenol Tab) 650 mg Q6H PRN PO PAIN LEVEL 1-3 OR FEVER; Start 05/22/17 at 09:30 Acetaminophen (Tylenol Supp) 650 mg Q6H PRN [place] PAIN LEVEL 1-3 OR FEVER; Start 05/22/17 at 09:30 Acetaminophen/ Hydrocodone Bitart ([place] (5/325)) 1 tab Q6H PRN PO MODERATE PAIN LEVEL 4-6 Last administered on 05/23/17 22:54; Admin Dose 1 TAB; Start 05/22/17 at 09:30 Acetaminophen/ Hydrocodone Bitart ([place] (5/325)) 2 tab Q6H PRN PO SEVERE PAIN LEVEL 7-10; Start 05/22/17 at 09:30 Morphine Sulfate (morphine) 2 mg Q4H PRN IV SEVERE PAIN LEVEL 7-10; Start at 09:30 Docusate Sodium (Colace) 100 mg Q12H PRN PO CONSTIPATION; Start 05/22/17 at 09 :30 Magnesium Hydroxide (Milk Of Mag) 30 ml DAILY PRN PO CONSTIPATION; Start 05/22 at 09:30 Bisacodyl 10 mg 10 mg DAILY PRN [place] CONSTIPATION; Start 05/22/17 at 09:30 Octreotide Acetate/Sodium Chloride (Sandostatin/NS) 50 ml @ 5 mls/hr TID IV Last administered on 05/22/17 17:28; Admin Dose 5 MLS/HR; Start 05/22/17 at 09:30; Status Future Hold Rifaximin (Xifaxan) 550 mg BID PO Last administered on 05/27/17 08:49; Admin Dose 550 MG; Start 05/22/17 at 21:00 Lactulose (Enulose) 20 gm Q6 PO Last administered on 05/27/17 06:03; Admin Dose 20 GM; Start 05/22/17 at 18:00 IV Flush (NS 10 ml) 10 ml PRN PRN IV IV PROTOCOL; Start 05/22/17 at 12:00 Metoclopramide HCl (Reglan) 10 mg Q6 IV Last administered on 05/27/17 06:03; Admin Dose 10 MG; Start 05/22/17 at 19:30 Zolpidem Tartrate (Ambien) 10 mg HS PRN PO INSOMNIA Last administered on 22:13; Admin Dose 10 MG; Start 05/24/17 at 20:30 Pantoprazole (Protonix Tab) 40 mg BID@,18 PO Last administered on 05/27/17 06:03; Admin Dose 40 MG; Start 05/25/17 at 18:00 JUAN PENNY DO May 27, 2017 09:49
[2017-05-27] MEDS: ARIPIPRAZOLE 2 MG TAB PO SCH (12:00)
[2017-05-27] MEDS ORDERED: MAGNESIUM SULFATE 2 GM/50 ML 50 ML IVPB ONE (12:00)
--- NOTE | 2017-05-27 12:57 | PN ---
Date/Time of Note Date/Time of Note DATE: 05/27/17 TIME: 12:56 Assessment/Plan VTE Prophylaxis VTE Prophylaxis Intervention: SCD's Lines/Catheters IV C[facility]ter Type (from [facility]): Saline Lock Urinary Cath still in place: No Assessment/Plan Chief Complaint/Hosp Course Assessment and plan 1. Hematemesis. . Monitor H&H. continue with GI recs. EGD did show grade 3 to grade 4 esophageal varices as well as portal hypertensive gastropathy.. 2. History of decompensated liver cirrhosis. Patient is on the liver transplant list at [facility]. 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 3. Thrombocytopenia secondary to #2. Monitor level. Transfuse blood products as needed. 4. Acute renal insufficiency. Green Hide Inspector was consulted. Follow-up with recommendations. 5. Hyperkalemia. Patient provided with Kayexalate. Monitor level. Will follow. 6. Hyponatremia. IV fluids for now. To be managed per plug grower. 7. febrile. check mansfield cultures. antipyretics as needed Disposition and plan: mansfield cultures to be ordered. plan for paracentesis. abx per sensitivity. will monitor. Discussed plan of care with Dr. Cruz Problems: Subjective 24 Hr Interval Summary Free Text/Dictation reports abd distention worse today Exam/Review of Systems Vital Signs Vitals Vital Signs Date Time Temp Pulse Resp B/P Pulse Ox O2 Delivery O2 Flow Rate FiO2 05/27/17 11:36 101.2 93 18 105/55 98 05/25/17 00:00 Room Air Intake and Output 05/26/17 05/26/17 05/27/17 15:00 23:00 07:00 Intake Total 1250 ml 500 ml Balance 1250 ml 500 ml Exam Constitutional: alert, oriented Psych: depressed Eyes: icteric Cardiovascular: regular rate and rhythm Gastrointestinal: other (appears distended), bigger today Musculoskeletal: swelling (ble) Neurological: REJOGGER 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, nl mental status, nl speech Skin: other (jaundice) Results Result Diagram: 05/27/17 0748 05/27/17 0748 Results 24 hrs Laboratory Tests Test 05/27/17 07:48 White Blood Count 3.9 #L Red Blood Count 2.91 L Hemoglobin 9.4 L Hematocrit 26.9 L Mean Corpuscular Volume 92.4 Mean Corpuscular Hemoglobin 32.3 Mean Corpuscular Hemoglobin Concent 34.9 Red Cell Distribution Width 20.1 H Platelet Count 43 L Mean Platelet Volume 10.6 H Neutrophils % 56.9 Lymphocytes % 20.1 Monocytes % 9.2 Eosinophils % 11.5 H Basophils % 1.3 Nucleated Red Blood Cells % 0.0 Neutrophils # 2.2 Lymphocytes # 0.8 Monocytes # 0.4 Eosinophils # 0.5 Basophils # 0.1 Nucleated Red Blood Cells # 0.0 Sodium Level 134 L Potassium Level 4.1 Chloride Level 110 Carbon Dioxide Level 16 L Anion Gap 12 Blood Urea Nitrogen 21 H Creatinine 1.05 Glucose Level 164 Calcium Level 8.4 Phosphorus Level 2.7 Magnesium Level 1.6 L Medications Medications Current Medications Folic Acid (Folic Acid) 1 mg DAILY PO Last administered on 05/27/17 08:48; Admin Dose 1 MG; Start 05/23/17 at 09:00 Furosemide (Lasix) 20 mg TID PO Last administered on 05/23/17 08:59; Admin Dose 20 MG; Start 05/22/17 at 13:00; Status Future Hold Thiamine HCl (Vitamin B1) 50 mg QAM PO Last administered on 05/27/17 08:48; Admin Dose 50 MG; Start 05/23/17 at 09:00 Ondansetron HCl (Zofran Inj) 4 mg Q6H PRN IV NAUSEA AND/OR VOMITING; Start at 09:30 Acetaminophen (Tylenol Tab) 650 mg Q6H PRN PO PAIN LEVEL 1-3 OR FEVER Last administered on 05/27/17 11:47; Admin Dose 650 MG; Start 05/22/17 at 09:30 Acetaminophen (Tylenol Supp) 650 mg Q6H PRN [place] PAIN LEVEL 1-3 OR FEVER; Start 05/22/17 at 09:30 Acetaminophen/ Hydrocodone Bitart ([place] (5/325)) 1 tab Q6H PRN PO MODERATE PAIN LEVEL 4-6 Last administered on 05/23/17 22:54; Admin Dose 1 TAB; Start 05/22/17 at 09:30 Acetaminophen/ Hydrocodone Bitart ([place] (5/325)) 2 tab Q6H PRN PO SEVERE PAIN LEVEL 7-10; Start 05/22/17 at 09:30 Morphine Sulfate (morphine) 2 mg Q4H PRN IV SEVERE PAIN LEVEL 7-10; Start at 09:30 Docusate Sodium (Colace) 100 mg Q12H PRN PO CONSTIPATION; Start 05/22/17 at 09 :30 Magnesium Hydroxide (Milk Of Mag) 30 ml DAILY PRN PO CONSTIPATION; Start 05/22 at 09:30 Bisacodyl 10 mg 10 mg DAILY PRN [place] CONSTIPATION; Start 05/22/17 at 09:30 Octreotide Acetate/Sodium Chloride (Sandostatin/NS) 50 ml @ 5 mls/hr TID IV Last administered on 05/22/17 17:28; Admin Dose 5 MLS/HR; Start 05/22/17 at 09:30; Status Future Hold Rifaximin (Xifaxan) 550 mg BID PO Last administered on 05/27/17 08:49; Admin Dose 550 MG; Start 05/22/17 at 21:00 Lactulose (Enulose) 20 gm Q6 PO Last administered on 05/27/17 11:47; Admin Dose 20 GM; Start 05/22/17 at 18:00 IV Flush (NS 10 ml) 10 ml PRN PRN IV IV PROTOCOL; Start 05/22/17 at 12:00 Metoclopramide HCl (Reglan) 10 mg Q6 IV Last administered on 05/27/17 11:47; Admin Dose 10 MG; Start 05/22/17 at 19:30 Zolpidem Tartrate (Ambien) 10 mg HS PRN PO INSOMNIA Last administered on 22:13; Admin Dose 10 MG; Start 05/24/17 at 20:30 Pantoprazole (Protonix Tab) 40 mg BID@06,18 PO Last administered on 05/27/17 06:03; Admin Dose 40 MG; Start 05/25/17 at 18:00 Aripiprazole 2 mg 2 mg DAILY PO Last administered on 05/27/17 12:00; Admin Dose 2 MG; Start 05/27/17 at 10:00 Magnesium Sulfate (Magnesium Sulfate 2 Gm/50 ml) 50 ml @ 25 mls/hr ONCE ONCE IVPB Last administered on 05/27/17 12:00; Admin Dose 25 MLS/HR; Start at 12:00; Stop 05/27/17 at 13:59 GINGER MEJIA May 27, 2017 12:57 GINGER MEJIA May 27, 2017 12:57
--- NOTE | 2017-05-27 13:09 | PN ---
Date/Time of Note Date/Time of Note DATE: 05/27/17 TIME: 12:43 Assessment/Plan VTE Prophylaxis VTE Prophylaxis Intervention: SCD's Lines/Catheters IV C[facility]ter Type (from [facility]): Saline Lock Urinary Cath still in place: No Assessment/Plan Chief Complaint/Hosp Course Assessment Hematemesis EGD 05/22/17 Impression: Grade III-IV/IV esophageal varices Post EVL 6 without complications Portal hypertensive gastropathy Old blood in the stomach. Anemia Esophageal Varices Decompensating alcoholic liver cirrhosis Thrombocytopenia secondary to ALC Hyperkalemia/resolved JOON Plan: Blood cx x2, CXR, urine cx Paracentesis with work up to r/o SBP- If INR appropriate Cont PPI tx Monitor H&H transfuse for hgb less than 7.5 CM to Contact [facility] liver transplant program for possible transfer Lesia Spencer career coordinator Close monitoring Monitor h/h transfuse as needed Patient seen in collaboration with Dr. Lin Subjective: Course reviewed with nursing staff Patient interviewed and examined All labs, imaging and other results reviewed Pt now spiking fevers, will check for SBP. CXR, blood cx and urine cx also orders. Treatment based on results Cr now within normal range. H/H stable, will continue close observation. Pending transfer to [facility] PHYSICAL EXAMINATION: GENERAL: Chronically ill appearing, alert & oriented x 3, jaundice SKIN: No lesions, positive stigmata chronic liver disease, no evidence of bleeding diathesis LYMPHATIC: No palpable lymphadenopathy. HEAD: Normocephalic, atraumatic, no tenderness. EYES: Pupils equal reactive to light and accommodation, full extraocular movements, sclera clear, non-icteric, no discharge. EARS/NOSE AND THROAT: Ears normal, nose normal, NECK: Supple, no masses, thyroid normal CHEST: Inspection within normal limits. CARDIOVASCULAR: Heart: Regular rate and rhythm, RESPIRATORY: Lungs clear to auscultation GASTROINTESTINAL AND LIVER: Abdomen: Soft, non tenderness, non-distended, no hernias, no masses, ascites, no guarding, no rebound tenderness, normoactive bowel sounds. Rectal: Deferred. GENITOURINARY: Male genitalia within normal limits. EXTREMITIES: BLE edema. Problems: Exam/Review of Systems Vital Signs Vitals Vital Signs Date Time Temp Pulse Resp B/P Pulse Ox O2 Delivery O2 Flow Rate FiO2 05/27/17 11:36 101.2 93 18 105/55 98 05/25/17 00:00 Room Air Intake and Output 05/26/17 05/26/17 05/27/17 15:00 23:00 07:00 Intake Total 1250 ml 500 ml Balance 1250 ml 500 ml Results Result Diagram: 05/27/17 0748 05/27/17 0748 Results 24 hrs Laboratory Tests Test 05/27/17 07:48 White Blood Count 3.9 #L Red Blood Count 2.91 L Hemoglobin 9.4 L Hematocrit 26.9 L Mean Corpuscular Volume 92.4 Mean Corpuscular Hemoglobin 32.3 Mean Corpuscular Hemoglobin Concent 34.9 Red Cell Distribution Width 20.1 H Platelet Count 43 L Mean Platelet Volume 10.6 H Neutrophils % 56.9 Lymphocytes % 20.1 Monocytes % 9.2 Eosinophils % 11.5 H Basophils % 1.3 Nucleated Red Blood Cells % 0.0 Neutrophils # 2.2 Lymphocytes # 0.8 Monocytes # 0.4 Eosinophils # 0.5 Basophils # 0.1 Nucleated Red Blood Cells # 0.0 Sodium Level 134 L Potassium Level 4.1 Chloride Level 110 Carbon Dioxide Level 16 L Anion Gap 12 Blood Urea Nitrogen 21 H Creatinine 1.05 Glucose Level 164 Calcium Level 8.4 Phosphorus Level 2.7 Magnesium Level 1.6 L Medications Medications Current Medications Folic Acid (Folic Acid) 1 mg DAILY PO Last administered on 05/27/17 08:48; Admin Dose 1 MG; Start 05/23/17 at 09:00 Furosemide (Lasix) 20 mg TID PO Last administered on 05/23/17 08:59; Admin Dose 20 MG; Start 05/22/17 at 13:00; Status Future Hold Thiamine HCl (Vitamin B1) 50 mg QAM PO Last administered on 05/27/17 08:48; Admin Dose 50 MG; Start 05/23/17 at 09:00 Ondansetron HCl (Zofran Inj) 4 mg Q6H PRN IV NAUSEA AND/OR VOMITING; Start at 09:30 Acetaminophen (Tylenol Tab) 650 mg Q6H PRN PO PAIN LEVEL 1-3 OR FEVER Last administered on 05/27/17 11:47; Admin Dose 650 MG; Start 05/22/17 at 09:30 Acetaminophen (Tylenol Supp) 650 mg Q6H PRN [place] PAIN LEVEL 1-3 OR FEVER; Start 05/22/17 at 09:30 Acetaminophen/ Hydrocodone Bitart ([place] (5/325)) 1 tab Q6H PRN PO MODERATE PAIN LEVEL 4-6 Last administered on 05/23/17 22:54; Admin Dose 1 TAB; Start 05/22/17 at 09:30 Acetaminophen/ Hydrocodone Bitart ([place] (5/325)) 2 tab Q6H PRN PO SEVERE PAIN LEVEL 7-10; Start 05/22/17 at 09:30 Morphine Sulfate (morphine) 2 mg Q4H PRN IV SEVERE PAIN LEVEL 7-10; Start at 09:30 Docusate Sodium (Colace) 100 mg Q12H PRN PO CONSTIPATION; Start 05/22/17 at 09 :30 Magnesium Hydroxide (Milk Of Mag) 30 ml DAILY PRN PO CONSTIPATION; Start 05/22 at 09:30 Bisacodyl 10 mg 10 mg DAILY PRN [place] CONSTIPATION; Start 05/22/17 at 09:30 Octreotide Acetate/Sodium Chloride (Sandostatin/NS) 50 ml @ 5 mls/hr TID IV Last administered on 05/22/17 17:28; Admin Dose 5 MLS/HR; Start 05/22/17 at 09:30; Status Future Hold Rifaximin (Xifaxan) 550 mg BID PO Last administered on 05/27/17 08:49; Admin Dose 550 MG; Start 05/22/17 at 21:00 Lactulose (Enulose) 20 gm Q6 PO Last administered on 05/27/17 11:47; Admin Dose 20 GM; Start 05/22/17 at 18:00 IV Flush (NS 10 ml) 10 ml PRN PRN IV IV PROTOCOL; Start 05/22/17 at 12:00 Metoclopramide HCl (Reglan) 10 mg Q6 IV Last administered on 05/27/17 11:47; Admin Dose 10 MG; Start 05/22/17 at 19:30 Zolpidem Tartrate (Ambien) 10 mg HS PRN PO INSOMNIA Last administered on 22:13; Admin Dose 10 MG; Start 05/24/17 at 20:30 Pantoprazole (Protonix Tab) 40 mg BID@18 PO Last administered on 05/27/17 06:03; Admin Dose 40 MG; Start 05/25/17 at 18:00 Aripiprazole 2 mg 2 mg DAILY PO Last administered on 05/27/17 12:00; Admin Dose 2 MG; Start 05/27/17 at 10:00 Magnesium Sulfate (Magnesium Sulfate 2 Gm/50 ml) 50 ml @ 25 mls/hr ONCE ONCE IVPB Last administered on 05/27/17 12:00; Admin Dose 25 MLS/HR; Start at 12:00; Stop 05/27/17 at 13:59 ANKITA YA May 27, 2017 13:07
[2017-05-27 15:15] LABS: INR 2.08; PROTIME 23.9 Sec (11.9-14.9); PT RATIO 1.9
[2017-05-27] MEDS: HYDROCODONE/APAP (5/325) TAB PO PRN (15:39)
--- NOTE | 2017-05-27 17:52 | RADRPT ---
PROCEDURE: XR Chest. CLINICAL INDICATION: Shortness of breath. TECHNIQUE: Single frontal view. COMPARISON: May 22, 2017. FINDINGS: There is a left arm PICC line with the tip in the lower superior vena cava. There is mild left basil ar atelectasis. Lungs are otherwise clear. The heart size is normal. There is no pleural effusion. There is no pneumothorax. IMPRESSION: 1. Left arm PICC line in satisfactory position. 2. Mild left basilar atelectasis. 3. Otherwise unremarkable chest radiograph. RPTAT: QQ .David Mosley MD, MD Date Time Electronically viewed and signed by .David Mosley MD, MD on 05/27/2017 17:05 .R/
--- NOTE | 2017-05-27 17:52 | RADRPT ---
PROCEDURE: Ultrasound guided paracentesis. CLINICAL INDICATION: Ascites and shortness of breath. COMPARISON: May 14, 2017. TECHNIQUE: The risks, benefits, and alternatives were explained to the patient and/or the patient's family, inc luding but not limited to bleeding, infection, pain, visceral or vascular damage, shock, and . The patient and/or the patient's family understood the risks and the alternatives and wished to pro ceed with the procedure. Informed written consent was obtained. A procedural time out was performed . The patient's name, date of , and procedure to be performed were verified. Utilizing ultrasound guidance, optimal location for entry to the peritoneal cavity was ascertained. The overlying skin was prepped and draped in the usual sterile fashion. Approximately 10 ml of 1% Xylocaine was injected locally for pain control. Using ultrasound guidance, an 8 [place] catheter wa s introduced into the peritoneal cavity in the left lower quadrant without difficulty. FINDINGS: Initial images demonstrate ascites. Approximately 4.6 liters of serous fluid was aspirated and sent for laboratory analysis. The patient tolerated the procedure well without complication. IMPRESSION: 1. Successful ultrasound-guided paracentesis. RPTAT: QQ .David Mosley MD, Date Time Electronically viewed and signed by .David Mosley MD, on 05/27/2017 17:07 .R/
[2017-05-27 19:27] LABS: FLD MN% 97.5 %; FLD PMN% 2.5 %; FLD RBC 2000 /uL; FLD WBC 200 /cmm
[2017-05-27 19:54] LABS: FLD CLARITY CLOUDY; FLD TYPE PARACENTHESIS
[2017-05-27 19:55] LABS: FLD COLOR YELLOW
[2017-05-27 20:24] LABS: FLUID AMYLASE 33 U/L; FLUID GLUCOSE 156 mg/dl; FLUID TYPE FLUID
[2017-05-27 20:25] LABS: FLUID LD 127 U/L; FLUID TOTAL PROTEIN < 2.0 g/dl; FLUID TYPE FLUID
[2017-05-28] VITALS (8 sets, daily range): BP systolic 84–103; BP diastolic 50–59; PULSE 66–74; RESP 18–20
[2017-05-28] MEDS: METOCLOPRAMIDE 10 MG INJ IV SCH ×5 (00:42→23:44)
[2017-05-28] MEDS: PANTOPRAZOLE (EC) 40 MG TAB PO SCH ×2 (05:30→17:59)
[2017-05-28] MEDS: LACTULOSE 30ML CUP PO SCH ×5 (05:30→23:43)
[2017-05-28] MEDS ORDERED: PIPER-TAZO 3.375 GM IV (PMX) 50 ML IVPB SCH (06:00)
[2017-05-28] MEDS: HYDROCODONE/APAP (5/325) TAB PO PRN ×2 (09:39→19:17)
--- NOTE | 2017-05-28 10:11 | PN ---
Date/Time of Note Date/Time of Note DATE: 05/28/17 TIME: 10:10 Assessment/Plan VTE Prophylaxis VTE Prophylaxis Intervention: other Lines/Catheters IV [facility] Type [facility] Saline Lock Urinary Cath still in place: No Assessment/Plan Chief Complaint/Hosp Course renal follow up SUBJECTIVE: The patient is stable. No events overnight. No fevers, chills, nausea, vomiting. OBJECTIVE: HEENT: Head is normocephalic. NECK: Supple. HEART: Regular rate. LUNGS: Show diminished breath sounds at base. ABDOMEN: Soft, nontender to palpation. No rebound or guarding. EXTREMITIES: Negative for clubbing, cyanosis, no edema. DERMATOLOGIC: No rashes. MUSCULOSKELETAL: No joint effusions. NEUROLOGIC: No change in exam. MEDICATIONS: The patient's medications have been reviewed. ASSESSMENT AND PLAN: 1. Nonoliguric acute kidney injury with previous baseline creatinine 0.7 to 0.9 mg/dL. Etiology of acute kidney injury is likely secondary to hemodynamics and volume depletion from gastrointestinal bleed and diuretic use. The patient' s renal function has been improving with IV fluids. At this point, continue current treatment plan, supportive care, renally dose all meds. Will discontinue IV fluids and monitor. 2. Hyperkalemia secondary to acute kidney injury, resolved. 3. Hyponatremia secondary to acute kidney injury, cirrhosis, improved. Continue to monitor. 4. Severe anemia secondary to gastrointestinal bleed. The patient is status post blood transfusion. Continue Protonix. Follow up with gastroenterology. 5. Metabolic acidosis. Continue to monitor. 6. Decompensated cirrhosis. The patient's underlying ascites, lower extremity edema. Will discontinue IV fluids if renal function remains stable, may reintroduce diuretic therapy. 7. Thrombocytopenia. Continue to monitor. Problems: Exam/Review of Systems Vital Signs Vitals Vital Signs Date Time Temp Pulse Resp B/P Pulse Ox O2 Delivery O2 Flow Rate FiO2 05/28/17 09:00 99.0 73 18 103/59 100 05/25/17 00:00 Room Air Intake and Output 05/27/17 05/27/17 05/28/17 15:00 23:00 07:00 Intake Total 720 ml 150 ml Output Total 550 ml Balance 170 ml 150 ml Results Result Diagram: 05/27/17 0748 05/27/17 0748 Results 24 hrs Laboratory Tests Test 05/27/17 14:40 05/27/17 16:20 05/28/17 05:21 Prothrombin Time 23.9 #H Prothrombin Time Ratio 1.9 INR International Normalized Ratio 2.08 Body Fluid Type FLUID Body Fluid Volume 1100.0 Body Fluid Color YELLOW Body Fluid Appearance CLOUDY Body Fluid WBC 200 Body Fluid RBC (Auto) 2000 Body Fluid Polynuclear WBCs (%) 2.5 Body Fluid Mononuclear Cells % Auto 97.5 Body Fluid Glucose 156 Body Fluid Total Protein < 2.0 Body Fluid Lactate Dehydrogenase 127 Body Fluid Amylase 33 Lab Scanned Report BLOOD TRANSFUSION Medications Medications Current Medications Folic Acid (Folic Acid) 1 mg DAILY PO Last administered on 05/27/17 08:48; Admin Dose 1 MG; Start 05/23/17 at 09:00 Furosemide (Lasix) 20 mg TID PO Last administered on 05/23/17 08:59; Admin Dose 20 MG; Start 05/22/17 at 13:00; Status Future Hold Thiamine HCl (Vitamin B1) 50 mg QAM PO Last administered on 05/27/17 08:48; Admin Dose 50 MG; Start 05/23/17 at 09:00 Ondansetron HCl (Zofran Inj) 4 mg Q6H PRN IV NAUSEA AND/OR VOMITING; Start at 09:30 Acetaminophen (Tylenol Tab) 650 mg Q6H PRN PO PAIN LEVEL 1-3 OR FEVER Last administered on 05/27/17 11:47; Admin Dose 650 MG; Start 05/22/17 at 09:30 Acetaminophen/ Hydrocodone Bitart ([place] (5/325)) 1 tab Q6H PRN PO MODERATE PAIN LEVEL 4-6 Last administered on 05/23/17 22:54; Admin Dose 1 TAB; Start 05/22/17 at 09:30 Acetaminophen/ Hydrocodone Bitart ([place] (5/325)) 2 tab Q6H PRN PO SEVERE PAIN LEVEL 7-10 Last administered on 05/28/17 09:39; Admin Dose 2 TAB; Start 05/22 at 09:30 Morphine Sulfate (morphine) 2 mg Q4H PRN IV SEVERE PAIN LEVEL 7-10; Start at 09:30 Docusate Sodium (Colace) 100 mg Q12H PRN PO CONSTIPATION; Start 05/22/17 at 09 :30 Magnesium Hydroxide (Milk Of Mag) 30 ml DAILY PRN PO CONSTIPATION; Start 05/22 at 09:30 Bisacodyl (Dulcolax Supp) 10 mg DAILY PRN [place] CONSTIPATION; Start 05/22/17 at 09:30 Rifaximin (Xifaxan) 550 mg BID PO Last administered on 05/27/17 20:44; Admin Dose 550 MG; Start 05/22/17 at 21:00 Lactulose (Enulose) 20 gm Q6 PO Last administered on 05/28/17 05:30; Admin Dose 20 GM; Start 05/22/17 at 18:00 IV Flush (NS 10 ml) 10 ml PRN PRN IV IV PROTOCOL; Start 05/22/17 at 12:00 Metoclopramide HCl (Reglan) 10 mg Q6 IV Last administered on 05/28/17 05:30; Admin Dose 10 MG; Start 05/22/17 at 19:30 Zolpidem Tartrate (Ambien) 10 mg HS PRN PO INSOMNIA Last administered on 22:13; Admin Dose 10 MG; Start 05/24/17 at 20:30 Pantoprazole (Protonix Tab) 40 mg BID@06,18 PO Last administered on 05/28/17 05:30; Admin Dose 40 MG; Start 05/25/17 at 18:00 Aripiprazole 2 mg 2 mg DAILY PO Last administered on 05/27/17 12:00; Admin Dose 2 MG; Start 05/27/17 at 10:00 Piperacillin Sod/ Tazobactam Sod (Zosyn 3.375gm/ 50 ml (Pmx)) 50 ml @ 100 mls/ hr Q6 IVPB Last administered on 05/28/17 06:31; Admin Dose 100 MLS/HR; Start 05/28/17 at 06:00 JUAN PENNY DO May 28, 2017 10:11
[2017-05-28] MEDS: RIFAXIMIN 550 MG TAB PO SCH ×2 (10:32→21:19)
[2017-05-28] MEDS: ARIPIPRAZOLE 2 MG TAB PO SCH (10:32)
[2017-05-28] MEDS: THIAMINE 100 MG TAB PO SCH (10:32)
[2017-05-28] MEDS: FOLIC ACID 1 MG TAB PO SCH (10:32)
[2017-05-28] MEDS ORDERED: MAGNESIUM SULFATE 2 GM/50 ML 50 ML IVPB ONE (11:00)
--- NOTE | 2017-05-28 11:10 | PN ---
Date/Time of Note Date/Time of Note DATE: 05/28/17 TIME: 10:35 Assessment/Plan VTE Prophylaxis VTE Prophylaxis Intervention: SCD's Lines/Catheters IV C[facility] Type [facility]from [facility] Saline Lock Urinary Cath still in place: No Assessment/Plan Chief Complaint/Hosp Course Assessment Hematemesis EGD 05/22/17 Impression: Grade III-IV/IV esophageal varices Post EVL 6 without complications Portal hypertensive gastropathy Old blood in the stomach. Anemia Esophageal Varices Decompensating alcoholic liver cirrhosis Thrombocytopenia secondary to ALC Hyperkalemia/resolved JOON Plan: CXR- Mild left basilar atelectasis, otherwise normal S/p Paracentesis- 4.6 liters of serous fluid Blood cx-preliminary results show gram-negative rods in both bottles- has been started on ABX Cont PPI tx Monitor H&H transfuse for hgb less than 7.5 Close monitoring Monitor h/h transfuse as needed Patient seen in collaboration with Dr. Lin Subjective: Course reviewed with nursing staff Patient interviewed and examined All labs, imaging and other results reviewed Pt resting in bed, feeling much better post paracentesis (removed 4.6 liters) . Discussed results of blood cx, preliminary results show gram-negative rods in both bottles, and CXR. Will continue to monitor labs, close observation, Patient had a reaction to ABX , hospitalist to change. CM to Contact [facility] liver transplant program for possible transfer Lesia Spencer credit coordinator PHYSICAL EXAMINATION: GENERAL: Chronically ill appearing, alert & oriented x 3, jaundice SKIN: No lesions, positive stigmata chronic liver disease HEAD: Normocephalic, atraumatic, no tenderness. EYES: No discharge EARS/NOSE AND THROAT: Ears normal, nose normal, NECK: Supple, no masses, thyroid normal CHEST: Inspection within normal limits. CARDIOVASCULAR: Heart: Regular rate and rhythm, RESPIRATORY: Lungs clear to auscultation GASTROINTESTINAL AND LIVER: Abdomen: Soft, non tenderness, non-distended, no hernias, no masses, ascites s/p centesis, normoactive bowel sounds. Rectal: Deferred. GENITOURINARY: Male genitalia within normal limits. EXTREMITIES: BLE edema, improving Colleagues Problems: Exam/Review of Systems Vital Signs Vitals Vital Signs Date Time Temp Pulse Resp B/P Pulse Ox O2 Delivery O2 Flow Rate FiO2 05/28/17 09:00 99.0 73 18 103/59 100 05/25/17 00:00 Room Air Intake and Output 05/27/17 05/27/17 05/28/17 15:00 23:00 07:00 Intake Total 720 ml 150 ml Output Total 550 ml Balance 170 ml 150 ml Results Result Diagram: 05/27/17 0748 05/27/17 0748 Results 24 hrs Laboratory Tests Test 05/27/17 14:40 05/27/17 16:20 05/28/17 05:21 Prothrombin Time 23.9 #H Prothrombin Time Ratio 1.9 INR International Normalized Ratio 2.08 Body Fluid Type FLUID Body Fluid Volume 1100.0 Body Fluid Color YELLOW Body Fluid Appearance CLOUDY Body Fluid WBC 200 Body Fluid RBC (Auto) 2000 Body Fluid Polynuclear WBCs (%) 2.5 Body Fluid Mononuclear Cells % Auto 97.5 Body Fluid Glucose 156 Body Fluid Total Protein < 2.0 Body Fluid Lactate Dehydrogenase 127 Body Fluid Amylase 33 Lab Scanned Report BLOOD TRANSFUSION Medications Medications Current Medications Folic Acid (Folic Acid) 1 mg DAILY PO Last administered on 05/28/17 10:32; Admin Dose 1 MG; Start 05/23/17 at 09:00 Furosemide (Lasix) 20 mg TID PO Last administered on 05/23/17 08:59; Admin Dose 20 MG; Start 05/22/17 at 13:00; Status Future Hold Thiamine HCl (Vitamin B1) 50 mg QAM PO Last administered on 05/28/17 10:32; Admin Dose 50 MG; Start 05/23/17 at 09:00 Ondansetron HCl (Zofran Inj) 4 mg Q6H PRN IV NAUSEA AND/OR VOMITING; Start at 09:30 Acetaminophen (Tylenol Tab) 650 mg Q6H PRN PO PAIN LEVEL 1-3 OR FEVER Last administered on 05/27/17 11:47; Admin Dose 650 MG; Start 05/22/17 at 09:30 Acetaminophen/ Hydrocodone Bitart ([place] (5/325)) 1 tab Q6H PRN PO MODERATE PAIN LEVEL 4-6 Last administered on 05/23/17 22:54; Admin Dose 1 TAB; Start 05/22/17 at 09:30 Acetaminophen/ Hydrocodone Bitart ([place] (5/325)) 2 tab Q6H PRN PO SEVERE PAIN LEVEL 7-10 Last administered on 05/28/17 09:39; Admin Dose 2 TAB; Start 05/22 at 09:30 Morphine Sulfate (morphine) 2 mg Q4H PRN IV SEVERE PAIN LEVEL 7-10; Start at 09:30 Docusate Sodium (Colace) 100 mg Q12H PRN PO CONSTIPATION; Start 05/22/17 at 09 :30 Magnesium Hydroxide (Milk Of Mag) 30 ml DAILY PRN PO CONSTIPATION; Start 05/22 at 09:30 Bisacodyl (Dulcolax Supp) 10 mg DAILY PRN [place] CONSTIPATION; Start 05/22/17 at 09:30 Rifaximin (Xifaxan) 550 mg BID PO Last administered on 05/28/17 10:32; Admin Dose 550 MG; Start 05/22/17 at 21:00 Lactulose (Enulose) 20 gm Q6 PO Last administered on 05/28/17 05:30; Admin Dose 20 GM; Start 05/22/17 at 18:00 IV Flush (NS 10 ml) 10 ml PRN PRN IV IV PROTOCOL; Start 05/22/17 at 12:00 Metoclopramide HCl (Reglan) 10 mg Q6 IV Last administered on 05/28/17 05:30; Admin Dose 10 MG; Start 05/22/17 at 19:30 Zolpidem Tartrate (Ambien) 10 mg HS PRN PO INSOMNIA Last administered on 22:13; Admin Dose 10 MG; Start 05/24/17 at 20:30 Pantoprazole (Protonix Tab) 40 mg BID@06,18 PO Last administered on 05/28/17 05:30; Admin Dose 40 MG; Start 05/25/17 at 18:00 Aripiprazole 2 mg 2 mg DAILY PO Last administered on 05/28/17 10:32; Admin Dose 2 MG; Start 05/27/17 at 10:00 Piperacillin Sod/ Tazobactam Sod (Zosyn 3.375gm/ 50 ml (Pmx)) 50 ml @ 100 mls/ hr Q6 IVPB Last administered on 05/28/17 06:31; Admin Dose 100 MLS/HR; Start 05/28/17 at 06:00 ANKITA YA May 28, 2017 10:47
[2017-05-28 12:21] LABS: ABNORMAL IP MESSAGE 1; BASOPHILS % 0.4 % (0.0-2.0); EOSINOPHILS # 0.3 10^3/ul (0.0-0.5); EOSINOPHILS % 2.5 % (0.0-7.0); HEMATOCRIT 24.5 % (42.0-52.0); HEMOGLOBIN 8.5 g/dl (14.0-18.0); LYMPHOCYTES % 9.6 % (15.0-51.0); MEAN CORPUSCULAR HEMOGLOBIN 32.7 pg (29.0-33.0); MEAN CORPUSCULAR HGB CONC 34.7 g/dl (32.0-37.0); MEAN CORPUSCULAR VOLUME 94.2 fl (82.0-101.0); MEAN PLATELET VOLUME 11.4 fl (7.4-10.4); MONOCYTE # 1.1 10^3/ul (0.3-0.9); MONOCYTES % 10.6 % (0.0-11.0); NEUTROPHIL # 7.7 10^3/ul (1.6-7.5); NEUTROPHILS % 75.8 % (39.0-77.0); POSITIVE DIFF @See below; RED CELL DISTRIBUTION WIDTH 20.3 % (11.5-14.5); WHITE BLOOD COUNT 10.1 10^3/ul (4.8-10.8)
[2017-05-28 12:42] LABS: PLATELET COUNT 42 10^3/UL (140-415)
--- NOTE | 2017-05-28 12:53 | PN ---
Date/Time of Note Date/Time of Note DATE: 05/28/17 TIME: 12:51 Assessment/Plan VTE Prophylaxis VTE Prophylaxis Intervention: SCD's Lines/Catheters [facility] Saline Lock Urinary Cath still in place: No Assessment/Plan Chief Complaint/Hosp Course Assessment and plan 1. Hematemesis. s/p prbc transfusion. Transfuse blood products as needed monitor H&H. continue with GI recs. EGD did show grade 3 to grade 4 esophageal varices as well as portal hypertensive gastropathy. 2. History of decompensated liver cirrhosis. Patient is on the liver transplant list at [facility]. Patient for outpatient follow-up with rumper. 3. Thrombocytopenia secondary to #2. Monitor level. Transfuse blood products as needed. 4. Acute renal insufficiency. Filtering Machine Tender Helper was consulted. Follow-up with recommendations. 5. Hyperkalemia. . Monitor level. Will follow. Provide with Kayexalate as needed 6. Hyponatremia. IV fluids for now. To be managed per repairer maintenance building. 7. febrile. Antipyretics as needed. Blood culture did show gram-negative rods. Will get ID consult to follow. Disposition and plan: Patient was provided with Zosyn antibiotic however did have pruritus and urticaria after administration. Will get ID consult for antibiotic regimen management Discussed plan of care with Dr. Cruz Problems: Subjective 24 Hr Interval Summary Free Text/Dictation Reports having some erythema and some pain on right thigh. Reports feeling better after paracentesis Exam/Review of Systems Vital Signs Vitals Vital Signs Date Time Temp Pulse Resp B/P Pulse Ox O2 Delivery O2 Flow Rate FiO2 05/28/17 09:00 99.0 73 18 103/59 100 05/25/17 00:00 Room Air Intake and Output 05/27/17 05/27/17 05/28/17 15:00 23:00 07:00 Intake Total 720 ml 150 ml Output Total 550 ml Balance 170 ml 150 ml Exam Constitutional: alert, oriented Psych: depressed Eyes: icteric Cardiovascular: regular rate and rhythm Gastrointestinal: other (appears distended), less today status post paracentesis Musculoskeletal: swelling (ble) Neurological: DIET ASSISTANT 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, nl mental status, nl speech Skin: other (jaundice) Results Result Diagram: 05/28/17 1150 05/27/17 0748 Results 24 hrs Laboratory Tests Test 05/27/17 14:40 05/27/17 16:20 05/28/17 05:21 05/28/17 11:50 Prothrombin Time 23.9 #H Prothrombin Time Ratio 1.9 INR International Normalized Ratio 2.08 Body Fluid Type FLUID Body Fluid Volume 1100.0 Body Fluid Color YELLOW Body Fluid Appearance CLOUDY Body Fluid WBC 200 Body Fluid RBC (Auto) 2000 Body Fluid Polynuclear WBCs (%) 2.5 Body Fluid Mononuclear Cells % Auto 97.5 Body Fluid Glucose 156 Body Fluid Total Protein < 2.0 Body Fluid Lactate Dehydrogenase 127 Body Fluid Amylase 33 Lab Scanned Report BLOOD TRANSFUSION White Blood Count 10.1 # Red Blood Count 2.60 L Hemoglobin 8.5 L Hematocrit 24.5 L Mean Corpuscular Volume 94.2 Mean Corpuscular Hemoglobin 32.7 Mean Corpuscular Hemoglobin Concent 34.7 Red Cell Distribution Width 20.3 H Platelet Count 42 L Mean Platelet Volume 11.4 H Neutrophils % 75.8 Lymphocytes % 9.6 L Monocytes % 10.6 Eosinophils % 2.5 Basophils % 0.4 Nucleated Red Blood Cells % 0.0 Neutrophils # 7.7 H Lymphocytes # 1.0 Monocytes # 1.1 H Eosinophils # 0.3 Basophils # 0.0 Nucleated Red Blood Cells # 0.0 Medications Medications Current Medications Folic Acid (Folic Acid) 1 mg DAILY PO Last administered on 05/28/17 10:32; Admin Dose 1 MG; Start 05/23/17 at 09:00 Furosemide (Lasix) 20 mg TID PO Last administered on 05/23/17 08:59; Admin Dose 20 MG; Start 05/22/17 at 13:00; Status Future Hold Thiamine HCl (Vitamin B1) 50 mg QAM PO Last administered on 05/28/17 10:32; Admin Dose 50 MG; Start 05/23/17 at 09:00 Ondansetron HCl (Zofran Inj) 4 mg Q6H PRN IV NAUSEA AND/OR VOMITING; Start at 09:30 Acetaminophen (Tylenol Tab) 650 mg Q6H PRN PO PAIN LEVEL 1-3 OR FEVER Last administered on 05/27/17 11:47; Admin Dose 650 MG; Start 05/22/17 at 09:30 Acetaminophen/ Hydrocodone Bitart ([place] (5/325)) 1 tab Q6H PRN PO MODERATE PAIN LEVEL 4-6 Last administered on 05/23/17 22:54; Admin Dose 1 TAB; Start 05/22/17 at 09:30 Acetaminophen/ Hydrocodone Bitart ([place] (5/325)) 2 tab Q6H PRN PO SEVERE PAIN LEVEL 7-10 Last administered on 05/28/17 09:39; Admin Dose 2 TAB; Start 05/22 at 09:30 Morphine Sulfate (morphine) 2 mg Q4H PRN IV SEVERE PAIN LEVEL 7-10; Start at 09:30 Docusate Sodium (Colace) 100 mg Q12H PRN PO CONSTIPATION; Start 05/22/17 at 09 :30 Magnesium Hydroxide (Milk Of Mag) 30 ml DAILY PRN PO CONSTIPATION; Start 05/22 at 09:30 Bisacodyl (Dulcolax Supp) 10 mg DAILY PRN [place] CONSTIPATION; Start 05/22/17 at 09:30 Rifaximin (Xifaxan) 550 mg BID PO Last administered on 05/28/17 10:32; Admin Dose 550 MG; Start 05/22/17 at 21:00 Lactulose (Enulose) 20 gm Q6 PO Last administered on 05/28/17 05:30; Admin Dose 20 GM; Start 05/22/17 at 18:00 IV Flush (NS 10 ml) 10 ml PRN PRN IV IV PROTOCOL; Start 05/22/17 at 12:00 Metoclopramide HCl (Reglan) 10 mg Q6 IV Last administered on 05/28/17 05:30; Admin Dose 10 MG; Start 05/22/17 at 19:30 Zolpidem Tartrate (Ambien) 10 mg HS PRN PO INSOMNIA Last administered on 22:13; Admin Dose 10 MG; Start 05/24/17 at 20:30 Pantoprazole (Protonix Tab) 40 mg BID@06,18 PO Last administered on 05/28/17 05:30; Admin Dose 40 MG; Start 05/25/17 at 18:00 Aripiprazole 2 mg 2 mg DAILY PO Last administered on 05/28/17 10:32; Admin Dose 2 MG; Start 05/27/17 at 10:00 Piperacillin Sod/ Tazobactam Sod 50 ml @ 100 mls/hr Q6 IVPB Last administered on 05/28/17 06:31; Admin Dose 100 MLS/HR; Start 05/28/17 at 06:00; Status Future Hold Magnesium Sulfate 50 ml @ 25 mls/hr ONCE ONCE IVPB Last administered on 11:32; Admin Dose 25 MLS/HR; Start 05/28/17 at 11:00; Stop 05/28/17 at 12 :59 Meropenem/Sodium Chloride (Merrem 1 Gm/50 ml (Pmx)) 50 ml @ 100 mls/hr Q8 IVPB ; Start 05/28/17 at 14:00 GINGER MEJIA May 28, 2017 12:53
[2017-05-28] MEDS ORDERED: MEROPENEM 1 GM/50ML(PMX) 50 ML IVPB SCH ×2 (14:00)
[2017-05-28] MEDS: MEROPENEM 500MG/50 ML (PMX) 50 ML IVPB SCH ×2 (14:05→21:18)
--- NOTE | 2017-05-28 14:43 | CONS ---
DATE OF ADMISSION: 05/22/2017 DATE OF CONSULTATION: 05/28/2017 TYPE OF CONSULTATION: Infectious Disease. REASON FOR CONSULTATION: Antibiotic management. HISTORY OF PRESENT ILLNESS: Santy Meyer is a 47-year-old male with numerous problems wh o comes in with hematemesis and is being seen for antibiotic management. Past problems include: 1. Decompensated alcoholic liver disease with cirrhosis. 2. Thrombocytopenia secondary to #2. 3. History of alcohol abuse. 4. Anemia of chronic disease. 5. Esophageal varices status post banding. The patient notes that 3 days prior to admission, he began to have brown emesis. On the morning of admission, 05/22/2017, he started to have episodes of vomiting and came to the emergency room. His hemoglobin was 7.6, hematocrit was 21.9. White count was 8.9, platelet count 79,000. BUN and creat inine 67/1.47 and glucose of 162. The patient was put on octreotide and also on rifaximin, and lact ulose, thiamin. HOSPITAL COURSE: The patient was seen by Dr. Lin. He had an EGD which showed grade III to IV/IV esophageal varices, post-EDL x6 without complications, portal hypertension gastropathy, old blood i n the stomach. The patient has acute renal insufficiency, hyperkalemia, hyponatremia. He was febri le and therefore was pancultured on the 05/27/2017. His temperature was 101.2. His white count was 3.9. Blood cultures were negative. Urine cultures were negative. He had a paracentesis and 4.6 l iters of serous fluid was aspirated and sent for laboratory analysis. The patient was on piperacill in, tazobactam and that was put on hold. He was seen by GI again and was seen by renal. PAST MEDICAL HISTORY: Operations as outlined. FAMILY HISTORY: Noncontributory. SOCIAL HISTORY: He does not smoke, drink or abuse drugs. ALLERGIES: NONE TO PENICILLIN, SULFA OR FOODS. MEDICATIONS: Per chart, the patient has a long history of alcohol abuse but quit a year ago. REVIEW OF SYSTEMS: Noncontributory. PHYSICAL EXAMINATION: GENERAL: The patient is awake, responsive, in no acute distress. VITAL SIGNS: Stable. He is afebrile. SKIN: Without generalized rash. HEENT: Within normal limits. NECK: Supple. LYMPH NODES: None palpable. CHEST: Decreased breath sounds at the bases. HEART: Without murmur or gallop. ABDOMEN: Soft, nontender, without organosplenomegaly or masses. EXTREMITIES: Without cyanosis, clubbing, or edema. RECTAL AND GENITAL: Deferred. NEUROLOGIC: No focal neurological abnormalities. Preliminary blood cultures show gram-negative rods in both bottles. IMPRESSION AND PLAN: Patient was started back on the Zosyn. He believes he had received Zosyn this morning, and I would continue that. I will dictate my findings to the hospitalist. Dictated By: DENNIS BRUCE MD, JD/NTS Conf#: [id number] DID#: [id number] CC: GUILLERMINA ROBERT MD;*End*
[2017-05-29] MEDS: METOCLOPRAMIDE 10 MG INJ IV SCH ×3 (05:45→17:28)
[2017-05-29] MEDS: PANTOPRAZOLE (EC) 40 MG TAB PO SCH ×2 (05:45→17:28)
[2017-05-29] MEDS: LACTULOSE 30ML CUP PO SCH ×3 (05:45→21:42)
[2017-05-29] MEDS: MEROPENEM 500MG/50 ML (PMX) 50 ML IVPB SCH ×3 (06:48→21:42)
[2017-05-29 07:38] LABS: ABNORMAL IP MESSAGE 1; BASOPHIL # 0.1 10^3/ul (0.0-0.1); BASOPHILS % 0.8 % (0.0-2.0); EOSINOPHILS # 0.2 10^3/ul (0.0-0.5); HEMATOCRIT 25.4 % (42.0-52.0); HEMOGLOBIN 8.7 g/dl (14.0-18.0); LYMPHOCYTES # 0.9 10^3/ul (0.8-2.9); LYMPHOCYTES % 15.6 % (15.0-51.0); MEAN CORPUSCULAR HEMOGLOBIN 32.6 pg (29.0-33.0); MEAN CORPUSCULAR HGB CONC 34.3 g/dl (32.0-37.0); MEAN CORPUSCULAR VOLUME 95.1 fl (82.0-101.0); MONOCYTE # 0.9 10^3/ul (0.3-0.9); MONOCYTES % 14.4 % (0.0-11.0); NEUTROPHIL # 3.8 10^3/ul (1.6-7.5); NEUTROPHILS % 64.2 % (39.0-77.0); PLATELET COUNT 41 10^3/UL (140-415); POSITIVE DIFF @See below; RED BLOOD COUNT 2.67 10^6/ul (4.70-6.10); RED CELL DISTRIBUTION WIDTH 19.6 % (11.5-14.5)
[2017-05-29 07:59] LABS: CALCIUM 8.2 mg/dl (8.4-10.2); CREATININE 1.13 mg/dl (0.61-1.24); MAGNESIUM 2.3 mg/dl (1.7-2.5)
[2017-05-29 08:00] VITALS: BP 105/55; PULSE 72; RESP 18
[2017-05-29] MEDS: RIFAXIMIN 550 MG TAB PO SCH ×2 (08:41→21:46)
[2017-05-29] MEDS: ARIPIPRAZOLE 2 MG TAB PO SCH (08:41)
[2017-05-29] MEDS: FOLIC ACID 1 MG TAB PO SCH (08:41)
[2017-05-29] MEDS: THIAMINE 100 MG TAB PO SCH (08:41)
--- NOTE | 2017-05-29 08:48 | PN ---
DATE: 05/29/2017 SUBJECTIVE: The patient is stable. No events overnight. No fevers, chills, nausea, vomiting. OBJECTIVE: VITAL SIGNS: Blood pressure is 93/52, respirations 18, pulse 74, temperature 98.0. HEENT: Head is normocephalic. NECK: Supple. HEART: Regular rate. LUNGS: Show diminished breath sounds at the base. ABDOMEN: Soft, nontender to palpation. No rebound or guarding. EXTREMITIES: Negative for clubbing, cyanosis, no edema. DERMATOLOGIC: No rashes. MUSCULOSKELETAL: No joint effusions. NEUROLOGIC: No change in exam. MEDICATIONS: The patient's medications have been reviewed. LABORATORY DATA: From 05/27/2017 was reviewed. ASSESSMENT AND PLAN: 1. Nonoliguric acute kidney injury with a previous baseline creatinine of 0.7 to 0.9 mg/dL. The et iology of acute kidney injury is secondary to hemodynamics from volume depletion due to gastrointest inal bleed and diuretic use. The patient's renal function has improved with IV fluids. At this poi nt, continue current treatment plan, supportive care, renally dose all medications. 2. Hyperkalemia secondary to acute kidney injury, resolved. 3. Hyponatremia secondary to acute kidney injury and cirrhosis, improved. Continue to monitor. Co ntinue to limit free water intake. 4. Severe anemia secondary to gastrointestinal bleed. The patient is status post blood transfusion . Continue Protonix. Follow up with GI. 5. Metabolic acidosis. Continue to monitor. 6. Decompensated cirrhosis. The patient has underlying ascites, lower extremity edema. Continue t o monitor. May reintroduce diuretic therapy if renal function remains stable. 7. Thrombocytopenia. Continue to monitor. 8. Sepsis secondary to bacteremia. Continue current antibiotic regimen. Follow up with infectious disease. Dictated By: JANETTE MCFARLAND/HECTOR Conf#: [id number] DID#: [id number]
--- NOTE | 2017-05-29 10:05 | PN ---
Date/Time of Note Date/Time of Note DATE: 05/29/17 TIME: 10:00 Assessment/Plan VTE Prophylaxis VTE Prophylaxis Intervention: SCD's Lines/Catheters IV Catheter Type (from Nrsg): PICC Line Central line still needed: Yes (meds) Urinary Cath still in place: No Assessment/Plan Chief Complaint/Hosp Course DUPLICATE NOTE Assessment Hematemesis EGD 05/22/17 Impression: Grade III-IV/IV esophageal varices Post EVL 6 without complications Portal hypertensive gastropathy Old blood in the stomach. Anemia Esophageal Varices Decompensating alcoholic liver cirrhosis Thrombocytopenia secondary to ALC Hyperkalemia/resolved JOON Plan: CXR- Mild left basilar atelectasis, otherwise normal S/p Paracentesis- 4.6 liters of serous fluid Blood cx-preliminary results show gram-negative rods in both bottles- has been started on ABX Cont PPI tx Monitor H&H transfuse for hgb less than 7.5 Close monitoring Monitor h/h transfuse as needed Patient seen in collaboration with Dr. Lin Subjective: Course reviewed with nursing staff Patient interviewed and examined All labs, imaging and other results reviewed CM to Contact [facility] liver transplant program for possible transfer Lesia Spencer casting coordinator PHYSICAL EXAMINATION: GENERAL: Chronically ill appearing, alert & oriented x 3, jaundice SKIN: No lesions, positive stigmata chronic liver disease HEAD: Normocephalic, atraumatic, no tenderness. EYES: No discharge EARS/NOSE AND THROAT: Ears normal, nose normal, NECK: Supple, no masses, thyroid normal CHEST: Inspection within normal limits. CARDIOVASCULAR: Heart: Regular rate and rhythm, RESPIRATORY: Lungs clear to auscultation GASTROINTESTINAL AND LIVER: Abdomen: Soft, non tenderness, non-distended, no hernias, no masses, ascites s/p centesis, normoactive bowel sounds. Rectal: Deferred. GENITOURINARY: Male genitalia within normal limits. EXTREMITIES: BLE edema, improving Colleagues Problems: Exam/Review of Systems Vital Signs Vitals Vital Signs Date Time Temp Pulse Resp B/P Pulse Ox O2 Delivery O2 Flow Rate FiO2 05/29/17 08:00 98.1 72 18 105/55 94 Room Air Intake and Output 05/28/17 05/28/17 05/29/17 15:00 23:00 07:00 Intake Total 100 ml 600 ml 550 ml Output Total 500 ml 750 ml Balance 100 ml 100 ml -200 ml Results Result Diagram: 05/29/17 0653 05/29/17 0653 Results 24 hrs Laboratory Tests Test 05/28/17 11:50 05/29/17 06:53 White Blood Count 10.1 # 6.0 # Red Blood Count 2.60 L 2.67 L Hemoglobin 8.5 L 8.7 L Hematocrit 24.5 L 25.4 L Mean Corpuscular Volume 94.2 95.1 Mean Corpuscular Hemoglobin 32.7 32.6 Mean Corpuscular Hemoglobin Concent 34.7 34.3 Red Cell Distribution Width 20.3 H 19.6 H Platelet Count 42 L 41 L Mean Platelet Volume 11.4 H 11.0 H Neutrophils % 75.8 64.2 Lymphocytes % 9.6 L 15.6 Monocytes % 10.6 14.4 H Eosinophils % 2.5 4.0 Basophils % 0.4 0.8 Nucleated Red Blood Cells % 0.0 0.0 Neutrophils # 7.7 H 3.8 Lymphocytes # 1.0 0.9 Monocytes # 1.1 H 0.9 Eosinophils # 0.3 0.2 Basophils # 0.0 0.1 Nucleated Red Blood Cells # 0.0 0.0 Sodium Level 130 L Potassium Level 4.0 Chloride Level 109 Carbon Dioxide Level 14 L Anion Gap 11 Blood Urea Nitrogen 29 H Creatinine 1.13 Glucose Level 132 Calcium Level 8.2 L Magnesium Level 2.3 Medications Medications Current Medications Folic Acid (Folic Acid) 1 mg DAILY PO Last administered on 05/29/17 08:41; Admin Dose 1 MG; Start 05/23/17 at 09:00 Furosemide (Lasix) 20 mg TID PO Last administered on 05/23/17 08:59; Admin Dose 20 MG; Start 05/22/17 at 13:00; Status Future Hold Thiamine HCl (Vitamin B1) 50 mg QAM PO Last administered on 05/29/17 08:41; Admin Dose 50 MG; Start 05/23/17 at 09:00 Ondansetron HCl (Zofran Inj) 4 mg Q6H PRN IV NAUSEA AND/OR VOMITING; Start at 09:30 Acetaminophen (Tylenol Tab) 650 mg Q6H PRN PO PAIN LEVEL 1-3 OR FEVER Last administered on 05/27/17 11:47; Admin Dose 650 MG; Start 05/22/17 at 09:30 Acetaminophen/ Hydrocodone Bitart ([place] (5/325)) 1 tab Q6H PRN PO MODERATE PAIN LEVEL 4-6 Last administered on 05/23/17 22:54; Admin Dose 1 TAB; Start 05/22/17 at 09:30 Acetaminophen/ Hydrocodone Bitart ([place] (5/325)) 2 tab Q6H PRN PO SEVERE PAIN LEVEL 7-10 Last administered on 05/28/17 19:17; Admin Dose 2 TAB; Start 05/22 at 09:30 Morphine Sulfate (morphine) 2 mg Q4H PRN IV SEVERE PAIN LEVEL 7-10; Start at 09:30 Docusate Sodium (Colace) 100 mg Q12H PRN PO CONSTIPATION; Start 05/22/17 at 09 :30 Magnesium Hydroxide (Milk Of Mag) 30 ml DAILY PRN PO CONSTIPATION; Start 05/22 at 09:30 Bisacodyl (Dulcolax Supp) 10 mg DAILY PRN [place] CONSTIPATION; Start 05/22/17 at 09:30 Rifaximin (Xifaxan) 550 mg BID PO Last administered on 05/29/17 08:41; Admin Dose 550 MG; Start 05/22/17 at 21:00 Lactulose (Enulose) 20 gm Q6 PO Last administered on 05/29/17 05:45; Admin Dose 20 GM; Start 05/22/17 at 18:00 IV Flush (NS 10 ml) 10 ml PRN PRN IV IV PROTOCOL; Start 05/22/17 at 12:00 Metoclopramide HCl (Reglan) 10 mg Q6 IV Last administered on 05/29/17 05:45; Admin Dose 10 MG; Start 05/22/17 at 19:30 Zolpidem Tartrate (Ambien) 10 mg HS PRN PO INSOMNIA Last administered on 22:13; Admin Dose 10 MG; Start 05/24/17 at 20:30 Pantoprazole (Protonix Tab) 40 mg BID@18 PO Last administered on 05/29/17 05:45; Admin Dose 40 MG; Start 05/25/17 at 18:00 Aripiprazole 2 mg 2 mg DAILY PO Last administered on 12/25/17at 08:41; Admin Dose 2 MG; Start 05/27/17 at 10:00 Meropenem/Sodium Chloride (Merrem 500mg/50 ml(Pmx)) 50 ml @ 100 mls/hr Q8 IVPB Last administered on 05/29/17t 06:48; Admin Dose 100 MLS/HR; Start 05/28/17 at 14:00 ANKITA YA May 29, 2017 10:05
--- NOTE | 2017-05-29 10:15 | PN ---
Date/Time of Note Date/Time of Note DATE: 05/29/17 TIME: 10:12 Assessment/Plan VTE Prophylaxis VTE Prophylaxis Intervention: SCD's Lines/Catheters IV Catheter Type (from Nrs): PICC Line Central line still needed: Yes (meds) Urinary Cath still in place: No Assessment/Plan Chief Complaint/Hosp Course Assessment Hematemesis EGD 05/22/17 Impression: Grade III-IV/IV esophageal varices Post EVL 6 without complications Portal hypertensive gastropathy Old blood in the stomach. Anemia Esophageal Varices Decompensating alcoholic liver cirrhosis Thrombocytopenia secondary to ALC Hyperkalemia/resolved JOON Plan: S/p Paracentesis- 4.6 liters of serous fluid Blood cx-preliminary results show gram-negative rods in both bottles- has been started on ABX Cont PPI tx Monitor H&H transfuse for hgb less than 7.5 Close monitoring Patient seen in collaboration with Dr. Lin Subjective: Course reviewed with nursing staff Patient interviewed and examined All labs, imaging and other results reviewed Patient is feeling very well, no c/o at this time, states he is feeling more energetic, able to breath better. ABX have been changed, tolerating well. WBC within range, anemia stable, will continue to monitor. He is have multiple BM per day will titrate lactulose accordingly. CM to Contact [facility] liver transplant program for possible transfer Lesia Spencer service coordinator PHYSICAL EXAMINATION: GENERAL: Chronically ill appearing, alert & oriented x 3, jaundice SKIN: No lesions, positive stigmata chronic liver disease HEAD: Normocephalic, atraumatic, no tenderness. EYES: No discharge EARS/NOSE AND THROAT: Ears normal, nose normal, NECK: Supple, no masses, thyroid normal CHEST: Inspection within normal limits. CARDIOVASCULAR: Heart: Regular rate and rhythm, RESPIRATORY: Lungs clear to auscultation GASTROINTESTINAL AND LIVER: Abdomen: Soft, non tenderness, non-distended, no hernias, no masses, ascites s/p paracentesis, normoactive bowel sounds. Rectal: Deferred. GENITOURINARY: Male genitalia within normal limits. EXTREMITIES: BLE edema, improving Colleagues Problems: Exam/Review of Systems Vital Signs Vitals Vital Signs Date Time Temp Pulse Resp B/P Pulse Ox O2 Delivery O2 Flow Rate FiO2 05/29/17 08:00 98.1 72 18 105/55 94 Room Air Intake and Output 05/28/17 05/28/17 05/29/17 15:00 23:00 07:00 Intake Total 100 ml 600 ml 550 ml Output Total 500 ml 750 ml Balance 100 ml 100 ml -200 ml Results Result Diagram: 05/29/17 0653 05/29/17 0653 Results 24 hrs Laboratory Tests Test 05/28/17 11:50 05/29/17 06:53 White Blood Count 10.1 # 6.0 # Red Blood Count 2.60 L 2.67 L Hemoglobin 8.5 L 8.7 L Hematocrit 24.5 L 25.4 L Mean Corpuscular Volume 94.2 95.1 Mean Corpuscular Hemoglobin 32.7 32.6 Mean Corpuscular Hemoglobin Concent 34.7 34.3 Red Cell Distribution Width 20.3 H 19.6 H Platelet Count 42 L 41 L Mean Platelet Volume 11.4 H 11.0 H Neutrophils % 75.8 64.2 Lymphocytes % 9.6 L 15.6 Monocytes % 10.6 14.4 H Eosinophils % 2.5 4.0 Basophils % 0.4 0.8 Nucleated Red Blood Cells % 0.0 0.0 Neutrophils # 7.7 H 3.8 Lymphocytes # 1.0 0.9 Monocytes # 1.1 H 0.9 Eosinophils # 0.3 0.2 Basophils # 0.0 0.1 Nucleated Red Blood Cells # 0.0 0.0 Sodium Level 130 L Potassium Level 4.0 Chloride Level 109 Carbon Dioxide Level 14 L Anion Gap 11 Blood Urea Nitrogen 29 H Creatinine 1.13 Glucose Level 132 Calcium Level 8.2 L Magnesium Level 2.3 Medications Medications Current Medications Folic Acid (Folic Acid) 1 mg DAILY PO Last administered on 05/29/17 08:41; Admin Dose 1 MG; Start 05/23/17 at 09:00 Furosemide (Lasix) 20 mg TID PO Last administered on 05/23/17 08:59; Admin Dose 20 MG; Start 05/22/17 at 13:00; Status Future Hold Thiamine HCl (Vitamin B1) 50 mg QAM PO Last administered on 05/29/17 08:41; Admin Dose 50 MG; Start 05/23/17 at 09:00 Ondansetron HCl (Zofran Inj) 4 mg Q6H PRN IV NAUSEA AND/OR VOMITING; Start at 09:30 Acetaminophen (Tylenol Tab) 650 mg Q6H PRN PO PAIN LEVEL 1-3 OR FEVER Last administered on 05/27/17 11:47; Admin Dose 650 MG; Start 05/22/17 at 09:30 Acetaminophen/ Hydrocodone Bitart ([place] (5/325)) 1 tab Q6H PRN PO MODERATE PAIN LEVEL 4-6 Last administered on 05/23/17 22:54; Admin Dose 1 TAB; Start 05/22/17 at 09:30 Acetaminophen/ Hydrocodone Bitart ([place] (5/325)) 2 tab Q6H PRN PO SEVERE PAIN LEVEL 7-10 Last administered on 05/28/17 19:17; Admin Dose 2 TAB; Start 05/22 at 09:30 Morphine Sulfate (morphine) 2 mg Q4H PRN IV SEVERE PAIN LEVEL 7-10; Start at 09:30 Docusate Sodium (Colace) 100 mg Q12H PRN PO CONSTIPATION; Start 05/22/17 at 09 :30 Magnesium Hydroxide (Milk Of Mag) 30 ml DAILY PRN PO CONSTIPATION; Start 05/22 at 09:30 Bisacodyl (Dulcolax Supp) 10 mg DAILY PRN [place] CONSTIPATION; Start 05/22/17 at 09:30 Rifaximin (Xifaxan) 550 mg BID PO Last administered on 05/29/17 08:41; Admin Dose 550 MG; Start 05/22/17 at 21:00 Lactulose (Enulose) 20 gm Q6 PO Last administered on 05/29/17 05:45; Admin Dose 20 GM; Start 05/22/17 at 18:00 IV Flush (NS 10 ml) 10 ml PRN PRN IV IV PROTOCOL; Start 05/22/17 at 12:00 Metoclopramide HCl (Reglan) 10 mg Q6 IV Last administered on 05/29/17 05:45; Admin Dose 10 MG; Start 05/22/17 at 19:30 Zolpidem Tartrate (Ambien) 10 mg HS PRN PO INSOMNIA Last administered on 22:13; Admin Dose 10 MG; Start 05/24/17 at 20:30 Pantoprazole (Protonix Tab) 40 mg BID@ PO Last administered on 05/29/17 05:45; Admin Dose 40 MG; Start 05/25/17 at 18:00 Aripiprazole 2 mg 2 mg DAILY PO Last administered on 05/29/17 08:41; Admin Dose 2 MG; Start 05/27/17 at 10:00 Meropenem/Sodium Chloride (Merrem 500mg/50 ml(Pmx)) 50 ml @ 100 mls/hr Q8 IVPB Last administered on 05/29/17 06:48; Admin Dose 100 MLS/HR; Start 05/28/17 at 14:00 ANKITA YA May 29, 2017 10:15
[2017-05-29] MEDS ORDERED: VANCOMYCIN IV PER PHARMACY XX SCH (11:30)
[2017-05-29] MEDS: HYDROCODONE/APAP (5/325) TAB PO PRN ×2 (12:25→20:54)
[2017-05-29] MEDS ORDERED: VANCOMYCIN 1.5 GM in DEXTROSE 5% 500 ML IVPB SCH (13:00)
--- NOTE | 2017-05-29 17:12 | PN ---
Date/Time of Note Date/Time of Note DATE: 05/29/17 TIME: 17:11 Assessment/Plan VTE Prophylaxis VTE Prophylaxis Intervention: contraindicated Lines/Catheters IV Catheter Type (from [facility]): PICC Line Central line still needed: Yes Urinary Cath still in place: No Assessment/Plan Chief Complaint/Hosp Course 1. Hematemesis. -Status post esophagogastroduodenoscopy that showed grade 3-4/4 esophageal varices. -Status post endoscopic variceal ligation 6 on 05/22/2017. 2. Anemia of acute blood loss. -Status post multiple units of PRBC transfusion. 3. Acute nonoliguric kidney injury. -Etiology could be hemodynamics from volume loss secondary to gastrointestinal bleeding. -Nephrology following. -Use nephrotoxic drugs with caution. 3. Sepsis with underlying bacteremia. -On antimicrobials as per infectious diseases. 4. Decompensated liver cirrhosis. -Status post paracentesis on 05/27/2017 with drainage of 4.6 L of fluid. -The patient on transplant list at [facility]. -Continue rifaximin and lactulose. 5. Coagulopathy. -Most probably secondary to #4. -Monitor for any bleeding. 6. Thrombocytopenia. -Most probably secondary to underlying liver cirrhosis. -Continue to monitor the patient for any bleeding. 7. Hyperbilirubinemia. -Most probably secondary to underlying liver cirrhosis. -Avoid hepatotoxic medications. -Trend LFTs. 8. Fluids, electrolytes, and nutrition. -Low-sodium diet. 9. DVT prophylaxis. -Contraindicated. 10. Plan. -Continue antimicrobials as per infectious diseases. -Continue rifaximin and lactulose. -Patient awaiting transfer to a higher level of care. Case discussed with Dr. Redmond. Problems: Subjective 24 Hr Interval Summary Free Text/Dictation Denies any pain. Exam/Review of Systems Vital Signs Vitals Vital Signs Date Time Temp Pulse Resp B/P Pulse Ox O2 Delivery O2 Flow Rate FiO2 05/29/17 08:00 98.1 72 18 105/55 94 Room Air Intake and Output 05/28/17 05/28/17 05/29/17 14:59 22:59 06:59 Intake Total 100 ml 600 ml 550 ml Output Total 500 ml 750 ml Balance 100 ml 100 ml -200 ml Exam General: Adequately build 47 year-old male lying in bed in no apparent distress. HEENT: Normocephalic, atraumatic. Eyes: Slightly icteric sclerae, conjunctivae clear. ENT: Nasal septum midline, oral mucosa moist. Neck supple, no JVD noticed. Respiratory: Bilaterally diminished breath sounds. No use of accessory muscles of respiration. No adventitious breath sounds. Cardiovascular: S1, S2 heard. Regular rate and rhythm. Abdomen: Soft and nondistended. Bowel sounds positive in all 4 quadrants. Genitourinary: Deferred. Extremities: No cyanosis, no clubbing. No edema.. Peripheral pulses palpable. Neurologic: Cranial nerves II through XII grossly intact. The patient is awake, alert, and oriented. Results Result Diagram: 05/29/17 0653 05/29/17 0653 Results 24 hrs Laboratory Tests Test 05/29/17 06:53 White Blood Count 6.0 # Red Blood Count 2.67 L Hemoglobin 8.7 L Hematocrit 25.4 L Mean Corpuscular Volume 95.1 Mean Corpuscular Hemoglobin 32.6 Mean Corpuscular Hemoglobin Concent 34.3 Red Cell Distribution Width 19.6 H Platelet Count 41 L Mean Platelet Volume 11.0 H Neutrophils % 64.2 Lymphocytes % 15.6 Monocytes % 14.4 H Eosinophils % 4.0 Basophils % 0.8 Nucleated Red Blood Cells % 0.0 Neutrophils # 3.8 Lymphocytes # 0.9 Monocytes # 0.9 Eosinophils # 0.2 Basophils # 0.1 Nucleated Red Blood Cells # 0.0 Sodium Level 130 L Potassium Level 4.0 Chloride Level 109 Carbon Dioxide Level 14 L Anion Gap 11 Blood Urea Nitrogen 29 H Creatinine 1.13 Glucose Level 132 Calcium Level 8.2 L Magnesium Level 2.3 Medications Medications Current Medications Folic Acid (Folic Acid) 1 mg DAILY PO Last administered on 05/29/17 08:41; Admin Dose 1 MG; Start 05/23/17 at 09:00 Furosemide (Lasix) 20 mg TID PO Last administered on 05/23/17 08:59; Admin Dose 20 MG; Start 05/22/17 at 13:00; Status Future Hold Thiamine HCl (Vitamin B1) 50 mg QAM PO Last administered on 05/29/17 08:41; Admin Dose 50 MG; Start 05/23/17 at 09:00 Ondansetron HCl (Zofran Inj) 4 mg Q6H PRN IV NAUSEA AND/OR VOMITING; Start at 09:30 Acetaminophen (Tylenol Tab) 650 mg Q6H PRN PO PAIN LEVEL 1-3 OR FEVER Last administered on 05/27/17 11:47; Admin Dose 650 MG; Start 05/22/17 at 09:30 Acetaminophen/ Hydrocodone Bitart ([place] (5/325)) 1 tab Q6H PRN PO MODERATE PAIN LEVEL 4-6 Last administered on 05/23/17 22:54; Admin Dose 1 TAB; Start 05/22/17 at 09:30 Acetaminophen/ Hydrocodone Bitart ([place] (5/325)) 2 tab Q6H PRN PO SEVERE PAIN LEVEL 7-10 Last administered on 05/29/17 12:25; Admin Dose 2 TAB; Start 05/22 at 09:30 Morphine Sulfate (morphine) 2 mg Q4H PRN IV SEVERE PAIN LEVEL 7-10; Start at 09:30 Docusate Sodium (Colace) 100 mg Q12H PRN PO CONSTIPATION; Start 05/22/17 at 09 :30 Magnesium Hydroxide (Milk Of Mag) 30 ml DAILY PRN PO CONSTIPATION; Start 05/22 at 09:30 Bisacodyl (Dulcolax Supp) 10 mg DAILY PRN [place] CONSTIPATION; Start 05/22/17 at 09:30 Rifaximin (Xifaxan) 550 mg BID PO Last administered on 05/29/17 08:41; Admin Dose 550 MG; Start 05/22/17 at 21:00 IV Flush (NS 10 ml) 10 ml PRN PRN IV IV PROTOCOL; Start 05/22/17 at 12:00 Metoclopramide HCl (Reglan) 10 mg Q6 IV Last administered on 05/29/17 12:20; Admin Dose 10 MG; Start 05/22/17 at 19:30 Zolpidem Tartrate (Ambien) 10 mg HS PRN PO INSOMNIA Last administered on 22:13; Admin Dose 10 MG; Start 05/24/17 at 20:30 Pantoprazole (Protonix Tab) 40 mg BID@18 PO Last administered on 05/29/17 05:45; Admin Dose 40 MG; Start 05/25/17 at 18:00 Aripiprazole 2 mg 2 mg DAILY PO Last administered on 05/29/17 08:41; Admin Dose 2 MG; Start 05/27/17 at 10:00 Meropenem/Sodium Chloride (Merrem 500mg/50 ml(Pmx)) 50 ml @ 100 mls/hr Q8 IVPB Last administered on 05/29/17 15:31; Admin Dose 100 MLS/HR; Start 05/28/17 at 14:00 Lactulose 20 gm 20 gm Q8 PO Last administered on 05/29/17 15:31; Admin Dose 20 GM; Start 05/29/17 at 14:00 Vancomycin HCl 1.5 gm/Dextrose 500 ml @ 166.667 mls/hr ONCE IVPB Last administered on 05/29/17 13:35; Admin Dose 166.667 MLS/HR; Start 05/29/17 at 13:00; Stop 05/29/17 at 18:00 Vancomycin HCl (Vancocin) 250 ml @ 125 mls/hr Q12H IVPB ; Start 05/30/17 at 01 :00 YANICK PERERA NP May 29, 2017 17:12
[2017-05-29 19:47] VITALS: BP 109/60; RESP 20
--- NOTE | 2017-05-29 20:28 | PN ---
DATE: 05/29/2017 SUBJECTIVE: No acute changes. Patient is alert, looks comfortable, denies pain, no fevers. WBC 6, neutrophils 64.2, BUN 29, creatinine 1.13. MICROBIOLOGY: Blood culture on May 27, grew gram-negative rods. Urine culture and ascitic f luid cultures pending. Repeat blood cultures on May 28, growing gram-positive cocci in pairs a nd clusters. ANTIMICROBIALS: The patient was started today on vancomycin. He is also on meropenem. PHYSICAL EXAMINATION: GENERAL: Well-developed, middle-aged man who is alert, in no distress. HEENT: Head atraumatic, normocephalic. Sclerae anicteric. Buccal mucosa pink. NECK: Supple. CHEST: Rise symmetrical. Breath sounds clear. HEART: S1, S2. ABDOMEN: Soft. Bowel tones present. EXTREMITIES: Without cyanosis or edema. ASSESSMENT: 1. Status post hematemesis. 2. Bacteremia, rule out SBP, rule out other etiologies. 3. Decompensated alcoholic liver cirrhosis. 4. Recurrent ascites, status post paracentesis a couple of days ago. 5. Anemia and thrombocytopenia. 6. Status post esophageal varices banding. PLAN: The patient remains stable. Continue present care. Await for final cultures. Continue on c urrent antibiotics. Dictated By: JULIA HO REJECT OPENER AND FILLER for DENNIS BRUCE MD NI/NTS Conf#: [id number] DID#: [id number] CC: GUILLERMINA ROBERT MD;*EndCC*
[2017-05-30] MEDS: VANCOMYCIN 1 GM 250 ML IVPB SCH ×2 (01:03→13:46)
[2017-05-30] MEDS: METOCLOPRAMIDE 10 MG INJ IV SCH ×4 (01:03→18:00)
[2017-05-30 01:50] VITALS: BP 94/57; RESP 20
[2017-05-30] MEDS: LACTULOSE 30ML CUP PO SCH ×2 (06:00→14:58)
[2017-05-30] MEDS: MEROPENEM 500MG/50 ML (PMX) 50 ML IVPB SCH ×2 (06:00→17:03)
[2017-05-30] MEDS: PANTOPRAZOLE (EC) 40 MG TAB PO SCH ×2 (06:00→18:22)
[2017-05-30 06:27] LABS: ABNORMAL IP MESSAGE 1; BASOPHIL # 0.1 10^3/ul (0.0-0.1); BASOPHILS % 1.4 % (0.0-2.0); EOSINOPHILS # 0.1 10^3/ul (0.0-0.5); HEMATOCRIT 24.2 % (42.0-52.0); HEMOGLOBIN 8.4 g/dl (14.0-18.0); LYMPHOCYTES # 0.9 10^3/ul (0.8-2.9); LYMPHOCYTES % 25.5 % (15.0-51.0); MEAN CORPUSCULAR HEMOGLOBIN 32.4 pg (29.0-33.0); MEAN CORPUSCULAR HGB CONC 34.7 g/dl (32.0-37.0); MEAN CORPUSCULAR VOLUME 93.4 fl (82.0-101.0); MONOCYTE # 0.6 10^3/ul (0.3-0.9); MONOCYTES % 16.4 % (0.0-11.0); NEUTROPHIL # 1.9 10^3/ul (1.6-7.5); NEUTROPHILS % 52.3 % (39.0-77.0); PLATELET COUNT 48 10^3/UL (140-415); POSITIVE DIFF @See below; RED BLOOD COUNT 2.59 10^6/ul (4.70-6.10); RED CELL DISTRIBUTION WIDTH 19.9 % (11.5-14.5); WHITE BLOOD COUNT 3.7 10^3/ul (4.8-10.8)
[2017-05-30 07:44] VITALS: BP 97/56; RESP 18
[2017-05-30] MEDS ORDERED: FUROSEMIDE 20 MG TAB PO SCH (09:00)
[2017-05-30 09:08] LABS: ALBUMIN 2.1 g/dl (3.3-4.9); BILIRUBIN,INDIRECT 2.3 mg/dl (0-1.1); BILIRUBIN,TOTAL 2.3 mg/dl (0.2-1.3); TOTAL PROTEIN 5.4 g/dl (6.1-8.1)
[2017-05-30 09:12] LABS: ALBUMIN 2.1 g/dl (3.3-4.9); ALBUMIN/GLOBULIN RATIO 0.61; BILIRUBIN,INDIRECT 2.3 mg/dl (0-1.1); BILIRUBIN,TOTAL 2.3 mg/dl (0.2-1.3); CALCIUM 8.3 mg/dl (8.4-10.2); CREATININE 1.06 mg/dl (0.61-1.24); POTASSIUM 4.4 mmol/L (3.5-5.1); TOTAL PROTEIN 5.5 g/dl (6.1-8.1)
[2017-05-30] MEDS: RIFAXIMIN 550 MG TAB PO SCH (09:50)
[2017-05-30] MEDS: THIAMINE 100 MG TAB PO SCH (09:50)
[2017-05-30] MEDS: ARIPIPRAZOLE 2 MG TAB PO SCH (09:50)
[2017-05-30] MEDS: FOLIC ACID 1 MG TAB PO SCH (09:51)
--- NOTE | 2017-05-30 09:53 | PN ---
DATE: 05/30/2017 SUBJECTIVE: Stable, no events overnight. No fevers, chills, nausea, vomiting. OBJECTIVE: VITAL SIGNS: Blood pressure is 97/56, pulse 59, respirations 18, temperature 97.9. HEENT: Head is normocephalic. NECK: Supple. HEART: Regular rate. LUNGS: Show diminished breath sounds at base. ABDOMEN: Soft, nontender to palpation. No rebound or guarding. EXTREMITIES: Negative for clubbing, cyanosis. Trace edema. DERMATOLOGIC: No rashes. MUSCULOSKELETAL: No joint effusions. NEUROLOGIC: No change in exam. MEDICATIONS: The patient's medications have been reviewed. LABORATORY DATA: Shows white count 3.7, hemoglobin 8.4, platelet count is 48. Sodium 138, potassiu m 4.0, BUN 29, creatinine 1.13, ammonia level 75. ASSESSMENT AND PLAN: 1. Nonoliguric acute kidney injury with previous baseline creatinine 0.7 to 0.9 mg/dL. Etiology of acute kidney injury is secondary to hemodynamics. Renal function is returning back to baseline. A t this point, continue current treatment plan, supportive care, renally dose all meds. Monitor malika l function closely on diuretic therapy. 2. Hyperkalemia secondary to acute kidney injury, resolved. 3. Hyponatremia secondary to cirrhosis and acute kidney injury. The patient will be placed on free water restriction 800 mL daily and continue to monitor closely. 4. Severe anemia secondary to gastrointestinal bleed. The patient is status post blood transfusion . Continue Protonix. 5. Metabolic acidosis. Continue to monitor. 6. Decompensated cirrhosis. The patient has underlying ascites, edema encephalopathy. Continue me dical management. We will reintroduce low dose diuretic therapy. 7. Thrombocytopenia. Continue to monitor. 8. Sepsis secondary to bacteremia. Patient is completing antibiotic course. Dictated By: JANETTE NJ DO NR/NTS Conf#: [id number] DID#: [id number] CC: GUILLERMINA ROBERT MD;*EndCC*
--- NOTE | 2017-05-30 10:27 | PN ---
Date/Time of Note Date/Time of Note DATE: 05/30/17 TIME: 10:27 Assessment/Plan VTE Prophylaxis VTE Prophylaxis Intervention: contraindicated Lines/Catheters [facility] (from [facility] PICC Line Central line still needed: Yes Urinary Cath still in place: No Assessment/Plan Chief Complaint/Hosp Course 1. Hematemesis. -Status post esophagogastroduodenoscopy that showed grade 3-4/4 esophageal varices. -Status post endoscopic variceal ligation 6 on 05/22/2017. 2. Anemia of acute blood loss. -Status post multiple units of PRBC transfusion. 3. Acute nonoliguric kidney injury. -Etiology could be hemodynamics from volume loss secondary to gastrointestinal bleeding. -Nephrology following. -Use nephrotoxic drugs with caution. 3. Sepsis with underlying bacteremia. -On antimicrobials as per infectious diseases. 4. Decompensated liver cirrhosis. -Status post paracentesis on 05/27/2017 with drainage of 4.6 L of fluid. -The patient on transplant list at [facility]. -Continue rifaximin and lactulose. 5. Coagulopathy. -Most probably secondary to #4. -Monitor for any bleeding. 6. Thrombocytopenia. -Most probably secondary to underlying liver cirrhosis. -Continue to monitor the patient for any bleeding. 7. Hyperbilirubinemia. -Most probably secondary to underlying liver cirrhosis. -Avoid hepatotoxic medications. -Trend LFTs. 8. Fluids, electrolytes, and nutrition. -Low-sodium diet. 9. DVT prophylaxis. -Contraindicated. 10. Plan. -Continue antimicrobials as per infectious diseases. -Continue rifaximin and lactulose. -Patient awaiting transfer to a higher level of care. Case discussed with Dr. Davis. Problems: Subjective 24 Hr Interval Summary Free Text/Dictation Denies any complaints. Exam/Review of Systems Vital Signs Vitals Vital Signs Date Time Temp Pulse Resp B/P Pulse Ox O2 Delivery O2 Flow Rate FiO2 05/30/17 07:44 97.9 59 18 97/56 100 05/29/17 08:00 Room Air Intake and Output 05/29/17 05/29/17 05/30/17 15:00 23:00 07:00 Intake Total 50 ml 600 ml 1000 ml Balance 50 ml 600 ml 1000 ml Exam General: Adequately build 47 year-old male lying in bed in no apparent distress. HEENT: Normocephalic, atraumatic. Eyes: Slightly icteric sclerae, conjunctivae clear. ENT: Nasal septum midline, oral mucosa moist. Neck supple, no JVD noticed. Respiratory: Bilaterally diminished breath sounds. No use of accessory muscles of respiration. No adventitious breath sounds. Cardiovascular: S1, S2 heard. Regular rate and rhythm. Abdomen: Soft and nondistended. Bowel sounds positive in all 4 quadrants. Genitourinary: Deferred. Extremities: No cyanosis, no clubbing. No edema.. Peripheral pulses palpable. Neurologic: Cranial nerves II through XII grossly intact. The patient is awake, alert, and oriented. Results Result Diagram: 05/30/17 0512 05/30/17 0512 Results 24 hrs Laboratory Tests Test 05/30/17 05:11 05/30/17 05:12 Total Bilirubin 2.3 H 2.3 H Direct Bilirubin 0.00 0.00 Indirect Bilirubin 2.3 H 2.3 H Aspartate Amino Transf (AST/SGOT) 31 31 Alanine Aminotransferase (ALT/SGPT) 37 42 Alkaline Phosphatase 118 119 Ammonia 75 #H Total Protein 5.4 L 5.5 L Albumin 2.1 L 2.1 L White Blood Count 3.7 #L Red Blood Count 2.59 L Hemoglobin 8.4 L Hematocrit 24.2 L Mean Corpuscular Volume 93.4 Mean Corpuscular Hemoglobin 32.4 Mean Corpuscular Hemoglobin Concent 34.7 Red Cell Distribution Width 19.9 H Platelet Count 48 L Mean Platelet Volume 12.0 H Neutrophils % 52.3 Lymphocytes % 25.5 Monocytes % 16.4 H Eosinophils % 3.0 Basophils % 1.4 Nucleated Red Blood Cells % 0.0 Neutrophils # 1.9 Lymphocytes # 0.9 Monocytes # 0.6 Eosinophils # 0.1 Basophils # 0.1 Nucleated Red Blood Cells # 0.0 Sodium Level 131 L Potassium Level 4.4 Chloride Level 109 Carbon Dioxide Level 15 L Anion Gap 11 Blood Urea Nitrogen 25 H Creatinine 1.06 Glucose Level 112 Calcium Level 8.3 L Globulin 3.40 H Albumin/Globulin Ratio 0.61 Medications Medications Current Medications Folic Acid (Folic Acid) 1 mg DAILY PO Last administered on 05/30/17 09:51; Admin Dose 1 MG; Start 05/23/17 at 09:00 Thiamine HCl (Vitamin B1) 50 mg QAM PO Last administered on 05/30/17 09:50; Admin Dose 50 MG; Start 05/23/17 at 09:00 Ondansetron HCl (Zofran Inj) 4 mg Q6H PRN IV NAUSEA AND/OR VOMITING; Start at 09:30 Acetaminophen (Tylenol Tab) 650 mg Q6H PRN PO PAIN LEVEL 1-3 OR FEVER Last administered on 05/27/17 11:47; Admin Dose 650 MG; Start 05/22/17 at 09:30 Acetaminophen/ Hydrocodone Bitart ([place] (5/325)) 1 tab Q6H PRN PO MODERATE PAIN LEVEL 4-6 Last administered on 05/23/17 22:54; Admin Dose 1 TAB; Start 05/22/17 at 09:30 Acetaminophen/ Hydrocodone Bitart ([place] (5/325)) 2 tab Q6H PRN PO SEVERE PAIN LEVEL 7-10 Last administered on 05/29/17 20:54; Admin Dose 2 TAB; Start 05/22 at 09:30 Morphine Sulfate (morphine) 2 mg Q4H PRN IV SEVERE PAIN LEVEL 7-10; Start at 09:30 Docusate Sodium (Colace) 100 mg Q12H PRN PO CONSTIPATION; Start 05/22/17 at 09 :30 Magnesium Hydroxide (Milk Of Mag) 30 ml DAILY PRN PO CONSTIPATION; Start 05/22 at 09:30 Bisacodyl (Dulcolax Supp) 10 mg DAILY PRN [place] CONSTIPATION; Start 05/22/17 at 09:30 Rifaximin (Xifaxan) 550 mg BID PO Last administered on 05/30/17 09:50; Admin Dose 550 MG; Start 05/22/17 at 21:00 IV Flush (NS 10 ml) 10 ml PRN PRN IV IV PROTOCOL; Start 05/22/17 at 12:00 Metoclopramide HCl (Reglan) 10 mg Q6 IV Last administered on 05/30/17 06:01; Admin Dose 10 MG; Start 05/22/17 at 19:30 Zolpidem Tartrate (Ambien) 10 mg HS PRN PO INSOMNIA Last administered on 22:13; Admin Dose 10 MG; Start 05/24/17 at 20:30 Pantoprazole (Protonix Tab) 40 mg BID@ PO Last administered on 05/30/17 06:00; Admin Dose 40 MG; Start 05/25/17 at 18:00 Aripiprazole 2 mg 2 mg DAILY PO Last administered on 05/30/17 09:50; Admin Dose 2 MG; Start 05/27/17 at 10:00 Meropenem/Sodium Chloride (Merrem 500mg/50 ml(Pmx)) 50 ml @ 100 mls/hr Q8 IVPB Last administered on 05/30/17 06:00; Admin Dose 100 MLS/HR; Start 05/28/17 at 14:00 Lactulose 20 gm 20 gm Q8 PO Last administered on 05/30/17 06:00; Admin Dose 20 GM; Start 05/29/17 at 14:00 Vancomycin HCl (Vancocin) 250 ml @ 125 mls/hr Q12H IVPB Last administered on 05/30/17 01:03; Admin Dose 125 MLS/HR; Start 05/30/17 at 01:00 Furosemide (Lasix) 20 mg DAILY PO Last administered on 05/30/17 09:54; Admin Dose 20 MG; Start 05/30/17 at 09:00 Miscellaneous Information (*Rx Drug Level Order Reminder*) VANCOMYCIN TROUGH ON 05/06... ONCE ONCE XX ; Start 05/31/17 at 00:00; Stop 05/31/17 at 00:01 YANICK PERERA NP May 30, 2017 10:27
--- NOTE | 2017-05-30 13:31 | PN ---
Date/Time of Note Date/Time of Note DATE: 05/30/17 TIME: 13: Assessment/Plan VTE Prophylaxis VTE Prophylaxis Intervention: SCD's Lines/Catheters [facility]from [facility] PICC Line Central line still needed: Yes (meds) Urinary Cath still in place: No Assessment/Plan Chief Complaint/Hosp Course Assessment Hematemesis EGD 05/22/17 Impression: Grade III-IV/IV esophageal varices Post EVL 6 without complications Portal hypertensive gastropathy Old blood in the stomach. Anemia Esophageal Varices Decompensating alcoholic liver cirrhosis Thrombocytopenia secondary to ALC Hyperkalemia/resolved JOON Plan: Continue current medical regimen Monitor H&H transfuse for hgb less than 7.5 Close monitoring Monitor h/h transfuse as needed Patient seen in collaboration with Dr. Lin Subjective: Course reviewed with nursing staff Patient interviewed and examined All labs, imaging and other results reviewed Patient feels well, no complaints at this time, anemia remains stable, No overt signs of GI bleed Continue antibiotic therapy. Continue PPI therapy. Awaiting transfer to [facility] PHYSICAL EXAMINATION: GENERAL: Chronically ill appearing, alert & oriented x 3, jaundice SKIN: No lesions, positive stigmata chronic liver disease HEAD: Normocephalic, atraumatic, no tenderness. EYES: No discharge EARS/NOSE AND THROAT: Ears normal, nose normal, NECK: Supple, no masses, thyroid normal CHEST: Inspection within normal limits. CARDIOVASCULAR: Heart: Regular rate and rhythm, RESPIRATORY: Lungs clear to auscultation GASTROINTESTINAL AND LIVER: Abdomen: Soft, non tenderness, mild distension , no hernias, no masses, ascites s/p paracentesis, normoactive bowel sounds. Rectal: Deferred. GENITOURINARY: Male genitalia within normal limits. EXTREMITIES: No edema today CM to Contact [facility] liver transplant program for possible transfer Lesia Spencer education coordinator Problems: Exam/Review of Systems Vital Signs Vitals Vital Signs Date Time Temp Pulse Resp B/P Pulse Ox O2 Delivery O2 Flow Rate FiO2 05/30/17 07:44 97.9 59 18 97/56 100 05/29/17 08:00 Room Air Intake and Output 05/29/17 05/29/17 05/30/17 14:59 22:59 06:59 Intake Total 50 ml 600 ml 1000 ml Balance 50 ml 600 ml 1000 ml Results Result Diagram: 05/30/1751105/30/1712 Results 24 hrs Laboratory Tests Test 05/30/17 05:11 05/30/17 05:12 Total Bilirubin 2.3 H 2.3 H Direct Bilirubin 0.00 0.00 Indirect Bilirubin 2.3 H 2.3 H Aspartate Amino Transf (AST/SGOT) 31 31 Alanine Aminotransferase (ALT/SGPT) 37 42 Alkaline Phosphatase 118 119 Ammonia 75 #H Total Protein 5.4 L 5.5 L Albumin 2.1 L 2.1 L White Blood Count 3.7 #L Red Blood Count 2.59 L Hemoglobin 8.4 L Hematocrit 24.2 L Mean Corpuscular Volume 93.4 Mean Corpuscular Hemoglobin 32.4 Mean Corpuscular Hemoglobin Concent 34.7 Red Cell Distribution Width 19.9 H Platelet Count 48 L Mean Platelet Volume 12.0 H Neutrophils % 52.3 Lymphocytes % 25.5 Monocytes % 16.4 H Eosinophils % 3.0 Basophils % 1.4 Nucleated Red Blood Cells % 0.0 Neutrophils # 1.9 Lymphocytes # 0.9 Monocytes # 0.6 Eosinophils # 0.1 Basophils # 0.1 Nucleated Red Blood Cells # 0.0 Sodium Level 131 L Potassium Level 4.4 Chloride Level 109 Carbon Dioxide Level 15 L Anion Gap 11 Blood Urea Nitrogen 25 H Creatinine 1.06 Glucose Level 112 Calcium Level 8.3 L Globulin 3.40 H Albumin/Globulin Ratio 0.61 Medications Medications Current Medications Folic Acid (Folic Acid) 1 mg DAILY PO Last administered on 05/30/17 09:51; Admin Dose 1 MG; Start 05/23/17 at 09:00 Thiamine HCl (Vitamin B1) 50 mg QAM PO Last administered on 05/30/17 09:50; Admin Dose 50 MG; Start 05/23/17 at 09:00 Ondansetron HCl (Zofran Inj) 4 mg Q6H PRN IV NAUSEA AND/OR VOMITING; Start at 09:30 Acetaminophen (Tylenol Tab) 650 mg Q6H PRN PO PAIN LEVEL 1-3 OR FEVER Last administered on 05/27/17 11:47; Admin Dose 650 MG; Start 05/22/17 at 09:30 Acetaminophen/ Hydrocodone Bitart ([place] (5/325)) 1 tab Q6H PRN PO MODERATE PAIN LEVEL 4-6 Last administered on 05/23/17 22:54; Admin Dose 1 TAB; Start 05/22/17 at 09:30 Acetaminophen/ Hydrocodone Bitart ([place] (5/325)) 2 tab Q6H PRN PO SEVERE PAIN LEVEL 7-10 Last administered on 05/29/17 20:54; Admin Dose 2 TAB; Start 05/22 at 09:30 Morphine Sulfate (morphine) 2 mg Q4H PRN IV SEVERE PAIN LEVEL 7-10; Start at 09:30 Docusate Sodium (Colace) 100 mg Q12H PRN PO CONSTIPATION; Start 05/22/17 at 09 :30 Magnesium Hydroxide (Milk Of Mag) 30 ml DAILY PRN PO CONSTIPATION; Start 05/22 at 09:30 Bisacodyl (Dulcolax Supp) 10 mg DAILY PRN [place] CONSTIPATION; Start 05/22/17 at 09:30 Rifaximin (Xifaxan) 550 mg BID PO Last administered on 05/30/17 09:50; Admin Dose 550 MG; Start 05/22/17 at 21:00 IV Flush (NS 10 ml) 10 ml PRN PRN IV IV PROTOCOL; Start 05/22/17 at 12:00 Metoclopramide HCl (Reglan) 10 mg Q6 IV Last administered on 05/30/17 06:01; Admin Dose 10 MG; Start 05/22/17 at 19:30 Zolpidem Tartrate (Ambien) 10 mg HS PRN PO INSOMNIA Last administered on 22:13; Admin Dose 10 MG; Start 05/24/17 at 20:30 Pantoprazole (Protonix Tab) 40 mg BID@06,18 PO Last administered on 05/30/17 06:00; Admin Dose 40 MG; Start 05/25/17 at 18:00 Aripiprazole 2 mg 2 mg DAILY PO Last administered on 05/30/17 09:50; Admin Dose 2 MG; Start 05/27/17 at 10:00 Meropenem/Sodium Chloride (Merrem 500mg/50 ml(Pmx)) 50 ml @ 100 mls/hr Q8 IVPB Last administered on 05/30/17 06:00; Admin Dose 100 MLS/HR; Start 05/28/17 at 14:00 Lactulose 20 gm 20 gm Q8 PO Last administered on 05/30/17 06:00; Admin Dose 20 GM; Start 05/29/17 at 14:00 Vancomycin HCl (Vancocin) 250 ml @ 125 mls/hr Q12H IVPB Last administered on 05/30/17 01:03; Admin Dose 125 MLS/HR; Start 05/30/17 at 01:00 Furosemide (Lasix) 20 mg DAILY PO Last administered on 05/30/17 09:54; Admin Dose 20 MG; Start 05/30/17 at 09:00 Miscellaneous Information (*Rx Drug Level Order Reminder*) VANCOMYCIN TROUGH ON 05/06... ONCE ONCE XX ; Start 05/31/17 at 00:00; Stop 05/31/17 at 00:01 ANKITA YA May 30, 2017 13:31
--- NOTE | 2017-05-30 14:20 | PDOCDIS ---
Discharge Instructions DIAGNOSIS Discharge Diagnosis 1. Esophageal varices. 2. Sepsis with Citrobacter freundii bacteremia. 3. Decompensated liver cirrhosis. CONDITION Patient Condition: Stable HOME CARE INSTRUCTIONS: Diet Instructions: 2gm Na OTHER ORDERS: Other Orders: The patient being transferred to [facility] for further management. YANICK PERERA NP May 30, 2017 14:20
[2017-05-30] MEDS ORDERED: LACT20SO2 PO (14:23)
[2017-05-30] MEDS ORDERED: RIFA550T4 PO (14:23)
[2017-05-30] MEDS ORDERED: PANT40TA4 PO (14:23)
[2017-05-30] MEDS ORDERED: LAS20 PO (14:23)
[2017-05-30] MEDS ORDERED: MERO500P IV (14:25)
[2017-05-30] MEDS ORDERED: Vancomycin Iv Per Pharmacy XX (14:25)
[2017-05-30 15:01] VITALS: BP 99/55; RESP 19
--- NOTE | 2017-05-30 15:14 | DS ---
Date/Time of Note Date/Time of Note DATE: 05/30/17 TIME: 15:08 Discharge Summary Admission/Discharge Info Admit Date/Time May 22, 2017 at 09:10 Discharge Date/Time Discharge Diagnosis 1. Bleeding esophageal varices. Status post endoscopic variceal ligation 6 on 05/22/2017. 2. Anemia of acute blood loss. 3. Acute nonoliguric kidney injury. 4. Sepsis with underlying bacteremia. 5. Decompensated liver cirrhosis. 6. Coagulopathy. 7. Thrombocytopenia. 8. Hyperbilirubinemia. Patient Condition: Stable Consults 1. Kenny Lin MD, Gastroenterology. 2. Alexander Turner MD, Infectious Diseases. 3. Ayaz Gonzalez DO, Nephrology. Procedures US Guided Paracentesis FINDINGS: Initial images demonstrate ascites. Approximately 4.6 liters of serous fluid was aspirated and sent for laboratory analysis. The patient tolerated the procedure well without complication. IMPRESSION: 1. Successful ultrasound-guided paracentesis. CXR IMPRESSION: 1. Left PICC with tip at the cavoatrial junction. 2. No radiographic evidence of an acute cardiopulmonary process. Proc Note GI Esophagogastroduodenoscopy Procedure Date 05/22/17 Indication: other Pre-procedure Diagnosis GI bleeding/hematemesis/cirrhosis Post-procedure Diagnosis Impression: Grade III-IV/IV esophageal varices Post EVL 6 without complications Portal hypertensive gastropathy Old blood in the stomach. Plan: Continue octreotide and Protonix drips Monitor H&H transfuse as necessary Contact [facility] liver transplant program for possible transfer Close monitoring Clear liquid diet . Hx of Present Illness This is a 47-year-old male with past medical history of decompensated liver cirrhosis, anemia, and esophageal varices. The patient came to the emergency room with multiple episodes of hematemesis. The patient had evidence of anemia with a hemoglobin and hematocrit of 7.6 and 21.9 respectively. The patient also had some evidence of acute kidney injury with underlying hyperkalemia. Provided the patient's history of present illness, his comorbidities, and the diagnostic findings, a clinical decision was made to admit the patient to inpatient setting to have him further evaluated. Hospital Course The patient received a total of 4 units of PRBC transfusion for his underlying anemia. The patient underwent an esophagogastroduodenoscopy on 05/22/2017 that showed grade 3-4/4 esophageal varices. The patient underwent endoscopic variceal ligation 6 without any complications. The patient was maintained on proton pump inhibitors. The patient was also maintained on octreotide drip and this was later discontinued once the bleeding was controlled. The patient has decompensated liver cirrhosis and the patient follows up with [facility] liver transplant program for liver transplantation. Gastroenterology recommended contacting [facility] liver transplant program for possible transfer. Consequently, [facility] was contacted and he was accepted. The patient will be transferred to [facility] when a bed is available. The patient was maintained on his routine medications including lactulose and rifaximin. The patient's diuretics were put on hold until the renal function recovered. The patient had acute kidney injury with a previously normal renal function. Nephrology was following the patient. The patient's nephrotoxic drugs were put on hold. The patient's acute kidney injury resolved with the treatment strategy. It was concluded that the patient's acute kidney injury could have been most probably secondary to hemodynamics, i.e. decreased perfusion to the kidneys secondary to blood loss. The patient also had evidence of sepsis with the patient's blood culture from showing Citrobacter freundii. Therefore, the patient was maintained on antibiotics. Infectious disease consult was obtained. The patient had no evidence of any septic shock. The source of the patient's underlying bacteremia is unclear. The patient's ascites fluid culture was negative. Nevertheless, the patient's ascites fluid analysis showed WBC of 200 with a fluid total protein of less than 2, and fluid LDH of 127. The patient had a PICC line inserted on 05/22/2017 for antibiotic infusion, frequent blood draws, and infusion of blood products. The patient had a stable hospital course. The patient will be transferred to [facility] for further management. At this time I would like to thank all the consultants for seeing the patient, doing the necessary procedures, and providing clinical recommendations. Case discussed with Dr. Davis. Home Meds Active Scripts [Vancomycin Iv Per Pharmacy] 1 EA EACH No Conflict Check, 0 EA XX .PER PROTOCOL for 30 Days Prov:YANICK PERERA NP 05/30/17 Meropenem-0.9% Sodium Chloride (Meropenem-0.9% NaCl 500 mg/50) 500 Mg/50 Ml Piggyback, 500 MG IV Q8H for 30 Days Prov:YANICK PERERA NP 05/30/17 Pantoprazole* (Pantoprazole*) 40 Mg Tablet.dr, 40 MG PO BID@, #60 Prov:YANICK PERERA NP 05/30/17 Lactulose* (Lactulose*) 20 Gm/30 Ml Solution, 20 GM PO Q8 for 30 Days Prov:YANICK PERERA NP 05/30/17 Furosemide (Lasix) 20 Mg Tab, 20 MG PO DAILY for 30 Days, TAB Prov:YANICK PERERA NP 05/30/17 Rifaximin* (Xifaxan*) 550 Mg Tablet, 550 MG PO BID for 30 Days, TAB Prov:YANICK PERERA TRUCK DRIVER 05/30/17 Reported Medications Thiamine* (Vitamin B-1*) 100 Mg Tablet, 50 MG PO QAM, TAB 01/18/17 Folic Acid* (Folic Acid*) 1 Mg Tablet, 1 MG PO DAILY, TAB 01/18/17 Discontinued Reported Medications Furosemide* (Lasix*) 20 Mg Tablet, 20 MG PO TID, TAB 05/22/17 Spironolactone* (Aldactone*) 25 Mg Tablet, 25 MG PO TID, #60 TAB 05/22/17 Discontinued Scripts Cephalexin* (Keflex*) 500 Mg Capsule, 500 MG PO QID for 7 Days, CAP Prov:MEI MORALES DO 05/14/17 Follow-up Plan The patient will be transferred to [facility] for further management. Primary Care Provider Gatito Hernandez MD Time spent on discharge: 45 mins. Pending Labs RUN DATE: 05/30/17 [facility] PAGE 1 RUN TIME: [id number] [place] [address] Kenan Suarez M.D. [employer] JAIRO#: [id number] Name: ALLYOSN LICONA Age/Sex: 47/M Attend Dr: YESICA NISHIOsiel JordinBandar Acct: [id number] MR# : [id number] : 1970 Location: [facility] 612-B Admit: 05/22/17 Specimen: [id number] Status: Complete Earl: 05/27/17 Rcvd: 05/27 Source: JOSE Sp Descrip: Procedure Result Microbiology GRAM STAIN Final POLYMORPH. LEUKOCYTE RARE . NO ORGANISM SEEN BODY FLUID CULTURE Final NO GROWTH AFTER 3 DAYS ................................................................................ ............ Flags: Critical Hi = *H Critical Lo = *L Microbiology Abnormal = * Abnormal Hi = H Abnormal Lo = L Blood Bank Abnormal = * Susceptability Flags: S = Sensitive R = Resistant I = Intermediate END OF REPORT RUN DATE: 05/30/17 [facility] PAGE 1 RUN TIME: 51 [id number] [place] [address] Kenan Suarez M.D. [employer] JAIRO#: [id number] Name: ALLYSON LICONA Age/Sex: 47/M Attend Dr: GUILLERMINA ROBERT Acct: [id number] MR# : [id number] : 1970 [place] [facility] [place] Admit: 05/22/17 Specimen: [id number] Status: Resulted Earl: 05/28/17-607 Rcvd: 05/28 Source: BLOOD Sp Descrip: Procedure Result Microbiology BLOOD CULTURE Preliminary BCULT GRAM BOTTLE 1 Gram positive cocci in pairs and clusters . seen on gram stain of the broth Organism 1 STAPHYLOCOCCUS SPECIES CRITICAL TEST VALUE BTL 1 . PHONED TO & READ BACK BY ALIA CROW,[facility]2, AT 0640, 05/29/17, HN. ................................................................................ ............ Flags: Critical Hi = *H Critical Lo = *L Microbiology Abnormal = * Abnormal Hi = H Abnormal Lo = L Blood Bank Abnormal = * Susceptability Flags: S = Sensitive R = Resistant I = Intermediate END OF REPORT RUN DATE: 05/30/17 [facility] PAGE 1 RUN TIME: 39 [id number] [place] [address] Kenan Suarez M.D. [employer] JAIRO#: [id number] Name: ALLYSON LICONA Age/Sex: 47/M Attend Dr: GUILLERMINA ROBERT Acct: [id number] MR# : [id number] : 1970 [place] [facility] [place] [facility] Admit: 05/22/17 Specimen: [id number] Status: Complete Earl: 05/27/17-1414 Rcvd: 05/27-1419 Source: BLOOD Sp Descrip: Procedure Result Microbiology BLOOD CULTURE Final BCULT GRAM BOTTLE 1 Gram negative rods . seen on gram stain of the broth BCULT GRAM BOTTLE 2 Gram negative rods . seen on gram stain of the broth Organism 1 CITROBACTER FREUNDII CRITICAL TEST VALUE BTL 1 . PHONED TO & READ BACK BY ALBERTINA IVERSON RN @[phone] [id number]. CRITICAL TEST VALUE BTL 2 . PHONED TO & READ BACK BY ALBERTINA IVERSON RN @[phone] [id number]. C FREUNDII M.I.C. RX --------- --- CEFOTAXIME S CIPROFLOXACIN <=0.25 S GENTAMICIN <=1 S LEVOFLOXACIN 1 S TOBRAMYCIN <=1 S TRIMETHOPRIM/SULFAMETHOXAZOLE <=20 S ................................................................................ ............ Flags: Critical Hi = *H Critical Lo = *L Microbiology Abnormal = * Abnormal Hi = H Abnormal Lo = L Blood Bank Abnormal = * Susceptability Flags: S = Sensitive R = Resistant I = Intermediate END OF REPORT Laboratory Tests Test 05/30/17 05:11 05/30/17 05:12 Total Bilirubin 2.3mg/dl (0.2-1.3) 2.3mg/dl (0.2-1.3) Direct Bilirubin 0.00mg/dl (0.00-0.20) 0.00mg/dl (0.00-0.20) Indirect Bilirubin 2.3mg/dl (0-1.1) 2.3mg/dl (0-1.1) Aspartate Amino Transf (AST/SGOT) 31IU/L (15-46) 31IU/L (15-46) Alanine Aminotransferase (ALT/SGPT) 37IU/L (13-69) 42IU/L (13-69) Alkaline Phosphatase 118IU/L (42-121) 119IU/L (42-121) Ammonia 75umol/l (9-30) Total Protein 5.4g/dl (6.1-8.1) 5.5g/dl (6.1-8.1) Albumin 2.1g/dl (3.3-4.9) 2.1g/dl (3.3-4.9) White Blood Count 3.710^3/ul (4.8-10.8) Red Blood Count 2.5910^6/ul (4.70-6.10) Hemoglobin 8.4g/dl (14.0-18.0) Hematocrit 24.2% (42.0-52.0) Mean Corpuscular Volume 93.4fl (82.0-101.0) Mean Corpuscular Hemoglobin 32.4pg (29.0-33.0) Mean Corpuscular Hemoglobin Concent 34.7g/dl (32.0-37.0) Red Cell Distribution Width 19.9% (11.5-14.5) Platelet Count 4810^3/UL (140-415) Mean Platelet Volume 12.0fl (7.4-10.4) Neutrophils % 52.3% (39.0-77.0) Lymphocytes % 25.5% (15.0-51.0) Monocytes % 16.4% (0.0-11.0) Eosinophils % 3.0% (0.0-7.0) Basophils % 1.4% (0.0-2.0) Nucleated Red Blood Cells % 0.0/100WBC (0.0-0.0) Neutrophils # 1.910^3/ul (1.6-7.5) Lymphocytes # 0.910^3/ul (0.8-2.9) Monocytes # 0.610^3/ul (0.3-0.9) Eosinophils # 0.110^3/ul (0.0-0.5) Basophils # 0.110^3/ul (0.0-0.1) Nucleated Red Blood Cells # 0.010^3/ul (0.0-0.0) Sodium Level 131mmol/L (135-144) Potassium Level 4.4mmol/L (3.5-5.1) Chloride Level 109mmol/L (97-110) Carbon Dioxide Level 15mmol/L (21-31) Anion Gap 11 (8-16) Blood Urea Nitrogen 25mg/dl (7-20) Creatinine 1.06mg/dl (0.61-1.24) Glucose Level 112mg/dl (70-220) Calcium Level 8.3mg/dl (8.4-10.2) Globulin 3.40g/dl (1.3-3.2) Albumin/Globulin Ratio 0.61 YANICK PERERA NP May 30, 2017 15:14 YANICK PERERA NP May 30, 2017 15:14
[2017-05-30] MEDS: HYDROCODONE/APAP (5/325) TAB PO PRN (17:03)
--- NOTE | 2017-05-30 19:46 | CONS ---
Date/Time of Note Date/Time of Note DATE: 05/30/17 TIME: 19:43 Assessment/Plan Assessment/Plan Chief Complaint/Hosp Course SUBJECTIVE: No acute changes. Patient is alert, looks comfortable, denies pain , no fevers. MICROBIOLOGY: Blood culture on May 27, grew gram-negative rods. Urine culture and ascitic fluid cultures pending. Repeat blood cultures on May 28, growing gram-positive cocci in pairs and clusters. ANTIMICROBIALS: Vancomycin, Meropenem. PHYSICAL EXAMINATION: GENERAL: Well-developed, middle-aged man who is alert, in no distress. HEENT: Head atraumatic, normocephalic. Sclerae anicteric. Buccal mucosa pink. NECK: Supple. CHEST: Rise symmetrical. Breath sounds clear. HEART: S1, S2. ABDOMEN: Soft. Bowel tones present. EXTREMITIES: Without cyanosis or edema. ASSESSMENT: 1. Status post hematemesis. 2. Bacteremia, rule out SBP, rule out other etiologies. 3. Decompensated alcoholic liver cirrhosis. 4. Recurrent ascites, status post paracentesis a couple of days ago. 5. Anemia and thrombocytopenia. 6. Status post esophageal varices banding. 7. UTI==> Enterococcus/C albicans PLAN: The patient remains stable, will change abx to PO Levaquin, give one dose of Diflucan. Keep on PO Levaquin for 2 weeks [facility] staff Problems: Consultation Date/Type/Reason Admit Date/Time May 22, 2017 at 09:10 Initial Consult Date 05/22/17 Type of Consultation: id Exam/Review of Systems Vital Signs Vitals Vital Signs Date Time Temp Pulse Resp B/P Pulse Ox O2 Delivery O2 Flow Rate FiO2 05/30/17 15:01 97.9 65 19 99/55 100 05/29/17 08:00 Room Air Intake and Output 05/29/17 05/29/17 05/30/17 15:00 23:00 07:00 Intake Total 50 ml 600 ml 1000 ml Balance 50 ml 600 ml 1000 ml Results Result Diagram: 05/30/17 0512 05/30/17 0512 Results 24 hrs Laboratory Tests Test 05/30/17 05:11 05/30/17 05:12 Total Bilirubin 2.3 H 2.3 H Direct Bilirubin 0.00 0.00 Indirect Bilirubin 2.3 H 2.3 H Aspartate Amino Transf (AST/SGOT) 31 31 Alanine Aminotransferase (ALT/SGPT) 37 42 Alkaline Phosphatase 118 119 Ammonia 75 #H Total Protein 5.4 L 5.5 L Albumin 2.1 L 2.1 L White Blood Count 3.7 #L Red Blood Count 2.59 L Hemoglobin 8.4 L Hematocrit 24.2 L Mean Corpuscular Volume 93.4 Mean Corpuscular Hemoglobin 32.4 Mean Corpuscular Hemoglobin Concent 34.7 Red Cell Distribution Width 19.9 H Platelet Count 48 L Mean Platelet Volume 12.0 H Neutrophils % 52.3 Lymphocytes % 25.5 Monocytes % 16.4 H Eosinophils % 3.0 Basophils % 1.4 Nucleated Red Blood Cells % 0.0 Neutrophils # 1.9 Lymphocytes # 0.9 Monocytes # 0.6 Eosinophils # 0.1 Basophils # 0.1 Nucleated Red Blood Cells # 0.0 Sodium Level 131 L Potassium Level 4.4 Chloride Level 109 Carbon Dioxide Level 15 L Anion Gap 11 Blood Urea Nitrogen 25 H Creatinine 1.06 Glucose Level 112 Calcium Level 8.3 L Globulin 3.40 H Albumin/Globulin Ratio 0.61 Medications Medications Current Medications Folic Acid (Folic Acid) 1 mg DAILY PO Last administered on 05/30/17 09:51; Admin Dose 1 MG; Start 05/23/17 at 09:00 Thiamine HCl (Vitamin B1) 50 mg QAM PO Last administered on 05/30/17 09:50; Admin Dose 50 MG; Start 05/23/17 at 09:00 Ondansetron HCl (Zofran Inj) 4 mg Q6H PRN IV NAUSEA AND/OR VOMITING; Start at 09:30 Acetaminophen (Tylenol Tab) 650 mg Q6H PRN PO PAIN LEVEL 1-3 OR FEVER Last administered on 05/27/17 11:47; Admin Dose 650 MG; Start 05/22/17 at 09:30 Acetaminophen/ Hydrocodone Bitart ([place] (5/325)) 1 tab Q6H PRN PO MODERATE PAIN LEVEL 4-6 Last administered on 05/30/17 17:03; Admin Dose 1 TAB; Start 05/22/17 at 09:30 Acetaminophen/ Hydrocodone Bitart ([place] (5/325)) 2 tab Q6H PRN PO SEVERE PAIN LEVEL 7-10 Last administered on 05/29/17 20:54; Admin Dose 2 TAB; Start 05/22 at 09:30 Morphine Sulfate (morphine) 2 mg Q4H PRN IV SEVERE PAIN LEVEL 7-10; Start at 09:30 Docusate Sodium (Colace) 100 mg Q12H PRN PO CONSTIPATION; Start 05/22/17 at 09 :30 Magnesium Hydroxide (Milk Of Mag) 30 ml DAILY PRN PO CONSTIPATION; Start 05/22 at 09:30 Bisacodyl (Dulcolax Supp) 10 mg DAILY PRN IA CONSTIPATION; Start 05/22/17 at 09:30 Rifaximin (Xifaxan) 550 mg BID PO Last administered on 05/30/17 09:50; Admin Dose 550 MG; Start 05/22/17 at 21:00 IV Flush (NS 10 ml) 10 ml PRN PRN IV IV PROTOCOL; Start 05/22/17 at 12:00 Metoclopramide HCl (Reglan) 10 mg Q6 IV Last administered on 05/30/17 13:46; Admin Dose 10 MG; Start 05/22/17 at 19:30 Zolpidem Tartrate (Ambien) 10 mg HS PRN PO INSOMNIA Last administered on 22:13; Admin Dose 10 MG; Start 05/24/17 at 20:30 Pantoprazole 40 mg 40 mg BID@06,18 PO Last administered on 05/30/17 18:22; Admin Dose 40 MG; Start 05/25/17 at 18:00 Meropenem/Sodium Chloride (Merrem 500mg/50 ml(Pmx)) 50 ml @ 100 mls/hr Q8 IVPB Last administered on 05/30/17 17:03; Admin Dose 100 MLS/HR; Start 05/28/17 at 14:00 Lactulose 20 gm 20 gm Q8 PO Last administered on 05/30/17 14:58; Admin Dose 20 GM; Start 05/29/17 at 14:00 Vancomycin HCl (Vancocin) 250 ml @ 125 mls/hr Q12H IVPB Last administered on 05/30/17 13:46; Admin Dose 125 MLS/HR; Start 05/30/17 at 01:00 Furosemide (Lasix) 20 mg DAILY PO Last administered on 05/30/17 09:54; Admin Dose 20 MG; Start 05/30/17 at 09:00 Miscellaneous Information (*Rx Drug Level Order Reminder*) VANCOMYCIN TROUGH ON 05/06... ONCE ONCE XX ; Start 05/31/17 at 00:00; Stop 05/31/17 at 00:01 JULIA HO NP May 30, 2017 19:46
[2017-05-30] MEDS ORDERED: FLUCONAZOLE 200 MG TAB PO ONE (20:00)
[2017-05-30 20:15] VITALS: BP 108/66; PULSE 68; RESP 18
[2017-05-31] MEDS ORDERED: LEVOFLOXACIN 500 MG TAB PO SCH (06:00)
== END 2017-05-30 20:15 | disposition other institution (70) | DRG 432 ==
LOC: E/R 06:08 → TEL 09:10 → MS2 05-28 02:15
PROVIDERS: ADMIT Family Medicine; ATTEND Family Medicine
PROC: 30243N1 Transfusion of Nonautologous Red Blood Cells into Central Vein, Percutaneous Approach (ICD-10-PCS; 2017-05-22)
PROC: 02HV33Z Insertion of Infusion Device into Superior Vena Cava, Percutaneous Approach (ICD-10-PCS; 2017-05-22)
PROC: 0W3P8ZZ Control Bleeding in Gastrointestinal Tract, Via Natural or Artificial Opening Endoscopic (ICD-10-PCS; principal; 2017-05-22 21:30)
PROC: 0W9G3ZX Drainage of Peritoneal Cavity, Percutaneous Approach, Diagnostic (ICD-10-PCS; 2017-05-27)
DX: K70.31 Alcoholic cirrhosis of liver with ascites (principal); I85.11 Secondary esophageal varices with bleeding; K76.7 Hepatorenal syndrome; K92.0 Hematemesis; A41.9 Sepsis, unspecified organism; N17.9 Acute kidney failure, unspecified; E87.2 Acidosis; D68.9 Coagulation defect, unspecified; K76.6 Portal hypertension; E87.1 Hypo-osmolality and hyponatremia; D62 Acute posthemorrhagic anemia; D69.6 Thrombocytopenia, unspecified; E87.5 Hyperkalemia; K31.89 Other diseases of stomach and duodenum; F32.9 Major depressive disorder, single episode, unspecified; D63.8 Anemia in other chronic diseases classified elsewhere
CPT/HCPCS: 36415; 36430; 36569; 71010; 76775; 76937; 80048; 80053; 80061; 80076; 81003; 82042; 82043; 82140; 82150; 82945; 83036; 83615; 83735; 84100; 84132; 84155; 84157; 84300; 84436; 84443; 84479; 84484; 85014; 85018; 85025; 85610; 85730; 86644; 86850; 86900; 86901; 86920; 87040; 87070; 87086; 87102; 87116; 89051; 93005; 96365; 96366; 96375; 96376; C9113; J0696; J2185; J2250; J2270; J2354; J2405; J2543; J2765; J3370; J3475; J7030; J7040; J7060; P9016; P9047

== ENCOUNTER 2017-06-23 11:29 | Emergency (ER) | END 2017-06-23 17:25 | disposition home or self-care (01) ==

== ENCOUNTER 2017-06-29 19:42 | Emergency (ER) | END 2017-06-30 16:45 | disposition home or self-care (01) ==

== ENCOUNTER 2017-07-05 19:37 | Emergency (ER) | END 2017-07-06 04:33 | disposition home or self-care (01) ==

== ENCOUNTER 2017-08-29 20:35 | Emergency (ER) | END 2017-08-29 22:58 | disposition home or self-care (01) ==